=== PATIENT | female | born 1980 | race Caucasian/White ===

== ENCOUNTER 2023-08-22 18:43 | Outpatient (REF) | payer OTHER, SELFPAY ==
[2023-08-28 11:09] LABS: Age Gdln ACOG Testing Note (.); HPV Aptima Negative (Negative); IGP, Aptima HPV, rfx 16/18,45 Note (.)
== END 2023-08-22 18:44 | disposition home or self-care (01) ==
LOC: LAB 18:43
PROVIDERS: PCP Family Medicine; Visit Provider Obstetrics & Gynecology
DX: Z01.419 Encounter for gynecological examination (general) (routine) without abnormal findings (principal)
CPT/HCPCS: 87624; G0145

== ENCOUNTER 2023-09-18 16:52 | Outpatient (OUT) | payer OTHER, SELFPAY ==
--- NOTE | 2023-09-18 17:17 | MM_ITS ---
Patient Name BENITO DAHL MR# Age Sex Date Time [id number] F 09/18/2023 17:00 At the Request Of DR Moiz Mendiola . RADIOLOGY REPORT PROCEDURE: MM TOMOSYNTHESIS SCREENING BI COMPARISON: MG MAMM DIAGNOSTIC 3D OTTONIEL CAD, 06/02/2022. MG MAMM DX 3D LT CAD, 10/28/2021. MAMMO POST BIOPSY LEFT, 02/21/2021. MG MAMM SCREEN 3D OTTONIEL CAD, 02/03/2021. INDICATIONS: Screening Calculator Name NCI Breast Cancer Risk Assessment Tool 5 Year Breast Cancer Risk 1.60% Lifetime Breast Cancer Risk 12.70% Personal Breast Cancer No Personal Ovarian Cancer No Treatments None Family Cancers None LOCATION: [facility] BREAST COMPOSITION: Heterogeneously dense,which may obscure small masses. FINDINGS: DIAGNOSTIC CATEGORY 2--BENIGN FINDING: RIGHT BREAST: No significant suspicious finding. Scattered benign-appearing calcifications are present. No significant change has occurred. LEFT BREAST: No significant suspicious finding. Scattered benign-appearing calcifications are present. Stable biopsy marker clip. No significant change has occurred. RECOMMENDATIONS: ROUTINE MAMMOGRAM AND CLINICAL EVALUATION IN 12 MONTHS. PLEASE NOTE: A NORMAL MAMMOGRAM DOES NOT EXCLUDE THE POSSIBILITY OF BREAST CANCER. A CLINICALLY SUSPICIOUS PALPABLE LUMP SHOULD BE BIOPSIED. Dictated by: Edouard Watson M.D. on 09/19/2023 at 10:53 Approved by: Edouadr Watson M.D. on 09/19/2023 at 10:57
== END 2023-09-18 16:53 | disposition home or self-care (01) ==
LOC: MAMMO 16:52
PROVIDERS: PCP Family Medicine; Visit Provider Obstetrics & Gynecology
DX: Z12.31 Encounter for screening mammogram for malignant neoplasm of breast (principal)
CPT/HCPCS: 77063; 77067

== ENCOUNTER 2024-01-17 21:07 | Emergency (ER) | payer OTHER, SELFPAY ==
[2024-01-17] VITALS (13 sets, daily range): BP systolic 124–161; BP diastolic 70–97; PULSE 75–90; RESP 7–26; TEMP 37; O2SAT 94–100; BMI 26.6
--- NOTE | 2024-01-17 21:13 | ECG_ITS ---
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
--- OUTSIDE RECORDS SUMMARY | 2024-01-17 21:13 | XMS_ITS | CCD ---
Author Name Unknown Address [address] [place] [address] Organization [facility] Care Team Providers Care Container Coordinator Name Role Phone BRITTANEY CHRISTIANSEN Attending Unavailable AILEEN CASTELLANOS Referring Unavailable Jasmin, Aileen Unavailable GO MENDIOLA Admitting Unavailable JASMIN, DR GALLAGHER Primary Care Unavailable GO MENDIOLA Attending Unavailable GO MENDIOLA Consulting Unavailable HAY, DR EDOUARD Oh Consulting Unavailable VIRGILIO GASCA Attending Unavailable VIRGILIO GASCA Consulting Unavailable VIRGILIO GASCA Admitting Unavailable JASMIN, DR GALLAGHER Primary Care Unavailable MIGUEL MONZON Consulting Unavailable JASMIN, DR GALLAGHER Attending Unavailable GIRVIN, DR GALLAGHER Consulting Unavailable GIRVIN, DR GALLAGHER Primary Care Unavailable GIRVIN, DR GALLAGHER Admitting Unavailable GO MENDIOLA Consulting Unavailable JASMIN, DR GALLAGHER Primary Care Unavailable GO MENDIOLA Admitting Unavailable GO MENDIOLA Attending Unavailable JASMIN, DR GALLAGHER Attending Unavailable GIRVIN, DR GALLAGHER Consulting Unavailable GIRVIN, DR GALLAGHER Primary Care Unavailable GIRVIN, DR GALLAGHER Admitting Unavailable Allergies Allergy Classification Reported Allergen(s) Allergy Type Date of Onset Reaction(s) Facility (13 sources) Acetaminophen Drug Allergy [facility] Other (1 source) Acetaminophen Drug Allergy [facility] Repository Medications Current Medications Medication Drug Class(es) Dates Sig (Normalized) Sig (Original) ALPRAZolam 0.25 mg oral tablet (4 sources) Benzodiazepine Start: 12-11-2023 take 1 tablet by mouth once at bedtime as needed Xanax 0.25 MG 1 tablet Orally q HS prn for 28 days Nov, Active Start: 10-09-2023 Xanax 0.25 MG 1 tablet Orally q8-12 hrs prn for 7 days Sep, Active amoxicillin 875 mg / clavulanate 125 mg oral tablet (3 sources) Penicillin-class Antibacterial Start: 03-09-2019 take 1 tablet by mouth twice daily at mealtime Amoxicillin-Pot Clavulanate 875-125 MG 1 tablet Orally two times a day with food for 10 day(s) Feb, Active 24 hr buPROPion hydrochloride 300 mg extended release oral tablet (2 sources) Aminoketone Start: 05-23-2022 take 1 tablet by mouth every twenty-four hours Wellbutrin XL 300 MG 1 tablet in the morning Orally Once a day for 90 days May, Active Start: 05-23-2022 take 1 tablet by solomon th every twenty-four hours Wellbutrin XL 150 MG 1 tablet in the morning Orally Once a day for 30 day(s) May, Active ibuprofen 800 mg oral tablet (13 sources) Nonsteroidal Anti-inflammatory Drug take 1 tablet by mouth at mealtime as needed Ibuprofen 800 MG TAKE 1 TABLET BY MOUTH EVERY 8 TO 12 HOURS WITH FOOD NEEDED for 20 Active take 1 tablet by solomon th at mealtime as needed Ibuprofen 800 MG TAKE 1 TABLET BY MOUTH EVERY 8 TO 12 HOURS WITH FOOD NEEDED for 20 Active 3 ml liraglutide 6 mg/ml pen injector (14 sources) GLP-1 Receptor Agonist inject 1.8 mg by subcutaneous injection once daily Victoza 18 MG/3ML ADMINISTER 1.8 MG UNDER THE SKIN EVERY DAY for 30 Active inject 1.2 mg by sub cutaneous injection once daily Victoza 18 MG/3ML ADMINISTER 1.2 MG UNDER THE SKIN EVERY DAY for 30 Active 24 hr metFORMIN hydrochloride 500 mg extended release oral tablet (13 sources) Biguanide take 2 tablets by mouth once daily in the morning, then take 1 tablet by mouth once daily in the evening metFORMIN HCl ER 500 MG TAKE 2 TABLETS BY MOUTH EVERY MORNING AND 1 EVERY EVENING for 90 days Active sertraline 25 mg oral tablet (4 sources) Serotonin Reuptake Inhibitor Start: 3 take 0.5 tablet by mouth once daily, then take 1 tablet by mouth once daily Zoloft 25 MG 1/2 tablet qd x6 days and then take 1 tablet Orally Once a day for 30 days Sep, Active Sertraline HCl 5 0 MG take 1 and 1/2 tablet by mouth once a day for 30 days Active terbinafine 250 mg oral tablet (1 source) Allylamine Antifungal Start: 06-26-2023 take 1 tablet by mouth every twenty-four hours Terbinafine HCl 250 MG 1 tablet Orally Once a day for 15 days Jun, Active Completed/Discontinued Medications Medication Drug Class(es) Dates Sig (Normalized) Sig (Original) [id number] 60 actuat albuterol 0.09 mg/actuat metered dose inhaler (13 sources) beta2-Adrenergic Agonist take 2 puff(s) by mouth four times daily as needed Albuterol Sulfate HFA 108 (90 Base) MCG/ACT INHALE 2 PUFFS BY MOUTH INTO THE LUNGS FOUR TIMES DAILY NEEDED for 25 prn Not-Taking/PRN take 2 puff(s) by mo uth four times daily as needed Albuterol Sulfate HFA 108 (90 Base) MCG/ ACT INHALE 2 PUFFS BY MOUTH INTO THE LUNGS FOUR TIMES DAILY NEEDED for 25 prn Not-Taking take 2 puff(s) by mo uth four times daily as needed Albuterol Sulfate HFA 108 (90 Base) MCG/ ACT INHALE 2 PUFFS BY MOUTH INTO THE LUNGS FOUR TIMES DAILY NEEDED for 25 Active cetirizine hydrochloride 10 mg oral tablet (13 sources) Histamine-1 Receptor Antagonist take 1 tablet by mouth once daily as needed Cetirizine HCl 10 MG TAKE 1 TABLET BY MOUTH EVERY DAY prn Not-Taking/PRN Triamcinolone (20 sources) Corticosteroid Start: 01-17-20 20 Kenalog -40 mg Jan, 60 mg Start: 07-29-2018 KENALOG - 10 m g Jul, 40 mg Problems Active Problems Problem Classification Problem Date Documented Da te Episodic/Chronic Anxiety disorders (7 sources) Anxiety; Translations: [Anxiety disorder, unspecified] Chronic Diabetes mellitus with complications (14 sources) Type II diabetes mellitus uncontrolled; Translations: [Type 2 diabetes mellitus with hyperglycemia] Onset: 05-23-2022 Resolved: 05-23-2022 Chronic Diabetes mellitus without complication (11 sources) Type 2 diabetes mellitus; Translations: [Type 2 diabetes mellitus without complications] Onset: 12-05-2022 Chronic Diabetes mellitus without complication (13 sources) Hyperglycemia; Translations: [Hyperglycemia, unspecified] Episodic Disorders of lipid metabolism (16 sources) Hyperlipidemia; Translations: [Hyperlipidemia, unspecified] Onset: 05-23-2022 Resolved: 05-23-2022 Chronic Genitourinary symptoms and ill-defined conditions (3 sources) Frequency of micturition; Translations: [Proteinuria, unspecified] Onset: 05-23-2022 Resolved: 05-23-2022 Episodic Malaise and fatigue (1 source) Other fatigue Episodic Mood disorders (4 sources) Depressive disorder; Translations: [Major depressive disorder, single episode, unspecified] Chronic Mycoses (1 source) Tinea pedis Episodic Other aftercare (13 sources) Long-term current use of drug therapy; Translations: [Other halfway (current) drug therapy] Episodic Other aftercare (4 sources) Other halfway (current) drug therapy; Translations: [OTH TRANSPORT MANAGER CURRENT DRUG THERAPY] Onset: 05-23-2022 Resolved: 05-23-2022 Episodic Other liver diseases (13 sources) Elevated liver enzymes level; Translations: [Abnormal levels of other serum enzymes] Episodic Other nervous system disorders (13 sources) Skin sensation disturbance; Translations: [Paresthesia of skin] Episodic Other nervous system disorders (13 sources) Paresthesia of upper limb; Translations: [Paresthesia of skin] Episodic Other nutritional; endocrine; and metabolic disorders (2 sources) Abnormal weight loss Onset: 05-23-2022 Resolved: 05-23-2022 Episodic Other nutritional; endocrine; and metabolic disorders (1 source) Abnormal weight gain Episodic Other screening for suspected conditions (not mental disorders or infectious disease) (20 sources) Mammography abnormal; Translations: [Other abnormal and inconclusive findings on diagnostic imaging of breast] Onset: 06-02-2022 Episodic Other skin disorders (1 source) Other seborrheic keratosis Episodic Other upper respiratory disease (13 sources) Allergic rhinitis; Translations: [Allergic rhinitis, unspecified] Chronic Other upper respiratory disease (1 source) Allergic rhinitis, unspecified Onset: 05-23-2022 Resolved: 05-23-2022 Chronic Residual codes; unclassified (13 sources) Insomnia; Translations: [Insomnia, unspecified] Episodic Substance-related disorders (20 sources) Nicotine dependence; Translations: [Nicotine dependence, unspecified, uncomplicated] Onset: 05-23-2022 Resolved: 06-20-2022 Chronic Unclassified (3 sources) CONTACT W/AND (SUSP) EXPOS COVID-19; Translations: [CONTACT W/AND (SUSP) EXPOS COVID-19] Onset: 06-21-2022 Viral infection (1 source) Molluscum contagiosum Episodic Viral infection (5 sources) COVID-19; Translations: [COVID-19] Onset: 10-23-2022 Past or Other Problems Problem Classification Problem Date Documented Date Episodic/Chronic Abdominal pain (3 sources) Left lower quadrant pain; Translations: [LEFT LOWER QUADRANT PAIN] Onset: 12-01-2022 Episodic Immunizations and screening for infectious disease (1 source) Encounter for screening for human papillomavirus (HPV); Translations: [ENC SCREENING HUMAN PAPILLOMAVIRUS] Onset: 08-16-2022 Episodic Nonmalignant breast conditions (1 source) Unspecified lump in the left breast, upper outer quadrant; Translations: [UNS LUMP IN LT BREAST UPR OUTR QUAD] Onset: 10-23-2022 Episodic Other aftercare (1 source) terminal superintendent (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) use 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 drugs; Translations: [TRANSPORT MANAGER USE ORAL HYPOGLYCEMIC DX] Onset: 12-05-2022 Episodic Other circulatory disease (3 sources) Other specified symptoms and signs involving the circulatory and respiratory systems; Translations: [OTH SPEC SX SIGNS INVLV CIRC RS] Onset: 06-20-2022 Resolved: 06-20-2022 Episodic Otitis media and related conditions (1 source) Otitis media, unspecified, left ear Onset: 06-20-2022 Resolved: 06-20-2022 Episodic Residual codes; unclassified (2 sources) Pain, unspecified; Translations: [PAIN UNSPECIFIED] Onset: 06-20-2022 Resolved: 06-20-2022 Episodic Screening and history of mental health and substance abuse codes (1 source) Personal history of nicotine dependence; Translations: [PERSONAL HISTORY OF NICOTINE DEPEND] Onset: 12-05-2022 Episodic Unclassified (1 source) Cough R05.9 Unclassified (1 source) CONTACT W/AND (SUSP) EXPOS COVID-19; Translations: [CONTACT W/AND (SUSP) EXPOS COVID-19] Onset: 06-20-2022 Urinary tract infections (1 source) Urinary tract infection, site not specified; Translations: [UTI SITE NOT SPECIFIED] Onset: 12-05-2022 Episodic Results Test Name Value Interpretation Reference Range Facility CULTURE URINEon 12-04-2022 CULTURE URINE Isolate 1 Escherichia coli 50,000 cfu/mL of ORGANISM 1 Escherichia coli ANTIBIOTIC M.I.C RX STATUS Ampicillin >=32 R F Ampicillin/Sulbactam 16 I F Piperacillin/Tazobact am <=4 S F Cefazolin <=4 S F Ceftazidime <=1 S F Ceftriaxone <=1 S F Ertapenem <=0.5 S F Imipenem <=0.25 S F Amikacin <=2 S F Gentamicin <=1 S F Tobramycin <=1 S F Ciprofloxacin >=4 R F Levofloxacin >=8 R F Nitrofurantoin <=16 S F Trimethoprim/Sulfamet hoxazole <=20 S F Normal [facility] Comment on above: Performed By: #### U RCX #### [facility] [address] [place] [address] Dr. Sheldon Morse CBC AUTO DIFFon 12-01-2022 BASO # 0.0 103/ul Normal 0.0-0.1 [facility] Comment on above: Performed By: #### C BC #### [facility] [address] [place] [address] Dr. Sheldon Morse Basophils/100 WBC (Bld) 0.4 % Normal 0.2-2.0 [facility] Comment on above: Performed By: #### C BC #### [facility] [address] [place] [address] Dr. Sheldon Morse EO # 0.1 103/ul Normal 0.0-0.7 [facility] Comment on above: Performed By: #### C BC #### [facility] [address] [place] [address] Dr. Sheldon Morse Eosinophils/100 WBC (Bld) 0.5 % Critically low 0.9-7.0 [facility] Comment on above: Performed By: #### C BC #### [facility] [address] [place] [address] Dr. Sheldon Morse Erythrocyte distribution width (RBC) [Ratio] 12.2 % Normal 11.0-15.0 [facility] Comment on above: Performed By: #### C BC #### [facility] [address] [place] [address] Dr. Sheldon Morse Hematocrit (Bld) [Volume fraction] 37.5 % Normal 36.0-48.0 [facility] Comment on above: Performed By: #### C BC #### [facility] [address] [address] [address] Sheldon Morse Hemoglobin (Bld) [Mass/Vol] 13.9 g/dL Normal 12.0-16.0 [facility] Comment on above: Performed By: #### C BC #### [facility] [address] [address] [address] Sheldon Morse IG # 0.06 10e3/ul Critically high 0.00-0.03 [facility] Comment on above: Performed By: #### C BC #### [facility] [address] [address] [address] Sheldon Morse IG % 0.5 % Normal 0.0-0.5 [facility] Comment on above: Performed By: #### C BC #### [facility] [address] [place] [address] Dr. Sheldon Morse LYMPH # 2.4 103/ul Normal 1.2-3.8 [facility] Comment on above: Performed By: #### C BC #### [facility] [address] [address] [address] Sheldon Morse Lymphocytes/100 WBC (Bld) 21.3 % Normal 20.5-60.0 [facility] Comment on above: Performed By: #### C BC #### [facility] [address] [place] [address] Dr. Sheldon Morse MANUAL DIFF REQ NO Normal [facility] Comment on above: Performed By: #### C BC #### [facility] [address] [place] [address] Dr. Sheldon Morse MCH (RBC) [Entitic mass] 30.3 pg Normal 26.7-34.0 [facility] Comment on above: Performed By: #### C BC #### [facility] [address] [address] [address] Sheldon Morse MCHC (RBC) [Mass/Vol] 37.1 g/dL Critically high 29.9-35.2 [facility] Comment on above: Performed By: #### C BC #### [facility] [address] [address] [address] Sheldon Morse MCV (RBC) [Entitic vol] 81.9 fL Normal 81.0-99.0 [facility] Comment on above: Performed By: #### C BC #### [facility] [address] [address] [address] Sheldon Morse MONO # 0.7 103/ul Normal 0.3-0.8 [facility] Comment on above: Performed By: #### C BC #### [facility] [address] [address] [address] Sheldon Morse Monocytes/100 WBC (Bld) 6.3 % Normal 1.7-12.0 [facility] Comment on above: Performed By: #### C BC #### [facility] [address] [place] [address] Dr. Sheldon Morse NEUT # 7.8 103/ul Critically high 1.4-6.5 [facility] Comment on above: Performed By: #### C BC #### [facility] [address] [place] [address] Dr. Sheldon Morse Neutrophils/100 WBC (Bld) 71.0 % Normal 43.0-75.0 [facility] Comment on above: Performed By: #### C BC #### [facility] [address] [place] [address] Dr. Sheldon Morse Platelet mean volume (Bld) [Entitic vol] 9.8 fL Normal 9.5-13.5 [facility] Comment on above: Performed By: #### C BC #### [facility] [address] [place] [address] Dr. Sheldon Morse PLT 184 103/ul Normal 150-450 [facility] Comment on above: Performed By: #### C BC #### [facility] [address] [address] [address] Sheldon Morse RBC 4.58 106/ul Normal 4.20-5.40 [facility] Comment on above: Performed By: #### C BC #### [facility] [address] [place], [place] [address] Dr. Sheldon Morse WBC 11.0 103/ul Normal 4.0-11.0 [facility] Comment on above: Performed By: #### C #### [facility] [address] [place], [place] [address] ABD/PELVIS WO CONon 12-01 CT ABD/PELVIS WO CON INDICATION: CALCULUS OF KIDNEY urinary retention x's 1 month (on/off) LLQ pain w/ urinary problem EXAMINATION: CT ABDOMEN AND PELVIS WITHOUT CONTRAST TECHNIQUE: Helically acquired images were obtained of the abdomen and pelvis without IV contrast. A radiation dose optimization technique was used for this scan. ORAL CONTRAST: None. COMPARISON: None. __ FINDINGS: LOWER CHEST: The visualized portions of the lung bases are clear. The heart size is within normal limits. A pericardial effusion is not identified. LIVER: No hepatic mass or lesion is identified. Diminished hepatic attenuation suggests mild fatty infiltration of the GALLBLADDER AND BILIARY TREE: No gallstones are identified. The gallbladder does not appear distended. No gallbladder wall thickening is identified. There is no visible pericholecystic fluid. No intra- or extrahepatic biliary ductal dilation is identified. STOMACH: Unremarkable. PANCREAS: A pancreatic mass or lesion is not identified. The pancreatic duct does not appear dilated. SPLEEN: A splenic lesion is not identified. ADRENAL GLANDS: The adrenal glands appear normal. KIDNEYS AND URETERS: The kidneys appear normal. The ureters are unremarkable in appearance. PERITONEUM: No free intra-abdominal air is identified. No free pelvic fluid is detected. BOWEL: No bowel distension is observed. No significant colonic diverticula are observed. LYMPH NODES: No enlarged mesenteric or retroperitoneal lymph nodes. VESSELS: An aneurysm is not identified. There are rare calcifications in the abdominal aorta. UTERUS: Normal in morphology. No mass or distortion detected. OVARIES: Unremarkable in appearance. URINARY BLADDER: Unremarkable. ABDOMINAL WALL: No abdominal or pelvic wall hernia. APPENDIX: The appendix appears normal. MUSCULOSKELETAL: No lytic or blastic abnormality. IMPRESSION: 1. Mild fatty infiltration of the liver. 2. No CT evidence of obstructive uropathy. 3. No urinary calculi detected. 4. An acute abnormality is not observed. Electronically authenticated by: MIGUEL MONZON Date: 2022-12-01 17:08 Normal [facility] ER URINE PROFILEon 3 Bilirubin Ql (U) Negative Normal NEGATIVE [facility] Comment on above: Performed By: #### E RUR, PREGU, UMICRO #### [facility] [address] [address] [address] Sheldon Morse Clarity (U) SL CLOUDY Abnormal CLEAR [facility] Comment on above: Performed By: #### E RUR, PREGU, UMICRO #### [facility] [address] [address] [address] Sheldon Morse Color (U) LT. YELLOW Normal YELLOW [facility] Comment on above: Performed By: #### E RUR, PREGU, UMICRO #### [facility] [address] [address] [address] Sheldon SOLANO A micrscopic examination will be performed if indicated. Normal [facility] Comment on above: Performed By: #### E RUR, PREGU, UMICRO #### [facility] [address] [address] [address] Sheldon Morse Glucose Ql (U) Negative Normal NEGATIVE [facility] Comment on above: Performed By: #### E RUR, PREGU, UMICRO #### [facility] [address] [address] [address] Sheldon Morse Hemoglobin Ql (U) LARGE Abnormal NEGATIVE The [facility] Comment on above: Performed By: #### E RUR, PREGU, UMICRO #### [facility] [address] [address] [address] Sheldon Morse Ketones Ql (U) Negative Normal NEGATIVE [facility] Comment on above: Performed By: #### E RUR, PREGU, UMICRO #### [facility] [address] [address] [address] Sheldon Morse LEUKOCYTES LARGE Abnormal NEGATIVE [facility] Comment on above: Performed By: #### E RUR, PREGU, UMICRO #### [facility] [address] [place] [address] Dr. Sheldon Morse Nitrite Ql (U) Negative Normal NEGATIVE [facility] Comment on above: Performed By: #### E RUR, PREGU, UMICRO #### [facility] [address] [place] [address] Dr. Sheldon Morse pH (U) 6.0 [pH] Normal 5-9 [facility] Comment on above: Performed By: #### E RUR, PREGU, UMICRO #### [facility] [address] [place] [address] Dr. Sheldon Morse Protein (U) [Mass/Vol] 30 mg/dL Abnormal NEGATIVE/ TRACE [facility] Comment on above: Performed By: #### E RUR, PREGU, UMICRO #### [facility] [address] [place] [address] Dr. Sheldon Morse SPEC GRAVITY 1.025 Normal 1.005-<=1.025 [facility] Comment on above: Performed By: #### Bharat CASTANEDA PREGU, UMICRO #### [facility] [address] [place] [address] Dr. Sheldon Morse UR MICRO IND INDICATED Normal [facility] Comment on above: Performed By: #### E RUR, PREGU, UMICRO #### [facility] [address] [place] [address] Dr. Sheldon Morse Urobilinogen Qn (U) 0.2 {José'U}/dL Normal 0.2 - 1. 0 [facility] Comment on above: Performed By: #### E RUR PREGU, UMICRO #### [facility] [address] [place] [address] Dr. Sheldon Morse LIPASEon 12-01-2022 Lipase [Catalytic activity/Vol] 64.0 U/L Critically low 73.0-393.0 [facility] Comment on above: Performed By: #### E RUR, PREGU, UMICRO #### [facility] [address] [place] [address] Dr. Sheldon Morse URon 12-01-2022 , QUAL Negative Normal NEGATIVE [facility] Comment on above: Performed By: #### E RURERUMU, UMICRO #### [facility] [address] [place] [address] Dr. Sheldon Morse PROF 14(COMP METB)on 023 Albumin [Mass/Vol] 4.2 g/dL Normal 3.4-5.0 [facility] Comment on above: Performed By: #### C MP, LIPA #### [facility] [address] [place] [address] Dr. Sheldon Morse Albumin/Globulin [Mass ratio] 1.3 {ratio} Normal [facility] Comment on above: Performed By: #### C MP, LIPA #### [facility] [address] [place] [address] Dr. Sheldon Morse ALP [Catalytic activity/Vol] 74 U/L Normal 46-116 [facility] Comment on above: Performed By: #### C MP, LIPA #### [facility] [address] [place] [address] Dr. Sheldon Morse ALT [Catalytic activity/Vol] 39 U/L Normal 14-59 [facility] Comment on above: Performed By: #### C MP, LIPA #### [facility] [address] [place] [address] Dr. Sheldon Morse Anion gap [Moles/Vol] 13.9 mmol/L Normal [facility] Comment on above: Performed By: #### C MP, LIPA #### [facility] [address] [place] [address] Dr. Sheldon Morse AST [Catalytic activity/Vol] 20 U/L Normal 15-37 [facility] Comment on above: Performed By: #### C MP, LIPA #### [facility] [address] [place] [address] Dr. Sheldon Morse Bilirubin [Mass/Vol] 0.5 mg/dL Normal 0.2-1.0 [facility] Comment on above: Performed By: #### C MP, LIPA #### [facility] [address] [address] [address] Sheldon Morse Calcium [Mass/Vol] 9.1 mg/dL Normal 8.5-10.1 [facility] Comment on above: Performed By: #### C MP, LIPA #### [facility] [address] [address] [address] Sheldon Morse Chloride [Moles/Vol] 102 mmol/L Normal 98-107 [facility] Comment on above: Performed By: #### C MP, LIPA #### [facility] [address] [address] [address] Sheldon Morse CO2 [Moles/Vol] 26.1 mmol/L Normal 21.0-32.0 [facility] Comment on above: Performed By: #### C MP, LIPA #### [facility] [address] [place] [address] Dr. Sheldon Morse Creatinine [Mass/Vol] 0.72 mg/dL Normal 0.55-1.02 [facility] Comment on above: Performed By: #### C MP, LIPA #### [facility] [address] [place] [address] Dr. Sheldon Morse EGFR-AF BRITISH >60 Normal >=60 [facility] Comment on above: Performed By: #### C MP, LIPA #### [facility] [facility] [address] [place] [address] Dr. Sheldon Morse EGFR-NON AF BRITISH >60 Normal >=60 [facility] Comment on above: Performed By: #### C MP, LIPA #### [facility] [address] [address] [address] Sheldon Morse Globulin (S) [Mass/Vol] 3.2 g/dL Normal [facility] Comment on above: Performed By: #### C MP, LIPA #### [facility] [address] [address] [address] Sheldon Morse Glucose [Mass/Vol] 126 mg/dL Critically high 74-106 [facility] Comment on above: Performed By: #### C MP, LIPA #### [facility] [address] [address] [address] Sheldon Morse Potassium [Moles/Vol] 4.0 mmol/L Normal 3.5-5.1 [facility] Comment on above: Performed By: #### C MP, LIPA #### [facility] [address] [place] [address] Dr. Sheldon Morse Protein [Mass/Vol] 7.4 g/dL Normal 6.4-8.2 [facility] Comment on above: Performed By: #### C MP, LIPA #### [facility] [address] [place] [address] Dr. Sheldon Morse Sodium [Moles/Vol] 138 mmol/L Normal 136-145 [facility] Comment on above: Performed By: #### C MP, LIPA #### [facility] [address] [place] [address] Dr. Sheldon Morse Urea nitrogen [Mass/Vol] 11.0 mg/dL Normal 7.0-18.0 [facility] Comment on above: Performed By: #### C MP, LIPA #### [facility] [address] [place] [address] Dr. Sheldon Morse Urea nitrogen/Creatinine [Mass ratio] 15.3 mg/mg Normal [facility] Comment on above: Performed By: #### C MP, LIPA #### [facility] [address] [place] [address] Dr. Sheldon Morse URINE MICROSCOPIC ONLYon BACTERIA TRACE Abnormal NONE SEEN [facility] Comment on above: Performed By: #### E RUR, PREGU, UMICRO #### [facility] [address] [place] [address] Dr. Sheldon Morse Bacteria identified Cx Nom (U) INDICATED Normal [facility] Comment on above: Performed By: #### E RUR, PREGU, UMICRO #### [facility] [address] [place] [address] Dr. Sheldon Morse CAST NONE SEEN Normal NONE SEEN [facility] Comment on above: Performed By: #### E RUR, PREGU, UMICRO #### [facility] [address] [address] [address] Sheldon Morse Crystals LM Nom (Urine sed) NONE SEEN Normal NONE SEEN [facility] Comment on above: Performed By: #### E RUR, PREGU, UMICRO #### [facility] [address] [address] [address] Sheldon Morse Epithelial cells LM Ql (Urine sed) NONE SEEN Normal NONE SEEN /RARE [facility] Comment on above: Performed By: #### E RUR, PREGU, UMICRO #### [facility] [address] [address] [address] Sheldon Morse MUCOUS NONE SEEN Normal NONE SEEN [facility] Comment on above: Performed By: #### E RUR, PREGU, UMICRO #### [facility] [address] [place] [address] Dr. Sheldon Morse RBC 0-2 Normal 0-2 [facility] Comment on above: Performed By: #### E RUR, PREGU, UMICRO #### [facility] [address] [address] [address] Sheldon Morse WBC 75-100 Abnormal NONE SEEN [facility] Comment on above: Performed By: #### E RUR, PREGU, UMICRO #### [facility] [address] [address] [address] Sheldon Morse [facility]on 10-12 SARS-CoV-2 (COVID-19) RNA BRIGID+probe Ql (Unsp spec) Detected Critically abnormal NOT DETECTED [facility] Comment on above: Result Comment: This test is not yet approved or cleared by the [place] FDA. When there are no FDA-approved or cleared tests available, and other criteria are met, FDA can make tests available under an emergency access mechanism called an Emergency Use Authorization (EUA). The EUA for this test is supported by the [employer] Technician of Health and Human Service's (HHS's) declaration that circumstances exist to justify the emergency use of in vitro diagnostics for the detection and/or diagnosis of the virus that causes COVID-19. This EUA will remain in effect (meaning this test can be used) for the duration of the COVID-19 declaration justifying emergency of IVDs, unless it is terminated or revoked by FDA (after which the test may no longer be used). Performed By: #### E RUR PREGU UMICRO #### [facility] [address] [place] [address] Dr. Sheldon Morse PAP ACOG PANEL 2: 30 to 65on 08-24-2022 . . Normal [facility] Comment on above: Result Comment: Perf ormed at: WB Performed By: #### E RUR PREGU UMICRO #### [facility] [address] [place] [address] Dr. Sheldon Morse Age Gdln ACOG Testing 30-65 Normal [facility] Comment on above: Performed By: #### E RUR PREGU, UMICRO #### [facility] [address] [place] [address] Dr. Sheldon Morse DIAGNOSIS: Comment Normal [facility] Comment on above: Result Comment: NEGA TIVE FOR INTRAEPITHELIAL LESION OR MALIGNANCY. REACTIVE CELLULAR CHANGES AND/OR REPAIR ARE PRESENT. Performed at: WB Performed By: #### E YAMILA CASTANEDA UMICRO #### [facility] [address] [place] [address] Dr. Sheldon Morse Electronically signed by: Comment Normal [facility] Comment on above: Result Comment: Esperanza Holm MD, Pathologist Performed at: WB Performed By: #### E RUAdriano PREGU UMICRO #### [facility] [address] [place] [address] Dr. Sheldon Morse HPV Aptima Negative Normal Negative [facility] Comment on above: Result Comment: This nucleic acid amplification test detects fourteen high-risk HPV types (16,18,31,33,35,39,45,51,52,56,58,59,66,68) without differentiation. Performed at: =G Performed By: #### E RUR PREGU, UMICRO #### [facility] [address] [place] [address] Dr. Sheldon Morse Methodology: Comment Normal [facility] Comment on above: Result Comment: This liquid based ThinPrep(R) pap test was screened with the use of an image guided system. Performed at: WB Performed By: #### YAMILA GARCIA UMICRO #### [facility] [address] [address] [address] Sheldon Morse Note: Comment Normal [facility] Comment on above: Result Comment: The Pap smear is a screening test designed to aid in the detection of premalignant and malignant conditions of the uterine cervix. It is not a diagnostic procedure and should not be used as the sole means of detecting cervical cancer. Both false-positive and false-negative reports do occur. . Performed at: WB Performed By: #### YAMILA GARCIA UMICRO #### [facility] [address] [address] [address] Sheldon Morse Performed by: Comment Normal [facility] Comment on above: Result Comment: Desean Stoll, Insole Filler (ASCP) Performed at: WB Performed By: #### YAMILA GARCIA UMICRO #### [facility] [address] [address] [address] Sheldon Morse Specimen adequacy: Comment Normal [facility] Comment on above: Result Comment: Sati sfactory for evaluation. Endocervical and/or squamous metaplastic cells (endocervical component) are present. Performed at: WB Performed By: #### YAMILA GARCIA UMICRO #### [facility] [address] [address] [address] Sheldon Morse [facility]id-19 PCR ([facility]on SARS-CoV-2 (COVID-19) RNA BRIGID+probe Ql (Unsp spec) Not detected Normal NOT DETECTED [facility] Comment on above: Result Comment: This test is not yet approved or cleared by the [place] FDA. When there are no FDA-approved or cleared tests available, and other criteria are met, FDA can make tests available under an emergency access mechanism called an Emergency Use Authorization (EUA). The EUA for this test is supported by the Victor of Health and Human Service's (HHS's) declaration that circumstances exist to justify the emergency use of in vitro diagnostics for the detection and/or diagnosis of the virus that causes COVID-19. This EUA will remain in effect (meaning this test can be used) for the duration of the COVID-19 declaration justifying emergency of IVDs, unless it is terminated or revoked by FDA (after which the test may no longer be used). When diagnostic testing is negative, the possibility of a false negative should be considered in the context of a patient's recent exposures and the presence of clinical signs and symptoms consistent with SARS-CoV-2. Performed By: #### [facility] #### [facility] [address] [place] [address] Dr. Sheldon Morse MG MAMM DIAGNOSTIC 3D OTTONIEL CA Don 06-02-2022 MG MAMM DIAGNOSTIC 3D OTTONIEL CAD Patient: DEBBY DURBIN Exam Date: 06/02/2022 : 1980 Gender:F Ordering : DR GO MENDIOLA . Admission #: [id number] Family : Order #: [id number] CLICK HERE TO VIEW EXAM RADIOLOGY REPORT PROCEDURE: MAMMOGRAM DIAGNOSTIC 3D BILATERAL CAD, 06/02/2022, 14:04 ULTRASOUND BREAST LEFT LIMITED, 06/02/2022, 14:57 COMPARISON: US BREAST LEFT LIMITED, 10/28/2021. MG MAMM DX 3D LT CAD, 10/28/2021. MAMMO POST BIOPSY LEFT, 02/21/2021. INDICATIONS: Lump in left breast Calculator Name NCI Breast Cancer Risk Assessment Tool 5 Year Breast Cancer Risk 1.40% Lifetime Breast Cancer Risk 12.90% Personal Breast Cancer No Personal Ovarian Cancer No Treatments None Family Cancers None LOCATION: [facility] BREAST COMPOSITION: Heterogeneously dense,which may obscure small masses. FINDINGS: DIAGNOSTIC CATEGORY 2--BENIGN FINDING: RIGHT BREAST: No significant suspicious finding. Scattered benign-appearing calcifications are present. No significant change has occurred. LEFT BREAST: Skin surface marker over the upper outer quadrant localizing the palpable lump. No appreciable mammographic abnormality. Stable small mass with associated biopsy marker clip within lower-inner quadrant. Ultrasound evaluation demonstrates an 8 x 7 x 3 mm hypoechoic cyst versus lymph node at the 2 o'clock position 3.7 cm from the nipple, and an adjacent 7 x 5 x 1 mm hypoechoic cyst versus lymph node. No suspicious findings. RECOMMENDATIONS: ROUTINE MAMMOGRAM AND CLINICAL EVALUATION IN 12 MONTHS. PLEASE NOTE: A NORMAL MAMMOGRAM DOES NOT EXCLUDE THE POSSIBILITY OF BREAST CANCER. A CLINICALLY SUSPICIOUS PALPABLE LUMP SHOULD BE BIOPSIED. Dictated by: Edouard Watson M.D. on 06/02/2022 at 15:24 Approved by: Edouard Watson M.D. on 06/02/2022 at 15:32 Normal [facility] US BREAST LEFT LIMITEDon US BREAST LEFT LIMITED Patient: DEBBY DURBIN Exam Date: 06/02/2022 : 1980 Gender:F Ordering : DR GO MENDIOLA . Admission #: [id number] Family : Order #: [id number] CLICK HERE TO VIEW EXAM RADIOLOGY REPORT PROCEDURE: MAMMOGRAM DIAGNOSTIC 3D BILATERAL CAD, 06/02/2022, 14:04 ULTRASOUND BREAST LEFT LIMITED, 06/02/2022, 14:57 COMPARISON: US BREAST LEFT LIMITED, 10/28/2021. MG MAMM DX 3D LT CAD, 10/28/2021. MAMMO POST BIOPSY LEFT, 02/21/2021. INDICATIONS: Lump in left breast Calculator Name NCI Breast Cancer Risk Assessment Tool 5 Year Breast Cancer Risk 1.40% Lifetime Breast Cancer Risk 12.90% Personal Breast Cancer No Personal Ovarian Cancer No Treatments None Family Cancers None LOCATION: [facility] BREAST COMPOSITION: Heterogeneously dense,which may obscure small masses. FINDINGS: DIAGNOSTIC CATEGORY 2--BENIGN FINDING: RIGHT BREAST: No significant suspicious finding. Scattered benign-appearing calcifications are present. No significant change has occurred. LEFT BREAST: Skin surface marker over the upper outer quadrant localizing the palpable lump. No appreciable mammographic abnormality. Stable small mass with associated biopsy marker clip within lower-inner quadrant. Ultrasound evaluation demonstrates an 8 x 7 x 3 mm hypoechoic cyst versus lymph node at the 2 o'clock position 3.7 cm from the nipple, and an adjacent 7 x 5 x 1 mm hypoechoic cyst versus lymph node. No suspicious findings. RECOMMENDATIONS: ROUTINE MAMMOGRAM AND CLINICAL EVALUATION IN 12 MONTHS. PLEASE NOTE: A NORMAL MAMMOGRAM DOES NOT EXCLUDE THE POSSIBILITY OF BREAST CANCER. A CLINICALLY SUSPICIOUS PALPABLE LUMP SHOULD BE BIOPSIED. Dictated by: Edouard Watson M.D. on 06/02/2022 at 15:24 Approved by: Edouard Watson M.D. on 06/02/2022 at 15:32 Normal [facility] 12-27-2018 CN Office Visit (NSFRVW ) HESHAMDEBBY Nicholson ([id number]) 1980 F Date Time Provider Department 12/27/18 8:10 AM BRITTANEY CHRISTIANSEN NSFRVW During your visit today, we recorded the following information about you: Temperature Pulse Respiration Blood pressure 98.1 degrees 72/minute 16/minute 131/77 Weight Height 86.2 kg 1.753 m Brittaney Christiansen MD 12/27/2018 10:18 AM Signed SPINE SURGERY NEW PATIENT PCP: Aileen Castellanos DO REFERRING PROVIDER: Dr. Castellanos SUBJECTIVE Debby Bharat Durbin is a 38 year old female presenting with spouse. CHIEF COMPLAINT: right arm tingling HISTORY OF PRESENT ILLNESS: She had symptoms which started around September with neck pain into the right upper arm and tingling in the right 1st to 3rd fingertips. The pain lasted about one month and then this has resolved. Currently she has numbness/tingling in the right 1st to 3rd fingertips which comes and goes. She denies any weakness. No balance problems. She tried PT but this made her feel worse. No injections. Smoking about 15 cigarettes a day. She is working. PRECIPITATING EVENT: None DURATION OF SYMPTOMS: Greater Than 6 Weeks PAIN EVALUATION 12/27/2018 Pain Location: Shoulder-Right right side mainly Description: Numbness numbness in fingers Duration Amount of Time: - did not specify Duration Units: Unknown Frequency: Continuous DERMATOMAL DISTRIBUTION: Right: C7 AMBULATORY STATUS: Independent Community Distances ANTIPLATELET OR ANTICOAGULATION STATUS: No PREVIOUS CONSERVATIVE TREATMENTS: OTC NSAIDS for 3 Months or Greater (Ibuprofen) Muscle Relaxants Oral Steroids Physical Therapy: Date(s) PREVIOUS SPINAL SURGERY: None There is no problem list on file for this patient. No past medical history on file. PAST SURGICAL HISTORY Procedure Laterality Date - DELIVERY ONLY 07/05/00 , low cervical FAMILY HISTORY Problem Relation Age of Onset - Hypertension Mother - None Father - None Brother Social History Marital status: Single Spouse name: Years of education: Number of children: Social History Main Topics Smoking status: Current Every Day Smoker Packs/day: 1.00 Years: 9.00 Types: Cigarettes Alcohol use: Yes Comment: rare ALLERGIES No Known Allergies MEDICATIONS: zolpidem (AMBIEN) 10 mg tab TAKE 1 TABLET BY MOUTH EVERYDAY AT BEDTIME metFORMIN ER (GLUCOPHAGE XR) 500 mg 24 hr tablet TAKE 2 TABLETS IN THE MORNING AND 1 TABLET IN THE EVENING LISINOPRIL 5 MG TABLET Take one (1) tablet daily. TOPROL XL 25 MG TABLET SA 1 pill QD [id number] TABLET as directed REVIEW OF SYSTEMS: PAIN ASSESSMENT: See HPI. GENERAL: Denies fever, chills malaise and weight loss. HEENT: No recent change in vision or hearing. CARDIOVASCULAR: Denies chest pain. RESPIRATORY: Denies SOB, sputum production, and hemoptysis. GI: No nausea and vomiting : Denies change in frequency or urgency, kidney disease, and burning with urination. MUSCULOSKELETAL: Positive for See HPI PSYCHOLOGICAL: Denies uncontrolled depression or anxiety. NEURO: Denies seizures, headaches. ENDOCRINE: Denies diabetes, thyroid disease. HEMATOLOGY/LYMPHOLOGY : Denies cancer, bleeding or clotting disorders and DVT's. OBJECTIVE: PHYSICAL EXAM BP 131/77 Pulse 72 Temp 36.7 ?C (98.1 ?F) Resp 16 Ht 175.3 cm (5' 9 ) Wt 86.2 kg (190 lb) SpO2 99% BMI 28.06 kg/m? GENERAL APPEARANCE: Well nourished, well developed, and no apparent distress. NEURO PSYCH: Patient oriented to person, place, and time. Mood pleasant. Benign affect. CARDIOVASCULAR: No edema noted. No varicosities. SKIN: Head, neck, trunk, and extremities dry, intact and without lesions. LYMPHATICS: Groin exam deferred. MUSCULOSKELETAL VISUAL INSPECTION CERVICAL: WNL THORACIC: WNL LUMBAR: WNL PALPATION: SPINOUS PROCESS: No pain. PARASPINALS: No pain. MUSCLE BULK: Normal and symmetrical in the upper AND lower extremities. MUSCLE TONE: Normal. MOTOR: 5/5 in all muscle groups. SENSORY: Normal sensory exam GAIT: Normal. REFLEXES: +2 to bilateral U/L extremities. PROPRIOCEPTION: Not tested. LONG TRACT SIGNS: No clonus. No Hoffmans. NEURO TESTS: None DATA REVIEW [facility] records reviewed Cami Velasco PA-C ASSESSMENT/PLAN Pain has resolved. She will call if symptoms return. Debby Durbin will continue with medical management of his/her condition. 1. No Orders Entered Today 2. Follow up: PRN I reviewed the information obtained and documented by the physician technician assistant. I examined the patient and evaluated all available films and pertinent documents. We discussed the case and I agree with the plans as outlined in this note. SIGNATURE: Brittaney Christiansen MD PATIENT NAME: Debby Durbin DATE: December 27, 2018 TIME: 8:40 AM PAGER: Referring Provider: AILEEN CASTELLANOS [[id number]] Allergies As of Date: 12/27/2018 (No Known Allergies) Date Reviewed: 12/27/2018 Reviewed by: Cami Alejandra (Pa) - Fully Assessed Reason for Visit: New Patient Evaluation [154] New Patient [172] Visit Diagnosis:Cervical disc herniation [M50.20] Prescriptions as of 12/27/2018 Sig: ZOLPIDEM 10 MG TABLET TAKE 1 TABLET BY MOUTH EVERYD* METFORMIN ER 500 MG TABLET,EX* TAKE 2 TABLETS IN THE MORNING* LISINOPRIL 5 MG TABLET Take one (1) tablet daily. TOPROL XL 25 MG TABLET,EXTEND* 1 pill QD LOW-OGESTREL (28) 0.3 MG-30 M* as directed Problem List As Of Date: 12/27/2018 (None) Encounter Status:Closed by BRITTANEY CHRISTIANSEN MD on 12/27/18 Normal [facility] PROGRESSon 12-27-2018 Protein mass conc HNO ID: [id number] Author: Brittaney Christiansen Service: (none) Author Type: Physician Type: Progress Notes Filed: 12/27/2018 10:18 AM Note Text: SPINE SURGERY NEW PATIENT PCP: Aileen Castellanos DO REFERRING PROVIDER: Dr. Castellanos SUBJECTIVE Debby Durbin is a 38 year old female presenting with spouse. CHIEF COMPLAINT: right arm tingling HISTORY OF PRESENT ILLNESS: She had symptoms which started around September with neck pain into the right upper arm and tingling in the right 1st to 3rd fingertips. The pain lasted about one month and then this has resolved. Currently she has numbness/tingling in the right 1st to 3rd fingertips which comes and goes. She denies any weakness. No balance problems. She tried PT but this made her feel worse. No injections. Smoking about 15 cigarettes a day. She is working. PRECIPITATING EVENT: None DURATION OF SYMPTOMS: Greater Than 6 Weeks PAIN EVALUATION 12/27/2018 Pain Location: Shoulder-Right right side mainly Description: Numbness numbness in fingers Duration Amount of Time: - did not specify Duration Units: Unknown Frequency: Continuous DERMATOMAL DISTRIBUTION: Right: C7 AMBULATORY STATUS: Independent Community Distances ANTIPLATELET OR ANTICOAGULATION STATUS: No PREVIOUS CONSERVATIVE TREATMENTS: OTC NSAIDS for 3 Months or Greater (Ibuprofen) Muscle Relaxants Oral Steroids Physical Therapy: Date(s) PREVIOUS SPINAL SURGERY: None There is no problem list on file for this patient. No past medical history on file. PAST SURGICAL HISTORY Procedure Laterality Date - DELIVERY ONLY 07/05/00 , low cervical FAMILY HISTORY Problem Relation Age of Onset - Hypertension Mother - None Father - None Brother Social History Marital status: Single Spouse name: Years of education: Number of children: Social History Main Topics Smoking status: Current Every Day Smoker Packs/day: 1.00 Years: 9.00 Types: Cigarettes Alcohol use: Yes Comment: rare ALLERGIES No Known Allergies MEDICATIONS: zolpidem (AMBIEN) 10 mg tab TAKE 1 TABLET BY MOUTH EVERYDAY AT BEDTIME metFORMIN ER (GLUCOPHAGE XR) 500 mg 24 hr tablet TAKE 2 TABLETS IN THE MORNING AND 1 TABLET IN THE EVENING LISINOPRIL 5 MG TABLET Take one (1) tablet daily. TOPROL XL 25 MG TABLET SA 1 pill QD [id number] TABLET as directed REVIEW OF SYSTEMS: PAIN ASSESSMENT: See HPI. GENERAL: Denies fever, chills malaise and weight loss. HEENT: No recent change in vision or hearing. CARDIOVASCULAR: Denies chest pain. RESPIRATORY: Denies SOB, sputum production, and hemoptysis. GI: No nausea and vomiting : Denies change in frequency or urgency, kidney disease, and burning with urination. MUSCULOSKELETAL: Positive for See HPI PSYCHOLOGICAL: Denies uncontrolled depression or anxiety. NEURO: Denies seizures, headaches. ENDOCRINE: Denies diabetes, thyroid disease. HEMATOLOGY/LYMPHOLOGY : Denies cancer, bleeding or clotting disorders and DVT's. OBJECTIVE: PHYSICAL EXAM BP 131/77 Pulse 72 Temp 36.7 ?C (98.1 ?F) Resp 16 Ht 175.3 cm (5' 9 ) Wt 86.2 kg (190 lb) SpO2 99% BMI 28.06 kg/m? GENERAL APPEARANCE: Well nourished, well developed, and no apparent distress. NEURO PSYCH: Patient oriented to person, place, and time. Mood pleasant. Benign affect. CARDIOVASCULAR: No edema noted. No varicosities. SKIN: Head, neck, trunk, and extremities dry, intact and without lesions. LYMPHATICS: Groin exam deferred. MUSCULOSKELETAL VISUAL INSPECTION CERVICAL: WNL THORACIC: WNL LUMBAR: WNL PALPATION: SPINOUS PROCESS: No pain. PARASPINALS: No pain. MUSCLE BULK: Normal and symmetrical in the upper AND lower extremities. MUSCLE TONE: Normal. MOTOR: 5/5 in all muscle groups. SENSORY: Normal sensory exam GAIT: Normal. REFLEXES: +2 to bilateral U/L extremities. PROPRIOCEPTION: Not tested. LONG TRACT SIGNS: No clonus. No Hoffmans. NEURO TESTS: None DATA REVIEW [facility] records reviewed Cami Velasco PA-C ASSESSMENT/PLAN Pain has resolved. She will call if symptoms return. Debby Durbin will continue with medical management of his/her condition. 1. No Orders Entered Today 2. Follow up: PRN I reviewed the information obtained and documented by the physician technician assistant. I examined the patient and evaluated all available films and pertinent documents. We discussed the case and I agree with the plans as outlined in this note. SIGNATURE: Brittaney Christiansen MD PATIENT NAME: Debby Durbin DATE: December 27, 2018 TIME: 8:40 AM PAGER: Normal [facility] PROGRESSon 12-11-2018 Protein mass conc HNO ID: [id number] Author: Aileen Corey) Noel Service: (none) Author Type: Physician Chicken Raiser Type: Progress Notes Filed: 12/13/2018 3:39 PM Note Text: Pt can be scheduled first available with Dr. Christiansen. Cervical disc herniation with extrusion. Patient name: Debby Durbin Are you being referred by a [facility] Provider or Pain Management Provider at [facility]? No If answer is YES please schedule directly with surgeon, triage does not need to be completed. Is this a self-referral No If not, who is the Referring Provider PCP MRI/CT/myelogram within 12 months: Yes If No , please refer to medical spine or PCP to complete above imaging, triage does not need to be completed Imaging viewable in Epic: No If not, please provide [phone] to fax in imaging reports for review. Also, please inform patient to hand carry imaging disc to appointment. Requested provider (First and Last name): [email or web address] 1. Where are you having symptoms related to this visit? Right hand, fingertips 2. Are you having any of the following symptoms: Difficulty walking No Numbness Yes Weakness No Trouble using your hands? Yes 3. What kind of non-surgical treatment have you tried in last 12 months (For example: NSAIDS, Muscle relaxants, Analgesics, Physical therapy, Oral steroids, Trigger point injection, Epidural blocks, Chiropractor and Acupuncture)? Physical therapy, chiropractor, oral steroids, muscle relaxer's 4. Are you currently taking daily prescribed narcotic medications for your current symptoms (For example Oxycodone, Hydrocodone, Tramadol, Morphine, Other)? No 5. Have you had previous spinal surgery for this same symptoms? No Additional Comments Normal [facility] MR-MR cervical spine wo con IMPORTon 11-29-2018 MR-MR cervical spine wo con IMPORT Images were obtained outside of [facility] [id number] Normal [facility] Vital Signs Date Time Vital Sign Value Performing Clinician Facility 06-26-2023 15:40-0400 Body height 175.26 cm Aileen Castellanos Other [facility] Other 06-26-2023 15:40-0400 Body mass index (BMI) [Ratio] 28.79 kg/m2 Aileen Castellanos Other [facility] Other 06-26-2023 15:40-0400 Body temperature 98.7 [degF] Aileen Castellanos Other [facility] Other 06-26-2023 15:40-0400 Body weight 88.45 kg Aileen Castellanos Other [facility] Other 06-26-2023 15:40-0400 Diastolic blood pressure 84 mm[Hg] Aileen Castellanos Other [facility] Other 06-26-2023 15:40-0400 Respiratory rate 18 /min Aileen Castellanos Other [facility] Other 06-26-2023 15:40-0400 SaO2% (BldA) [Mass fraction] 97 % Aileen Castellanos Other [facility] Other 06-26-2023 15:40-0400 Systolic blood pressure 132 mm[Hg] Aileen Castellanos Other [facility] Other 11-22-2022 16:40-0500 Body height 175.26 cm Aileen Castellanos Other [facility] Other 11-22-2022 16:40-0500 Body mass index (BMI) [Ratio] 27.17 kg/m2 Aileen Castellanos Other [facility] Other 11-22-2022 16:40-0500 Body temperature 97.3 [degF] Aileen Castellanos Other [facility] Other 11-22-2022 16:40-0500 Body weight 83.46 kg Aileen Castellanos Other [facility] Other 11-22-2022 16:40-0500 Diastolic blood pressure 76 mm[Hg] Aileen Castellanos Other [facility] Other 11-22-2022 16:40-0500 Respiratory rate 18 /min Aileen Castellanos Other [facility] Other 11-22-2022 16:40-0500 SaO2% (BldA) [Mass fraction] 98 % Aileen Castellanos Other [facility] Other 11-22-2022 16:40-0500 Systolic blood pressure 124 mm[Hg] Aileen Castellanos Other [facility] Other 05-23-2022 16:40-0400 Body height 175.26 cm Aileen Castellanos Other [facility] Other 05-23-2022 16:40-0400 Body mass index (BMI) [Ratio] 27.46 kg/m2 Aileen Castellanos Other [facility] Other 05-23-2022 16:40-0400 Body temperature 98.2 [degF] Aileen Castellanos Other [facility] Other 05-23-2022 16:40-0400 Body weight 84.37 kg Aileen Castellanos Other [facility] Other 05-23-2022 16:40-0400 Diastolic blood pressure 82 mm[Hg] Aileen Castellanos Other [facility] Other 05-23-2022 16:40-0400 Respiratory rate 18 /min Aileen Castellanos Other [facility] Other 05-23-2022 16:40-0400 SaO2% (BldA) [Mass fraction] 98 % Aileen Castellanos Other [facility] Other 05-23-2022 16:40-0400 Systolic blood pressure 124 mm[Hg] Aileen Castellanos Other [facility] Other Encounters Encounter Date Encounter Type Care Provider Facility Start: 12-11-2023 End: 12-11-2023 ambulatory Aileen Castellanos Other [facility] Other Start: 12-11-2023 Telephone encounter Aileen Castellanos [facility] [place] Start: 11-15-2023 End: 11-15-2023 ambulatory Aileen Castellanos Other [facility] Other Start: 11-15-2023 Telephone encounter Aileen Castellanos [facility] [place] Start: 10-09-2023 End: 10-09-2023 ambulatory Aileen Castellanos Other [facility] Other Start: 10-09-2023 Telephone encounter Aileen Castellanos [facility] [place] Start: 06-26-2023 End: 06-26-2023 ambulatory Aileen Castellanos Other [facility] Other Start: 06-26-2023 Office outpatient visit 25 minutes Aileen Castellanos [facility] [place] Start: 12-01-2022 End: 12-01-2022 ambulatory VIRGILIO GASCA Facility: Start: 11-22-2022 End: 11-22-2022 ambulatory Aileen Castellanos Other [facility] Other Start: 11-22-2022 Office outpatient visit 25 minutes Aileen Castellanos [facility] [place] Start: 10-25-2022 End: 10-25-2022 ambulatory Aileen Castellanos Other [facility] Other Start: 10-25-2022 Telephone encounter Aileen Castellanos [facility] [place] Start: 10-23-2022 End: 10-23-[address] AILEEN CASTELLANOS [facility] Other Start: 10-23-2022 Telephone encounter Aileen Castellanos [facility] [place] Start: 09-11-2022 End: 09-11-2022 ambulatory Aileen Castellanos Other [facility] Other Start: 09-11-2022 Telephone encounter Aileen Castellanos [facility] [place] Start: 08-14-2022 End: 08-14-2022 ambulatory GO MENDIOLA Facility:[facility] Start: 06-20-2022 Telephone encounter Aileen ORTIZ [facility] [place] Start: 06-20-2022 End: 06-20-[address] AILEEN CASTELLANOS [facility] Other Start: 06-06-2022 End: 06-06-2022 ambulatory Aileen Castellanos Other [facility] Other Start: 06-06-2022 Telephone encounter Aileen Castellanos [facility] [place] Start: 06-02-2022 End: 06-03-2022 ambulatory GO MENDIOLA Facility:[facility] Start: 05-23-2022 End: 05-23-2022 ambulatory Aileen Castellanos Other [facility] Other Start: 05-23-2022 Office outpatient visit 25 minutes Aileen Castellanos [facility] [place] Start: 12-27-2018 End: 12-27-2018 Patient encounter procedure BRITTANEY CHRISTIANSEN [facility] Immunizations Immunization Date Immunization Notes Care Provider Kimberly garg 09-19-2021 COVID-19 Vaccine Pfi zer - Documentation Purposes Only Aileen Castellanos Other [facility] Other 03-09-2021 COVID-19 Vaccine Pfi zer - Documentation Purposes Only Aileen Castellanos Other [facility] Other 02-16-2021 COVID-19 Vaccine Pfi zer - Documentation Purposes Only Aileen Castellanos Other [facility] Other Payers Date Payer Category Payer Unknown [id number] 2.16.84 [id number] 1980 Unknown [id number] 2.16.84 [id number] 1980 Unknown [id number] 2.16.84 [id number] 1979 Unknown [id number] 2.16.84 [id number] 1980 Unknown [id number] 2.16.84 [id number] 1960 [facility] [id number] 1960 Unknown [id number] 2.16.8 [id number] 1960 Unknown [id number] Social History Date Type Detail Facility Unknown if ever smoked [facility] Other Sex Assigned At Sex Assigned At Bir th [facility] Other Medical Equipment Procedure Code Equipment Code Equipment Origin al Text Equipment Identifier Dates Start: 09-27-2015 Clinical Notes 04-11-2013 to 12-11-2023 Note Date & Type Note Facility 12-11-2023 Evaluation note Encounter Date Diagnosis Assessment Notes Nov, Anxiety (ICD-10 - F41.9) She voices that she was unable to do anything in September or October after her son passed. She had the Xanax available at that time and would like to restart this to help her sleep. Night time is the worst time for her, she is having a difficult time trying to understand what happened with her son. She lays in bed for hours. She puts her phone up, avoids screen time and it does not help. I would only like her to take Xanax at bedtime. She gets up at 6 AM and leaves her home. She should not drive until 12 hours after she has taken the medication. She should not drink alcohol after having taken the Xanax. If she is going to drink alcohol she should not take any Xanax. She can take the Xanax 1/2 hour prior to going to bed. Side effects/risks/ benefits of medication were reviewed. If this dose is not strong enough then she will need to let me know. Addiction potential was discussed. I will see her back at her already scheduled appointment in about six weeks, but if she needs an increase in dose for the Xanax she should call prior to the appointment. An OARRS report was reviewed, no discrepancies noted. She last filled Xanax on 10/09/23. Nov, Depression (ICD-10 - F32.9) She voices that she does not know how to control her emotions. She is taking the Sertraline 50 MG in the morning. She is not sleeping well. Her mother feels she needs to be on the Sertraline. I do recommend that she continue with the medication but I would like her to increase the dose to 75 MG per day. Guidance is given on how to take the medication. I did recommend that she stay on this medication for one year before we discuss her coming off of the medicine. I will see her back at her already scheduled appointment in about six weeks. Nov, Other 10:39 AM - 10:58 AM [facility] Other 01-30-2024 Evaluation note* Encounter Date Diagnosis Assessment Notes Treatment Notes Treatment Clinical Notes Nov, Depression (ICD-10 - F32.9) [facility] Other 01-04-2024 Evaluation note* Encounter Date Diagnosis Assessment Notes Treatment Notes Treatment Clinical Notes Nov, Anxiety (ICD-10 - F41.9) [facility] Other 11-28-2023 Evaluation note* Encounter Date Diagnosis Assessment Notes Treatment Notes Treatment Clinical Notes Sep, Anxiety (ICD-10 - F41.9) [facility] Other 08-15-2023 Evaluation note* Encounter Date Diagnosis Assessment Notes Treatment Notes Treatment Clinical Notes Jun, Diabetes mellitus, type 2 (ICD-10 - E11.9) She voices that she started taking some OTC vitamins and found that she was hungry all the time so she stopped taking them. She was under a great deal of stress with her job and she found she was sitting and eating cookies, candy etc. She had gained weight due to her choices but she did resign from her job and she has found that she is already living healthier. Her glucose was 155. HgA1C is up from 6.1 to 6.5. Anticipate that since she has already made dietary and lifestyle choices that her readings will improve. Jun, Hyperlipidemia (ICD-10 - E78.5) Discussed cholesterol results with patient today. Total is 166. HDL is 52. LDL is 99. Triglycerides are 75. VLDL is 15. I would like her to continue to monitor her intake of carbs and sugars. Stay active. Jun, Tinea pedis (ICD-10 - B35.3) Noted on left foot, she voices that it itches and then it will crack. I would like to treat her with Lamisil orally and I asked her to mixing picker tender Lamisil cream (OTC). Guidance is given on how to use the cream, she should use this for one month. She does not drink alot of alcohol. If her symptoms do not improve after one month then she should let me know and we would consider that this is not fungal. 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 She admits the vitamins made her hungry. She resigned from her job in May and is feeling much better. She has gained 11 pounds since last seen. The stress of her job and eating cookies and candy and sitting were not helping her weight. Jun, Urinary frequency (ICD-10 - R35.0) for lab order only Jun, Other Provided her wi th a refill on above medication today. [facility] Other 01-11-2023 Evaluation note* Encounter Date Diagnosis Assessment Notes Treatment Notes Treatment Clinical Notes Nov, Hyperlipidemia (ICD-10 - E78.5) Discussed cholesterol results with patient today. Total is 180. HDL is 57. LDL is 89. Triglycerides are 169. VLDL is 34. She is to continue to monitor her intake of carbs and sugars. Stay active. Nov, Diabetes mellitus, type 2 (ICD-10 - E11.9) Discussed blood sugar results with patient today. Glucose is 150. HgA1C is 6.1 down from 6.5. She voices that she has been doing better. I did recommend that she continue with what she is doing as it is working well. I encouraged her to continue to monitor her intake of carbs and sugars. Stay active. She does present with blood sugar readings that she has taken on her own. Nov, Molluscum contagiosum (ICD-10 - B08.1) She voices that she had this rash prior to her cruise, but has continued to be there since April (2021). She does not itch or scratch the area. I did advise her that this rash is similar to molluscum. This can stay for up to a year or two and then go away. There is no treatment for this and it should resolve on it's own. It has not spread. If she wants to see a garden consultant she can see one. Right now she is going to continue to monitor as she has had this for seven months. She does not have any pain with this. She had shingles in the past and does not feel it is shingles. If she wants to see a garden consultant she can call and schedule this herself. 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 Her TSH is normal at 0.646. Nov, Proteinuria (ICD-10 - R80.9) She voices that she felt like she had a urinary tract infection, and I did advise her that nothing grew out of the urine culture. She voices that she had urinary frequency. This started around when she had COVID-19 until she had the lab drawn. This was also around the time she had started her period (11-16-22). She began drinking cranberry juice and pushing water and feels fine now. Nov, Seborrheic keratosis (ICD-10 - L82.1) Reassurance given. [facility] Other 12-12-2022 Evaluation note* Encounter Date Diagnosis Assessment Notes Treatment Notes Treatment Clinical Notes Oct, Cough (ICD-10 - R05.9) She voices that she is currently taking another COVID-19 test and it is showing a faint positive line. She would like to have a respiratory panel drawn. She was around friends last week and one tested positive for COVID-19. Oct, COVID-19 (ICD-10 - U07.1) She voices that she cannot taste or smell anything. She has not been able to eat. Again, her home COVID-19 test is positive. She voices that it is a faint positive. I am going to order a COVID-19 test to be done at the hospital. Because she is high risk due to having Diabetes and having been a previous smoker I can prescribe Paxlovid for her which lessens her symptoms and the severity of COVID-19. She would like this. Side effects/risks/bene fits of medication were reviewed. She should be off work this entire week and a note was provided. Provided her with an off work note for 10-23 through 10-27-22 due to medical reasons, may return to work without restrictions on 10-30-22. Oct, Fatigue (ICD-10 - R53.83) She voices that she was very fatigued this past week, to the point she had to stay in [place] overnight because she was too tired to drive home. Oct, Other 2:39 PM - 2:54 PM [facility] Other 08-09-2022 Evaluation note* Encounter Date Diagnosis Assessment Notes Treatment Notes Treatment Clinical Notes Jun, Nicotine dependence (ICD-10 - F17.200) Jun, Chest congestion (ICD-10 - R09.89) Jun, Runny nose (ICD-10 - R09.89) Jun, Body aches (ICD-10 - R52) [facility] Other 08-09-2022 Evaluation note* Encounter Date Diagnosis Assessment Notes Treatment Notes Treatment Clinical Notes Jun, Left acute otitis media (ICD-10 - H66.92) [facility] Other 07-26-2022 Evaluation note* Encounter Date Diagnosis Assessment Notes Treatment Notes Treatment Clinical Notes May, Nicotine dependence (ICD-10 - F17.200) [facility] Other 07-12-2022 Evaluation note* Encounter Date Diagnosis Assessment Notes Treatment Notes Treatment Clinical Notes May, Hyperlipidemia (ICD-10 - E78.5) Discussed cholesterol results with patient today. Total is 194. HDL is 50. LDL is 121. Triglycerides are 113. I encouraged her to continue to watch her intake of carbs and sugars. Stay active as tolerated. May, Diabetes type 2, uncontrolled (ICD-10 - E11.65) She voices that she recently went on a cruise and enjoyed life. We discussed her blood sugar results with patient today. Glucose is 177. HgA1C is down from 6.5 to 6.4. She voices that she checked her blood sugars when she was on her cruise and she had some blood sugar readings as high as 270. She is encouraged to watch her intake of carbs and sugars. Stay active. She would like to lower her A1C so she will work on dietary and lifestyle changes. I did recommend that we increase her Victoza to 1.8 MG daily to help lower her A1C. Guidance is given on how to take the increase in dose. She should avoid her intake of high fructose corn syrup and sugars. May, Nicotine dependence (ICD-10 - F17.200) She voices that she would like to stop smoking at this time. She has been talking to a health elementary instructional coach. In the past she was on Chantix, but they have since taken this off the market. I can prescribe Wellbutrin for her to help her stop smoking. Side effects/risks/benef its of the medication were reviewed. She would like to try the medication. Will start her on a low dose and can increase the dose if she feels this is needed. She can still smoke for the first two weeks after she has started the medication but should have a stop date set. If after two weeks she does not feel the medication is working then she should call, and we can increase the dose. She is going to set her stop smoking date as June 05, 2022. When she was a baby she had spinal meningitis and had a seizure but she did not have a seizure disorder and has never had a seizure as a child or adult. May, Weight loss (ICD-10 - R63.4) She has lost 3 pounds since last seen here. She is encouraged to continue with what she is doing as it is working well. 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 May, Urinary frequency (ICD-10 - R35.0) for lab order only May, Other She voices that she has called the [facility] twice to schedule her mammogram and has not heard back from them, she is going to call again. [facility] Other [id number] History general Narrative - Reported* Type Description Date Medical History Last Pap 04-11-13; Dr. Mendiola Medical History No history of Mammogram Medical History Stress Test [facility]; Dr. Ayala 01 07 Medical History EKG Medical History No history of CT of the abdomen. colonoscopy Medical History History of Chicken Pox as a chil d Medical History No history of Fractures Medical History Hx of Gestational Diabetes Surgical History 1 c- section 1999 Surgical History T & A Surgical History Mierna was put in 08/2014 Surgical History left breast biopsy 02/2021 Hospitalization History see above surgical histo ry [facility] Other Evaluation noteNo InformationNortMailpile Other Summary Purpose Family History No Family History Records FoundNo Family History Records Found Advance Directives No Advanced Directives Records FoundNo Advanced Directives Records Found Additional Source Comments INFORMATION SOURCE (unrecogn ized section and content) DATE CREATED AUTHOR 01/01/2019 [facility] DATE CREATED AUTHOR AUTHOR'S ORGANIZ ATION 03/22/2023 [facility] REASON FOR VISIT (unrecogniz ed section and content) review labmed increasetestin g requestClinical Acute IllnessRefillssinus pain/pressure/congestionresultreview labsreview labsClinicalClinicaldiscuss medicationsSertraline dose change FOR RECORDS PERTAINING TO PATIENTS WHO ARE OR HAVE BEEN ENROLLED IN A CHEMICAL DEPENDENCY/SUBSTANCEABUSE PROGRAM, SOME INFORMATION MAY BE OMITTED. This clinical summary was aggregated from multiple sources. Caution should be exercised in using it in the provision of clinical care. This summary normalizes information from multiple sources, and as a consequence, information in this document may materially change the coding, format and clinical context of patient data. In addition, data may be omitted in some cases. CLINICAL DECISIONS SHOULD BE BASED ON THE PRIMARY CLINICAL RECORDS. [facility]. provides no warranty or guarantee of the accuracy or completeness of information in this document.
--- NOTE | 2024-01-17 21:16 | XR_ITS ---
The [address] [address] Patient Name: BENITO DAHL MRN: [id number] date: 1980 Sex: F Assigned Patient Location: ER Current Patient Location: ER Accession/Order Number: [id number] Exam Date: 01/17/2024 21:24 Report Date: 01/17/2024 21:43 At the request of: LUIS FERNANDO MARKER Procedure: XR chest 1V SINGLE VIEW CHEST: 01/17/2024 9:24 PM EST CLINICAL HISTORY:CP COMPARISONS: None. TECHNIQUE: Single frontal view of the chest, utilizing portable technique. Portable radiography should be considered a technically compromised study. Strongly consider dedicated PA and lateral chest radiographs, as clinically indicated. FINDINGS: LINES AND TUBES: Cardiac monitoring leads and wires overlie the patient. CARDIAC SILHOUETTE: Within normal limits. MEDIASTINAL AND HILAR CONTOUR: Within normal limits. PULMONARY PARENCHYMA AND PLEURA: No consolidation, edema, effusion, or pneumothorax. OSSEOUS STRUCTURES:Nothing significant. OTHER COMMENTS:None. XR/XR chest 1V IMPRESSION: No acute cardiopulmonary disease. This report was generated with voice recognition software. Effort has been made to ensure accuracy of this report, however, occasional wording errors may persist. Please contact our office with any questions. Electronically authenticated by: OPAL VANESSA Date: 01/17/2024 21:43
--- NOTE | 2024-01-17 21:27 | ED_ITS ---
HPI - Chest Pain General Chief Complaint: Chest Pain Stated Complaint: CHEST PAIN Time Seen by Provider: 01/17/24 21:08 Source: patient Mode of arrival: walk-in Limitations: no limitations History of Present Illness HPI narrative: This 43-year-old female who is under a lot of stress because her 23-year-old son last September, she states he took his own life, she complains of left-sided chest pressure/heaviness that has been present since last week. She states it is now going down her left arm. She has intermittent dizziness and nausea. She has not been vomiting. She has been taking Zoloft and takes Xanax at night for anxiety. She has an appointment with her family physician next week but states that she felt that she should get her chest pain checked out. She has formally been a patient of Dr. Alcantara from cardiology because she has a history of cardiomyopathy/cardiomegaly. She has a former history of smoking but has not been smoking for many years until her son and then she started sm oking again, she currently smokes about 15 cigarettes a day. She has chronic low back pain which is unchanged. She has no lower extremity pain or swelling. She states she was cutting her dad's care today and the pain in her chest went into her left arm which prompted her to come to the emergency department. Risk Factors Coronary artery disease risk factors: diabetes and smoking history Related Data Home Medications Medication Instructions Recorded Confirmed alprazolam 0.25 mg tablet mg 01/17/24 liraglutide 0.6 mg/0.1 mL (18 mg/3 mg subcut 01/17/24 mL) subcutaneous pen injector (Victoza 2-Zen) metformin 500 mg tablet,extended mg PO 01/17/24 release 24 hr sertraline 25 mg tablet mg 01/17/24 sertraline 50 mg tablet mg 01/17/24 Allergies Allergy/AdvReac Type Severity Reaction Status Date / Time acetaminophen Allergy Intermediate Hives Verified 01/17/24 21:15 Review of Systems ROS Status of ROS 10 or more systems reviewed and unremark able except as noted in history and below PFSH PFS Social History Smoking status: Current every day smoker Exam Narrative Exam Narrative: Nurses note and vital signs reviewed and patient is not hypoxic. Blood pressure is elevated at 148/72. General: Alert, nontoxic female, she is resting comfortably on the stretcher, she cries when talking about her recently son, no respiratory distress Skin: Warm, dry, no pallor noted. There is no rash noted. Head: Normocephalic, atraumatic Eye: Normal conjunctiva, no drainage, EOMI. PERRL Ears, Nose, Mouth, and Throat: oral mucosa is moist. Cardiovascular: Regular Rate and Rhythm S1S2, no murmurs, rubs or gallops appreciated Respiratory: Patient is in no distress, no accessory muscle use, lungs are clear to auscultation, no wheezing, rales or rhonchi Back: non-tender, no CVA tenderness bilaterally to percussion. GI: Normal bowel sounds, no tenderness to palpation, no masses appreciated. No rebound, guarding, or rigidity noted. Musculoskeletal: The patient has no evidence of calf tenderness, no pitting edema, symmetrical pulses noted bilaterally Neurological: A&O x4, normal speech Psychiatric: Cooperative Constitutional Vital Signs, click to edit/add: Last Vital Signs Temp 98.6 F 01/17/24 21:10 Pulse 75 01/17/24 22:58 Resp 16 01/17/24 22:58 BP 124/70 01/17/24 22:58 Pulse Ox 96 01/17/24 22:20 O2 Del Method Room Air 01/17/24 21:10 Course Vital Signs Vital signs: Vital Signs Temperature 98.6 F 01/17/24 21:10 Pulse Rate 79 01/17/24 21:10 Respiratory Rate 20 01/17/24 21:10 Blood Pressure 148/72 H 01/17/24 21:10 Pulse Oximetry 95 01/17/24 21:10 Oxygen Delivery Method Room Air 01/17/24 21:10 Temperature 98.6 F 01/17/24 21:10 Pulse Rate 75 01/17/24 22:58 Respiratory Rate 16 01/17/24 22:58 Blood Pressure 124/70 01/17/24 22:58 Pulse Oximetry 96 01/17/24 22:20 Oxygen Delivery Method Room Air 01/17/24 21:10 MDM - Chest Pain MDM Narrative Medical decision making narrative: 43-year-old female with a history of cardiomyopathy, Hypertension and diabetes Type 2 presents for evaluation of one week of chest pain with radiation into the left arm starting earlier today. The patient's son in September and she has been grieving since that time. The patient explained in great detail how her son who was doing well at the age of 23 called her to say goodbye and she tried to get to him before he hurt himself but he was able to commit suicide when she was on her way to comfort him. She is sobbing while explaining this to me and showing me pictures of her son. She is clutching her chest during this time and states this is why she thinks she is having chest pain. She is taking Zoloft and Xanax at night to sleep. She was a former smoker but started smoking again after her son . She denies any shortness of breath dizziness or diaphoresis. She has no abdominal pain or back pain. She does not have any lower extremity pain or swelling. An EKG done upon arrival was a sinus rhythm .She is medicated with 324 mg of baby aspirin. She declined the need for any anxiety medication to the emergency department. Routine cardiac labs including troponin and d-dimer were ordered. Her labs are normal with the exception of an elevated glucose. CXR was read by radiology and does not show any acute abnormalities. Her heart score is a one. The results of her labs, EKG and chest x-ray were discussed with her. She feels comfortable being discharged home. We had a lengthy discussion about bereavement and I offered to refer her to [facility] for help but she declined this, stating that she is in a bereavement group and a couple of online groups. She has follow-up with her family physician next week. I encouraged her to return to emergency department for worsening grief, chest pain shortness of breath or any concerns. Medical Records Data Medical records narrative: The [address] [address] XRay Report Signed Patient: BENITO DAHL MR#: [id number] : 1980 Acct:[id number] Age/Sex: 43 / F ADM Date: 01/17/24 Loc: ER Attending Dr: Ordering Physician: Shira Perry Date of Service: 01/17/24 Procedure(s): XR chest 1V Accession Number(s): [id number] cc: AILEEN CASTELLANOS ; Shira Perry~ The [address] [address] Patient Name: BENITO DAHL MRN: [id number] date: 1980 Sex: F Assigned Patient Location: ER Current Patient Location: ER Accession/Order Number: [id number] Exam Date: 01/17/2024 21:24 Report Date: 01/17/2024 21:43 At the request of: SHIRA MARKER Procedure: XR chest 1V SINGLE VIEW CHEST: 01/17/2024 9:24 PM EST CLINICAL HISTORY:CP COMPARISONS: None. TECHNIQUE: Single frontal view of the chest, utilizing portable technique. Portable radiography should be considered a technically compromised study. Strongly consider dedicated PA and lateral chest radiographs, as clinically indicated. FINDINGS: LINES AND TUBES: Cardiac monitoring leads and wires overlie the patient. CARDIAC SILHOUETTE: Within normal limits. MEDIASTINAL AND HILAR CONTOUR: Within normal limits. PULMONARY PARENCHYMA AND PLEURA: No consolidation, edema, effusion, or pneumothorax. OSSEOUS STRUCTURES:Nothing significant. OTHER COMMENTS:None. XR/XR chest 1V IMPRESSION: No acute cardiopulmonary disease. This report was generated with voice recognition software. Effort has been made to ensure accuracy of this report, however, occasional wording errors may persist. Please contact our office with any questions Lab Data Labs: Lab Results 01/17/24 Range/Units 21:16 WBC 10.0 (4.0-11.0) 10^3/uL RBC 4.74 (4.20-5.40) 10^6/uL Hgb 14.4 (12.0-16.0) g/dL Hct 43.7 (36.0-48.0) % MCV 92.2 (81.0-99.0) fL MCH 30.4 (26.7-34.0) pg MCHC 33.0 (29.9-35.2) g/dL RDW 12.8 (11.0-15.0) % Plt Count 197 (150-450) 10^3/uL MPV 11.6 (9.5-13.5) fL Neut % (Auto) 53.8 (43.0-75.0) % Lymph % (Auto) 37.0 (20.5-60.0) % [place] % (Auto) 7.1 (1.7-12.0) % Eos % (Auto) 1.1 (0.9-7.0) % Baso % (Auto) 0.6 (0.2-2.0) % Neut # (Auto) 5.4 (1.4-6.5) 10^3/uL Lymph # (Auto) 3.7 (1.2-3.8) 10^3/uL [place] # (Auto) 0.7 (0.3-0.8) 10^3/uL Eos # (Auto) 0.1 (0.0-0.7) 10^3/uL Baso # (Auto) 0.1 (0.0-0.1) 10^3/uL Abs Immat Gran (auto) 0.04 H (0.00-0.03) 10^3/uL Imm/Tot Granulo (auto) 0.4 (0.0-0.5) % D-Dimer 0.49 (<=0.59) mg/L FEU Sodium 133 L (136-145) mmol/L Potassium 3.3 L (3.5-5.1) mmol/L Chloride 103 (98-107) mmol/L Carbon Dioxide 26.7 (21.0-32.0) mmol/L Anion Gap 6.6 BUN 9.0 (7.0-18.0) mg/dL Creatinine 0.90 (0.55-1.02) mg/dL Est GFR ( Amer) >60 (>=60) Est GFR (Non-Af Amer) >60 (>=60) BUN/Creatinine Ratio 10.0 Glucose 235 H (74-106) mg/dL Calcium 9.1 (8.5-10.1) mg/dL Total Bilirubin 0.2 (0.2-1.0) mg/dL AST 12 L (15-37) U/L ALT 31 (14-59) U/L Alkaline Phosphatase 112 (46-116) U/L Troponin I High Sens <4.0 L (4.0-51.3) pg/mL Total Protein 7.8 (6.4-8.2) g/dL Albumin 4.0 (3.4-5.0) g/dL Globulin 3.8 g/dL Albumin/Globulin Ratio 1.1 ECG Data Attestation: I personally reviewed and interpreted this ECG as follows: (Sinus rhythm at 87 beats for minute, normal axis, normal intervals, no acute ST segment elevation or T-wave inversion) Heart Score History: Slightly/Non-Suspicious ECG: Normal Age: <45 years Risk Factors: 1 or 2 Risk Factors Troponin: <Normal Limit Total Heart Score Recommendations & Risks:: 1 Discharge Plan Discharge Stand Alone Forms: Portal Instructions Chief Complaint: Chest Pain Clinical Impression: Atypical chest pain, Grief reaction with prolonged bereavement Patient Disposition: Home, Self-Care Time of Disposition Decision: 22:43 Condition: Fair Mode of Transportation: Private Vehicle Prescriptions / Home Meds: No Action alprazolam 0.25 mg tablet sertraline 25 mg tablet metformin 500 mg tablet extended release 24 hr PO sertraline 50 mg tablet Victoza 2-Zen 0.6 mg/0.1 mL (18 mg/3 mL) pen injector SUBCUT Instructions: Chest Pain (DC), Grief and Loss (ED), Noncardiac Chest Pain (ED) Referrals: AILEEN CASTELLANOS [Primary Care Provider] - 1 week Discharge Date/Time: 01/17/24 23:00
[2024-01-17 21:31] LABS: Basophils Absolute Auto 0.1 10^3/uL (0.0-0.1); Basophils Percent Auto 0.6 % (0.2-2.0); Eosinophils Absolute Auto 0.1 10^3/uL (0.0-0.7); Eosinophils Percent Auto 1.1 % (0.9-7.0); Hematocrit 43.7 % (36.0-48.0); Hemoglobin 14.4 g/dL (12.0-16.0); Immature Granulocytes Abs Auto 0.04 10^3/uL (0.00-0.03); Immature Granulocytes Pct Auto 0.4 % (0.0-0.5); Lymphocytes Absolute Auto 3.7 10^3/uL (1.2-3.8); Mean Corpuscular Hemoglobin 30.4 pg (26.7-34.0); Mean Corpuscular Volume 92.2 fL (81.0-99.0); Mean Platelet Volume 11.6 fL (9.5-13.5); Monocytes Absolute Auto 0.7 10^3/uL (0.3-0.8); Monocytes Percent Auto 7.1 % (1.7-12.0); Neutrophils Absolute Auto 5.4 10^3/uL (1.4-6.5); Neutrophils Percent Auto 53.8 % (43.0-75.0); Platelet Count 197 10^3/uL (150-450); Red Blood Count 4.74 10^6/uL (4.20-5.40); Red Cell Distribution Width 12.8 % (11.0-15.0)
[2024-01-17] MEDS: ASPIRIN 81 MG TAB.CHEW 324 MG PO (21:34)
[2024-01-17 21:44] LABS: Alanine Aminotransferase 31 U/L (14-59); Albumin Globulin Ratio 1.1; Alkaline Phosphatase 112 U/L (46-116); Anion Gap 6.6; Aspartate Amino Transferase 12 U/L (15-37); Bilirubin Total 0.2 mg/dL (0.2-1.0); Calcium 9.1 mg/dL (8.5-10.1); Carbon Dioxide 26.7 mmol/L (21.0-32.0); Chloride 103 mmol/L (98-107); Estimated GFR (African America >60 (>=60); Estimated GFR (Non-African Ame >60 (>=60); Globulin 3.8 g/dL; Glucose 235 mg/dL (74-106); Potassium 3.3 mmol/L (3.5-5.1); Sodium 133 mmol/L (136-145); Total Protein 7.8 g/dL (6.4-8.2); Troponin I High Sensitivity <4.0 pg/mL (4.0-51.3)
[2024-01-17 22:23] LABS: D Dimer 0.49 mg/L FEU (<=0.59)
== END 2024-01-17 23:00 | disposition home or self-care (01) ==
PROVIDERS: Emergency Provider Emergency Medicine; PCP Family Medicine
DX: R07.89 Other chest pain (principal); F43.81 Prolonged grief disorder; E78.5 Hyperlipidemia, unspecified; E11.9 Type 2 diabetes mellitus without complications; R63.5 Abnormal weight gain; R42 Dizziness and giddiness; R11.0 Nausea; F41.9 Anxiety disorder, unspecified; F17.210 Nicotine dependence, cigarettes, uncomplicated; Z79.84 Long term (current) use 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 drugs; I11.9 Hypertensive heart disease without heart failure; I43 Cardiomyopathy in diseases classified elsewhere
CPT/HCPCS: 36415; 71045; 80053; 80061; 83036; 84443; 84484; 85025; 85378; 93005; 99285

== ENCOUNTER 2024-01-17 21:16 | Outpatient (REF) | payer OTHER, SELFPAY ==
--- OUTSIDE RECORDS SUMMARY | 2024-01-18 12:10 | XMS_ITS | CCD ---
Author Name Unknown Address [address] [place] [address] Organization [facility] Care Team Providers Care Salesperson [employer] Name Role Phone BRITTANEY CHRISTIANSEN Attending Unavailable [...] Reaction(s) Facility (13 sources) Acetaminophen Drug Allergy [facility] Other (1 source) Acetaminophen Drug Allergy [facility] Repository Medications Current Medications Medication Drug Class(es) [...] Drug Class(es) Dates Sig (Normalized) Sig (Original) [id number] 60 actuat albuterol 0.09 mg/actuat metered dose [...] current use of drug therapy; Translations: [Other intermediate (current) drug therapy] Episodic Other aftercare (4 sources) Other intermediate (current) drug therapy; Translations: [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 Sheldon Morse CBC AUTO DIFFon 12-01-2022 BASO # 0.0 103/ul Normal 0.0-0.1 [facility] Comment on above: Performed By: #### C BC #### [facility] [address] [place] [address] Dr. Sheldon Morse Basophils/100 WBC (Bld) 0.4 % Normal 0.2-2.0 [facility] Comment on above: Performed By: #### C BC #### [facility] [address] [place] [address] Dr. Sheldon Morse EO # 0.1 103/ul Normal 0.0-0.7 [facility] Comment on above: Performed By: #### C BC #### [facility] [address] [place] [address] Dr. Sheldon Morse Eosinophils/100 WBC (Bld) 0.5 % Critically low 0.9-7.0 [facility] Comment on above: Performed By: #### C BC #### [facility] [address] [place] [address] Dr. Sheldon Morse Erythrocyte distribution width (RBC) [Ratio] 12.2 % Normal 11.0-15.0 [facility] Comment on above: Performed By: #### C BC #### [facility] [address] [place] [address] Dr. Sheldon Morse Hematocrit (Bld) [Volume fraction] 37.5 % Normal 36.0-48.0 [facility] Comment on above: Performed By: #### C BC #### [facility] [address] [address] [address] Sheldon Morse Hemoglobin (Bld) [Mass/Vol] 13.9 g/dL Normal 12.0-16.0 [facility] Comment on above: Performed By: #### C BC #### [facility] [address] [address] [address] Sheldon Morse IG # 0.06 10e3/ul Critically high 0.00-0.03 [facility] Comment on above: Performed By: #### C BC #### [facility] [address] [address] [address] Sheldon Morse IG % 0.5 % Normal 0.0-0.5 [facility] Comment on above: Performed By: #### C BC #### [facility] [address] [place] [address] Dr. Sheldon Mosre LYMPH # 2.4 103/ul Normal 1.2-3.8 [facility] Comment on above: Performed By: #### C BC #### [facility] [address] [address] [address] Sheldon Morse Lymphocytes/100 WBC (Bld) 21.3 % Normal 20.5-60.0 [facility] Comment on above: Performed By: #### C BC #### [facility] [address] [place] [address] Dr. Sheldon Morse MANUAL DIFF REQ NO Normal [facility] Comment on above: Performed By: #### C BC #### [facility] [address] [place] [address] Dr. Sheldon Morse MCH (RBC) [Entitic mass] 30.3 pg Normal 26.7-34.0 [facility] Comment on above: Performed By: #### C BC #### [facility] [address] [address] [address] Sheldon Morse MCHC (RBC) [Mass/Vol] 37.1 g/dL Critically high 29.9-35.2 [facility] Comment on above: Performed By: #### C BC #### [facility] [address] [address] [address] Sheldon Morse MCV (RBC) [Entitic vol] 81.9 fL Normal 81.0-99.0 [facility] Comment on above: Performed By: #### C BC #### [facility] [address] [address] [address] Sheldon Morse MONO # 0.7 103/ul Normal 0.3-0.8 [facility] Comment on above: Performed By: #### C BC #### [facility] [address] [address] [address] Sheldon Morse Monocytes/100 WBC (Bld) 6.3 % Normal 1.7-12.0 [facility] Comment on above: Performed By: #### C BC #### [facility] [address] [place] [address] Dr. Sheldon Morse NEUT # 7.8 103/ul Critically high 1.4-6.5 [facility] Comment on above: Performed By: #### C BC #### [facility] [address] [place] [address] Dr. Sheldon Morse Neutrophils/100 WBC (Bld) 71.0 % Normal 43.0-75.0 [facility] Comment on above: Performed By: #### C BC #### [facility] [address] [place] [address] Dr. Sheldon Morse Platelet mean volume (Bld) [Entitic vol] 9.8 fL Normal 9.5-13.5 [facility] Comment on above: Performed By: #### C BC #### [facility] [address] [place] [address] Dr. Sheldon Morse PLT 184 103/ul Normal 150-450 [facility] Comment on above: Performed By: #### C BC #### [facility] [address] [address] [address] Sheldon Morse RBC 4.58 106/ul Normal 4.20-5.40 [facility] Comment on above: Performed By: #### C BC #### [facility] [address] [place], [place] [address] Dr. Sheldon Morse WBC 11.0 103/ul Normal 4.0-11.0 [facility] Comment on above: Performed By: #### C #### [facility] [address] [place], [place] [address] ABD/PELVIS WO CONon [...] MIGUEL MONZON Date: 2022-12-01 17:08 Normal [facility] ER URINE PROFILEon 3 Bilirubin Ql (U) Negative Normal NEGATIVE [facility] Comment on above: Performed By: #### E RUR, PREGU, UMICRO #### [facility] [address] [address] [address] Sheldon Morse Clarity (U) SL CLOUDY Abnormal CLEAR [facility] Comment on above: Performed By: #### E RUR, PREGU, UMICRO #### [facility] [address] [address] [address] Sheldon Morse Color (U) LT. YELLOW Normal YELLOW [facility] Comment on above: Performed By: #### E RUR, PREGU, UMICRO #### [facility] [address] [address] [address] Sheldon SOLANO A micrscopic examination will be performed if indicated. Normal [facility] Comment on above: Performed By: #### E RUR, PREGU, UMICRO #### [facility] [address] [address] [address] Sheldon Morse Glucose Ql (U) Negative Normal NEGATIVE [facility] Comment on above: Performed By: #### E RUR, PREGU, UMICRO #### [facility] [address] [address] [address] Sheldon Morse Hemoglobin Ql (U) LARGE Abnormal NEGATIVE [facility] Comment on above: Performed By: #### E RUR, PREGU, UMICRO #### [facility] [address] [address] [address] Sheldon Morse Ketones Ql (U) Negative Normal NEGATIVE [facility] Comment on above: Performed By: #### E RUR, PREGU, UMICRO #### [facility] [address] [address] [address] Sheldon Morse LEUKOCYTES LARGE Abnormal NEGATIVE [facility] Comment on above: Performed By: #### E RUR, PREGU, UMICRO #### [facility] [address] [place] [address] Dr. Sheldon Morse Nitrite Ql (U) Negative Normal NEGATIVE [facility] Comment on above: Performed By: #### E RUR, PREGU, UMICRO #### [facility] [address] [place] [address] Dr. Sheldon Morse pH (U) 6.0 [pH] Normal 5-9 [facility] Comment on above: Performed By: #### E RUR, PREGU, UMICRO #### [facility] [address] [place] [address] Dr. Sheldon Morse Protein (U) [Mass/Vol] 30 mg/dL Abnormal NEGATIVE/ TRACE [facility] Comment on above: Performed By: #### E RUR, PREGU, UMICRO #### [facility] [address] [place] [address] Dr. Sheldon Morse SPEC GRAVITY 1.025 Normal 1.005-<=1.025 [facility] Comment on above: Performed By: #### Bharat CASTANEDA PREGU, UMICRO #### [facility] [address] [place] [address] Dr. Sheldon Morse UR MICRO IND INDICATED Normal [facility] Comment on above: Performed By: #### E RUR, PREGU, UMICRO #### [facility] [address] [place] [address] Dr. Sheldon Morse Urobilinogen Qn (U) 0.2 {José'U}/dL Normal 0.2 - 1. 0 [facility] Comment on above: Performed By: #### E RUR PREGU, UMICRO #### [facility] [address] [place] [address] Dr. Sheldon Morse LIPASEon 12-01-2022 Lipase [Catalytic activity/Vol] 64.0 U/L Critically low 73.0-393.0 [facility] Comment on above: Performed By: #### E RUR, PREGU, UMICRO #### [facility] [address] [place] [address] Dr. Sheldon Morse URon 12-01-2022 , QUAL Negative Normal NEGATIVE [facility] Comment on above: Performed By: #### E RURERUMU, UMICRO #### [facility] [address] [place] [address] Dr. Sheldon Morse PROF 14(COMP METB)on 023 Albumin [Mass/Vol] 4.2 g/dL Normal 3.4-5.0 [facility] Comment on above: Performed By: #### C MP, LIPA #### [facility] [address] [place] [address] Dr. Sheldon Morse Albumin/Globulin [Mass ratio] 1.3 {ratio} Normal [facility] Comment on above: Performed By: #### C MP, LIPA #### [facility] [address] [place] [address] Dr. Sheldon Morse ALP [Catalytic activity/Vol] 74 U/L Normal 46-116 [facility] Comment on above: Performed By: #### C MP, LIPA #### [facility] [address] [place] [address] Dr. Sheldon Morse ALT [Catalytic activity/Vol] 39 U/L Normal 14-59 [facility] Comment on above: Performed By: #### C MP, LIPA #### [facility] [address] [place] [address] Dr. Sheldon Morse Anion gap [Moles/Vol] 13.9 mmol/L Normal [facility] Comment on above: Performed By: #### C MP, LIPA #### [facility] [address] [place] [address] Dr. Sheldon Morse AST [Catalytic activity/Vol] 20 U/L Normal 15-37 [facility] Comment on above: Performed By: #### C MP, LIPA #### [facility] [address] [place] [address] Dr. Sheldon Morse Bilirubin [Mass/Vol] 0.5 mg/dL Normal 0.2-1.0 [facility] Comment on above: Performed By: #### C MP, LIPA #### [facility] [address] [address] [address] Sheldon Morse Calcium [Mass/Vol] 9.1 mg/dL Normal 8.5-10.1 [facility] Comment on above: Performed By: #### C MP, LIPA #### [facility] [address] [address] [address] Sheldon Morse Chloride [Moles/Vol] 102 mmol/L Normal 98-107 [facility] Comment on above: Performed By: #### C MP, LIPA #### [facility] [address] [address] [address] Sheldon Morse CO2 [Moles/Vol] 26.1 mmol/L Normal 21.0-32.0 [facility] Comment on above: Performed By: #### C MP, LIPA #### [facility] [address] [place] [address] Dr. Sheldon Morse Creatinine [Mass/Vol] 0.72 mg/dL Normal 0.55-1.02 [facility] Comment on above: Performed By: #### C MP, LIPA #### [facility] [address] [place] [address] Dr. Sheldon Morse EGFR-AF [facility] >60 Normal >=60 [facility] Comment on above: Performed By: #### C MP, LIPA #### [facility] [address] [place] [address] Dr. Sheldon Morse EGFR-NON AF [facility] >60 Normal >=60 [facility] Comment on above: Performed By: #### C MP, LIPA #### [facility] [address] [address] [address] Sheldon Morse Globulin (S) [Mass/Vol] 3.2 g/dL Normal [facility] Comment on above: Performed By: #### C MP, LIPA #### [facility] [address] [address] [address] Sheldon Morse Glucose [Mass/Vol] 126 mg/dL Critically high 74-106 [facility] Comment on above: Performed By: #### C MP, LIPA #### [facility] [address] [address] [address] Sheldon Morse Potassium [Moles/Vol] 4.0 mmol/L Normal 3.5-5.1 [facility] Comment on above: Performed By: #### C MP, LIPA #### [facility] [address] [place] [address] Dr. Sheldon Morse Protein [Mass/Vol] 7.4 g/dL Normal 6.4-8.2 [facility] Comment on above: Performed By: #### C MP, LIPA #### [facility] [address] [place] [address] Dr. Sheldon Morse Sodium [Moles/Vol] 138 mmol/L Normal 136-145 [facility] Comment on above: Performed By: #### C MP, LIPA #### [facility] [address] [place] [address] Dr. Sheldon Morse Urea nitrogen [Mass/Vol] 11.0 mg/dL Normal 7.0-18.0 [facility] Comment on above: Performed By: #### C MP, LIPA #### [facility] [address] [place] [address] Dr. Sheldon Morse Urea nitrogen/Creatinine [Mass ratio] 15.3 mg/mg Normal [facility] Comment on above: Performed By: #### C MP, LIPA #### [facility] [address] [place] [address] Dr. Sheldon Morse URINE MICROSCOPIC ONLYon BACTERIA TRACE Abnormal NONE SEEN [facility] Comment on above: Performed By: #### E RUR, PREGU, UMICRO #### [facility] [address] [place] [address] Dr. Sheldon Morse Bacteria identified Cx Nom (U) INDICATED Normal [facility] Comment on above: Performed By: #### E RUR, PREGU, UMICRO #### [facility] [address] [place] [address] Dr. Sheldon Morse CAST NONE SEEN Normal NONE SEEN [facility] Comment on above: Performed By: #### E RUR, PREGU, UMICRO #### [facility] [address] [address] [address] Sheldon Morse Crystals LM Nom (Urine sed) NONE SEEN Normal NONE SEEN [facility] Comment on above: Performed By: #### E RUR, PREGU, UMICRO #### [facility] [address] [address] [address] Sheldon Morse Epithelial cells LM Ql (Urine sed) NONE SEEN Normal NONE SEEN /RARE [facility] Comment on above: Performed By: #### E RUR, PREGU, UMICRO #### [facility] [address] [address] [address] Sheldon Morse MUCOUS NONE SEEN Normal NONE SEEN [facility] Comment on above: Performed By: #### E RUR, PREGU, UMICRO #### [facility] [address] [place] [address] Dr. Sheldon Morse RBC 0-2 Normal 0-2 [facility] Comment on above: Performed By: #### E RUR, PREGU, UMICRO #### [facility] [address] [address] [address] Sheldon Morse WBC 75-100 Abnormal NONE SEEN [facility] Comment on above: Performed By: #### E RUR, PREGU, UMICRO #### [facility] [address] [address] [address] Sheldon Morse [facility]on [facility]-12 SARS-CoV-2 (COVID-19) RNA BRIGID+probe Ql (Unsp spec) Detected Critically abnormal NOT DETECTED [facility] Comment on above: Result Comment: This test is not yet approved or cleared by the [place] FDA. When there are no FDA-approved or cleared tests available, and other criteria are met, FDA can make tests available under an emergency access mechanism called an Emergency Use Authorization (EUA). The EUA for this test is supported by the [employer] of Health and Human Service's (HHS's) declaration [...] By: #### E RUR PREGU UMICRO #### [facility] [address] [place] [address] Dr. Sheldon Morse PAP ACOG PANEL 2: 30 to 65on 08-24-2022 . . Normal [facility] Comment on above: Result Comment: Perf ormed at: WB Performed By: #### E RUR PREGU UMICRO #### [facility] [address] [place] [address] Dr. Sheldon Morse Age Gdln ACOG Testing 30-65 Normal [facility] Comment on above: Performed By: #### E RUR PREGU, UMICRO #### [facility] [address] [place] [address] Dr. Sheldon Morse DIAGNOSIS: Comment Normal [facility] Comment on above: Result Comment: NEGA TIVE FOR INTRAEPITHELIAL LESION OR MALIGNANCY. REACTIVE CELLULAR CHANGES AND/OR REPAIR ARE PRESENT. Performed at: WB Performed By: #### E YAMILA CASTANEDA UMICRO #### [facility] [address] [place] [address] Dr. Sheldon Morse Electronically signed by: Comment Normal [facility] Comment on above: Result Comment: Esperanza Holm MD, Pathologist Performed at: WB Performed By: #### E RUAdriano PREGU UMICRO #### [facility] [address] [place] [address] Dr. Sheldon Morse HPV Aptima Negative Normal Negative [facility] Comment on above: Result Comment: This nucleic acid amplification test detects fourteen high-risk HPV types (16,18,31,33,35,39,45,51,52,56,58,59,66,68) without differentiation. Performed at: =G Performed By: #### E RUR PREGU, UMICRO #### [facility] [address] [place] [address] Dr. Sheldon Morse Methodology: Comment Normal [facility] Comment on above: Result Comment: This liquid based ThinPrep(R) pap test was screened with the use of an image guided system. Performed at: WB Performed By: #### YAMILA GARCIA UMICRO #### [facility] [address] [address] [address] Sheldon Morse Note: Comment Normal [facility] Comment on above: Result Comment: The Pap [...] Performed By: #### YAMILA GARCIA UMICRO #### [facility] [address] [address] [address] Sheldon Morse Performed by: Comment Normal [facility] Comment on above: Result Comment: Desean Stoll, Regulatory Product Manager (ASCP) Performed at: WB Performed By: #### YAMILA GARCIA UMICRO #### [facility] [address] [address] [address] Sheldon Morse Specimen adequacy: Comment Normal [facility] Comment on above: Result Comment: Sati sfactory for evaluation. Endocervical and/or squamous metaplastic cells (endocervical component) are present. Performed at: WB Performed By: #### YAMILA GARCIA UMICRO #### [facility] [address] [address] [address] Sheldon Morse [facility]on SARS-CoV-2 (COVID-19) RNA BRIGID+probe Ql (Unsp spec) Not detected Normal NOT DETECTED [facility] Comment on above: Result Comment: This test is not yet approved or cleared by the [place] FDA. When there are no FDA-approved or cleared tests available, and other criteria are met, FDA can make tests available under an emergency access mechanism called an Emergency Use Authorization (EUA). The EUA for this test is supported by the [place] of Health and Human Service's (HHS's) declaration [...] consistent with SARS-CoV-2. Performed By: #### [facility] #### [facility] [address] [place] [address] Dr. Sheldon Morse MG MAMM DIAGNOSTIC 3D OTTONIEL CA Don 06-02-2022 MG MAMM DIAGNOSTIC 3D OTTONIEL CAD Patient: DEBBY DURBIN Exam Date: 06/02/2022 : 1980 Gender:F Ordering : DR GO MENDIOLA . Admission #: [id number] Family : Order #: [id number] CLICK HERE TO VIEW EXAM RADIOLOGY REPORT [...] Treatments None Family Cancers None LOCATION: [facility] BREAST COMPOSITION: Heterogeneously dense,which may obscure small [...] M.D. on 06/02/2022 at 15:32 Normal [facility] US BREAST LEFT LIMITEDon US BREAST LEFT LIMITED Patient: DEBBY DURBIN Exam Date: 06/02/2022 : 1980 Gender:F Ordering : DR GO MENDIOLA . Admission #: [id number] Family : Order #: [id number] CLICK HERE TO VIEW EXAM RADIOLOGY REPORT [...] Treatments None Family Cancers None LOCATION: [facility] BREAST COMPOSITION: Heterogeneously dense,which may obscure small [...] M.D. on 06/02/2022 at 15:32 Normal [facility] 12-27-2018 CN Office Visit (NSFRVW ) HESHAMDEBBY Nicholson ([id number]) 1980 F Date Time Provider Department 12/27/18 [...] 25 MG TABLET SA 1 pill QD [id number] TABLET as directed REVIEW OF SYSTEMS: PAIN [...] information obtained and documented by the physician undertaker assistant. I examined the patient and evaluated all available films and pertinent documents. We discussed the case and I agree with the plans as outlined in this note. SIGNATURE: Brittaney Christiansen MD PATIENT NAME: Debby Durbin DATE: December 27, 2018 TIME: 8:40 AM PAGER: Referring Provider: AILEEN CASTELLANOS [[id number]] Allergies As of Date: 12/27/2018 (No Known [...] by BRITTANEY CHRISTIANSEN MD on 12/27/18 Normal [facility] PROGRESSon 12-27-2018 Protein mass conc HNO ID: [id number] Author: Brittaney Christiansen Service: (none) Author Type: Physician Type: Progress Notes Filed: 12/27/2018 10:18 AM Note Text: SPINE SURGERY NEW PATIENT PCP: Aielen Castellanos DO REFERRING PROVIDER: Dr. Castellanos SUBJECTIVE [...] 25 MG TABLET SA 1 pill QD [id number] TABLET as directed REVIEW OF SYSTEMS: PAIN [...] information obtained and documented by the physician undertaker assistant. I examined the patient and evaluated all available films and pertinent documents. We discussed the case and I agree with the plans as outlined in this note. SIGNATURE: Brittaney Christiansen MD PATIENT NAME: Dbeby Durbin DATE: December 27, 2018 TIME: 8:40 AM PAGER: Normal [facility] PROGRESSon 12-11-2018 Protein mass conc HNO ID: [id number] Author: Aileen Corey) Noel Service: (none) Author Type: Physician Acid Tester Type: Progress Notes Filed: 12/13/2018 3:39 PM Note Text: Pt can be scheduled first available with Dr. Christiansen. Cervical disc herniation with extrusion. Patient name: Debby Durbin Are you being referred by a [facility] Provider or [facility] Management Provider at [facility]? No If answer is YES please schedule [...] in Epic: No If not, please provide [phone] to fax in imaging reports for review. [...] this same symptoms? No Additional Comments Normal [facility] MR-MR cervical spine wo con IMPORTon 11-29-2018 MR-MR cervical spine wo con IMPORT Images were obtained outside of [facility] [id number] Normal [facility] Vital Signs Date Time Vital Sign Value Performing Clinician Facility 06-26-2023 15:40-0400 Body height 175.26 cm Aileen Castellanos Other [facility] Other 06-26-2023 15:40-0400 Body mass index (BMI) [Ratio] 28.79 kg/m2 Aileen Castellanos Other [facility] Other 06-26-2023 15:40-0400 Body temperature 98.7 [degF] Aileen Castellanos Other [facility] Other 06-26-2023 15:40-0400 Body weight 88.45 kg Aileen Castellanos Other [facility] Other 06-26-2023 15:40-0400 Diastolic blood pressure 84 mm[Hg] Aileen Castellanos Other [facility] Other 06-26-2023 15:40-0400 Respiratory rate 18 /min Aileen Castellanos Other [facility] Other 06-26-2023 15:40-0400 SaO2% (BldA) [Mass fraction] 97 % Aileen Castellanos Other [facility] Other 06-26-2023 15:40-0400 Systolic blood pressure 132 mm[Hg] Aileen Castellanos Other [facility] Other 11-22-2022 16:40-0500 Body height 175.26 cm Aileen Castellanos Other [facility] Other 11-22-2022 16:40-0500 Body mass index (BMI) [Ratio] 27.17 kg/m2 Aileen Castellanos Other [facility] Other 11-22-2022 16:40-0500 Body temperature 97.3 [degF] Aileen Castellanos Other [facility] Other 11-22-2022 16:40-0500 Body weight 83.46 kg Aileen Castellanos Other [facility] Other 11-22-2022 16:40-0500 Diastolic blood pressure 76 mm[Hg] Aileen Castellanos Other [facility] Other 11-22-2022 16:40-0500 Respiratory rate 18 /min Aileen Castellanos Other [facility] Other 11-22-2022 16:40-0500 SaO2% (BldA) [Mass fraction] 98 % Aileen Castellanos Other [facility] Other 11-22-2022 16:40-0500 Systolic blood pressure 124 mm[Hg] Aileen Castellanos Other [facility] Other 05-23-2022 16:40-0400 Body height 175.26 cm Aileen Castellanos Other [facility] Other 05-23-2022 16:40-0400 Body mass index (BMI) [Ratio] 27.46 kg/m2 Aileen Castellanos Other [facility] Other 05-23-2022 16:40-0400 Body temperature 98.2 [degF] Aileen Castellanos Other [facility] Other 05-23-2022 16:40-0400 Body weight 84.37 kg Aileen Castellanos Other [facility] Other 05-23-2022 16:40-0400 Diastolic blood pressure 82 mm[Hg] Aileen Castellanos Other [facility] Other 05-23-2022 16:40-0400 Respiratory rate 18 /min Aileen Castellanos Other [facility] Other 05-23-2022 16:40-0400 SaO2% (BldA) [Mass fraction] 98 % Aileen Castellanos Other [facility] Other 05-23-2022 16:40-0400 Systolic blood pressure 124 mm[Hg] Aileen Castellanos Other [facility] Other Encounters Encounter Date Encounter Type Care Provider Facility Start: 12-11-2023 End: 12-11-2023 ambulatory Aileen Castellanos Other [facility] Other Start: 12-11-2023 Telephone encounter Aileen Castellanos [facility] [place] Start: 11-15-2023 End: 11-15-2023 ambulatory Aileen Castellanos Other [facility] Other Start: 11-15-2023 Telephone encounter Aileen Castellanos [facility] [place] Start: 10-09-2023 End: 10-09-2023 ambulatory Aileen Castellanos Other [facility] Other Start: 10-09-2023 Telephone encounter Aileen Castellanos [facility] [place] Start: 06-26-2023 End: 06-26-2023 ambulatory Aileen Castellanos Other [facility] Other Start: 06-26-2023 Office outpatient visit 25 minutes Aileen Castellanos [facility] [place] Start: 12-01-2022 End: 12-01-2022 ambulatory VIRGILIO GASCA Facility: Start: 11-22-2022 End: 11-22-2022 ambulatory Aileen Castellanos Other [facility] Other Start: 11-22-2022 Office outpatient visit 25 minutes Aileen Castellanos [facility] [place] Start: 10-25-2022 End: 10-25-2022 ambulatory Aileen Castellanos Other [facility] Other Start: 10-25-2022 Telephone encounter Aileen Castellanos [facility] [place] Start: 10-23-2022 End: 10-23-[address] AILEEN CASTELLANOS [place] [facility] Other Start: 10-23-2022 Telephone encounter Aileen Castellanos [facility] [place] Start: 09-11-2022 End: 09-11-2022 ambulatory Aileen Castellanos Other [facility] Other Start: 09-11-2022 Telephone encounter Aileen Castellanos [facility] [place] Start: 08-14-2022 End: 08-14-2022 ambulatory GO MENDIOLA Facility:[facility] Start: 06-20-2022 Telephone encounter Aileen ORTIZ [facility] [place] Start: 06-20-2022 End: 06-20-[address] AILEEN CASTELLANOS [place] [facility] Other Start: 06-06-2022 End: 06-06-2022 ambulatory Aileen Castellanos Other [facility] Other Start: 06-06-2022 Telephone encounter Aileen Castellanos [facility] [place] Start: 06-02-2022 End: 06-03-2022 ambulatory GO MENDIOLA Facility:[facility] Start: 05-23-2022 End: 05-23-2022 ambulatory Aileen Castellanos Other [facility] Other Start: 05-23-2022 Office outpatient visit 25 minutes Aileen Castellanos [facility] [place] Start: 12-27-2018 End: 12-27-2018 Patient encounter procedure BRITTANEY CHRISTIANSEN [facility] Immunizations Immunization Date Immunization Notes Care Provider Kimberly garg 09-19-2021 COVID-19 Vaccine Pfi zer - Documentation Purposes Only Aileen Castellanos Other [facility] Other 03-09-2021 COVID-19 Vaccine Pfi zer - Documentation Purposes Only Aileen Castellanos Other [facility] Other 02-16-2021 COVID-19 Vaccine Pfi zer - Documentation Purposes Only Aileen Castellanos Other [facility] Other Payers Date Payer Category Payer Unknown [id number] 2.16.84 [id number] 1979 Unknown [id number] 2.16.84 [id number] 1979 Unknown [id number] 2.16.84 [id number] 1979 Unknown [id number] 2.16.84 [id number] 1979 Unknown [id number] 2.16.84 [id number] 1960 [facility] [id number] 1960 Unknown [id number] 2.16.8 [id number] 1960 Unknown [id number] Social History Date Type Detail Facility Unknown if ever smoked [facility] Other Sex Assigned At Sex Assigned At Bir th [facility] Other Medical Equipment Procedure Code Equipment Code [...] Nov, Other 10:39 AM - 10:58 AM [facility] Other 01-30-2024 Evaluation note* Encounter Date Diagnosis Assessment Notes Treatment Notes Treatment Clinical Notes Nov, Depression (ICD-10 - F32.9) [facility] Other 01-04-2024 Evaluation note* Encounter Date Diagnosis Assessment Notes Treatment Notes Treatment Clinical Notes Nov, Anxiety (ICD-10 - F41.9) [facility] Other 11-28-2023 Evaluation note* Encounter Date Diagnosis Assessment Notes Treatment Notes Treatment Clinical Notes Sep, Anxiety (ICD-10 - F41.9) [facility] Other 08-15-2023 Evaluation note* Encounter Date Diagnosis [...] Lamisil orally and I asked her to sampler pickup Lamisil cream (OTC). Guidance is given on how to use the cream, she should use this for one month. She does not drink alot of alcohol. If her symptoms do not improve after one month then she should let me know and we would consider that this is not fungal. 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 [facility] Other 01-11-2023 Evaluation note* Encounter Date Diagnosis [...] spread. If she wants to see a low voltage electrician she can see one. Right now she is going to continue to monitor as she has had this for seven months. She does not have any pain with this. She had shingles in the past and does not feel it is shingles. If she wants to see a low voltage electrician she can call and schedule this herself. 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 [facility] Other 12-12-2022 Evaluation note* Encounter Date Diagnosis [...] the point she had to stay in [place] overnight because she was too tired to drive home. Oct, Other 2:39 PM - 2:54 PM [facility] Other 08-09-2022 Evaluation note* Encounter Date Diagnosis Assessment Notes Treatment Notes Treatment Clinical Notes Jun, Nicotine dependence (ICD-10 - F17.200) Jun, Chest congestion (ICD-10 - R09.89) Jun, Runny nose (ICD-10 - R09.89) Jun, Body aches (ICD-10 - R52) [facility] Other 08-09-2022 Evaluation note* Encounter Date Diagnosis Assessment Notes Treatment Notes Treatment Clinical Notes Jun, Left acute otitis media (ICD-10 - H66.92) [facility] Other 07-26-2022 Evaluation note* Encounter Date Diagnosis Assessment Notes Treatment Notes Treatment Clinical Notes May, Nicotine dependence (ICD-10 - F17.200) [facility] Other 07-12-2022 Evaluation note* Encounter Date Diagnosis [...] She has been talking to a health soccer coach. In the past she was on [...] as it is working well. 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 May, Urinary frequency (ICD-10 - R35.0) for lab order only May, Other She voices that she has called the [facility] twice to schedule her mammogram and has not heard back from them, she is going to call again. [facility] Other [id number] History general Narrative - Reported* Type Description [...] Hospitalization History see above surgical histo ry [facility] Other Evaluation noteNo InformationNortOffice Max Other Summary Purpose Family History No Family History Records FoundNo Family History Records Found Advance Directives No Advanced Directives Records FoundNo Advanced Directives Records Found Additional Source Comments INFORMATION SOURCE (unrecogn ized section and content) DATE CREATED AUTHOR 01/01/2019 [facility] DATE CREATED AUTHOR AUTHOR'S ORGANIZ ATION 03/22/2023 [facility] REASON FOR VISIT (unrecogniz ed section [...] BE BASED ON THE PRIMARY CLINICAL RECORDS. [facility]. provides no warranty or guarantee of the accuracy or completeness of information in this document.
[2024-01-18 13:48] LABS: Estimated Average Glucose 151 mg/dL; Glycohemoglobin A1C 6.9 % (4.5-6.2)
[2024-01-18 13:59] LABS: Chol HDL Ratio 3.7; Cholesterol 206 mg/dL (<=200); HDL Cholesterol 55 mg/dL (40-60); Thyroid Stimulating Hormone 1.763 uIU/mL (0.358-3.740); Triglycerides 141 mg/dL (<=150); VLDL CHOLESTEROL 28.2 mg/dL
== END 2024-01-17 21:17 | disposition home or self-care (01) ==
LOC: LAB 21:16
PROVIDERS: PCP Family Medicine; Visit Provider Family Medicine
DX: E78.5 Hyperlipidemia, unspecified (principal); E11.9 Type 2 diabetes mellitus without complications; R63.5 Abnormal weight gain
CPT/HCPCS: 36415; 80061; 83036; 84443

== ENCOUNTER 2024-11-14 11:35 | Outpatient (OUT) | payer OTHER, SELFPAY ==
--- OUTSIDE RECORDS SUMMARY | 2024-11-14 11:39 | XMS_ITS | CCD ---
Author Organization [facility] Care Team Providers Care Coupon Clerk Name Role Phone BRITTANEY CHRISTIANSEN Attending Unavailable AILEEN CASTELLANOS Referring Unavailable Jasmin, Aileen Unavailable GO MENDIOLA Admitting Unavailable JASMIN, DR GALLAGHER Primary Care Unavailable GO MENDIOLA Attending Unavailable GO MENDIOLA Consulting Unavailable HAY, DR EDOUARD Oh Consulting Unavailable CAMPOS, VIRGILIO Attending Unavailable CAMPOS, VIRGILIO Consulting Unavailable VIRGILIO GASCA Admitting Unavailable JASMIN, DR GALLAGHER Primary Care Unavailable MIGUEL MONZON Consulting Unavailable JASMIN, DR GALLAGHER Attending Unavailable JASMIN, DR GALLAGHER Consulting Unavailable JASMIN, DR GALLAGHER Primary Care Unavailable JASMIN, DR GALLAGHER Admitting Unavailable GO MENDIOLA Consulting Unavailable JASMIN, DR GALLAGHER Primary Care Unavailable GO MENDIOLA Admitting Unavailable GO MENDIOLA Attending Unavailable JASMIN, DR GALLAGHER Attending Unavailable GIRANA, DR GALLAGHER Consulting Unavailable GIRVIN, DR GALLAGHER Primary Care Unavailable GIRVIN, DR GALLAGHER Admitting Unavailable Allergies Allergy Classification Reported Allergen(s) Allergy Type Date of Onset Reaction(s) Facility (13 sources) Acetaminophen Drug Allergy AgentPiggy [employer] Other (1 source) Acetaminophen Drug Allergy [facility] Medications Current Medications Medication Drug Class(es) Dates Sig (Normalized) Sig (Original) [id number] 200 actuat albuterol 0.09 mg/actuat metered dose inhaler (16 sources) beta2-Adrenergic Agonist Start: 01-15-2024 take 2 puff(s) by mouth four times daily as needed Albuterol Sulfate Active INHALATION January 15, 2024 1:00am FreeTextSig: INHALE 2 PUFFS BY MOUTH INTO THE LUNGS FOUR TIMES DAILY NEEDED; Note: Source Status: Not-Taking\PRNprn ; Refills: 6; Qty: 8.5 Gram; Provider: Jasmin Gallagher ( ) take 2 puff(s) by mo uth four [...] FOUR TIMES DAILY NEEDED for 25 Active ALPRAZolam 0.5 mg oral tablet (20 sources) Benzodiazepine Start: 01-29-2024 End: 08-04-2024 take 1 tablet by mouth once daily at bedtime Alprazolam (Xanax) 0.5 mg tablet Active 0.5 MG PO Daily at bedtime August 04, 2024 3:31pm Start: 01-15-2024 End: 01-29-2024 take 1 tablet by mouth once daily at bedtime Alprazolam (Xanax) 0.25 mg tablet Discontinued 0.25 MG PO Daily at bedtime January 15, 2024 1:49pm January 29, 2024 4:26pm Start: 12-11-2023 [facility] needed Xanax 0.25 [...] a day for 30 day(s) May, Active cetirizine hydrochloride 10 mg oral tablet (16 sources) Histamine-1 Receptor Antagonist Start: 01-29-2024 take 1 tablet by mouth once daily Cetirizine Active 1 TAB PO Daily January 29, 2024 12:00am FreeTextSig: TAKE 1 TABLET BY MOUTH EVERY DAY; Note: Source Status: Not-Taking\PRNprn; Provider: Jasmin Gallagher ( ) take 1 tablet by solomon th once daily as needed Cetirizine HCl 10 MG TAKE 1 TABLET BY MO UTH EVERY DAY prn Not-Taking/PRN ibuprofen 800 mg oral tablet (19 sources) Nonsteroidal Anti-inflammatory Drug Start: 08-04-2024 Ibuprofen Active 0 .ROUTE .COMPLEX 60 August 04, 2024 3:32pm TAKE 1 TABLET BY MOUTH EVERY 8 TO 12 HOURS NEEDED WITH FOOD Start: 03-10-2024 End: 08-04-2024 Ibuprofen Discontinued 0 .RO MACIE .COMPLEX 60 March 10, 2024 2:53pm August 04, 2024 3:33pm TAKE 1 TABLET BY MOUTH EVERY 8 TO 12 HOURS NEEDED WITH FOOD Start: 03-10-2024 Ibuprofen Acti ve 0 .ROUTE .COMPLEX 60 March 10, 2024 2:53pm TAKE 1 TABLET BY MOUTH EVERY 8 TO 12 HOURS NEEDED WITH FOOD Start: 01-29-2024 End: 03-10-2024 take 1 tablet by mouth at mealtime as needed Ibuprofen Discontinued 800 MG PO January 29, 2024 12:00am March 10, 2024 2:53pm FreeTextSig: TAKE 1 TABLET BY MOUTH EVERY 8 TO 12 HOURS WITH FOOD NEEDED; Note: Source Status: Taking; Refills: 3; Qty: 60 Tablet; Provider: Jasmin Fernandez take 1 tablet by solomon th at [...] 3 ml liraglutide 6 mg/ml pen injector (20 sources) GLP-1 Receptor Agonist Start: 01-15-2024 End: 08-04-2024 inject 1.8 mg by subcutaneous injection once daily Liraglutide Active 0 .ROUTE .COMPLEX August 04, 2024 3:35pm INJECT 1.8 MG UNDER THE SKIN ONCE DAILY inject 1.8 mg by sub cutaneous injection once daily Victoza 18 MG/3ML ADMINISTER 1.8 MG UNDER THE SKIN EVERY DAY for 30 Active inject 1.2 mg by sub cutaneous injection once daily Victoza 18 MG/3ML ADMINISTER 1.2 MG UNDER THE SKIN EVERY DAY for 30 Active sertraline 100 mg oral tablet (20 sources) Serotonin Reuptake Inhibitor Start: 08-04-2024 take 4 tablets by mouth once daily Sertraline Active 25 MG PO Daily August 04, 2024 12:00am in addition to the 100 MG tablet (total 125 MG) daily Start: 07-08-2024 End: 08-04-2024 take 1 tablet by mouth once daily Sertraline Active 0 .ROUTE .COMPLEX August 04, 2024 3:29pm TAKE 1 TABLET BY MOUTH EVERY DAY in addition to the 25 MG tablet (total of 125 MG) daily Start: 01-29-2024 End: 07-08-2024 take 100 mg by mouth once daily Sertraline Discontinue d 100 MG PO Daily January 29, 2024 4:38pm July 08, 2024 8:21am Start: 01-03-2024 End: 01-29-2024 Sertraline Discontinued 0 .R OUTE .COMPLEX 135 January 03, 2024 10:13am January 29, 2024 4:26pm TAKE 1 AND 1/2 TABLETS EVERY DAY Start: 01-03-2024 End: 01-03-2024 take 1 tablet by mouth once daily Sertraline Discontinued 0 PO Daily January 03, 2024 10:11am January 03, 2024 10:13am take 1 & 1/2 of a 50 MG tablet orally daily; FreeTextSig: take 1 and 1/2 tablet by mouth once a day; Note: Source Status: Increase; Refills: 1; Provider: Dyllan Noriega Start: 10-09-2023 take 0.5 tablet by m outh once daily, then take 1 tablet by [...] Drug Class(es) Dates Sig (Normalized) Sig (Original) empagliflozin 10 mg oral tablet (9 sources) Sodium-Glucose Cotransporter 2 Inhibitor Start: 01-29-2024 End: 01-29-2024 take 1 tablet by mouth once daily Empagliflozin (Jardiance) 10 mg tablet Discontinued 10 MG PO Daily January 29, 2024 4:29pm January 29, 2024 4:38pm 24 hr metFORMIN hydrochloride 500 mg extended release oral tablet (20 sources) Biguanide Start: 01-15-2024 End: 08-04-2024 take 2 tablets by mouth once daily in the morning, then take 1 tablet by mouth once daily in the evening Metformin Discontinued 500 MG PO January 29, 2024 4:00pm May 07, 2024 2:28pm FreeTextSig: TAKE 2 TABLETS BY MOUTH EVERY MORNING AND 1 EVERY EVENING; Note: Source Status: Taking; Refills: 3; Provider: Dyllan Noriega take 2 tablets by mo ut once daily in the morning, then take 1 tablet by mouth once daily in the evening metFORMIN HCl ER 500 MG TAKE 2 TABLETS B Y MOUTH EVERY MORNING AND 1 EVERY EVENING for 90 days Active predniSONE 20 mg oral tablet (1 source) Start: 06-20-2024 End: 08-04-2024 take 3 tablets by mouth once daily at mealtime, then take 2 tablets by mouth once daily, then take 1 tablet by mouth once daily at mealtime Prednisone Discontinued 0 PO .with food or milk 30 07June 20, 2024 12:00am August 04, 2024 3:01pm take 3 tablets a day x3 days, 2 tabs a day x3 days and then 1 tab a day x3 days orally WITH FOOD OR MILK; DO NOT TAKE ANY MOTRIN, ADVIL, ALEVE or IBUPROFEN (NSAID MEDICATION) WHILE ON PREDNISONE Triamcinolone (20 sources) Corticosteroid Start: 01-17-2020 Kenalog -40 mg Jan, 60 mg Start: 07-29-2018 KENALOG - 10 m g Jul, 40 mg Problems Active Problems Problem Classification Problem Date Documented Da te Episodic/Chronic Anxiety disorders (17 sources) Anxiety; Translations: [Anxiety disorder, unspecified] Chronic Diabetes mellitus with complications (20 sources) Type II diabetes mellitus uncontrolled; Translations: [Type 2 diabetes mellitus with hyperglycemia] Onset: 05-23-2022 Resolved: 05-23-2022 Chronic Diabetes mellitus without complication (13 sources) Type 2 diabetes mellitus; Translations: [Type 2 diabetes mellitus without complications] Onset: 12-05-2022 Chronic Diabetes mellitus without complication (13 sources) Hyperglycemia; Translations: [Hyperglycemia, unspecified] Episodic Disorders of lipid metabolism (20 sources) Hyperlipidemia; Translations: [Hyperlipidemia, unspecified] Onset: 05-23-2022 Resolved: 05-23-2022 Chronic Fluid and electrolyte disorders (4 sources) Hypokalemia; Translations: [Hypokalemia] 01-29-2024 Episodic Genitourinary symptoms and ill-defined conditions (3 sources) Frequency of micturition; Translations: [Proteinuria, unspecified] Onset: 05-23-2022 Resolved: 05-23-2022 Episodic Malaise and fatigue (1 source) Other fatigue Episodic Mood disorders (8 sources) Depressive disorder; Translations: [Major depressive disorder, single episode, unspecified] Chronic Mycoses (1 source) Tinea pedis Episodic Nonspecific chest pain (4 sources) Chest pain; Translations: [Chest pain, unspecified] 01-29-2024 Episodic Other aftercare (13 sources) Long-term current use of drug therapy; Translations: [Other vermin exterminator (current) drug therapy] Episodic Other aftercare (4 sources) Other residential (current) drug therapy; Translations: [OTH GROUP HOME CURRENT DRUG THERAPY] Onset: 05-23-2022 Resolved: 05-23-2022 Episodic Other liver diseases (13 sources) Elevated liver enzymes level; Translations: [Abnormal levels of other serum enzymes] Episodic Other nervous system disorders (13 sources) Skin sensation disturbance; Translations: [Paresthesia of skin] Episodic Other nervous system disorders (13 sources) Paresthesia of upper limb; Translations: [Paresthesia of skin] Episodic Other nutritional; endocrine; and metabolic disorders (3 sources) Abnormal weight loss; Translations: [Loss of weight] Onset: 05-23-2022 Resolved: 05-23-2022 Episodic Other nutritional; endocrine; and metabolic disorders (1 source) Abnormal weight gain Episodic Other nutritional; endocrine; and metabolic disorders (3 sources) Weight loss; Translations: [Abnormal weight loss] 01-29-2024 Episodic Other screening for suspected conditions (not [...] Onset: 10-23-2022 Episodic Other aftercare (1 source) group home (current) use 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 drugs; Translations: [PHYS ASST USE ORAL HYPOGLYCEMIC DX] Onset: 12-05-2022 Episodic [...] Test Name Value Interpretation Reference Range Facility Laboratory - Hematology and Cell countson 07-28-2024 HbA1c (Bld) [Mass fraction] 7.1 % [facility] Basophils Auto (Bld) [#/Vol] on 01-17-2024 Basophils (Bld) [#/Vol] 0.1 10 3/uL 0.0-0.1 [facility] Basophils/100 WBC Auto (Bld) on 01-17-2024 Basophils/100 WBC (Bld) 0.6 % 0.2-2.0 [facility] Cholesterol in LDL Calc [Mas s/Vol]on 01-17-2024 Cholesterol in LDL [Mass/Vol] 123.0 mg/dL [facility] Comment on above: <100 mg/dl [id number] 0-129 mg/dl NEAR OR ABOVE [id number] mg/dl BORDERLINE [id number] mg/dl HIGH>190 mg/dl VERY HIGH Cholesterol in VLDL Calc [Ma ss/Vol]on 01-17-2024 Cholesterol in VLDL [Mass/Vol] 28.2 mg/dL [facility] Eosinophils/100 WBC Auto (Bl d)on 01-17-2024 Eosinophils/100 WBC (Bld) 1.1 % 0.9-7.0 [facility] Erythrocyte distribution wid th Auto (RBC) [Ratio]on 01-17-2024 Erythrocyte distribution width (RBC) [Ratio] 12.8 % 11.0-15.0 [facility] Estimated glomerular filtrat ion rate (GFR) non- Americanon 01-17-2024 GFR/1.73 sq M.predicted among non-blacks MDRD (S/P/Bld) [Vol rate/Area] mL/min/{1.73_m2} >=60 [facility] Fibrin D-dimer [Presence] in Platelet poor plasma by Latex agglutinationon 01-17-2024 Fibrin D-dimer LA Ql (PPP) 0.49 mg/L FEU <=0.59 [facility] Comment on above: Increases in D-Dimer concentration observed withthromboembolic events can be variable due to localization,size, and age of the thrombus. Therefore, a thromboembolicevent cannot be diagnosed with certainty on the basis of thereference range. D-Dimers may also be elevated for a varietyof disorders including advanced age, , coronarydisease, cancer, liver disease, infection, inflammation,hematoma, DIC, trauma, post-surgery, diabetes, thrombolyticor anticoagulant therapy, stress, and generalizedhospitalization. Globulin Calc (S) [Mass/Vol] on 01-17-2024 Globulin (S) [Mass/Vol] 3.8 g/dL [facility] Glucose mean value [Mass/vol ume] in Blood Estimated from glycated hemoglobinon 01-17-2024 Average glucose Estimated from glycated hemoglobin (Bld) [Mass/Vol] 151 mg/dL [facility] Hematocrit Auto (Bld) [Volum e fraction]on 01-17-2024 Hematocrit (Bld) [Volume fraction] 43.7 % 36.0-48.0 [facility] Hemoglobin [Mass/volume] in Bloodon 01-17-2024 Hemoglobin (Bld) [Mass/Vol] 14.4 g/dL 12.0-16.0 [facility] Laboratory - Chemistry and C hemistry - challengeon 01-17-2024 Albumin [Mass/Vol] 4.0 g/dL 3.4-5.0 [facility] ALP [Catalytic activity/Vol] 112 U/L 46-116 [facility] ALT [Catalytic activity/Vol] 31 U/L 14-59 [facility] AST [Catalytic activity/Vol] 12 U/L 15-37 [facility] Bilirubin [Mass/Vol] 0.2 mg/dL 0.2-1.0 [facility] Calcium [Mass/Vol] 9.1 mg/dL 8.5-10.1 [facility] Chloride [Moles/Vol] 103 mmol/L 98-107 [facility] Cholesterol [Mass/Vol] 206 mg/dL <=200 [facility] Cholesterol in HDL [Mass/Vol] 55 mg/dL 40-60 [facility] Comment on above: > or =60 mg/dl - LOW CARDIOVASCULAR RISK<40 mg/dl - HIGH CARDIOVASCULAR RISK CO2 [Moles/Vol] 26.7 mmol/L 21.0-32.0 [facility] Creatinine [Mass/Vol] 0.90 mg/dL 0.55-1.02 [facility] GFR/1.73 sq M.predicted MDRD (S/P/Bld) [Vol rate/Area] mL/min/{1.73_m2} >=60 [facility] Glucose [Mass/Vol] 235 mg/dL 74-106 [facility] Potassium [Moles/Vol] 3.3 mmol/L 3.5-5.1 [facility] Protein [Mass/Vol] 7.8 g/dL 6.4-8.2 [facility] Sodium [Moles/Vol] 133 mmol/L 136-145 [facility] Triglyceride [Mass/Vol] 141 mg/dL <=150 [facility] TSH Qn 1.763 m[IU]/L 0.358-3.740 [facility] Urea nitrogen [Mass/Vol] 9.0 mg/dL 7.0-18.0 [facility] Urea nitrogen/Creatinine [Mass ratio] 10.0 mg/mg [facility] Laboratory - Hematology and Cell countson 01-17-2024 HbA1c (Bld) [Mass fraction] 6.9 % 4.5-6.2 [facility] Comment on above: ADA RECOMMENDED LIMI T 4.0 - 6.0ADA THERAPEUTIC TARGET < 7.0ACTION SUGGESTED> 7.0 Immature granulocytes/100 WBC (Bld) 0.4 % 0.0-0.5 [facility] Leukocytes [#/volume] correc wilmar for nucleated erythrocytes in Blood by Automated counon 01-17-2024 WBC corrected for nucl RBC Auto (Bld) [#/Vol] 10.0 10 3/uL 4.0-11.0 [facility] Lymphocytes Auto (Bld) [#/Vo l]on 01-17-2024 Lymphocytes (Bld) [#/Vol] 3.7 10 3/uL 1.2-3.8 [facility] Lymphocytes/100 WBC Auto (Bl d)on 01-17-2024 Lymphocytes/100 WBC (Bld) 37.0 % 20.5-60.0 [facility] MCH Auto (RBC) [Entitic mass ]on 01-17-2024 MCH (RBC) [Entitic mass] 30.4 pg 26.7-34.0 [facility] MCHC Auto (RBC) [Mass/Vol]on 01-17-2024 MCHC (RBC) [Mass/Vol] 33.0 g/dL 29.9-35.2 [facility] MCV Auto (RBC) [Entitic vol] on 01-17-2024 MCV (RBC) [Entitic vol] 92.2 fL 81.0-99.0 [facility] Monocytes Auto (Bld) [#/Vol] on 01-17-2024 Monocytes (Bld) [#/Vol] 0.7 10 3/uL 0.3-0.8 [facility] Monocytes/100 WBC Auto (Bld) on 01-17-2024 Monocytes/100 WBC (Bld) 7.1 % 1.7-12.0 [facility] Neutrophils Auto (Bld) [#/Vo l]on 01-17-2024 Neutrophils (Bld) [#/Vol] 5.4 10 3/uL 1.4-6.5 [facility] Neutrophils/100 WBC Auto (Bl d)on 01-17-2024 Neutrophils/100 WBC (Bld) 53.8 % 43.0-75.0 [facility] No Panel Informationon 01-16 Eosinophils # (Auto) 0.1 10 3/uL 0.0-0.7 [facility] Immature Granulocyte # (Auto) 0.04 10 3/uL 0.00-0.03 [facility] Troponin I High Sensitivity <4.0 pg/mL 4.0-51.3 [facility] Comment on above: CUT-OFF POINTS HAVE BEEN ESTABLISHED BASED ON THE FOURTHUNIVERSAL DEFINITION OF MYOCARDIAL INFARCTION. THE UPPERREFERENCE LIMIT (URL) OF TROPONIN, DEFINED THE 99THPERCENTILE OF cTnI DISTRIBUTION IN A REFERENCE POPULATION,HAS BEEN CONFIRMED THE DECISION THRESHOLD FOR MIDIAGNOSIS.99TH PERCENTILE = 51.4 PG/MLNOTE: HIGH-SENSITIVITY TROPONIN ASSAY IS NOT INTENDED TO BEUSED IN ISOLATION BUT SHOULD BE INTERPRETED IN CONJUNCTIONWITH OTHER DIAGNOSTIC AND CLINICAL INFORMATION. Platelet mean volume Auto (B ld) [Entitic vol]on 01-17-2024 Platelet mean volume (Bld) [Entitic vol] 11.6 fL 9.5-13.5 [facility] Platelets Auto (Bld) [#/Vol] on 01-17-2024 Platelets (Bld) [#/Vol] 197 10 3/uL 150-450 [facility] RBC Auto (Bld) [#/Vol]on RBC (Bld) [#/Vol] 4.74 10 6/uL 4.20-5.40 [facility] Serum or plasma albumin/glob ulin mass ratioon 01-17-2024 Albumin/Globulin [Mass ratio] 1.1 {ratio} [facility] Serum or plasma anion gap de terminationon 01-17-2024 Anion gap [Moles/Vol] 6.6 mmol/L [facility] Serum or plasma total choles terol/high density lipoprotein (HDL) cholesterol mass erick 01-17-2024 Cholesterol.total/C holesterol in HDL [Mass ratio] 3.7 {ratio} [facility] Comment on above: 3.3 - 4.4 LOW RISK4. 4 - 7.1 AVERAGE RISK7.1 - 11.0 MODERATE RISK>11.0 HIGH RISK CULTURE URINEon 12-04-2022 CULTURE URINE Isolate 1 Escherichia coli 50,000 cfu/mL of ORGANISM 1 Escherichia coli ANTIBIOTIC M.I.C RX STATUS Ampicillin >=32 R F Ampicillin/Sulbactam 16 I F Piperacillin/Tazobactam <=4 S F Cefazolin <=4 S F Ceftazidime <=1 S F Ceftriaxone <=1 S F Ertapenem <=0.5 S F Imipenem <=0.25 S F Amikacin <=2 S F Gentamicin <=1 S F Tobramycin <=1 S F Ciprofloxacin >=4 R F Levofloxacin >=8 R F Nitrofurantoin <=16 S F Trimethoprim/Sulfametho xazole <=20 S F Normal [facility] Comment on above: Performed By: #### U RCX #### [facility] [address] [place] [address] Dr. Sheldon Morse CBC AUTO DIFFon 12-01-2022 BASO # 0.0 103/ul Normal 0.0-0.1 [facility] Comment on above: Performed By: #### C BC #### [facility] [address] [place] [address] Dr. Sheldon Morse Basophils/100 WBC (Bld) 0.4 % Normal 0.2-2.0 [facility] Comment on above: Performed By: #### C BC #### [facility] [address] [place] [address] Dr. Sheldon Morse EO # 0.1 103/ul Normal 0.0-0.7 [facility] Comment on above: Performed By: #### C BC #### [facility] [address] [place] [address] Dr. Sheldon Morse Eosinophils/100 WBC (Bld) 0.5 % Critically low 0.9-7.0 [facility] Comment on above: Performed By: #### C BC #### [facility] [address] [place] [address] Dr. Sheldon Morse Erythrocyte distribution width (RBC) [Ratio] 12.2 % Normal 11.0-15.0 [facility] Comment on above: Performed By: #### C BC #### [facility] [address] [place] [address] Dr. Sheldon Morse Hematocrit (Bld) [Volume fraction] 37.5 % Normal 36.0-48.0 [facility] Comment on above: Performed By: #### C BC #### [facility] [address] [place] [address] Dr. Sheldon Morse Hemoglobin (Bld) [Mass/Vol] 13.9 g/dL Normal 12.0-16.0 [facility] Comment on above: Performed By: #### C BC #### [facility] [address] [place] [address] Dr. Sheldon Morse IG # 0.06 10e3/ul Critically high 0.00-0.[address] [facility] Comment on above: Performed By: #### C BC #### [facility] [address] [place] [address] Dr. Sheldno Morse IG % 0.5 % Normal 0.0-0.5 [facility] Comment on above: Performed By: #### C BC #### [facility] [address] [place] [address] Dr. Sheldon Morse LYMPH # 2.4 103/ul Normal 1.2-3.8 [facility] Comment on above: Performed By: #### C BC #### [facility] [address] [place] [address] Dr. Sheldon Morse Lymphocytes/100 WBC (Bld) 21.3 % Normal 20.5-60.0 [facility] Comment on above: Performed By: #### C BC #### [facility] [address] [place] [address] Dr. Sheldon Morse MANUAL DIFF REQ NO Normal [facility] Comment on above: Performed By: #### C BC #### [facility] [address] [place] [address] Dr. Sheldon Morse MCH (RBC) [Entitic mass] 30.3 pg Normal 26.7-34.0 [facility] Comment on above: Performed By: #### C BC #### [facility] [address] [address] [address] Sheldon Morse MCHC (RBC) [Mass/Vol] 37.1 g/dL Critically high 29.9-35.2 [facility] Comment on above: Performed By: #### C BC #### [facility] [address] [place] [address] Dr. Sheldon Morse MCV (RBC) [Entitic vol] 81.9 fL Normal 81.0-99.0 [facility] Comment on above: Performed By: #### C BC #### [facility] [address] [place] [address] Dr. Sheldon Morse MONO # 0.7 103/ul Normal 0.3-0.8 [facility] Comment on above: Performed By: #### C BC #### [facility] [address] [place] [address] Dr. Sheldon Morse Monocytes/100 WBC (Bld) 6.3 % Normal 1.7-12.0 [facility] Comment on above: Performed By: #### C BC #### [facility] [address] [place] [address] Dr. Sheldon Morse NEUT # 7.8 103/ul Critically high 1.4-6.5 [facility] Comment on above: Performed By: #### C BC #### [facility] [address] [place] [address] Dr. Sheldon Morse Neutrophils/100 WBC (Bld) 71.0 % Normal 43.0-75.0 [facility] Comment on above: Performed By: #### C BC #### [facility] [address] [place] [address] Dr. Sheldon Morse Platelet mean volume (Bld) [Entitic vol] 9.8 fL Normal 9.5-13.5 [facility] Comment on above: Performed By: #### C BC #### [facility] [address] [place] [address] Dr. Sheldon Morse PLT 184 103/ul Normal 150-450 [facility] Comment on above: Performed By: #### C BC #### [facility] [address] [place], [place] [address] Dr. Sheldon Morse RBC 4.58 106/ul Normal 4.20-5.40 [facility] Comment on above: Performed By: #### C BC #### [facility] [address] [place], [place] [address] Dr. Sheldon Morse WBC 11.0 103/ul Normal 4.0-11.0 [facility] Comment on above: Performed By: #### C BC #### [facility] [address] [place], [place] [address] ABD/PELVIS WO CONon 12-01 CT ABD/PELVIS WO CON INDICATION: CALCULUS OF KIDNEY urinary retention x's 1 month (on/off) LLQ pain w/ urinary problem EXAMINATION: CT ABDOMEN AND PELVIS WITHOUT CONTRAST TECHNIQUE: Helically acquired images were obtained of the abdomen and pelvis without IV contrast. A radiation dose optimization technique was used for this scan. ORAL CONTRAST: None. COMPARISON: None. FINDINGS: LOWER CHEST: The visualized portions of [...] MIGUEL MONZON Date: 2022-12-01 17:08 Normal [facility] ER URINE PROFILEon 3 Bilirubin Ql (U) Negative Normal NEGATIVE [facility] Comment on above: Performed By: #### YAMILA GARCIA UMICRO #### [facility] [address] [place] [address] Dr. Sheldon Morse Clarity (U) SL CLOUDY Abnormal CLEAR [facility] Comment on above: Performed By: #### YAMILA GARCIA UMICRO #### [facility] [address] [place] [address] Dr. Sheldon Morse Color (U) LT. YELLOW Normal YELLOW [facility] Comment on above: Performed By: #### YAMILA GARCIA UMICRO #### [facility] [address] [place] [address] Dr. Sheldon SOLANO A micrscopic examination will be performed if indicated. Normal [facility] Comment on above: Performed By: #### YAMILA GARCIA UMICRO #### [facility] [address] [address] [address] Sheldon Morse Glucose Ql (U) Negative Normal NEGATIVE [facility] Comment on above: Performed By: #### ERUM GARCIAU UMICRO #### [facility] [address] [address] [address] Sheldon Morse Hemoglobin Ql (U) LARGE Abnormal NEGATIVE [facility] Comment on above: Performed By: #### Bharat CRONINRERUMU UMICRO #### [facility] [address] [address] [address] Sheldon Morse Ketones Ql (U) Negative Normal NEGATIVE [facility] Comment on above: Performed By: #### E RUR PREGU, UMICRO #### [facility] [address] [place] [address] Dr. Sheldon Morse LEUKOCYTES LARGE Abnormal NEGATIVE [facility] Comment on above: Performed By: #### E RUR PREGU, UMICRO #### [facility] [address] [place] [address] Dr. Sheldon Morse Nitrite Ql (U) Negative Normal NEGATIVE [facility] Comment on above: Performed By: #### Bharat RUAdriano PREGU UMICRO #### [facility] [address] [place] [address] Dr. Sheldon Morse pH (U) 6.0 [pH] Normal 5-9 [facility] Comment on above: Performed By: #### Bharat CASTANEDA PREGU UMICRO #### [facility] [address] [place] [address] Dr. Sheldon Morse Protein (U) [Mass/Vol] 30 mg/dL Abnormal NEGATIVE/ TRACE [facility] Comment on above: Performed By: #### ERUM GARCIAU UMICRO #### [facility] [address] [place] [address] Dr. Sheldon Morse SPEC GRAVITY 1.025 Normal 1.005-<=1.025 [facility] Comment on above: Performed By: #### Bharat CASTANEDA PREGU, UMICRO #### [facility] [address] [place] [address] Dr. Sheldon Morse UR MICRO IND INDICATED Normal [facility] Comment on above: Performed By: #### Bharat RUR PREGU, UMICRO #### [facility] [address] [place] [address] Dr. Sheldon Morse Urobilinogen Qn (U) 0.2 {José'U}/dL Normal 0.2 - 1. 0 [facility] Comment on above: Performed By: #### Bharat RUR PREGU, UMICRO #### [facility] [address] [place] [address] Dr. Sheldon Morse LIPASEon 12-01-2022 Lipase [Catalytic activity/Vol] 64.0 U/L Critically low 73.0-393.0 [facility] Comment on above: Performed By: #### E YAMILA CASTANEDA UMICRO #### [facility] [address] [place] [address] Dr. Sheldon Morse URon 12-01-2022 , QUAL Negative Normal NEGATIVE [facility] Comment on above: Performed By: #### E YAMILA CASTANEDA, UMICRO #### [facility] [address] [place] [address] Dr. Sheldon Morse PROF 14(COMP METB)on 023 Albumin [Mass/Vol] 4.2 g/dL Normal 3.4-5.0 [facility] Comment on above: Performed By: #### C MP, LIPA #### [facility] [address] [place] [address] Dr. Sheldon Morse Albumin/Globulin [Mass ratio] 1.3 {ratio} Normal [facility] Comment on above: Performed By: #### C MP, LIPA #### [facility] [address] [place] [address] Dr. Sheldon Morse ALP [Catalytic activity/Vol] 74 U/L Normal 46-116 [facility] Comment on above: Performed By: #### C MP, LIPA #### [facility] [address] [place] [address] Dr. Sheldon Morse ALT [Catalytic activity/Vol] 39 U/L Normal 14-59 [facility] Comment on above: Performed By: #### C MP, LIPA #### [facility] [address] [place] [address] Dr. Sheldon Morse Anion gap [Moles/Vol] 13.9 mmol/L Normal [facility] Comment on above: Performed By: #### C MP, LIPA #### [facility] [address] [place] [address] Dr. Sheldon Morse AST [Catalytic activity/Vol] 20 U/L Normal 15-37 [facility] Comment on above: Performed By: #### C MP, LIPA #### [facility] [address] [place] [address] Dr. Sheldon Morse Bilirubin [Mass/Vol] 0.5 mg/dL Normal 0.2-1.0 [facility] Comment on above: Performed By: #### C MP, LIPA #### [facility] [address] [place] [address] Dr. Sheldon Morse Calcium [Mass/Vol] 9.1 mg/dL Normal 8.5-10.1 [facility] Comment on above: Performed By: #### C MP, LIPA #### [facility] [address] [place] [address] Dr. Sheldon Morse Chloride [Moles/Vol] 102 mmol/L Normal 98-107 [facility] Comment on above: Performed By: #### C MP, LIPA #### [facility] [address] [place] [address] Dr. Sheldon Morse CO2 [Moles/Vol] 26.1 mmol/L Normal 21.0-32.0 [facility] Comment on above: Performed By: #### C MP, LIPA #### [facility] [address] [place] [address] Dr. Sheldon Morse Creatinine [Mass/Vol] 0.72 mg/dL Normal 0.55-1.02 [facility] Comment on above: Performed By: #### C MP, LIPA #### [facility] [address] [place] [address] Dr. Sheldon Morse EGFR-AF SLOVENIAN >60 Normal >=60 [facility] Comment on above: Performed By: #### C MP, LIPA #### [facility] [address] [place] [address] Dr. Sheldon Morse EGFR-NON AF SLOVENIAN >60 Normal >=60 [facility] Comment on above: Performed By: #### C MP, LIPA #### [facility] [address] [place] [address] Dr. Sheldon Morse Globulin (S) [Mass/Vol] 3.2 g/dL Normal [facility] Comment on above: Performed By: #### C MP, LIPA #### [facility] [address] [place] [address] Dr. Sheldon Morse Glucose [Mass/Vol] 126 mg/dL Critically high 74-106 [facility] Comment on above: Performed By: #### C MP, LIPA #### [facility] [address] [place] [address] Dr. Sheldon Morse Potassium [Moles/Vol] 4.0 mmol/L Normal 3.5-5.1 [facility] Comment on above: Performed By: #### C MP, LIPA #### [facility] [address] [place] [address] Dr. Sheldon Morse Protein [Mass/Vol] 7.4 g/dL Normal 6.4-8.2 [facility] Comment on above: Performed By: #### C MP, LIPA #### [facility] [address] [place] [address] Dr. Sheldon Morse Sodium [Moles/Vol] 138 mmol/L Normal 136-145 [facility] Comment on above: Performed By: #### C MP, LIPA #### [facility] [address] [place] [address] Dr. Sheldon Morse Urea nitrogen [Mass/Vol] 11.0 mg/dL Normal 7.0-18.0 [facility] Comment on above: Performed By: #### C MP, LIPA #### [facility] [address] [place] [address] Dr. Sheldon Morse Urea nitrogen/Creatinine [Mass ratio] 15.3 mg/mg Normal [facility] Comment on above: Performed By: #### C MP, LIPA #### [facility] [address] [place] [address] Dr. Sheldon Morse URINE MICROSCOPIC ONLYon BACTERIA TRACE Abnormal NONE SEEN [facility] Comment on above: Performed By: #### E RUR, PREGU, UMICRO #### [facility] [address] [place] [address] Dr. Sheldon Morse Bacteria identified Cx Nom (U) INDICATED Normal [facility] Comment on above: Performed By: #### E RUR, PREGU, UMICRO #### [facility] [address] [place] [address] Dr. Sheldon Morse CAST NONE SEEN Normal NONE SEEN [facility] Comment on above: Performed By: #### E RUR, PREGU, UMICRO #### [facility] [address] [place] [address] Dr. Sheldon Morse Crystals LM Nom (Urine sed) NONE SEEN Normal NONE SEEN [facility] Comment on above: Performed By: #### E RUR, PREGU, UMICRO #### [facility] [address] [place] [address] Dr. Sheldon Morse Epithelial cells LM Ql (Urine sed) NONE SEEN Normal NONE SEEN /RARE [facility] Comment on above: Performed By: #### E RUR, PREGU, UMICRO #### [facility] [address] [place] [address] Dr. Sheldon Morse MUCOUS NONE SEEN Normal NONE SEEN [facility] Comment on above: Performed By: #### E RUR, PREGU, UMICRO #### [facility] [address] [place] [address] Dr. Sheldon Morse RBC 0-2 Normal 0-2 [facility] Comment on above: Performed By: #### E RUR, PREGU, UMICRO #### [facility] [address] [place] [address] Dr. Sheldon Morse WBC 75-100 Abnormal NONE SEEN [facility] Comment on above: Performed By: #### E RUR, PREGU, UMICRO #### [facility] [address] [place] [address] Dr. Sheldon Morse Covid-19 PCR ([facility])on 10-12 SARS-CoV-2 (COVID-19) RNA BRIGID+probe Ql (Unsp spec) Detected Critically abnormal NOT DETECTED [facility] Comment on above: Result Comment: This test is not yet approved or cleared by the [place] FDA. When there are no FDA-approved or cleared tests available, and other criteria are met, FDA can make tests available under an emergency access mechanism called an Emergency Use Authorization (EUA). The EUA for this test is supported by the [place] of Health and Human Service's (HHS's) declaration [...] no longer be used). Performed By: #### YAMILA GARCIA UMICRO #### [facility] [address] [place] [address] Dr. Sheldon Morse PAP ACOG PANEL 2: 30 to 65on 08-24-2022 . . Normal [facility] Comment on above: Result Comment: Perf ormed at: WB Performed By: #### YAMILA GARCIA UMICRO #### [facility] [address] [place] [address] Dr. Sheldon Morse Age Gdln ACOG Testing 30-65 Normal [facility] Comment on above: Performed By: #### YAMILA GARCIA UMICRO #### [facility] [address] [place] [address] Dr. Sheldon Morse DIAGNOSIS: Comment Normal [facility] Comment on above: Result Comment: NEGA TIVE FOR INTRAEPITHELIAL LESION OR MALIGNANCY. REACTIVE CELLULAR CHANGES AND/OR REPAIR ARE PRESENT. Performed at: WB Performed By: #### YAMILA GARCIA UMICRO #### [facility] [address] [place] [address] Dr. Sheldon Morse Electronically signed by: Comment Normal [facility] Comment on above: Result Comment: Esperanza Holm MD, Pathologist Performed at: WB Performed By: #### YAMILA GARCIA UMICRO #### [facility] [address] [place] [address] Dr. Sheldon Morse HPV Aptima Negative Normal Negative [facility] Comment on above: Result Comment: This nucleic acid amplification test detects fourteen high-risk HPV types (16,18,31,33,35,39,45,51,52,56,58,59,66,68) without differentiation. Performed at: =G Performed By: #### YAMILA GARCIA UMICRO #### [facility] [address] [address] [address] Sheldon Morse Methodology: Comment Normal [facility] Comment on above: Result Comment: This liquid based ThinPrep(R) pap test was screened with the use of an image guided system. Performed at: WB Performed By: #### YAMILA GARCIA UMICRO #### [facility] [address] [address] [address] Sheldon Morse Note: Comment Normal [facility] Comment on above: Result Comment: The Pap [...] Performed By: #### YAMILA GARCIA UMICRO #### [facility] [address] [address] [address] Sheldon Morse Performed by: Comment Normal [facility] Comment on above: Result Comment: Desean Stoll, [employer] Florist (ASCP) Performed at: WB Performed By: #### YAMILA GARCIA UMICRO #### [facility] [address] [address] [address] Sheldon Morse Specimen adequacy: Comment Normal [facility] Comment on above: Result Comment: Sati sfactory for evaluation. Endocervical and/or squamous metaplastic cells (endocervical component) are present. Performed at: WB Performed By: #### YAMILA GARCIA UMICRO #### [facility] [address] [address] [address] Sheldon Morse Covid-19 PCR ([facility])on SARS-CoV-2 (COVID-19) RNA BRIGID+probe Ql (Unsp spec) Not detected Normal NOT DETECTED [facility] Comment on above: Result Comment: This test is not yet approved or cleared by the [place] FDA. When there are no FDA-approved or cleared tests available, and other criteria are met, FDA can make tests available under an emergency access mechanism called an Emergency Use Authorization (EUA). The EUA for this test is supported by the [place] of Health and Human Service's (HHS's) declaration [...] consistent with SARS-CoV-2. Performed By: #### [facility] #### [facility] [address] [place] [address] Dr. Sheldon Morse MG MAMM DIAGNOSTIC 3D OTTONIEL CA Don 06-02-2022 MG MAMM DIAGNOSTIC 3D OTTONIEL CAD Patient: DEBBY DURBIN Exam Date: 06/02/2022 : 1980 Gender:F Ordering : DR GO MENDIOLA . Admission #: [id number] Family : Order #: [id number] CLICK HERE TO VIEW EXAM RADIOLOGY REPORT [...] Treatments None Family Cancers None LOCATION: [facility] BREAST COMPOSITION: Heterogeneously dense,which may obscure [...] M.D. on 06/02/2022 at 15:32 Normal [facility] US BREAST LEFT LIMITEDon US BREAST LEFT LIMITED Patient: DEBBY DURBIN Exam Date: 06/02/2022 : 1980 Gender:F Ordering : DR GO MENDIOLA . Admission #: [id number] Family : Order #: [id number] CLICK HERE TO VIEW EXAM RADIOLOGY REPORT [...] Treatments None Family Cancers None LOCATION: [facility] BREAST COMPOSITION: Heterogeneously dense,which may obscure [...] Watson M.D. on 06/02/2022 at 15:32 [facility] Office Visit (NSFRVW ) DEBBY DURBIN ([id number]) 1980 F Date Time Provider Department 12/27/18 8:10 AM BRITTANEY CHRISTIANSEN NSFRVW During your visit today, we recorded the following information about you: Temperature Pulse Respiration Blood pressure 98.1 degrees 72/minute 16/minute 131/77 Weight Height 86.2 kg 1.753 m Brittaney Christiansen MD 12/27/2018 10:18 AM Signed SPINE SURGERY NEW PATIENT PCP: Aileen Castellanos DO REFERRING PROVIDER: Dr. Jasmin Durbin is a 38 year old female [...] 25 MG TABLET SA 1 pill [id number] [id number] TABLET as directed REVIEW OF SYSTEMS: PAIN [...] seizures, headaches. ENDOCRINE: Denies diabetes, thyroid disease. HEMATOLOGY/LYMPHOLOGY: Denies cancer, bleeding or clotting disorders and [...] information obtained and documented by the physician assistant manager airside operations. I examined the patient and evaluated all available films and pertinent documents. We discussed the case and I agree with the plans as outlined in this note. SIGNATURE: Brittaney Christiansen MD PATIENT NAME: Debby Durbin DATE: December 27, 2018 TIME: 8:40 AM PAGER: Referring Provider: AILEEN CASTELLANOS [[id number]] Allergies As of Date: 12/27/2018 (No Known [...] by BRITTANEY CHRISTIANSEN MD on 12/27/18 Normal [facility] PROGRESSon 12-27-2018 Protein mass conc HNO ID: [id number] Author: Brittaney Christiansen Service: (none) Author Type: [...] 25 MG TABLET SA 1 pill [id number] [id number] TABLET as directed REVIEW OF SYSTEMS: PAIN [...] seizures, headaches. ENDOCRINE: Denies diabetes, thyroid disease. HEMATOLOGY/LYMPHOLOGY: Denies cancer, bleeding or clotting disorders and [...] information obtained and documented by the physician assistant manager airside operations. I examined the patient and evaluated all available films and pertinent documents. We discussed the case and I agree with the plans as outlined in this note. SIGNATURE: Brittaney Christiansen MD PATIENT NAME: Debby Durbin DATE: December 27, 2018 TIME: 8:40 AM PAGER: Normal [facility] PROGRESS 12-11-2018 Protein mass conc HNO ID: [id number] Author: Aileen Cohen Service: (none) Author Type: Physician Manufactured Buildings Repairer Type: Progress Notes Filed: 12/13/2018 3:39 PM Note Text: Pt can be scheduled first available with Dr. Christiansen. Cervical disc herniation with extrusion. Patient name: Debby Durbin Are you being referred by a [facility] or [facility] Management Provider at [facility]? No If answer is YES [...] in Epic: No If not, please provide [phone] to fax in imaging reports for review. Also, please inform patient to hand carry imaging disc to appointment. Requested provider (First and Last name): amsp 1. Where are you having symptoms related [...] this same symptoms? No Additional Comments Normal [facility] MR-MR cervical spine wo con IMPORTon 11-29-2018 MR-MR cervical spine wo con IMPORT Images were obtained outside of [facility] [id number] Normal [facility] Vital Signs Date Time Vital Sign Value Performing Clinician Facility 08-04-2024 15:020400 Body mass index (BMI) [Ratio] 27 kg/m2 [facility] 08-04-2024 15:020400 Body temperature 98.1 [degF] [facility] 08-04-2024 15:02-0400 Diastolic blood pressure 76 mm[Hg] [facility] 08-04-2024 15:02-0400 Heart rate 90 /min [facility] 08-04-2024 15:02-0400 Respiratory rate 16 /min [facility] 08-04-2024 15:02-0400 Systolic blood pressure 122 mm[Hg] [facility] 08-04-2024 11:28-0400 Body height 175.26 cm [facility] 08-04-2024 11:28-0400 Body weight 83 kg [facility] 01-29-2024 15:43-0400 Body height 175.26 cm [facility] 01-29-2024 15:43-0400 Body mass index (BMI) [Ratio] 27.6 kg/m2 [facility] 01-29-2024 15:43-0400 Body temperature 99.1 [degF] [facility] 01-29-2024 15:43-0400 Body weight 84.82 kg [facility] 01-29-2024 15:43-0400 Diastolic blood pressure 78 mm[Hg] [facility] 01-29-2024 15:43-0400 Heart rate 81 /min [facility] 01-29-2024 15:43-0400 Respiratory rate 18 /min [facility] 01-29-2024 15:43-0400 SaO2% (BldA) [Mass fraction] 94 % [facility] 01-29-2024 15:43-0400 Systolic blood pressure 116 mm[Hg] [facility] 06-26-2023 15:40-0400 Body height 175.26 cm Aileen Castellanos Other [employer] Other 06-26-2023 15:40-0400 Body mass index (BMI) [Ratio] 28.79 kg/m2 Aileen Castellanos Other [employer] Other 06-26-2023 15:40-0400 Body temperature 98.7 [degF] Aileen Castellanos Other [employer] Other 06-26-2023 15:40-0400 Body weight 88.45 kg Aileen Castellanos Other [employer] Other 06-26-2023 15:40-0400 Diastolic blood pressure 84 mm[Hg] Aileen Castellanos Other [employer] Other 06-26-2023 15:40-0400 Respiratory rate 18 /min Aileen Castellanos Other [employer] Other 06-26-2023 15:40-0400 SaO2% (BldA) [Mass fraction] 97 % Aileen Castellanos Other [employer] Other 06-26-2023 15:40-0400 Systolic blood pressure 132 mm[Hg] Aileen Castellanos Other [employer] Other 11-22-2022 16:40-0500 Body height 175.26 cm Aileen Castellanos Other [employer] Other 11-22-2022 16:40-0500 Body mass index (BMI) [Ratio] 27.17 kg/m2 Aileen Castellanos Other [employer] Other 11-22-2022 16:40-0500 Body temperature 97.3 [degF] Aileen Castellanos Other [employer] Other 11-22-2022 16:40-0500 Body weight 83.46 kg Aileen Castellanos Other [employer] Other 11-22-2022 16:40-0500 Diastolic blood pressure 76 mm[Hg] Aileen Castellanos Other [employer] Other 11-22-2022 16:40-0500 Respiratory rate 18 /min Aileen Castellanos Other [employer] Other 11-22-2022 16:40-0500 SaO2% (BldA) [Mass fraction] 98 % Aileen Castellanos Other [employer] Other 11-22-2022 16:40-0500 Systolic blood pressure 124 mm[Hg] Aileen Castellanos Other [employer] Other 05-23-2022 16:40-0400 Body height 175.26 cm Aileen Castellanos Other [employer] Other 05-23-2022 16:40-0400 Body mass index (BMI) [Ratio] 27.46 kg/m2 Aileen Castellanos Other [employer] Other 05-23-2022 16:40-0400 Body temperature 98.2 [degF] Aileen Castellanos Other [employer] Other 05-23-2022 16:40-0400 Body weight 84.37 kg Aileen Castellanos Other [employer] Other 05-23-2022 16:40-0400 Diastolic blood pressure 82 mm[Hg] Aileen Castellanos Other [employer] Other 05-23-2022 16:40-0400 Respiratory rate 18 /min Aileen Castellanos Other [employer] Other 05-23-2022 16:40-0400 SaO2% (BldA) [Mass fraction] 98 % Aileen Castellanos Other [employer] Other 05-23-2022 16:40-0400 Systolic blood pressure 124 mm[Hg] Aileen Castellanos Other [employer] Other Encounters Encounter Date Encounter Type Care Provider Facility Start: 08-04-2024 End: 08-04-2024 ambulatory [facility] Work Phone: Start: 08-04-2024 End: 08-04-2024 Patient encounter procedure [facility] Physician [facility] [place] Work Phone: Start: 07-28-2024 Non-patient / Non-visit [facility] Physician [facility] [place] Work Phone: Start: 05-07-2024 End: 05-07-2024 ambulatory [facility] Work Phone: Start: 05-07-2024 End: 05-07-2024 Patient encounter procedure [facility] Physician [facility] [place] Work Phone: Start: 04-21-2024 Non-patient / Non-visit [facility] Physician [facility] [place] Work Phone: Start: 01-29-2024 End: 01-29-2024 ambulatory [facility] Work Phone: Start: 01-29-2024 End: 01-29-2024 Patient encounter procedure [facility] Physician [facility] [place] Work Phone: Start: 01-17-2024 Non-patient / Non-visit [facility] Work Phone: Start: 01-15-2024 Non-patient / Non-visit [facility] Physician [facility] Work Phone: Start: 01-03-2024 Non-patient / Non-visit [facility] Physician [facility] Work Phone: Start: 12-11-2023 End: 12-11-2023 ambulatory Aileen Castellanos Other [employer] Other Start: 12-11-2023 Telephone encounter Aileen Castellanos [facility] [place] Start: 12-11-2023 Patient encounter procedure [facility]- Start: 11-15-2023 End: 11-15-2023 ambulatory Aileen Castellanos Other [employer] Other Start: 11-15-2023 Telephone encounter Aileen Castellanos [facility] [place] Start: 10-09-2023 End: 10-09-2023 ambulatory Aileen Castellanos Other [employer] Other Start: 10-09-2023 Telephone encounter Aileen Castellanos [facility] [place] Start: 06-26-2023 End: 06-26-2023 ambulatory Aileen Castellanos Other [employer] Other Start: 06-26-2023 Office outpatient visit 25 minutes Aileen Castellanos [facility] [place] Start: 12-01-2022 End: 12-01-2022 ambulatory [facility] Facility: Start: 11-22-2022 End: 11-22-2022 ambulatory Aileen Castellanos Other [employer] Other Start: 11-22-2022 Office outpatient visit 25 minutes Aileen Castellanos [facility] [place] Start: 10-25-2022 End: 10-25-2022 ambulatory Aileen Castellanos Other [employer] Other Start: 10-25-2022 Telephone encounter Aileen Castellanos [facility] [place] Start: 10-23-2022 End: 10-23-[address] AILEEN CASTELLANOS [employer] Other Start: 10-23-2022 Telephone encounter Aileen Castellanos [facility] [place] Start: 09-11-2022 End: 09-11-2022 ambulatory Aileen Castellanos Other [employer] Other Start: 09-11-2022 Telephone encounter Aileen Castellanos [facility] [place] Start: 08-14-2022 End: 08-14-2022 ambulatory GO CLARE Facility:[facility] Start: 06-20-2022 Telephone encounter Aileen Castellanos [facility] [place] Start: 06-20-2022 End: 06-20-[address] AILEEN CASTELLANOS [facility] Other Start: 06-06-2022 End: 06-06-2022 ambulatory Aileen Castellanos Other [employer] Other Start: 06-06-2022 Telephone encounter Aileen [facility]ell[facility] [place] Start: 06-02-2022 End: 06-03-2022 ambulatory GO AMARALO Facility:[facility] Start: 05-23-2022 End: 05-23-2022 ambulatory Aileen Castellanos Other [facility] [employer] Other Start: 05-23-2022 Office outpatient visit 25 minutes Aileen Castellanos [facility] [place] Start: 12-27-2018 End: 12-27-2018 Patient encounter procedure BRITTANEY CHRISTIANSEN [facility] Plan of Treatment Date Care Activity Detail Author Bacteria identified in Urine by Culture [facility] Comprehensive metabo lic 1999 panel - Serum or Plasma [facility] enter Comprehensive metabo lic 1999 panel - Serum or Plasma [facility] enter Insulin [Units/volum e] in Serum or Plasma [facility] enter [facility] Immunizations Immunization Date Immunization Notes Care Provider Fa cility 09-19-2021 COVID-19 Vaccine Pfi zer - Documentation Purposes Only Aileen Castellanos Other [facility] 03-09-2021 COVID-19 Vaccine Pfi zer - Documentation Purposes Only Aileen Castellanos Other [facility] 02-16-2021 COVID-19 Vaccine Pfi zer - Documentation Purposes Only Aileen Castellanos Other [facility] Payers Date Payer Category Payer Unknown [id number] 2.16.84 [id number] 1980 Unknown [id number] 2.16.84 [id number] 1979 Unknown [id number] 2.16.84 [id number] 1979 Unknown [id number] 2.16.84 [id number] 1979 Unknown [id number] 2.16.84 [id number] 1960 [facility] [id number] 1959 Unknown [id number] 2.16.8 [id number] 1959 Unknown [id number] Self-pay Self Pay [id number] Unknown [id number] Unknown [employer] [id number] Social History Date Type Detail Facility Unknown if ever smoked [employer] Other Sex Assigned At Sex Assigned At Bir th [employer] Other Start: 01-29-2024 Tobacco smoking status NHIS Ex-smoker (finding) [facility] Start: 1980 Sex Assigned At Female F [facility] Procedure Code Equipment Code Equipment Origin al Text Equipment Identifier Dates Start: 09-27-2015 Pen Needle, Diab etic (Bd Yelena 2nd Gen Pen Needle) 32 gauge x 5/32 needle Start: 07-08-2024 Pen Needle, Diab etic (Bd Yelena 2nd Gen Pen Needle) 32 gauge x 5/32 needle Start: 07-08-2024 End: 07-08-2024 Clinical Notes 04-11-2013 to 05-07-2024 Note Date & Type Note Facility 05-07-2024 Evaluation note Authored May 07, 2024 3:00 pm The above note written by __ _Hari Mijares____ acting as human recorder, note dictated by Dr. Jimenez .I performed the above HPI, ROS, and Examination. I formulated and dictated the treatment plan and was present for entire encounter. Aileen Castellanos D.O. [facility] Work Phone: [phone] 561-412901-30-2024 Evaluation note* Encounter Date Diagnosis Assessment Notes Treatment Notes Treatment Clinical Notes Nov, Anxiety (ICD-10 - F41.9) She [...] hour prior to going to bed. Side effects/risks/deon efits of medication were reviewed. If this dose [...] six weeks. Nov, Other 10:39 AM - 10:5 8 AM [employer] Other 01-30-2024 Evaluation note* Encounter Date Diagnosis Assessment Notes Treatment Notes Treatment Clinical Notes Nov, Depression (ICD-10 - F32.9) [employer] Other 01-04-2024 Evaluation note* Encounter Date Diagnosis Assessment Notes Treatment Notes Treatment Clinical Notes Nov, Anxiety (ICD-10 - F41.9) [employer] Other 11-28-2023 Evaluation note* Encounter Date Diagnosis Assessment Notes Treatment Notes Treatment Clinical Notes Sep, Anxiety (ICD-10 - F41.9) [employer] Other 08-15-2023 Evaluation note* Encounter Date Diagnosis [...] Lamisil orally and I 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 Guidance is given on how to use the cream, she should use this for one month. She does not drink alot of alcohol. If her symptoms do not improve after one month then she should let me know and we would consider that this is not fungal. Jun, Other residential (current) drug therapy (ICD-10 - Z79.899) Jun, [...] th a refill on above medication today. [employer] Other 01-11-2023 Evaluation note* Encounter Date Diagnosis [...] spread. If she wants to see a weld inspector she can see one. Right now she is going to continue to monitor as she has had this for seven months. She does not have any pain with this. She had shingles in the past and does not feel it is shingles. If she wants to see a weld inspector she can call and schedule this herself. Nov, Other residential (current) drug therapy (ICD-10 - Z79.899) Nov, [...] Seborrheic keratosis (ICD-10 - L82.1) Reassurance given. [employer] Other 12-12-2022 Evaluation note* Encounter Date Diagnosis [...] the point she had to stay in [place] overnight because she was too tired to drive home. Oct, Other 2:39 PM - 2:54 PM [employer] Other 08-09-2022 Evaluation note* Encounter Date Diagnosis Assessment Notes Treatment Notes Treatment Clinical Notes Jun, Nicotine dependence (ICD-10 - F17.200) Jun, Chest congestion (ICD-10 - R09.89) Jun, Runny nose (ICD-10 - R09.89) Jun, Body aches (ICD-10 - R52) [employer] Other 08-09-2022 Evaluation note* Encounter Date Diagnosis Assessment Notes Treatment Notes Treatment Clinical Notes Jun, Left acute otitis media (ICD-10 - H66.92) [employer] Other 07-26-2022 Evaluation note* Encounter Date Diagnosis Assessment Notes Treatment Notes Treatment Clinical Notes May, Nicotine dependence (ICD-10 - F17.200) [employer] Other 07-12-2022 Evaluation note* Encounter Date Diagnosis [...] She has been talking to a health health and wellness coach. In the past she was on [...] as it is working well. May, Other residential (current) drug therapy (ICD-10 - Z79.899) May, Allergic rhinitis (ICD-10 - J30.9) She admits that her allergies have been very bad this year, she does take above medication daily for her allergies. May, Urinary frequency (ICD-10 - R35.0) for lab order only May, Other She voices that she has called the [facility] twice to schedule her mammogram and has not heard back from them, she is going to call again. [employer] Other 05-31-2013 History general Narrative - Reported* Type Description Date Medical History Last Pap 04-11-13; Dr. Mendiola Medical History No history of Mammogram Medical History Stress Test [facility]; Dr. Ayala 20 08 Medical History EKG Medical History No history [...] Hospitalization History see above surgical histo ry [facility] [employer] Other Evaluation [facility] [employer] Other Evaluation note* Diagnosis Onset Date Resolution Status Anxiety acute Chest pain acute Diabetes type 2, uncontrolled acute Hyperlipidemia acute Hypokalemia acute Weight loss acute [facility] Work Phone: Evaluation note* Diagnosis Onset Date Resolution Status Anxiety acute Diabetes type 2, uncontrolled acute [facility] Work Phone: Summary Purpose Family History Relationship Condition Age at Onset Recorded Date/T elyse family member Family history of other condition Unknow n grandparent Alzheimer's disease Unknown Family history of mental disorder Unknown grandparent History of stroke Unknown Unknown grandparent Arthritis Unknown grandparent Unknown Diabetes mellitus Unknown grandparent Diabetes mellitus Unknown Not Specified Hypertension Unknown natural son Unknown Relationship Condition Age at Onset Recorded Date/T elyse family member Family history of other condition Unknow n grandparent Alzheimer's disease Unknown Family history of mental disorder Unknown grandparent History of stroke Unknown Unknown grandparent Arthritis Unknown grandparent Unknown Diabetes mellitus Unknown grandparent Diabetes mellitus Unknown mother Hypertension Unknown son Unknown Advance Directives Advance Directive Response Recorded Date/ Time Advance Directives No November 20, 2018 4:00pm Chief Complaint and Reason for Visit Chief Complaint Amb Documentation Amb Documentation review labs Reason for Visit Anxiety Chest pain Diabetes type 2, uncontrolled Hyperlipidemia Hypokalemia Weight loss Chief Complaint Amb Documentation lab review/telephone Reason for Visit Anxiety Diabetes type 2, uncontrolled Chief Complaint lab review/telephone lab review Reason for Visit Anxiety Diabetes type 2, uncontrolled Anxiety Depression Hyperlipidemia Type 2 diabetes mellitus Additional Source Comments INFORMATION SOURCE (unrecogn ized section and content) DATE CREATED AUTHOR 01/01/2019 [facility] DATE CREATED AUTHOR AUTHOR'S ORGANIZ ATION 03/22/2023 [facility] REASON FOR VISIT (unrecogniz ed section and content) review labmed increasetestin g requestClinical Acute IllnessRefillssinus pain/pressure/congestionresultreview labsreview labsClinicalClinicaldiscuss medicationsSertraline dose change Care Teams (unrecognized sec tion and content) Team Status: Active Member Role Status Sara Castellanos DO Primary Care Provider Active Team Status: Inactive Member Role Status Sara Castellanos DO Primary Care Provide r, Attending Provider Active Start: May 07, 2024 End: May 07, 2024 Team Status: Active Member Role Status Sara Castellanos DO Primary Care Provide r, Attending Provider Active Start: July 28, 2024 Team Status: Inactive Member Role Status Sara Castellanos DO Primary Care Provide r, Attending Provider Active Start: August 04, 2024 End: August 04, 2024 Team Status: Active Member Role Status Sara Castellanos DO Primary Care Provider Active Team Status: Active Member Role Status Dates Provider Conversion Attending Provider Active St art: December 11, 2023 Team Status: Active Member Role Status Sara Castellanos DO Primary Care Provider Active S tart: January 03, 2024 Hari Mijares LPN Attending Provider Active St art: January 03, 2024 Team Status: Active Member Role Status Sara Castellanos DO Primary Care Provider Active S tart: January 15, 2024 Hari Mijares LPN Attending Provider Active St art: January 15, 2024 Team Status: Active Member Role Status Sara Castellanos DO Primary Care Provide r, Attending Provider Active Start: January 17, 2024 Team Status: Inactive Member Role Status Sara Castellanos DO Primary Care Provide r, Attending Provider Active Start: January 29, 2024 End: January 29, 2024 Team Status: Active Member Role Status Sara Castellanos DO Primary Care Provider Active S tart: April 21, 2024 Hari Mijares LPN Attending Provider Active St art: April 21, 2024 Team Status: Inactive Member Role Status Sara Castellanos DO Primary Care Provide r, Attending Provider Active Start: May 07, 2024 End: May 07, 2024 Team Status: Active Member Role Status Sara Castellanos DO Primary Care Provide r, Attending Provider Active Start: July 28, 2024 Team Status: Inactive Member Role Status Dates Aileen Girvin , DO Primary Care Provide r, Attending Provider Active Start: August 04, 2024 End: August 04, 2024 Goals (unrecognized section and content) Goals may be documented in a n alternate section FOR RECORDS PERTAINING TO PATIENTS WHO ARE [...] BE BASED ON THE PRIMARY CLINICAL RECORDS. [facility] [employer] [facility]. provides no warranty or guarantee of the accuracy or completeness of information in this document.
--- NOTE | 2024-11-14 11:41 | MM_ITS ---
Patient Name: BENITO DAHL MR#: [id number] : 1980 Exam Date: 11/14/2024 Ordering Doctor: DR Moiz Mendiola . RADIOLOGY REPORT PROCEDURE: MM TOMOSYNTHESIS SCREENING BI COMPARISON: MG MAMM DIAGNOSTIC 3D OTTONIEL CAD, 06/02/2022. MM TOMOSYNTHESIS SCREENING BI, 09/18/2023. INDICATIONS: Screening Calculator Name NCI Breast Cancer Risk Assessment Tool 5 Year Breast Cancer Risk 1.80% Lifetime Breast Cancer Risk 12.30% Personal Breast Cancer No Personal Ovarian Cancer No Treatments None Family Cancers None LOCATION: [facility] BREAST COMPOSITION: The breasts are heterogeneously dense,which may obscure small masses. FINDINGS: DIAGNOSTIC CATEGORY 0--INCOMPLETE: NEED ADDITIONAL IMAGING EVALUATION. Scattered benign-appearing calcifications are present. RIGHT BREAST: No significant suspicious finding. LEFT BREAST: New 1.2 cm round partially circumscribed mass lower inner quadrant, anterior breast adjacent to a micro clip marker. Ultrasound follow-up required. RECOMMENDATIONS: ULTRASOUND: LEFT BREAST PLEASE NOTE: A NORMAL MAMMOGRAM DOES NOT EXCLUDE THE POSSIBILITY OF BREAST CANCER. A CLINICALLY SUSPICIOUS PALPABLE LUMP SHOULD BE BIOPSIED. Dictated by: Terrance Guerrero MD on 11/14/2024 at 12:29 Approved by: Terrance Guerrero MD on 11/14/2024 at 12:41
== END 2024-11-14 11:36 | disposition home or self-care (01) ==
LOC: MAMMO 11:35
PROVIDERS: PCP Family Medicine; Visit Provider Obstetrics & Gynecology
DX: Z12.31 Encounter for screening mammogram for malignant neoplasm of breast (principal)
CPT/HCPCS: 77063; 77067

== ENCOUNTER 2024-12-02 10:01 | Outpatient (OUT) | payer OTHER, BC, SELFPAY ==
--- NOTE | 2024-12-02 10:08 | US_ITS ---
Patient Name: BENITO DAHL MR#: [id number] : 1980 Exam Date: 12/02/2024 Ordering Doctor: DR Moiz Mendiola . RADIOLOGY REPORT PROCEDURE: US BREAST LT LIMITED COMPARISON: MM TOMOSYNTHESIS SCREENING BI, 11/14/2024. INDICATIONS: Abnormal Mammogram with Macrocalcifications TECHNIQUE: Breast ultrasound was performed, with evaluation focusing only on specific areas of concern. FINDINGS: DIAGNOSTIC CATEGORY 4--SUSPICIOUS FOR MALIGNANCY. FINDING DOES NOT EXHIBIT CLASSIC FINDINGS OF BREAST CANCER: LEFT BREAST: Complex lobular mostly cystic, but partially solid lesion within the lower-inner quadrant, 7 o'clock position, 2.6 cm from the nipple, 1.4 x 1.0 x 1.0 cm in size. No appreciable internal blood flow on color Doppler. Given its new appearance and lobular complex nature, ultrasound-guided tissue sampling is recommended. RECOMMENDATIONS: ULTRASOUND-GUIDED CORE BIOPSY: LEFT BREAST PLEASE NOTE: A NORMAL ULTRASOUND EXAMINATION DOES NOT EXCLUDE THE POSSIBILITY OF BREAST CANCER. A CLINICALLY SUSPICIOUS PALPABLE LUMP SHOULD BE BIOPSIED. Dictated by: Edouard Watson M.D. on 12/03/2024 at 16:14 Approved by: Edouard Watson M.D. on 12/03/2024 at 16:18
--- OUTSIDE RECORDS SUMMARY | 2024-12-02 10:23 | XMS_ITS | CCD ---
Author Organization [facility] Care Team Providers Care Bath Tester Name Role Phone BRITTANEY CHRISTIANSEN Attending Unavailable [...] Unavailable GIRVIN, DR GALLAGHER Primary Care Unavailable JASMIN, DR GALLAGHER Admitting Unavailable Allergies Allergy Classification Reported Allergen(s) Allergy Type Date of Onset Reaction(s) Facility (13 sources) Acetaminophen Drug Allergy [facility] [place] Other (1 source) Acetaminophen Drug Allergy [facility] Repository Medications Current Medications Medication Drug Class(es) Dates Sig (Normalized) Sig (Original) [id number] 200 actuat albuterol 0.09 mg/actuat metered dose [...] 4:26pm Start: 12-11-2023 [facility] at bed[facility] as needed Xanax 0.25 [...] current use of drug therapy; 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 Basophils Auto (Bld) [#/Vol] on 01-17-2024 Basophils (Bld) [#/Vol] 0.1 10 3/uL 0.0-0.[address] [facility] Basophils/100 WBC Auto (Bld) on 01-17-2024 Basophils/100 WBC (Bld) 0.6 % 0.2-2.[address] [facility] Cholesterol in LDL Calc [Mas s/Vol]on 01-17-2024 Cholesterol in LDL [Mass/Vol] 123.0 mg/dL [facility] Comment on above: <100 mg/dl [id number] 0-129 mg/dl NEAR OR ABOVE [id number] mg/dl BORDERLINE [id number] mg/dl HIGH>190 mg/dl VERY HIGH Cholesterol in VLDL Calc [Ma ss/Vol]on 01-17-2024 Cholesterol in VLDL [Mass/Vol] 28.2 mg/dL [facility] Eosinophils/100 WBC Auto (Bl d)on 01-17-2024 Eosinophils/100 WBC (Bld) 1.1 % 0.9-7.[address] [facility] Erythrocyte distribution wid th Auto (RBC) [Ratio]on 01-17-2024 Erythrocyte distribution width (RBC) [Ratio] 12.8 % 11.0-15.[address] [facility] Estimated glomerular filtrat ion rate (GFR) non- Americanon 01-17-2024 GFR/1.73 sq M.predicted among non-blacks MDRD (S/P/Bld) [Vol rate/Area] mL/min/{1.73_m2} >=[address] [facility] Fibrin D-dimer [Presence] in Platelet poor plasma by Latex agglutinationon 01-17-2024 Fibrin D-dimer LA Ql (PPP) 0.49 mg/L FEU <=0.[address] [facility] Comment on above: Increases in D-Dimer concentration [...] on 01-17-2024 Globulin (S) [Mass/Vol] 3.8 g/dL [facility] Glucose mean value [Mass/vol ume] in Blood Estimated from glycated hemoglobinon 01-17-2024 Average glucose Estimated from glycated hemoglobin (Bld) [Mass/Vol] 151 mg/dL [facility] Hematocrit Auto (Bld) [Volum e fraction]on 01-17-2024 Hematocrit (Bld) [Volume fraction] 43.7 % 36.0-48.[address] [facility] Hemoglobin [Mass/volume] in Bloodon 01-17-2024 Hemoglobin (Bld) [Mass/Vol] 14.4 g/dL 12.0-16.[address] [facility] Laboratory - Chemistry and C hemistry - challengeon 01-17-2024 Albumin [Mass/Vol] 4.0 g/dL 3.4-5.0 [facility] ALP [Catalytic activity/Vol] 112 U/L 46-[address] [facility] ALT [Catalytic activity/Vol] 31 U/L 14-[address] [facility] AST [Catalytic activity/Vol] 12 U/L 15-[address] [facility] Bilirubin [Mass/Vol] 0.2 mg/dL 0.2-1.[address] [facility] Calcium [Mass/Vol] 9.1 mg/dL 8.5-10.1 [facility] Chloride [Moles/Vol] 103 mmol/L 98-[address] [facility] Cholesterol [Mass/Vol] 206 mg/dL <=[address] [facility] Cholesterol in HDL [Mass/Vol] 55 mg/dL 40-[address] [facility] Comment on above: > or =60 mg/dl - LOW CARDIOVASCULAR RISK<40 mg/dl - HIGH CARDIOVASCULAR RISK CO2 [Moles/Vol] 26.7 mmol/L 21.0-32.0 [facility] Creatinine [Mass/Vol] 0.90 mg/dL 0.55-1.[address] [facility] GFR/1.73 sq M.predicted MDRD (S/P/Bld) [Vol rate/Area] mL/min/{1.73_m2} >=[address] [facility] Glucose [Mass/Vol] 235 mg/dL 74-106 [facility] Potassium [Moles/Vol] 3.3 mmol/L 3.5-5.[address] [facility] Protein [Mass/Vol] 7.8 g/dL 6.4-8.2 [facility] Sodium [Moles/Vol] 133 mmol/L 136-145 [facility] Triglyceride [Mass/Vol] 141 mg/dL <=[address] [facility] TSH Qn 1.763 m[IU]/L 0.358-3.[address] [facility] Urea nitrogen [Mass/Vol] 9.0 mg/dL 7.0-18.[address] [facility] Urea nitrogen/Creatinine [Mass ratio] 10.0 mg/mg [facility] Laboratory - Hematology and Cell countson 01-17-2024 HbA1c (Bld) [Mass fraction] 6.9 % 4.5-6.[address] [facility] Comment on above: ADA RECOMMENDED LIMI T 4.0 - 6.0ADA THERAPEUTIC TARGET < 7.0ACTION SUGGESTED> 7.0 Immature granulocytes/100 WBC (Bld) 0.4 % 0.0-0.[address] [facility] Leukocytes [#/volume] correc wilmar for nucleated erythrocytes in Blood by Automated counon 01-17-2024 WBC corrected for nucl RBC Auto (Bld) [#/Vol] 10.0 10 3/uL 4.0-11.[address] [facility] Lymphocytes Auto (Bld) [#/Vo l]on 01-17-2024 Lymphocytes (Bld) [#/Vol] 3.7 10 3/uL 1.2-3.[address] [facility] Lymphocytes/100 WBC Auto (Bl d)on 01-17-2024 Lymphocytes/100 WBC (Bld) 37.0 % 20.5-60.[address] [facility] MCH Auto (RBC) [Entitic mass ]on 01-17-2024 MCH (RBC) [Entitic mass] 30.4 pg 26.7-34.[address] [facility] MCHC Auto (RBC) [Mass/Vol]on 01-17-2024 MCHC (RBC) [Mass/Vol] 33.0 g/dL 29.9-35.[address] [facility] MCV Auto (RBC) [Entitic vol] on 01-17-2024 MCV (RBC) [Entitic vol] 92.2 fL 81.0-99.[address] [facility] Monocytes Auto (Bld) [#/Vol] on 01-17-2024 Monocytes (Bld) [#/Vol] 0.7 10 3/uL 0.3-0.[address] [facility] Monocytes/100 WBC Auto (Bld) on 01-17-2024 Monocytes/100 WBC (Bld) 7.1 % 1.7-12.[address] [facility] Neutrophils Auto (Bld) [#/Vo l]on 01-17-2024 Neutrophils (Bld) [#/Vol] 5.4 10 3/uL 1.4-6.[address] [facility] Neutrophils/100 WBC Auto (Bl d)on 01-17-2024 Neutrophils/100 WBC (Bld) 53.8 % 43.0-75.[address] [facility] No Panel Informationon 01-16 Eosinophils # (Auto) 0.1 10 3/uL 0.0-0.[address] [facility] Immature Granulocyte # (Auto) 0.04 10 3/uL 0.00-0.[address] [facility] Troponin I High Sensitivity <4.0 pg/mL 4.0-51.[address] [facility] Comment on above: CUT-OFF POINTS HAVE BEEN [...] volume (Bld) [Entitic vol] 11.6 fL 9.5-13.[address] [facility] Platelets Auto (Bld) [#/Vol] on 01-17-2024 Platelets (Bld) [#/Vol] 197 10 3/uL 150-[address] [facility] RBC Auto (Bld) [#/Vol]on RBC (Bld) [#/Vol] 4.74 10 6/uL 4.20-5.40 [facility] Serum or plasma albumin/glob ulin mass ratioon 01-17-2024 Albumin/Globulin [Mass ratio] 1.1 {ratio} [facility] Serum or plasma anion gap de terminationon 01-17-2024 Anion gap [Moles/Vol] 6.6 mmol/L [facility] Serum or plasma total choles terol/high density lipoprotein (HDL) cholesterol mass erick 01-17-2024 Cholesterol.total/C holesterol in HDL [Mass ratio] 3.7 {ratio} [facility] Comment on above: 3.3 - 4.4 LOW [...] F Trimethoprim/Sulfametho xazole <=[address] [facility] Comment on above: Performed By: #### U RCX #### [facility] Laboratory [address] [place] [address] Dr. Sheldon Morse CBC AUTO DIFFon 12-01-2022 BASO # 0.0 103/ul Normal 0.0-0.1 [facility] Comment on above: Performed By: #### C BC #### [facility] Laboratory [address] [place] [address] Dr. Sheldon Morse Basophils/100 WBC (Bld) 0.4 % Normal 0.2-2.0 [facility] Comment on above: Performed By: #### C BC #### [facility] [address] [place] [address] Dr. Sheldon Morse EO # 0.1 103/ul Normal 0.0-0.7 [facility] Comment on above: Performed By: #### C BC #### [facility] [address] [place] [address] Dr. Sheldon Morse Eosinophils/100 WBC (Bld) 0.5 % Critically low 0.9-7.0 [facility] Comment on above: Performed By: #### C BC #### [facility] [address] [place] [address] Dr. Sheldon Morse Erythrocyte distribution width (RBC) [Ratio] 12.2 % Normal 11.0-15.0 [facility] Comment on above: Performed By: #### C BC #### [facility] [address] [place] [address] Dr. Sheldon Morse Hematocrit (Bld) [Volume fraction] 37.5 % Normal 36.0-48.0 [facility] Comment on above: Performed By: #### C BC #### [facility] [address] [place] [address] Dr. Sheldon Morse Hemoglobin (Bld) [Mass/Vol] 13.9 g/dL Normal 12.0-16.0 [facility] Comment on above: Performed By: #### C BC #### [facility] [address] [place] [address] Dr. Sheldon Morse IG # 0.06 10e3/ul Critically high 0.00-0.03 [facility] Comment on above: Performed By: #### C BC #### [facility] [address] [place] [address] Dr. Sheldon Morse IG % 0.5 % Normal 0.0-0.5 [facility] Comment on above: Performed By: #### C BC #### [facility] [address] [place] [address] Dr. Sheldon Morse LYMPH # 2.4 103/ul Normal 1.2-3.8 [facility] Comment on above: Performed By: #### C BC #### [facility] [address] [place] [address] Dr. Sheldon Morse Lymphocytes/100 WBC (Bld) 21.3 % Normal 20.5-60.0 [facility] Comment on above: Performed By: #### C BC #### [facility] [address] [place] [address] Dr. Sheldon Morse MANUAL DIFF REQ NO Normal [facility] Comment on above: Performed By: #### C BC #### [facility] [address] [place] [address] Dr. Sheldon Morse MCH (RBC) [Entitic mass] 30.3 pg Normal 26.7-34.0 [facility] Comment on above: Performed By: #### C BC #### [facility] [address] [address] [address] Sheldon Morse MCHC (RBC) [Mass/Vol] 37.1 g/dL Critically high 29.9-35.2 [facility] Comment on above: Performed By: #### C BC #### [facility] [address] [place] [address] Dr. Sheldon Morse MCV (RBC) [Entitic vol] 81.9 fL Normal 81.0-99.0 [facility] Comment on above: Performed By: #### C BC #### [facility] [address] [place] [address] Dr. Sheldon Morse MONO # 0.7 103/ul Normal 0.3-0.8 [facility] Comment on above: Performed By: #### C BC #### [facility] [address] [place] [address] Dr. Sheldon Morse Monocytes/100 WBC (Bld) 6.3 % Normal 1.7-12.0 [facility] Comment on above: Performed By: #### C BC #### [facility] [address] [place] [address] Dr. Sheldon Morse NEUT # 7.8 103/ul Critically high 1.4-6.5 [facility] Comment on above: Performed By: #### C BC #### [facility] [address] [place] [address] Dr. Sheldon Morse Neutrophils/100 WBC (Bld) 71.0 % Normal 43.0-75.0 [facility] Comment on above: Performed By: #### C BC #### [facility] [address] [place] [address] Dr. Sheldon Morse Platelet mean volume (Bld) [Entitic vol] 9.8 fL Normal 9.5-13.5 [facility] Comment on above: Performed By: #### C BC #### [facility] [address] [place] [address] Dr. Sheldon Morse PLT 184 103/ul Normal 150-450 [facility] Comment on above: Performed By: #### C BC #### [facility] [address] [place], [place] [address] Dr. Sheldon Morse RBC 4.58 106/ul Normal 4.20-5.40 [facility] Comment on above: Performed By: #### C BC #### [facility] [address] [place], [place] [address] Dr. Sheldon Morse WBC 11.0 103/ul Normal 4.0-11.0 [facility] Comment on above: Performed By: #### C BC #### [facility] [address] [place], [place] [address] ABD/PELVIS WO CONon [...] MIGUEL MONZON Date: 2022-12-01 17:08 Normal [facility] ER URINE PROFILEon 3 Bilirubin Ql (U) Negative Normal NEGATIVE [facility] Comment on above: Performed By: #### YAMILA GARCIA UMICRO #### [facility] [address] [place] [address] Dr. Sheldon Morse Clarity (U) SL CLOUDY Abnormal CLEAR [facility] Comment on above: Performed By: #### YAMILA GARCIA UMICRO #### [facility] [address] [place] [address] Dr. Sheldon Morse Color (U) LT. YELLOW Normal YELLOW [facility] Comment on above: Performed By: #### YAMILA GARCIA UMICRO #### [facility] [address] [place] [address] Dr. Sheldon SOLANO A micrscopic examination will be performed if indicated. Normal [facility] Comment on above: Performed By: #### YAMILA GARCIA UMICRO #### [facility] [address] [address] [address] Sheldon Morse Glucose Ql (U) Negative Normal NEGATIVE [facility] Comment on above: Performed By: #### ERUM GARCIAU UMICRO #### [facility] [address] [address] [address] Sheldon Morse Hemoglobin Ql (U) LARGE Abnormal NEGATIVE [facility] Comment on above: Performed By: #### Bharat CRONINRERUMU UMICRO #### [facility] [address] [address] [address] Sheldon Morse Ketones Ql (U) Negative Normal NEGATIVE [facility] Comment on above: Performed By: #### E RUR PREGU, UMICRO #### [facility] [address] [place] [address] Dr. Sheldon Morse LEUKOCYTES LARGE Abnormal NEGATIVE [facility] Comment on above: Performed By: #### E RUR PREGU, UMICRO #### [facility] [address] [place] [address] Dr. Sheldon Morse Nitrite Ql (U) Negative Normal NEGATIVE [facility] Comment on above: Performed By: #### Bharat RUAdriano PREGU UMICRO #### [facility] [address] [place] [address] Dr. Sheldon Morse pH (U) 6.0 [pH] Normal 5-9 [facility] Comment on above: Performed By: #### Bharat CASTANEDA PREGU UMICRO #### [facility] [address] [place] [address] Dr. Sheldon Morse Protein (U) [Mass/Vol] 30 mg/dL Abnormal NEGATIVE/ TRACE [facility] Comment on above: Performed By: #### ERUM GARCIAU UMICRO #### [facility] [address] [place] [address] Dr. Sheldon Morse SPEC GRAVITY 1.025 Normal 1.005-<=1.025 [facility] Comment on above: Performed By: #### Bharat CASTANEDA PREGU, UMICRO #### [facility] [address] [place] [address] Dr. Sheldon Morse UR MICRO IND INDICATED Normal [facility] Comment on above: Performed By: #### Bharat RUR PREGU, UMICRO #### [facility] [address] [place] [address] Dr. Sheldon Morse Urobilinogen Qn (U) 0.2 {José'U}/dL Normal 0.2 - 1. 0 [facility] Comment on above: Performed By: #### Bharat RUR PREGU, UMICRO #### [facility] [address] [place] [address] Dr. Sheldon Morse LIPASEon 12-01-2022 Lipase [Catalytic activity/Vol] 64.0 U/L Critically low 73.0-393.0 [facility] Comment on above: Performed By: #### E YAMILA CASTANEDA UMICRO #### [facility] [address] [place] [address] Dr. Sheldon Morse URon 12-01-2022 , QUAL Negative Normal NEGATIVE [facility] Comment on above: Performed By: #### E YAMILA CASTANEDA, UMICRO #### [facility] [address] [place] [address] Dr. Sheldon Morse PROF 14(COMP METB)on 023 Albumin [Mass/Vol] 4.2 g/dL Normal 3.4-5.0 [facility] Comment on above: Performed By: #### C MP, LIPA #### [facility] [address] [place] [address] Dr. Sheldon Morse Albumin/Globulin [Mass ratio] 1.3 {ratio} Normal [facility] Comment on above: Performed By: #### C MP, LIPA #### [facility] [address] [place] [address] Dr. Sheldon Morse ALP [Catalytic activity/Vol] 74 U/L Normal 46-116 [facility] Comment on above: Performed By: #### C MP, LIPA #### [facility] [address] [place] [address] Dr. Sheldon Morse ALT [Catalytic activity/Vol] 39 U/L Normal 14-59 [facility] Comment on above: Performed By: #### C MP, LIPA #### [facility] [address] [place] [address] Dr. Sheldon Morse Anion gap [Moles/Vol] 13.9 mmol/L Normal [facility] Comment on above: Performed By: #### C MP, LIPA #### [facility] [address] [place] [address] Dr. Sheldon Morse AST [Catalytic activity/Vol] 20 U/L Normal 15-37 [facility] Comment on above: Performed By: #### C MP, LIPA #### [facility] [address] [place] [address] Dr. Sheldon Morse Bilirubin [Mass/Vol] 0.5 mg/dL Normal 0.2-1.0 [facility] Comment on above: Performed By: #### C MP, LIPA #### [facility] [address] [place] [address] Dr. Sheldon Morse Calcium [Mass/Vol] 9.1 mg/dL Normal 8.5-10.1 [facility] Comment on above: Performed By: #### C MP, LIPA #### [facility] [address] [place] [address] Dr. Sheldon Morse Chloride [Moles/Vol] 102 mmol/L Normal 98-107 [facility] Comment on above: Performed By: #### C MP, LIPA #### [facility] [address] [place] [address] Dr. Sheldon Morse CO2 [Moles/Vol] 26.1 mmol/L Normal 21.0-32.0 [facility] Comment on above: Performed By: #### C MP, LIPA #### [facility] [address] [place] [address] Dr. Sheldon Morse Creatinine [Mass/Vol] 0.72 mg/dL Normal 0.55-1.02 [facility] Comment on above: Performed By: #### C MP, LIPA #### [facility] [address] [place] [address] Dr. Sheldon Morse EGFR-AF UKRAINIAN >60 Normal >=60 [facility] Comment on above: Performed By: #### C MP, LIPA #### [facility] [address] [place] [address] Dr. Sheldon Morse EGFR-NON AF UKRAINIAN >60 Normal >=60 [facility] Comment on above: Performed By: #### C MP, LIPA #### [facility] [address] [place] [address] Dr. Sheldon Morse Globulin (S) [Mass/Vol] 3.2 g/dL Normal [facility] Comment on above: Performed By: #### C MP, LIPA #### [facility] [address] [place] [address] Dr. Sheldon Morse Glucose [Mass/Vol] 126 mg/dL Critically high 74-106 [facility] Comment on above: Performed By: #### C MP, LIPA #### [facility] [address] [place] [address] Dr. Sheldon Morse Potassium [Moles/Vol] 4.0 mmol/L Normal 3.5-5.1 [facility] Comment on above: Performed By: #### C MP, LIPA #### [facility] [address] [place] [address] Dr. Sheldon Morse Protein [Mass/Vol] 7.4 g/dL Normal 6.4-8.2 [facility] Comment on above: Performed By: #### C MP, LIPA #### [facility] [address] [place] [address] Dr. Sheldon Morse Sodium [Moles/Vol] 138 mmol/L Normal 136-145 [facility] Comment on above: Performed By: #### C MP, LIPA #### [facility] [address] [place] [address] Dr. Sheldon Morse Urea nitrogen [Mass/Vol] 11.0 mg/dL Normal 7.0-18.0 [facility] Comment on above: Performed By: #### C MP, LIPA #### [facility] [address] [place] [address] Dr. Sheldon Morse Urea nitrogen/Creatinine [Mass ratio] 15.3 mg/mg Normal [facility] Comment on above: Performed By: #### C MP, LIPA #### [facility] [address] [place] [address] Dr. Sheldon Morse URINE MICROSCOPIC ONLYon BACTERIA TRACE Abnormal NONE SEEN [facility] Comment on above: Performed By: #### E RUR, PREGU, UMICRO #### [facility] [address] [place] [address] Dr. Sheldon Morse Bacteria identified Cx Nom (U) INDICATED Normal [facility] Comment on above: Performed By: #### E RUR, PREGU, UMICRO #### [facility] [address] [place] [address] Dr. Sheldon Morse CAST NONE SEEN Normal NONE SEEN [facility] Comment on above: Performed By: #### E RUR, PREGU, UMICRO #### [facility] [address] [place] [address] Dr. Sheldon Morse Crystals LM Nom (Urine sed) NONE SEEN Normal NONE SEEN [facility] Comment on above: Performed By: #### E RUR, PREGU, UMICRO #### [facility] [address] [place] [address] Dr. Sheldon Morse Epithelial cells LM Ql (Urine sed) NONE SEEN Normal NONE SEEN /RARE [facility] Comment on above: Performed By: #### E RUR, PREGU, UMICRO #### [facility] Laboratory [address] [place] [address] Dr. Sheldon Morse MUCOUS NONE SEEN Normal NONE SEEN [facility] Comment on above: Performed By: #### E RUR, PREGU, UMICRO #### [facility] [address] [place] [address] Dr. Sheldon Morse RBC 0-2 Normal 0-2 [facility] Comment on above: Performed By: #### E RUR, PREGU, UMICRO #### [facility] [address] [place] [address] Dr. Sheldon Morse WBC 75-100 Abnormal NONE SEEN [facility] Comment on above: Performed By: #### E RUR, PREGU, UMICRO #### [facility] [address] [place] [address] Dr. Sheldon Morse Covid-19 PCR ([facility])on 10-12 SARS-CoV-2 (COVID-19) RNA BRIGID+probe Ql (Unsp spec) Detected Critically abnormal NOT DETECTED [facility] Comment on above: Result Comment: This test is not yet approved or cleared by the [place] FDA. When there are no FDA-approved or cleared tests available, and other criteria are met, FDA can make tests available under an emergency access mechanism called an Emergency Use Authorization (EUA). The EUA for this test is supported by the [place] of Health and Human Service's (HHS's) declaration [...] longer be used). Performed By: #### YAMILA AGRCIA UMICRO #### [facility] [address] [place] [address] Dr. Sheldon Morse PAP ACOG PANEL 2: 30 to 65on 08-24-[address] [facility] Comment on above: Result Comment: Perf ormed at: WB Performed By: #### YAMILA GARCIA UMICRO #### [facility] [address] [place] [address] Dr. Sheldon Morse Age Gdln ACOG Testing 30-[address] [facility] Comment on above: Performed By: #### YAMILA GARCIA UMICRO #### [facility] [address] [place] [address] Dr. Sheldon Morse DIAGNOSIS: Comment Normal [facility] Comment on above: Result Comment: NEGA TIVE FOR INTRAEPITHELIAL LESION OR MALIGNANCY. REACTIVE CELLULAR CHANGES AND/OR REPAIR ARE PRESENT. Performed at: WB Performed By: #### YAMILA GARCIA UMICRO #### [facility] [address] [place] [address] Dr. Sheldon Morse Electronically signed by: Comment Normal [facility] Comment on above: Result Comment: Esperanza Holm MD, Pathologist Performed at: WB Performed By: #### YAMILA GARCIA UMICRO #### [facility] [address] [place] [address] Dr. Sheldon Morse HPV Aptima Negative Normal Negative [facility] Comment on above: Result Comment: This nucleic acid amplification test detects fourteen high-risk HPV types (16,18,31,33,35,39,45,51,52,56,58,59,66,68) without differentiation. Performed at: =G Performed By: #### YAMILA GARCIA UMICRO #### [facility] [address] [address] [address] Sheldon Morse Methodology: Comment Normal [facility] Comment on above: Result Comment: This liquid based ThinPrep(R) pap test was screened with the use of an image guided system. Performed at: WB Performed By: #### YAMILA GARCIA UMICRO #### [facility] [address] [address] [address] Sheldon Morse Note: Comment Normal [facility] Comment on above: Result Comment: The [...] Performed By: #### YAMILA GARCIA UMICRO #### [facility] [address] [address] [address] Sheldon Morse Performed by: Comment Normal [facility] Comment on above: Result Comment: Desean Stoll, Cut Pressman (ASCP) Performed at: WB Performed By: #### YAMILA GARCIA UMICRO #### [facility] [address] [address] [address] Sheldon Morse Specimen adequacy: Comment Normal [facility] Comment on above: Result Comment: Sati sfactory for evaluation. Endocervical and/or squamous metaplastic cells (endocervical component) are present. Performed at: WB Performed By: #### YAMILA GARCIA UMICRO #### [facility] [address] [address] [address] Sheldon Morse Covid-19 PCR ([facility])on SARS-CoV-2 (COVID-19) RNA BRIGID+probe Ql (Unsp spec) Not detected Normal NOT DETECTED [facility] Comment on above: Result Comment: This test is not yet approved or cleared by the [place] FDA. When there are no FDA-approved or cleared tests available, and other criteria are met, FDA can make tests available under an emergency access mechanism called an Emergency Use Authorization (EUA). The EUA for this test is supported by the [place] of Health and Human Service's (HHS's) declaration [...] consistent with SARS-CoV-2. Performed By: #### [facility] #### [facility] [address] [place] [address] Dr. Sheldon Morse MG MAMM DIAGNOSTIC 3D OTTONIEL CA Don 06-02-2022 MG MAMM DIAGNOSTIC 3D OTTONIEL CAD Patient: DEBBY DURBIN Exam Date: 06/02/2022 : 1980 Gender:F Ordering : DR GO MENDIOLA . Admission #: [id number] Family : Order #: [id number] CLICK HERE TO VIEW EXAM RADIOLOGY REPORT [...] Treatments None Family Cancers None LOCATION: [facility] BREAST COMPOSITION: Heterogeneously dense,which may obscure small [...] M.D. on 06/02/2022 at 15:32 Normal [facility] US BREAST LEFT LIMITEDon US BREAST LEFT LIMITED Patient: DEBBY DURBIN Exam Date: 06/02/2022 : 1980 Gender:F Ordering : DR GO MENDIOLA . Admission #: [id number] Family : Order #: [id number] CLICK HERE TO VIEW EXAM RADIOLOGY REPORT [...] Treatments None Family Cancers None LOCATION: [facility] BREAST COMPOSITION: Heterogeneously dense,which may obscure small [...] Watson M.D. on 06/02/2022 at 15:32 [facility] Office Visit (NSFRVW ) DEBBY DURBIN ([id number]) 1980 F Date Time Provider Department 12/27/18 [...] 25 MG TABLET SA 1 pill QD [id number] TABLET as directed REVIEW OF SYSTEMS: PAIN [...] information obtained and documented by the physician customer support assistant. I examined the patient and evaluated all available films and pertinent documents. We discussed the case and I agree with the plans as outlined in this note. SIGNATURE: Brittaney Christiansen MD PATIENT NAME: Debby Durbin DATE: December 27, 2018 TIME: 8:40 AM PAGER: Referring Provider: AILEEN CASTELLANOS [[id number]] Allergies As of Date: 12/27/2018 (No Known [...] by BRITTANEY CHRISTIANSEN MD on 12/27/18 Normal [facility] PROGRESSon 12-27-2018 Protein mass conc HNO ID: [id number] Author: Brittaney Christiansen Service: (none) Author Type: [...] 25 MG TABLET SA 1 pill QD [id number] TABLET as directed REVIEW OF SYSTEMS: PAIN [...] information obtained and documented by the physician customer support assistant. I examined the patient and evaluated all available films and pertinent documents. We discussed the case and I agree with the plans as outlined in this note. SIGNATURE: Brittaney Christiansen MD PATIENT NAME: Debby Durbin DATE: December 27, 2018 TIME: 8:40 AM PAGER: Normal [facility] PROGRESS 12-11-2018 Protein mass conc HNO ID: [id number] Author: Aileen Cohen Service: (none) Author Type: Physician Soda Jerker Type: Progress Notes Filed: 12/13/2018 3:39 PM Note Text: Pt can be scheduled first available with Dr. Christiansen. Cervical disc herniation with extrusion. Patient name: Debby Durbin Are you being referred by a [facility] Provider or [facility] Management Provider at [facility]? No If answer is YES please [...] in Epic: No If not, please provide [phone] to fax in imaging reports for review. [...] this same symptoms? No Additional Comments Normal [facility] MR-MR cervical spine wo con IMPORTon 11-29-2018 MR-MR cervical spine wo con IMPORT Images were obtained outside of [facility] [id number] Normal [facility] Vital Signs Date Time Vital Sign Value Performing Clinician Facility 08-04-2024 15:020400 Body mass index (BMI) [Ratio] 27 kg/m2 [facility] 08-04-2024 15:020400 Body temperature 98.1 [degF] [facility] 08-04-2024 15:02-0400 Diastolic blood pressure 76 mm[Hg] [facility] 08-04-2024 15:02-0400 Heart rate 90 /min [facility] 08-04-2024 15:02-0400 Respiratory rate 16 /min [facility] 08-04-2024 15:02-0400 Systolic blood pressure 122 mm[Hg] [facility] 08-04-2024 11:28-0400 Body height 175.26 cm [facility] 08-04-2024 11:28-0400 Body weight 83 kg [facility] 01-29-2024 15:43-0400 Body height 175.26 cm [facility] 01-29-2024 15:43-0400 Body mass index (BMI) [Ratio] 27.6 kg/m2 [facility] 01-29-2024 15:43-0400 Body temperature 99.1 [degF] [facility] 01-29-2024 15:43-0400 Body weight 84.82 kg [facility] 01-29-2024 15:43-0400 Diastolic blood pressure 78 mm[Hg] [facility] 01-29-2024 15:43-0400 Heart rate 81 /min [facility] 01-29-2024 15:43-0400 Respiratory rate 18 /min [facility] 01-29-2024 15:43-0400 SaO2% (BldA) [Mass fraction] 94 % [facility] 01-29-2024 15:43-0400 Systolic blood pressure 116 mm[Hg] [facility] 06-26-2023 15:40-0400 Body height 175.26 cm Aileen Castellanos Other [facility] Other 06-26-2023 15:40-0400 Body mass index (BMI) [Ratio] 28.79 kg/m2 Aileen Castellanos Other [facility] Other 06-26-2023 15:40-0400 Body temperature 98.7 [degF] Aileen Castellanos Other [facility] Other 06-26-2023 15:40-0400 Body weight 88.45 kg Aileen Castellanos Other [facility] Other 06-26-2023 15:40-0400 Diastolic blood pressure 84 mm[Hg] Aileen Castellanos Other [facility] Other 06-26-2023 15:40-0400 Respiratory rate 18 /min Aileen Castellanos Other [facility] Other 06-26-2023 15:40-0400 SaO2% (BldA) [Mass fraction] 97 % Aileen Castellanos Other [facility] Other 06-26-2023 15:40-0400 Systolic blood pressure 132 mm[Hg] Aileen Castellanos Other [facility] Other 11-22-2022 16:40-0500 Body height 175.26 cm Aileen Castellanos Other [facility] Other 11-22-2022 16:40-0500 Body mass index (BMI) [Ratio] 27.17 kg/m2 Aileen Castellanos Other [facility] Other 11-22-2022 16:40-0500 Body temperature 97.3 [degF] Aileen Castellanos Other [facility] Other 11-22-2022 16:40-0500 Body weight 83.46 kg Aileen Castellanos Other [facility] Other 11-22-2022 16:40-0500 Diastolic blood pressure 76 mm[Hg] Aileen Castellanos Other [facility] Other 11-22-2022 16:40-0500 Respiratory rate 18 /min Aileen Castellanos Other [facility] Other 11-22-2022 16:40-0500 SaO2% (BldA) [Mass fraction] 98 % Aileen Castellanos Other [facility] Other 11-22-2022 16:40-0500 Systolic blood pressure 124 mm[Hg] Aileen Castellanos Other [facility] Other 05-23-2022 16:40-0400 Body height 175.26 cm Aileen Castellanos Other [facility] Other 05-23-2022 16:40-0400 Body mass index (BMI) [Ratio] 27.46 kg/m2 Aileen Castellanos Other [facility] Other 05-23-2022 16:40-0400 Body temperature 98.2 [degF] Aileen Castellanos Other [facility] Other 05-23-2022 16:40-0400 Body weight 84.37 kg Aileen Castellanos Other [facility] Other 05-23-2022 16:40-0400 Diastolic blood pressure 82 mm[Hg] Aileen Castellanos Other [facility] Other 05-23-2022 16:40-0400 Respiratory rate 18 /min Aileen Castellanos Other [facility] Other 05-23-2022 16:40-0400 SaO2% (BldA) [Mass fraction] 98 % Aileen Castellanos Other [facility] Other 05-23-2022 16:40-0400 Systolic blood pressure 124 mm[Hg] Aileen Castellanos Other [facility] Other Encounters Encounter Date Encounter Type Care Provider Facility Start: 08-04-2024 End: 08-04-2024 ambulatory [facility] Work Phone: Start: 08-04-2024 End: 08-04-2024 Patient encounter procedure [facility] Work Phone: Start: 07-28-2024 Non-patient / Non-visit [facility] Work Phone: Start: 05-07-2024 End: 05-07-2024 ambulatory [facility] Work Phone: Start: 05-07-2024 End: 05-07-2024 Patient encounter procedure [facility] Work Phone: Start: 04-21-2024 Non-patient / Non-visit [facility] Work Phone: Start: 01-29-2024 End: 01-29-2024 ambulatory [facility] Work Phone: Start: 01-29-2024 End: 01-29-2024 Patient encounter procedure [facility] Work Phone: Start: 01-17-2024 Non-patient / Non-visit [facility] Work Phone: Start: 01-15-2024 Non-patient / Non-visit [facility] Work Phone: Start: 01-03-2024 Non-patient / Non-visit [facility] Work Phone: Start: 12-11-2023 End: 12-11-2023 ambulatory Aileen Castellanos Other [facility] Other Start: 12-11-2023 Telephone encounter Aileen Castellanos [facility] [place] Start: 12-11-2023 Patient encounter procedure [facility]- Start: 11-15-2023 End: 11-15-2023 ambulatory Aileen Castellanos Other [facility] Other Start: 11-15-2023 Telephone encounter Aileen Castellanos [facility] Start: 10-09-2023 End: 10-09-2023 ambulatory Aileen Castellanos Other [facility] Other Start: 10-09-2023 Telephone encounter Aileen Castellanos [facility] Start: 06-26-2023 End: 06-26-2023 ambulatory Aileen Castellanos Other [facility] Other Start: 06-26-2023 Office outpatient visit 25 minutes Aileen Castellanos [facility] Start: 12-01-2022 End: 12-01-2022 ambulatory [facility] Facility: Start: 11-22-2022 End: 11-22-2022 ambulatory Aileen Castellanos Other [facility] Other Start: 11-22-2022 Office outpatient visit 25 minutes Aileen Castellanos [facility] Start: 10-25-2022 End: 10-25-2022 ambulatory Aileen Castellanos Other [facility] Other Start: 10-25-2022 Telephone encounter Aileen Castellanos [facility] Start: 10-23-2022 End: 10-23-[address] AILEEN CASTELLANOS [place] [employer] Other Start: 10-23-2022 Telephone encounter Aileen Castellanos [facility] Start: 09-11-2022 End: 09-11-2022 ambulatory Aileen Castellanos Other [facility] Other Start: 09-11-2022 Telephone encounter Aileen Castellanos [facility] Start: 08-14-2022 End: 08-14-2022 ambulatory GO CLARE Facility:[facility] Start: 06-20-2022 Telephone encounter Aileen Castellanos [facility] [place] Start: 06-20-2022 End: 06-20-[address] AILEEN CASTELLANOS [facility] [employer] Other Start: 06-06-2022 End: 06-06-2022 ambulatory Aileen Castellanos Other [facility] Other Start: 06-06-2022 Telephone encounter Aileen Castellanos [facility] Start: 06-02-2022 End: 06-03-2022 ambulatory GO AMARALO Facility:[facility] Start: 05-23-2022 End: 05-23-2022 ambulatory Aileen Castellanos Other [facility] Other Start: 05-23-2022 Office outpatient visit 25 minutes Aileen Castellanos [facility] Start: 12-27-2018 End: 12-27-2018 Patient encounter procedure BRITTANEY CHRISTIANSEN [facility] Plan of Treatment Date Care Activity Detail Author Bacteria identified in Urine by Culture [facility] Comprehensive metabo lic 1999 panel - Serum or Plasma [facility] enter Comprehensive metabo lic 1999 panel - Serum or Plasma [facility] enter Insulin [Units/volum e] in Serum or Plasma [facility] Immunizations Immunization Date Immunization Notes Care Provider Fa cility 09-19-2021 COVID-19 Vaccine Pfi zer - Documentation Purposes Only Aileen Castellanos Other [facility] 03-09-2021 COVID-19 Vaccine Pfi zer - Documentation Purposes Only Aileen Castellanos Other [facility] 02-16-2021 COVID-19 Vaccine Pfi zer - Documentation Purposes Only Aileen Castellanos Other [facility] Payers Date Payer Category Payer Unknown [id number] 2.16.84 [id number] 1980 Unknown [id number] 2.16.84 [id number] 1980 Unknown [id number] 2.16.84 [id number] 1980 Unknown [id number] 2.16.84 [id number] 1980 Unknown [id number] 2.16.84 [id number] 1960 [employer] [id number] [id number] 1960 Unknown [id number] 2.16.8 [id number] 1960 Unknown [id number] Self-pay Self Pay [id number] Unknown [id number] Unknown [employer] [id number] Social History Date Type Detail Facility Unknown if ever smoked [facility] Other Sex Assigned At Sex Assigned At Bir th [facility] Other Start: 01-29-2024 Tobacco smoking status NHIS Ex-smoker (finding) [facility] Start: 1980 Sex Assigned At Female F [facility] Medical Equipment Procedure Code Equipment Code Equipment [...] present for entire encounter. Aileen Castellanos D.O. [facility] Work Phone: [phone] 964-498401-30-2024 Evaluation note* Encounter Date Diagnosis Assessment Notes [...] Other 10:39 AM - 10:5 8 AM [facility] Other 01-30-2024 Evaluation note* Encounter Date Diagnosis Assessment Notes Treatment Notes Treatment Clinical Notes Nov, Depression (ICD-10 - F32.9) [facility] Other 01-04-2024 Evaluation note* Encounter Date Diagnosis Assessment Notes Treatment Notes Treatment Clinical Notes Nov, Anxiety (ICD-10 - F41.9) [facility] Other 11-28-2023 Evaluation note* Encounter Date Diagnosis Assessment Notes Treatment Notes Treatment Clinical Notes Sep, Anxiety (ICD-10 - F41.9) [facility] Other 08-15-2023 Evaluation note* Encounter Date Diagnosis [...] Lamisil orally and I asked her to excelsior picker Lamisil cream (OTC). Guidance is given on how to use the cream, she should use this for one month. She does not drink alot of alcohol. If her symptoms do not improve after one month then she should let me know and we would consider that this is not fungal. Jun, [facility] [place] [facility] therapy (ICD-10 - Z79.899) Jun, [...] th a refill on above medication today. [facility] Other 01-11-2023 Evaluation note* Encounter Date Diagnosis [...] spread. If she wants to see a shop and alteration tailor she can see one. Right now she is going to continue to monitor as she has had this for seven months. She does not have any pain with this. She had shingles in the past and does not feel it is shingles. If she wants to see a shop and alteration tailor she can call and schedule this herself. Nov, [place] [facility] drug therapy (ICD-10 - Z79.899) Nov, [...] Seborrheic keratosis (ICD-10 - L82.1) Reassurance given. [facility] Other 12-12-2022 Evaluation note* Encounter Date Diagnosis [...] the point she had to stay in [place] overnight because she was too tired to drive home. Oct, Other 2:39 PM - 2:54 PM [facility] Other 08-09-2022 Evaluation note* Encounter Date Diagnosis Assessment Notes Treatment Notes Treatment Clinical Notes Jun, Nicotine dependence (ICD-10 - F17.200) Jun, Chest congestion (ICD-10 - R09.89) Jun, Runny nose (ICD-10 - R09.89) Jun, Body aches (ICD-10 - R52) [facility] Other 08-09-2022 Evaluation note* Encounter Date Diagnosis Assessment Notes Treatment Notes Treatment Clinical Notes Jun, Left acute otitis media (ICD-10 - H66.92) [facility] Other 07-26-2022 Evaluation note* Encounter Date Diagnosis Assessment Notes Treatment Notes Treatment Clinical Notes May, Nicotine dependence (ICD-10 - F17.200) [facility] Other 07-12-2022 Evaluation note* Encounter Date Diagnosis [...] She has been talking to a health strength and conditioning coach. In the past she was on [...] as it is working well. May, [place] [facility] drug therapy (ICD-10 - Z79.899) May, Allergic rhinitis (ICD-10 - J30.9) She admits that her allergies have been very bad this year, she does take above medication daily for her allergies. May, Urinary frequency (ICD-10 - R35.0) for lab order only May, Other She voices that she has called the [facility] twice to schedule her mammogram and has not heard back from them, she is going to call again. [facility] Other 05-31-2013 History general Narrative - Reported* [...] Hospitalization History see above surgical histo ry [facility] Other Evaluation [facility]No [facility] Other Evaluation note* Diagnosis Onset Date Resolution Status Anxiety acute Chest pain acute Diabetes type 2, uncontrolled acute Hyperlipidemia acute Hypokalemia acute Weight loss acute [facility] Work Phone: Evaluation note* Diagnosis Onset Date Resolution Status Anxiety acute Diabetes type 2, uncontrolled acute [facility] Work Phone: Summary Purpose Family History Relationship [...] section and content) DATE CREATED AUTHOR 01/01/2019 [facility] DATE CREATED AUTHOR AUTHOR'S ORGANIZ ATION 03/22/2023 [facility] REASON FOR VISIT (unrecogniz ed [...] BE BASED ON THE PRIMARY CLINICAL RECORDS. [facility]. provides no warranty or guarantee of the accuracy or completeness of information in this document.
== END 2024-12-02 10:02 | disposition home or self-care (01) ==
LOC: US 10:01
PROVIDERS: PCP Family Medicine; Visit Provider Obstetrics & Gynecology
DX: R92.0 Mammographic microcalcification found on diagnostic imaging of breast (principal); N63.24 Unspecified lump in the left breast, lower inner quadrant
CPT/HCPCS: 76642

== ENCOUNTER 2024-12-11 08:02 | Day surgery (SDC) | payer OTHER, BC, SELFPAY ==
--- NOTE | 2024-12-11 08:04 | MM_ITS ---
Patient Name: BENITO DAHL MR#: [id number] : 1980 Exam Date: 12/11/2024 Ordering Doctor: DR Moiz Mendiola . RADIOLOGY REPORT PROCEDURE: MM POST BIOPSY LT COMPARISON: MM TOMOSYNTHESIS SCREENING BI, 11/14/2024. MM TOMOSYNTHESIS SCREENING BI, 09/18/2023. MG MAMM DIAGNOSTIC 3D OTTONIEL CAD, 06/02/2022. MAMMO POST BIOPSY LEFT, 02/21/2021. INDICATIONS: Left Breast Lesion BREAST COMPOSITION: FINDINGS: Post-Procedure Mammogram for Marker Placement BIOPSY MARKER: A metallic marker has been placed in the targeted location within the lower-inner quadrant of the left breast. BREAST FINDINGS: Expected post biopsy appearance. RECOMMENDATIONS: Dictated by: Edouard Watson M.D. on 12/11/2024 at 15:29 Approved by: Edouard Watson M.D. on 12/11/2024 at 15:30
--- NOTE | 2024-12-11 08:04 | US_ITS ---
[address] [address] Patient Name: BENITO DAHL MRN: [id number] date: 1980 Sex: F Assigned Patient Location: US Current Patient Location: Accession/Order Number: [id number] Exam Date: 12/11/2024 08:05 Report Date: 12/11/2024 14:52 At the request of: GO SPARKS Procedure: US breast vac bx w/ clip LT EXAM: US breast vac bx w/ clip LT HISTORY: Left Breast Lesion COMPARISON: Ultrasound breast left Limited 12/02/2024 TECHNIQUE: After obtaining informed consent, ultrasound-guided biopsy was performed in the usual sterile manner. The location of the biopsy was then marked as indicated below. FINDINGS: Specimen #, Location: 3 core samples; left breast 7:00 mixed cystic and solid 1.5 cm mass Biopsy Needle: 13 gauge vacuum core biopsy needle. Marker(s): A single metallic marker was placed in the appropriate targeted location. Medication: Buffered 1% Lidocaine with epinephrine administered locally. Complications: None. Pathology: Pending. US/US breast vac bx w/ clip LT IMPRESSION: 1. Uneventful ultrasound-guided breast biopsy. 2. Pathology results are pending. An addendum to this report will be provided after pathology results are available. Electronically authenticated by: JONATHAN GUIDO Date: 12/11/2024 14:52
--- OUTSIDE RECORDS SUMMARY | 2024-12-11 08:04 | XMS_ITS | CCD ---
Author Organization [facility] Care Team Providers Care Disposal Man Name Role Phone BRITTANEY CHRISTIANSEN Attending Unavailable [...] Reaction(s) Facility (13 sources) Acetaminophen Drug Allergy [employer] Other (1 source) Acetaminophen Drug Allergy [facility] Repository Medications Current Medications Medication Drug Class(es) Dates Sig (Normalized) Sig (Original) [id number] 200 actuat albuterol 0.09 mg/actuat metered dose [...] 4:26pm Start: 12-11-2023 [facility] at bed[facility] as needed Xanax [...] current use of drug therapy; Translations: [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] Episodic Other aftercare (4 sources) Other group home (current) drug therapy; Translations: [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 DRUG THERAPY] Onset: 05-23-2022 Resolved: 05-23-2022 [...] Onset: 10-23-2022 Episodic Other aftercare (1 source) 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; Translations: [CORRECTION USE ORAL HYPOGLYCEMIC DX] Onset: 12-05-2022 Episodic [...] 07-28-2024 HbA1c (Bld) [Mass fraction] 7.1 % [facility] Basophils Auto (Bld) [#/Vol] on 01-17-2024 Basophils (Bld) [#/Vol] 0.1 10 3/uL 0.0-0.1 [facility] Basophils/100 WBC Auto (Bld) on 01-17-2024 Basophils/100 WBC (Bld) 0.6 % 0.2-2.0 [facility] Cholesterol in LDL Calc [Mas s/Vol]on 01-17-2024 Cholesterol in LDL [Mass/Vol] 123.0 mg/dL [facility] Comment on above: <100 mg/dl [id number] 0-129 mg/dl NEAR OR ABOVE [id number] mg/dl BORDERLINE [id number] mg/dl HIGH>190 mg/dl VERY HIGH Cholesterol in VLDL Calc [Ma ss/Vol]on 01-17-2024 Cholesterol in VLDL [Mass/Vol] 28.2 mg/dL [facility] Eosinophils/100 WBC Auto (Bl d)on 01-17-2024 Eosinophils/100 WBC (Bld) 1.1 % 0.9-7.0 [facility] Erythrocyte distribution wid th Auto (RBC) [Ratio]on 01-17-2024 Erythrocyte distribution width (RBC) [Ratio] 12.8 % 11.0-15.0 [facility] Estimated glomerular filtrat ion rate (GFR) non- Americanon 01-17-2024 GFR/1.73 sq M.predicted among non-blacks MDRD (S/P/Bld) [Vol rate/Area] mL/min/{1.73_m2} >=60 [facility] Fibrin D-dimer [Presence] in Platelet poor plasma by Latex agglutinationon 01-17-2024 Fibrin D-dimer LA Ql (PPP) 0.49 mg/L FEU <=0.59 [facility] Comment on above: Increases in D-Dimer [...] on 01-17-2024 Globulin (S) [Mass/Vol] 3.8 g/dL [facility] Glucose mean value [Mass/vol ume] in Blood Estimated from glycated hemoglobinon 01-17-2024 Average glucose Estimated from glycated hemoglobin (Bld) [Mass/Vol] 151 mg/dL [facility] Hematocrit Auto (Bld) [Volum e fraction]on 01-17-2024 Hematocrit (Bld) [Volume fraction] 43.7 % 36.0-48.0 [facility] Hemoglobin [Mass/volume] in Bloodon 01-17-2024 Hemoglobin (Bld) [Mass/Vol] 14.4 g/dL 12.0-16.0 [facility] Laboratory - Chemistry and C hemistry - challengeon 01-17-2024 Albumin [Mass/Vol] 4.0 g/dL 3.4-5.0 [facility] ALP [Catalytic activity/Vol] 112 U/L 46-116 [facility] ALT [Catalytic activity/Vol] 31 U/L 14-59 [facility] AST [Catalytic activity/Vol] 12 U/L 15-37 [facility] Bilirubin [Mass/Vol] 0.2 mg/dL 0.2-1.0 [facility] Calcium [Mass/Vol] 9.1 mg/dL 8.5-10.1 [facility] Chloride [Moles/Vol] 103 mmol/L 98-107 [facility] Cholesterol [Mass/Vol] 206 mg/dL <=200 [facility] Cholesterol in HDL [Mass/Vol] 55 mg/dL 40-60 [facility] Comment on above: > or =60 mg/dl - LOW CARDIOVASCULAR RISK<40 mg/dl - HIGH CARDIOVASCULAR RISK CO2 [Moles/Vol] 26.7 mmol/L 21.0-32.0 [facility] Creatinine [Mass/Vol] 0.90 mg/dL 0.55-1.02 [facility] GFR/1.73 sq M.predicted MDRD (S/P/Bld) [Vol rate/Area] mL/min/{1.73_m2} >=60 [facility] Glucose [Mass/Vol] 235 mg/dL 74-106 [facility] Potassium [Moles/Vol] 3.3 mmol/L 3.5-5.1 [facility] Protein [Mass/Vol] 7.8 g/dL 6.4-8.2 [facility] Sodium [Moles/Vol] 133 mmol/L 136-145 [facility] Triglyceride [Mass/Vol] 141 mg/dL <=150 [facility] TSH Qn 1.763 m[IU]/L 0.358-3.740 [facility] Urea nitrogen [Mass/Vol] 9.0 mg/dL 7.0-18.0 [facility] Urea nitrogen/Creatinine [Mass ratio] 10.0 mg/mg [facility] Laboratory - Hematology and Cell countson 01-17-2024 HbA1c (Bld) [Mass fraction] 6.9 % 4.5-6.2 [facility] Comment on above: ADA RECOMMENDED LIMI T 4.0 - 6.0ADA THERAPEUTIC TARGET < 7.0ACTION SUGGESTED> 7.0 Immature granulocytes/100 WBC (Bld) 0.4 % 0.0-0.5 [facility] Leukocytes [#/volume] correc wilmar for nucleated erythrocytes in Blood by Automated counon 01-17-2024 WBC corrected for nucl RBC Auto (Bld) [#/Vol] 10.0 10 3/uL 4.0-11.0 [facility] Lymphocytes Auto (Bld) [#/Vo l]on 01-17-2024 Lymphocytes (Bld) [#/Vol] 3.7 10 3/uL 1.2-3.8 [facility] Lymphocytes/100 WBC Auto (Bl d)on 01-17-2024 Lymphocytes/100 WBC (Bld) 37.0 % 20.5-60.0 [facility] MCH Auto (RBC) [Entitic mass ]on 01-17-2024 MCH (RBC) [Entitic mass] 30.4 pg 26.7-34.0 [facility] MCHC Auto (RBC) [Mass/Vol]on 01-17-2024 MCHC (RBC) [Mass/Vol] 33.0 g/dL 29.9-35.2 [facility] MCV Auto (RBC) [Entitic vol] on 01-17-2024 MCV (RBC) [Entitic vol] 92.2 fL 81.0-99.0 [facility] Monocytes Auto (Bld) [#/Vol] on 01-17-2024 Monocytes (Bld) [#/Vol] 0.7 10 3/uL 0.3-0.8 [facility] Monocytes/100 WBC Auto (Bld) on 01-17-2024 Monocytes/100 WBC (Bld) 7.1 % 1.7-12.0 [facility] Neutrophils Auto (Bld) [#/Vo l]on 01-17-2024 Neutrophils (Bld) [#/Vol] 5.4 10 3/uL 1.4-6.5 [facility] Neutrophils/100 WBC Auto (Bl d)on 01-17-2024 Neutrophils/100 WBC (Bld) 53.8 % 43.0-75.0 [facility] No Panel Informationon 01-16 Eosinophils # (Auto) 0.1 10 3/uL 0.0-0.7 [facility] Immature Granulocyte # (Auto) 0.04 10 3/uL 0.00-0.03 [facility] Troponin I High Sensitivity <4.0 pg/mL 4.0-51.3 [facility] Comment on above: CUT-OFF POINTS HAVE [...] volume (Bld) [Entitic vol] 11.6 fL 9.5-13.5 [facility] Platelets Auto (Bld) [#/Vol] on 01-17-2024 Platelets (Bld) [#/Vol] 197 10 3/uL 150-450 [facility] RBC Auto (Bld) [#/Vol]on RBC (Bld) [#/Vol] 4.74 10 6/uL 4.20-5.40 [facility] Serum or plasma albumin/glob ulin mass ratioon 01-17-2024 Albumin/Globulin [Mass ratio] 1.1 {ratio} [facility] Serum or plasma anion gap de terminationon 01-17-2024 Anion gap [Moles/Vol] 6.6 mmol/L [facility] Serum or plasma total choles terol/high density lipoprotein (HDL) cholesterol mass erick 01-17-2024 Cholesterol.total/C holesterol in HDL [Mass ratio] 3.7 {ratio} [facility] Comment on above: 3.3 - 4.4 [...] F Trimethoprim/Sulfametho xazole <=20 S F Normal [facility] Comment on above: Performed By: #### U RCX #### [facility] [address] [place] [address] Dr. Sheldon Morse CBC AUTO DIFFon 12-01-2022 BASO # 0.0 103/ul Normal 0.0-0.1 [facility] Comment on above: Performed By: #### C BC #### [facility] [address] [place] [address] Dr. Sheldon Morse Basophils/100 WBC (Bld) 0.4 % Normal 0.2-2.0 [facility] Comment on above: Performed By: #### C BC #### [facility] [address] [place] [address] Dr. Sheldon Morse EO # 0.1 103/ul Normal 0.0-0.7 [facility] Comment on above: Performed By: #### C BC #### [facility] [address] [place] [address] Dr. Sheldon Morse Eosinophils/100 WBC (Bld) 0.5 % Critically low 0.9-7.0 [facility] Comment on above: Performed By: #### C BC #### [facility] [address] [place] [address] Dr. Sheldon Morse Erythrocyte distribution width (RBC) [Ratio] 12.2 % Normal 11.0-15.0 [facility] Comment on above: Performed By: #### C BC #### [facility] [address] [place] [address] Dr. Sheldon Morse Hematocrit (Bld) [Volume fraction] 37.5 % Normal 36.0-48.0 [facility] Comment on above: Performed By: #### C BC #### [facility] [address] [place] [address] Dr. Sheldon Morse Hemoglobin (Bld) [Mass/Vol] 13.9 g/dL Normal 12.0-16.0 [facility] Comment on above: Performed By: #### C BC #### [facility] [address] [place] [address] Dr. Sheldon Morse IG # 0.06 10e3/ul Critically high 0.00-0.03 [facility] Comment on above: Performed By: #### C BC #### [facility] [address] [place] [address] Dr. Sheldon Morse IG % 0.5 % Normal 0.0-0.5 [facility] Comment on above: Performed By: #### C BC #### [facility] [address] [place] [address] Dr. Sheldon Morse LYMPH # 2.4 103/ul Normal 1.2-3.8 [facility] Comment on above: Performed By: #### C BC #### [facility] [address] [place] [address] Dr. Sheldon Morse Lymphocytes/100 WBC (Bld) 21.3 % Normal 20.5-60.0 [facility] Comment on above: Performed By: #### C BC #### [facility] [address] [place] [address] Dr. Sheldon Morse MANUAL DIFF REQ NO Normal [facility] Comment on above: Performed By: #### C BC #### [facility] [address] [place] [address] Dr. Sheldon Morse MCH (RBC) [Entitic mass] 30.3 pg Normal 26.7-34.0 [facility] Comment on above: Performed By: #### C BC #### [facility] [address] [address] [address] Sheldon Morse MCHC (RBC) [Mass/Vol] 37.1 g/dL Critically high 29.9-35.2 [facility] Comment on above: Performed By: #### C BC #### [facility] [address] [place] [address] Dr. Sheldon Morse MCV (RBC) [Entitic vol] 81.9 fL Normal 81.0-99.0 [facility] Comment on above: Performed By: #### C BC #### [facility] [address] [place] [address] Dr. Sheldon Morse MONO # 0.7 103/ul Normal 0.3-0.8 [facility] Comment on above: Performed By: #### C BC #### [facility] [address] [place] [address] Dr. Sheldon Morse Monocytes/100 WBC (Bld) 6.3 % Normal 1.7-12.0 [facility] Comment on above: Performed By: #### C BC #### [facility] [address] [place] [address] Dr. Sheldon Morse NEUT # 7.8 103/ul Critically high 1.4-6.5 [facility] Comment on above: Performed By: #### C BC #### [facility] [address] [place] [address] Dr. Sheldon Morse Neutrophils/100 WBC (Bld) 71.0 % Normal 43.0-75.0 [facility] Comment on above: Performed By: #### C BC #### [facility] [address] [place] [address] Dr. Sheldon Morse Platelet mean volume (Bld) [Entitic vol] 9.8 fL Normal 9.5-13.5 [facility] Comment on above: Performed By: #### C BC #### [facility] [address] [place] [address] Dr. Sheldon Morse PLT 184 103/ul Normal 150-450 [facility] Comment on above: Performed By: #### C BC #### [facility] [address] [place], [place] [address] Dr. Sheldon Morse RBC 4.58 106/ul Normal 4.20-5.40 [facility] Comment on above: Performed By: #### C BC #### [facility] [address] [place], [place] [address] Dr. Sheldon Morse WBC 11.0 103/ul Normal 4.0-11.0 [facility] Comment on above: Performed By: #### C BC #### [facility] [address] [place], [place] [address] ABD/PELVIS WO CONon [...] MIGUEL MONZON Date: 2022-12-01 17:08 Normal [facility] ER URINE PROFILEon 3 Bilirubin Ql (U) Negative Normal NEGATIVE [facility] Comment on above: Performed By: #### YAMILA GARCIA UMICRO #### [facility] [address] [place] [address] Dr. Sheldon Morse Clarity (U) SL CLOUDY Abnormal CLEAR [facility] Comment on above: Performed By: #### YAMILA GARCIA UMICRO #### [facility] [address] [place] [address] Dr. Sheldon Morse Color (U) LT. YELLOW Normal YELLOW [facility] Comment on above: Performed By: #### YAMILA GARCIA UMICRO #### [facility] [address] [place] [address] Dr. Sheldon SOLANO A micrscopic examination will be performed if indicated. Normal [facility] Comment on above: Performed By: #### YAMILA GARCIA UMICRO #### [facility] [address] [address] [address] Sheldon Morse Glucose Ql (U) Negative Normal NEGATIVE [facility] Comment on above: Performed By: #### ERUM GARCIAU UMICRO #### [facility] [address] [address] [address] Sheldon Morse Hemoglobin Ql (U) LARGE Abnormal NEGATIVE [facility] Comment on above: Performed By: #### Bharat CRONINRERUMU UMICRO #### [facility] [address] [address] [address] Sheldon Morse Ketones Ql (U) Negative Normal NEGATIVE [facility] Comment on above: Performed By: #### E RUR PREGU, UMICRO #### [facility] [address] [place] [address] Dr. Sheldon Morse LEUKOCYTES LARGE Abnormal NEGATIVE [facility] Comment on above: Performed By: #### E RUR PREGU, UMICRO #### [facility] [address] [place] [address] Dr. Sheldon Morse Nitrite Ql (U) Negative Normal NEGATIVE [facility] Comment on above: Performed By: #### Bharat RUAdriano PREGU UMICRO #### [facility] [address] [place] [address] Dr. Sheldon Morse pH (U) 6.0 [pH] Normal 5-9 [facility] Comment on above: Performed By: #### Bharat CASTANEDA PREGU UMICRO #### [facility] [address] [place] [address] Dr. Sheldon Morse Protein (U) [Mass/Vol] 30 mg/dL Abnormal NEGATIVE/ TRACE [facility] Comment on above: Performed By: #### ERUM GARCIAU UMICRO #### [facility] [address] [place] [address] Dr. Sheldon Morse SPEC GRAVITY 1.025 Normal 1.005-<=1.025 [facility] Comment on above: Performed By: #### Bharat CASTANEDA PREGU, UMICRO #### [facility] [address] [place] [address] Dr. Sheldon Morse UR MICRO IND INDICATED Normal [facility] Comment on above: Performed By: #### Bharat RUR PREGU, UMICRO #### [facility] [address] [place] [address] Dr. Sheldon Morse Urobilinogen Qn (U) 0.2 {José'U}/dL Normal 0.2 - 1. 0 [facility] Comment on above: Performed By: #### Bharat RUR PREGU, UMICRO #### [facility] [address] [place] [address] Dr. Sheldon Morse LIPASEon 12-01-2022 Lipase [Catalytic activity/Vol] 64.0 U/L Critically low 73.0-393.0 [facility] Comment on above: Performed By: #### E YAMILA CASTANEDA UMICRO #### [facility] [address] [place] [address] Dr. Sheldon Morse URon 12-01-2022 , QUAL Negative Normal NEGATIVE [facility] Comment on above: Performed By: #### E YAMILA CASTANEDA, UMICRO #### [facility] [address] [place] [address] Dr. Sheldon Morse PROF 14(COMP METB)on 023 Albumin [Mass/Vol] 4.2 g/dL Normal 3.4-5.0 [facility] Comment on above: Performed By: #### C MP, LIPA #### [facility] [address] [place] [address] Dr. Sheldon Morse Albumin/Globulin [Mass ratio] 1.3 {ratio} Normal [facility] Comment on above: Performed By: #### C MP, LIPA #### [facility] [address] [place] [address] Dr. Sheldon Morse ALP [Catalytic activity/Vol] 74 U/L Normal 46-116 [facility] Comment on above: Performed By: #### C MP, LIPA #### [facility] [address] [place] [address] Dr. Sheldon Morse ALT [Catalytic activity/Vol] 39 U/L Normal 14-59 [facility] Comment on above: Performed By: #### C MP, LIPA #### [facility] [address] [place] [address] Dr. Sheldon Morse Anion gap [Moles/Vol] 13.9 mmol/L Normal [facility] Comment on above: Performed By: #### C MP, LIPA #### [facility] [address] [place] [address] Dr. Sheldon Morse AST [Catalytic activity/Vol] 20 U/L Normal 15-37 [facility] Comment on above: Performed By: #### C MP, LIPA #### [facility] [address] [place] [address] Dr. Sheldon Morse Bilirubin [Mass/Vol] 0.5 mg/dL Normal 0.2-1.0 [facility] Comment on above: Performed By: #### C MP, LIPA #### [facility] [address] [place] [address] Dr. Sheldon Morse Calcium [Mass/Vol] 9.1 mg/dL Normal 8.5-10.1 [facility] Comment on above: Performed By: #### C MP, LIPA #### [facility] [address] [place] [address] Dr. Sheldon Morse Chloride [Moles/Vol] 102 mmol/L Normal 98-107 [facility] Comment on above: Performed By: #### C MP, LIPA #### [facility] [address] [place] [address] Dr. Sheldon Morse CO2 [Moles/Vol] 26.1 mmol/L Normal 21.0-32.0 [facility] Comment on above: Performed By: #### C MP, LIPA #### [facility] [address] [place] [address] Dr. Sheldon Morse Creatinine [Mass/Vol] 0.72 mg/dL Normal 0.55-1.02 [facility] Comment on above: Performed By: #### C MP, LIPA #### [facility] [address] [place] [address] Dr. Sheldon Morse EGFR-AF LITHUANIAN >60 Normal >=60 [facility] Comment on above: Performed By: #### C MP, LIPA #### [facility] [address] [place] [address] Dr. Sheldon Morse EGFR-NON AF LITHUANIAN >60 Normal >=60 [facility] Comment on above: Performed By: #### C MP, LIPA #### [facility] [address] [place] [address] Dr. Sheldon Morse Globulin (S) [Mass/Vol] 3.2 g/dL Normal [facility] Comment on above: Performed By: #### C MP, LIPA #### [facility] [address] [place] [address] Dr. Sheldon Morse Glucose [Mass/Vol] 126 mg/dL Critically high 74-106 [facility] Comment on above: Performed By: #### C MP, LIPA #### [facility] [address] [place] [address] Dr. Sheldon Morse Potassium [Moles/Vol] 4.0 mmol/L Normal 3.5-5.1 [facility] Comment on above: Performed By: #### C MP, LIPA #### [facility] [address] [place] [address] Dr. Sheldon Morse Protein [Mass/Vol] 7.4 g/dL Normal 6.4-8.2 [facility] Comment on above: Performed By: #### C MP, LIPA #### [facility] [address] [place] [address] Dr. Sheldon Morse Sodium [Moles/Vol] 138 mmol/L Normal 136-145 [facility] Comment on above: Performed By: #### C MP, LIPA #### [facility] [address] [place] [address] Dr. Sheldon Morse Urea nitrogen [Mass/Vol] 11.0 mg/dL Normal 7.0-18.0 [facility] Comment on above: Performed By: #### C MP, LIPA #### [facility] [address] [place] [address] Dr. Sheldon Morse Urea nitrogen/Creatinine [Mass ratio] 15.3 mg/mg Normal [facility] Comment on above: Performed By: #### C MP, LIPA #### [facility] [address] [place] [address] Dr. Sheldon Morse URINE MICROSCOPIC ONLYon BACTERIA TRACE Abnormal NONE SEEN [facility] Comment on above: Performed By: #### E RUR, PREGU, UMICRO #### [facility] [address] [place] [address] Dr. Sheldon Morse Bacteria identified Cx Nom (U) INDICATED Normal [facility] Comment on above: Performed By: #### E RUR, PREGU, UMICRO #### [facility] [address] [place] [address] Dr. Sheldon Morse CAST NONE SEEN Normal NONE SEEN [facility] Comment on above: Performed By: #### E RUR, PREGU, UMICRO #### [facility] [address] [place] [address] Dr. Sheldon Morse Crystals LM Nom (Urine sed) NONE SEEN Normal NONE SEEN [facility] Comment on above: Performed By: #### E RUR, PREGU, UMICRO #### [facility] [address] [place] [address] Dr. Sheldon Morse Epithelial cells LM Ql (Urine sed) NONE SEEN Normal NONE SEEN /RARE [facility] Comment on above: Performed By: #### E RUR, PREGU, UMICRO #### [facility] [address] [place] [address] Dr. Sheldon Morse MUCOUS NONE SEEN Normal NONE SEEN [facility] Comment on above: Performed By: #### E RUR, PREGU, UMICRO #### [facility] [address] [place] [address] Dr. Sheldon Morse RBC 0-2 Normal 0-2 [facility] Comment on above: Performed By: #### E RUR, PREGU, UMICRO #### [facility] [address] [place] [address] Dr. Sheldon Morse WBC 75-100 Abnormal NONE SEEN [facility] Comment on above: Performed By: #### E RUR, PREGU, UMICRO #### [facility] [address] [place] [address] Dr. Sheldon Morse Covid-19 PCR ([facility])on 10-12 SARS-CoV-2 (COVID-19) RNA BRIGID+probe Ql (Unsp spec) Detected Critically abnormal NOT DETECTED [facility] Comment on above: Result Comment: This test is not yet approved or cleared by the [place] FDA. When there are no FDA-approved or cleared tests available, and other criteria are met, FDA can make tests available under an emergency access mechanism called an Emergency Use Authorization (EUA). The EUA for this test is supported by the [employer] Electronic Scale of Health and Human Service's (HHS's) declaration [...] Performed By: #### YAMILA GARCIA UMICRO #### [facility] [address] [place] [address] Dr. Sheldon Morse PAP ACOG PANEL 2: 30 to 65on 08-24-2022 . . Normal [facility] Comment on above: Result Comment: Perf ormed at: WB Performed By: #### YAMILA GARCIA UMICRO #### [facility] [address] [place] [address] Dr. Sheldon Morse Age Gdln ACOG Testing 30-65 Normal [facility] Comment on above: Performed By: #### YAMILA GARCIA UMICRO #### [facility] [address] [place] [address] Dr. Sheldon Morse DIAGNOSIS: Comment Normal [facility] Comment on above: Result Comment: NEGA TIVE FOR INTRAEPITHELIAL LESION OR MALIGNANCY. REACTIVE CELLULAR CHANGES AND/OR REPAIR ARE PRESENT. Performed at: WB Performed By: #### YAMILA GARCIA UMICRO #### [facility] [address] [place] [address] Dr. Sheldon Morse Electronically signed by: Comment Normal [facility] Comment on above: Result Comment: Esperanza Holm MD, Pathologist Performed at: WB Performed By: #### YAMILA GARCIA UMICRO #### [facility] [address] [place] [address] Dr. Sheldon Morse HPV Aptima Negative Normal Negative [facility] Comment on above: Result Comment: This nucleic acid amplification test detects fourteen high-risk HPV types (16,18,31,33,35,39,45,51,52,56,58,59,66,68) without differentiation. Performed at: =G Performed By: #### YAMILA GARCIA UMICRO #### [facility] [address] [address] [address] Sheldon Morse Methodology: Comment Normal [facility] Comment on above: Result Comment: This liquid based ThinPrep(R) pap test was screened with the use of an image guided system. Performed at: WB Performed By: #### YAMILA GARCIA UMICRO #### [facility] [address] [address] [address] Sheldon Morse Note: Comment Normal [facility] Comment on above: Result Comment: The [...] Performed By: #### YAMILA GARCIA UMICRO #### [facility] [address] [address] [address] Sheldon Morse Performed by: Comment Normal [facility] Comment on above: Result Comment: Desean Stoll, Engagement Director (ASCP) Performed at: WB Performed By: #### YAMILA GARCIA UMICRO #### [facility] [address] [address] [address] Sheldon Morse Specimen adequacy: Comment Normal [facility] Comment on above: Result Comment: Sati sfactory for evaluation. Endocervical and/or squamous metaplastic cells (endocervical component) are present. Performed at: WB Performed By: #### YAMILA GARCIA UMICRO #### [facility] [address] [address] [address] Sheldon Morse Covid-19 PCR ([facility])on SARS-CoV-2 (COVID-19) RNA BRIGID+probe Ql (Unsp spec) Not detected Normal NOT DETECTED [facility] Comment on above: Result Comment: This test is not yet approved or cleared by the [place] FDA. When there are no FDA-approved or cleared tests available, and other criteria are met, FDA can make tests available under an emergency access mechanism called an Emergency Use Authorization (EUA). The EUA for this test is supported by the Mission of Health and Human Service's (HHS's) declaration [...] consistent with SARS-CoV-2. Performed By: #### [facility] #### [facility] [address] [place] [address] Dr. Sheldon Morse MG MAMM DIAGNOSTIC 3D [place]ON[place]EL CA Don 06-02-2022 MG MAMM DIAGNOSTIC 3D O[place]ONIEL CAD Patient: DEBBY DURBIN Exam Date: 06/02/2022 : 1980 Gender:F Ordering : DR GO MENDIOLA . Admission #: [id number] Family : Order #: [id number] CLICK HERE TO VIEW EXAM RADIOLOGY REPORT [...] Treatments None Family Cancers None LOCATION: [facility] BREAST COMPOSITION: Heterogeneously dense,which may [...] M.D. on 06/02/2022 at 15:32 Normal [facility] US BREAST LEFT LIMITEDon US BREAST LEFT LIMITED Patient: DEBBY DURBIN Exam Date: 06/02/2022 : 1980 Gender:F Ordering : DR GO MENDIOLA . Admission #: [id number] Family : Order #: [id number] CLICK HERE TO VIEW EXAM RADIOLOGY REPORT [...] Treatments None Family Cancers None LOCATION: [facility] BREAST COMPOSITION: Heterogeneously dense,which may [...] Watson M.D. on 06/02/2022 at 15:32 [facility] Visit (NSFRVW ) DEBBY DURBIN ([id number]) 1980 F Date Time Provider Department 12/27/18 [...] 25 MG TABLET SA 1 pill QD [id number] TABLET as directed REVIEW OF SYSTEMS: PAIN [...] information obtained and documented by the physician wet process assistant head miller. I examined the patient and evaluated all available films and pertinent documents. We discussed the case and I agree with the plans as outlined in this note. SIGNATURE: Brittaney Christiansen MD PATIENT NAME: Debby Durbin DATE: December 27, 2018 TIME: 8:40 AM PAGER: Referring Provider: AILEEN CASTELLANOS [[id number]] Allergies As of Date: 12/27/2018 (No Known [...] by BRITTANEY CHRISTIANSEN MD on 12/27/18 Normal [facility] PROGRESSon 12-27-2018 Protein mass conc HNO ID: [id number] Author: Brittaney Christiansen Service: (none) Author Type: [...] 25 MG TABLET SA 1 pill QD [id number] TABLET as directed REVIEW OF SYSTEMS: PAIN [...] information obtained and documented by the physician wet process assistant head miller. I examined the patient and evaluated all available films and pertinent documents. We discussed the case and I agree with the plans as outlined in this note. SIGNATURE: Brittaney Christiansen MD PATIENT NAME: Debby Durbin DATE: December 27, 2018 TIME: 8:40 AM PAGER: Normal [facility] PROGRESS 12-11-2018 Protein mass conc HNO ID: [id number] Author: Aileen Cohen Service: (none) Author Type: Physician Insurance Counsel Type: Progress Notes Filed: 12/13/2018 3:39 PM Note Text: Pt can be scheduled first available with Dr. Christiansen. Cervical disc herniation with extrusion. Patient name: Debby Durbin Are you being referred by a [facility] Provider or Pain Management Provider at [facility]? No If answer is YES please [...] in Epic: No If not, please provide [phone] to fax in imaging reports for review. [...] this same symptoms? No Additional Comments Normal [facility] MR-MR cervical spine wo con IMPORTon 11-29-2018 MR-MR cervical spine wo con IMPORT Images were obtained outside of [facility] [id number] Normal [facility] Vital Signs Date Time Vital Sign Value Performing Clinician Facility 08-04-2024 15:020400 Body mass index (BMI) [Ratio] 27 kg/m2 [facility] 08-04-2024 15:020400 Body temperature 98.1 [degF] [place] 08-04-2024 15:02-0400 Diastolic blood pressure 76 mm[Hg] [facility] 08-04-2024 15:02-0400 Heart rate 90 /min [facility] 08-04-2024 15:02-0400 Respiratory rate 16 /min [place] 08-04-2024 15:02-0400 Systolic blood pressure 122 mm[Hg] [facility] 08-04-2024 11:28-0400 Body height 175.26 cm [facility] 08-04-2024 11:28-0400 Body weight 83 kg [facility] 01-29-2024 15:43-0400 Body height 175.26 cm [facility] 01-29-2024 15:43-0400 Body mass index (BMI) [Ratio] 27.6 kg/m2 [facility] 01-29-2024 15:43-0400 Body temperature 99.1 [degF] [place] 01-29-2024 15:43-0400 Body weight 84.82 kg [facility] 01-29-2024 15:43-0400 Diastolic blood pressure 78 mm[Hg] [facility] 01-29-2024 15:43-0400 Heart rate 81 /min [facility] 01-29-2024 15:43-0400 Respiratory rate 18 /min [place] 01-29-2024 15:43-0400 SaO2% (BldA) [Mass fraction] 94 % [facility] 01-29-2024 15:43-0400 Systolic blood pressure 116 mm[Hg] [facility] 06-26-2023 15:40-0400 Body height 175.26 cm Aileen Castellanos Other [facility] Other 06-26-2023 15:40-0400 Body mass index (BMI) [Ratio] 28.79 kg/m2 Aileen Castellanos Other [facility] Other 06-26-2023 15:40-0400 Body temperature 98.7 [degF] Aileen Castellanos Other [facility] Other 06-26-2023 15:40-0400 Body weight 88.45 kg Aileen Castellanos Other [facility] Other 06-26-2023 15:40-0400 Diastolic blood pressure 84 mm[Hg] Aileen Castellanos Other [facility] Other 06-26-2023 15:40-0400 Respiratory rate 18 /min Aileen Castellanos Other [facility] Other 06-26-2023 15:40-0400 SaO2% (BldA) [Mass fraction] 97 % Aileen Castellanos Other [facility] Other 06-26-2023 15:40-0400 Systolic blood pressure 132 mm[Hg] Aileen Castellanos Other [facility] Other 11-22-2022 16:40-0500 Body height 175.26 cm Aileen Castellanos Other [facility] Other 11-22-2022 16:40-0500 Body mass index (BMI) [Ratio] 27.17 kg/m2 Aileen Castellanos Other [facility] Other 11-22-2022 16:40-0500 Body temperature 97.3 [degF] Aileen Castellanos Other [facility] Other 11-22-2022 16:40-0500 Body weight 83.46 kg Aileen Castellanos Other [facility] Other 11-22-2022 16:40-0500 Diastolic blood pressure 76 mm[Hg] Aileen Castellanos Other [facility] Other 11-22-2022 16:40-0500 Respiratory rate 18 /min Aileen Castellanos Other [facility] Other 11-22-2022 16:40-0500 SaO2% (BldA) [Mass fraction] 98 % Aileen Castellanos Other [facility] Other 11-22-2022 16:40-0500 Systolic blood pressure 124 mm[Hg] Aileen Castellanos Other [facility] Other 05-23-2022 16:40-0400 Body height 175.26 cm Aileen Castellanos Other [facility] Other 05-23-2022 16:40-0400 Body mass index (BMI) [Ratio] 27.46 kg/m2 Aileen Castellanos Other [facility] Other 05-23-2022 16:40-0400 Body temperature 98.2 [degF] Aileen Castellanos Other [facility] Other 05-23-2022 16:40-0400 Body weight 84.37 kg Aileen Castellanos Other [facility] Other 05-23-2022 16:40-0400 Diastolic blood pressure 82 mm[Hg] Aileen Castellanos Other [facility] Other 05-23-2022 16:40-0400 Respiratory rate 18 /min Aileen Castellanos Other [facility] Other 05-23-2022 16:40-0400 SaO2% (BldA) [Mass fraction] 98 % Aileen Casetllanos Other [facility] Other 05-23-2022 16:40-0400 Systolic blood pressure 124 mm[Hg] Aileen Castellanos Other [facility] Other Encounters Encounter Date Encounter Type Care Provider Facility Start: 08-04-2024 End: 08-04-2024 ambulatory [facility] Work Phone: Start: 08-04-2024 End: 08-04-2024 Patient encounter procedure [facility] Physician [facility] [place] Work Phone: Start: 07-28-2024 Non-patient / Non-visit [facility] Physician [facility] [place] Work Phone: Start: 05-07-2024 End: 05-07-2024 ambulatory [facility] Work Phone: Start: 05-07-2024 End: 05-07-2024 Patient encounter procedure [facility] Physician [facility] [place] Work Phone: Start: 04-21-2024 Non-patient / Non-visit [facility] Physician [facility] [place] Work Phone: Start: 01-29-2024 End: 01-29-2024 ambulatory [facility] Work Phone: Start: 01-29-2024 End: 01-29-2024 Patient encounter procedure [facility] Physician [facility] [place] Work Phone: Start: 01-17-2024 Non-patient / Non-visit [facility] Work Phone: Start: 01-15-2024 Non-patient / Non-visit [facility] Physician [facility] Work Phone: Start: 01-03-2024 Non-patient / Non-visit [facility] Physician [facility] Work Phone: Start: 12-11-2023 End: 12-11-2023 ambulatory Aileen Castellanos Other [facility] Other Start: 12-11-2023 Telephone encounter Aileen Castellanos [facility] [place] Start: 12-11-2023 Patient encounter procedure [facility]- Start: 11-15-2023 End: 11-15-2023 ambulatory Aileen Castellanos Other [facility] Other Start: 11-15-2023 Telephone encounter Aileen Castellanos [facility] [place] Start: 10-09-2023 End: 10-09-2023 ambulatory Aileen Castellanos Other [facility] Other Start: 10-09-2023 Telephone encounter Aileen Castellanos [facility] [place] Start: 06-26-2023 End: 06-26-2023 ambulatory Aileen Castellanos Other [facility] Other Start: 06-26-2023 Office outpatient visit 25 minutes Aileen Castellanos [facility] [place] Start: 12-01-2022 End: 12-01-2022 ambulatory [facility] Facility: Start: 11-22-2022 End: 11-22-2022 ambulatory Aileen Castellanos Other [facility] Other Start: 11-22-2022 Office outpatient visit 25 minutes Aileen Castellanos [facility] [place] Start: 10-25-2022 End: 10-25-2022 ambulatory Aileen Castellanos Other [facility] Other Start: 10-25-2022 Telephone encounter Aileen Castellanos [facility] [place] Start: 10-23-2022 End: 10-23-[address] AILEEN CASTELLANOS [place] [employer] Other Start: 10-23-2022 Telephone encounter Aileen Castellanos [facility] [place] Start: 09-11-2022 End: 09-11-2022 ambulatory Aileen Castellanos Other [facility] Other Start: 09-11-2022 Telephone encounter Aileen Castellanos [facility] [place] Start: 08-14-2022 End: 08-14-2022 ambulatory GO CLARE Facility:[facility] Start: 06-20-2022 Telephone encounter Aileen Castellanos [facility] [place] Start: 06-20-2022 End: 06-20-[address] AILEEN CASTELLANOS [facility] [employer] Other Start: 06-06-2022 End: 06-06-2022 ambulatory Aileen Castellanos Other [facility] Other Start: 06-06-2022 Telephone encounter Aileen Castellanos [facility] [place] Start: 06-02-2022 End: 06-03-2022 ambulatory GO AMARALO Facility:[facility] Start: 05-23-2022 End: 05-23-2022 ambulatory Aileen Castellanos Other [facility] Other Start: 05-23-2022 Office outpatient visit 25 minutes Aileen Castellanos [facility] [place] Start: 12-27-2018 End: 12-27-2018 Patient encounter procedure BRITTANEY CHRISTIANSEN [facility] Plan of Treatment Date Care Activity Detail Author Bacteria identified in Urine by Culture [facility] Comprehensive metabo lic 1999 panel - Serum or Plasma [facility] enter Comprehensive metabo lic 1999 panel - Serum or Plasma [facility] enter Insulin [Units/volum e] in Serum or Plasma [facility] enter [facility] Immunizations Immunization Date Immunization Notes Care Provider Fa cility 09-19-2021 COVID-19 Vaccine Pfi zer - Documentation Purposes Only Aileen Castellanos Other [facility] 03-09-2021 COVID-19 Vaccine Pfi zer - Documentation Purposes Only Aileen Castellanos Other [facility] 02-16-2021 COVID-19 Vaccine Pfi zer - Documentation Purposes Only Aileen Castellanos Other [facility] Payers Date Payer Category Payer Unknown [id number] 2.16.84 [id number] 1980 Unknown [id number] 2.16.84 [id number] 1980 Unknown [id number] 2.16.84 [id number] 1980 Unknown [id number] 2.16.84 [id number] 1980 Unknown [id number] 2.16.84 [id number] 1960 [id number] [id number] 1959 Unknown [id number] 2.16.8 [id number] 1960 Unknown [id number] Self-pay Self Pay [id number] Unknown [id number] Unknown [employer] [id number] Social History Date Type Detail Facility Unknown if ever smoked [facility] Other Sex Assigned At Sex Assigned At Bir th [facility] Other Start: 01-29-2024 Tobacco smoking status NHIS Ex-smoker (finding) [facility] Start: 1980 Sex Assigned At Female F [facility] Medical Equipment Procedure Code Equipment Code Equipment [...] present for entire encounter. Aileen Castellanos D.O. [facility] Work Phone: [phone] 584-252501-30-2024 Evaluation note* Encounter Date Diagnosis Assessment Notes [...] Other 10:39 AM - 10:5 8 AM [facility] Other 01-30-2024 Evaluation note* Encounter Date Diagnosis Assessment Notes Treatment Notes Treatment Clinical Notes Nov, Depression (ICD-10 - F32.9) [facility] Other 01-04-2024 Evaluation note* Encounter Date Diagnosis Assessment Notes Treatment Notes Treatment Clinical Notes Nov, Anxiety (ICD-10 - F41.9) [facility] Other 11-28-2023 Evaluation note* Encounter Date Diagnosis Assessment Notes Treatment Notes Treatment Clinical Notes Sep, Anxiety (ICD-10 - F41.9) [facility] Other 08-15-2023 Evaluation note* Encounter Date Diagnosis [...] Lamisil orally and I asked her to grain picker Lamisil cream (OTC). Guidance is given on how to use the cream, she should use this for one month. She does not drink alot of alcohol. If her symptoms do not improve after one month then she should let me know and we would consider that this is not fungal. Jun, Other group home (current) drug therapy (ICD-10 - Z79.899) Jun, [...] th a refill on above medication today. [facility] Other 01-11-2023 Evaluation note* Encounter Date Diagnosis [...] spread. If she wants to see a continuing education director she can see one. Right now she is going to continue to monitor as she has had this for seven months. She does not have any pain with this. She had shingles in the past and does not feel it is shingles. If she wants to see a continuing education director she can call and schedule this herself. Nov, Other group home (current) drug therapy (ICD-10 - Z79.899) Nov, [...] Seborrheic keratosis (ICD-10 - L82.1) Reassurance given. [facility] Other 12-12-2022 Evaluation note* Encounter Date Diagnosis [...] the point she had to stay in [place] overnight because she was too tired to drive home. Oct, Other 2:39 PM - 2:54 PM [facility] Other 08-09-2022 Evaluation note* Encounter Date Diagnosis Assessment Notes Treatment Notes Treatment Clinical Notes Jun, Nicotine dependence (ICD-10 - F17.200) Jun, Chest congestion (ICD-10 - R09.89) Jun, Runny nose (ICD-10 - R09.89) Jun, Body aches (ICD-10 - R52) [facility] Other 08-09-2022 Evaluation note* Encounter Date Diagnosis Assessment Notes Treatment Notes Treatment Clinical Notes Jun, Left acute otitis media (ICD-10 - H66.92) [facility] Other 07-26-2022 Evaluation note* Encounter Date Diagnosis Assessment Notes Treatment Notes Treatment Clinical Notes May, Nicotine dependence (ICD-10 - F17.200) [facility] Other 07-12-2022 Evaluation note* Encounter Date Diagnosis [...] 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 In the past she was on [...] as it is working well. May, Other group home (current) drug therapy (ICD-10 - Z79.899) May, Allergic rhinitis (ICD-10 - J30.9) She admits that her allergies have been very bad this year, she does take above medication daily for her allergies. May, Urinary frequency (ICD-10 - R35.0) for lab order only May, Other She voices that she has called the [facility] twice to schedule her mammogram and has not heard back from them, she is going to call again. [facility] Other 05-31-2013 History general Narrative - Reported* [...] History see above surgical histo ry [facility] Other Evaluation [facility]No [facility] [place] Other Evaluation note* Diagnosis Onset Date Resolution Status Anxiety acute Chest pain acute Diabetes type 2, uncontrolled acute Hyperlipidemia acute Hypokalemia acute Weight loss acute [facility] Work Phone: Evaluation note* Diagnosis Onset Date Resolution Status Anxiety acute Diabetes type 2, uncontrolled acute [facility] Work Phone: Summary Purpose Family [...] section and content) DATE CREATED AUTHOR 01/01/2019 [facility] DATE CREATED AUTHOR AUTHOR'S ORGANIZ ATION 03/22/2023 [facility] REASON FOR VISIT (unrecogniz ed [...] BE BASED ON THE PRIMARY CLINICAL RECORDS. [facility]. provides no warranty or guarantee of the accuracy or completeness of information in this document.
[2024-12-11 08:05] VITALS: BP 120/80; PULSE 80; O2SAT 97
[2024-12-11] MEDS: LIDOCAINE HCL/EPINEPHRINE 10 ML, SODIUM BICARBONATE 1 MEQ INJ (08:55)
[2024-12-11] MEDS: LIDOCAINE HCL 10 ML, SODIUM BICARBONATE 1 MEQ INJ (08:55)
--- NOTE | 2024-12-11 11:30 | SUR.PREOP ---
12/04/24 Pt instructed on procedure, date, time,and prep.
== END 2024-12-11 09:30 | disposition home or self-care (01) ==
LOC: US 08:02
PROVIDERS: Radiology Diagnostic Radiology; PCP Family Medicine; Visit Provider Obstetrics & Gynecology
DX: N60.12 Diffuse cystic mastopathy of left breast (principal)
CPT/HCPCS: 19083; 77065; 88305

== ENCOUNTER 2025-07-27 19:50 | Outpatient (REF) | payer OTHER, BC, SELFPAY ==
--- OUTSIDE RECORDS SUMMARY | 2025-07-27 19:59 | XMS_ITS | CCD ---
Author Organization [facility] Care Team Providers Care Personal Fitness Trainer Name Role Phone BRITTANEY CHRISTIANSEN Attending Unavailable AILEEN CASTELLANOS Referring Unavailable Jasmin, Aileen Unavailable GO MENDIOLA Admitting Unavailable JASMIN, DR GALLAGHER Primary Care Unavailable MARLENA, GO Attending Unavailable MARLENA, GO Consulting Unavailable ZIEBNINOSKA, DR EDOUARD Oh Consulting Unavailable VIRGILIO GASCA Attending Unavailable CAMPOS, VIRGILIO Consulting Unavailable CAMPOS, VIRGILIO Admitting Unavailable JASMIN, DR GALLAGHER Primary Care Unavailable MIGUEL MONZON Consulting Unavailable JASMIN, DR GALLAGHER Attending Unavailable GIRANA, DR GALLAGHER Consulting Unavailable GIRVIN, DR GALLAGHER Primary Care Unavailable GIRVIN, DR GALLAGHER Admitting Unavailable GO MENDIOLA Consulting Unavailable JASMIN, DR GALLAGHER Primary Care Unavailable MARLENA, GO Admitting Unavailable MARLENA, GO Attending Unavailable JASMIN, DR GALLAGHER Attending Unavailable GIRVIN, DR GALLAGHER Consulting Unavailable GIRVIN, DR GALLAGHER Primary Care Unavailable GIRVIN, DR GALLAGHER Admitting Unavailable Aileen Castellanos MD Primary Care Provider Go Mendiola DO Attending Provider Go Mendiola Attending Unavailable Marlena, Go Admitting Unavailable Go Mendiola DO Attending Provider [phone] Aileen Castellanos DO Primary Care Provider Aileen Castellanos DO Attending Provider [phone] Leidy Ross APRN Attending Provider Aileen Castellanos MD Primary Care Provider [phone] Allergies Allergy Classification Reported Allergen(s) Allergy Type Date of Onset Reaction(s) Facility (13 sources) Acetaminophen Drug Allergy [facility] [employer] Other (1 source) Acetaminophen Drug Allergy [facility] Repository (5 sources) Acetaminophen Drug Allergy 3 Hives, Itching, Swelling [facility] Healthcare (1 source) Acetaminophen Drug Allergy 4 [facility] Repository Medications Current Medications Medication Drug Class(es) Dates Sig (Normalized) Sig (Original) [id number] 200 actuat albuterol 0.09 mg/actuat metered dose inhaler (20 sources) beta2-Adrenergic Agonist Start: 10-27-2024 take 1 puff(s) by inhalation four times daily as needed Albuterol Sulfate 90 mcg/actuation HFA aerosol inhaler Active 2 PUFF INHALATION Four times daily as needed October 27, 2024 5:01pm ) Complies with drug therapy Start: 01-15-2024 End: 10-27-2024 take 2 puff(s) by mouth four times daily as needed Albuterol Sulfate 90 mcg/actuation HFA aerosol inhaler Discontinued INHALATION January 15, 2024 1:00am October 27, 2024 5:03pm FreeTextSig: INHALE 2 PUFFS BY MOUTH INTO THE LUNGS FOUR TIMES DAILY NEEDED; Note: Source Status: Not-TakingundefinedPRNprn; Refills: 6; Qty: 8.5 Gram; Provider: Jasmin [...] tablet (20 sources) Benzodiazepine Start: 01-29-2024 End: 05-20-2025 take 1 tablet by mouth once daily at bedtime ALPRAZolam (Xanax) 0.5 MG tablet TAKE 1 TABLET BY MOUTH EVERY DAY AT BEDTIME FOR 30 DAYS 05/20/2025 Active Start: 01-15-2024 End: 01-29-2024 take 1 tablet by mouth once daily at bedtime Alprazolam (Xanax) 0.25 mg tablet Discontinued 0.25 MG PO Daily at bedtime January 15, 2024 1:49pm January 29, 2024 4:26pm Start: 12-11-2023 take 1 tablet by solomon th once at bedtime as needed Xanax 0.25 [...] Active cetirizine hydrochloride 10 mg oral tablet (20 sources) Histamine-1 Receptor Antagonist Start: 01-29-2024 End: 10-27-2024 take 1 tablet by mouth once daily Cetirizine 10 mg tablet Active 10 MG PO Daily October 27, 2024 5:01pm Complies with drug therapy take 1 tablet by solomon th once daily as needed Cetirizine HCl 10 MG TAKE 1 TABLET BY [facility] EVERY DAY prn Not-Taking/PRN ibuprofen 800 mg oral tablet (20 sources) Nonsteroidal Anti-inflammatory Drug Start: 08-04-2024 Ibuprofen Active 0 .ROUTE .COMPLEX 60 August 04, 2024 3:32pm TAKE 1 TABLET BY MOUTH EVERY 8 TO 12 HOURS NEEDED WITH FOOD Start: 03-10-2024 End: 10-27-2024 Ibuprofen 800 mg tablet Discontinued 0 .ROUTE .COMPLEX 60 August 04, 2024 3:32pm October 27, 2024 5:03pm TAKE 1 TABLET BY MOUTH EVERY 8 [...] TO 12 HOURS NEEDED WITH FOOD Start: 06-26-2023 End: 03-10-2024 take 1 tablet by mouth at mealtime as needed ibuprofen 800 MG tablet TAKE 1 TABLET BY MOUTH EVERY 8 TO 12 HOURS WITH FOOD NEEDED 06/26/2023 Active take 1 tablet by solomon th at mealtime as needed Ibuprofen 800 MG TAKE 1 TABLET BY MOUTH EVERY 8 TO 12 HOURS WITH FOOD NEEDED for 20 Active 3 ml liraglutide 6 mg/ml pen injector (20 sources) GLP-1 Receptor Agonist Start: 07-23-2023 End: 07-27-2025 inject 1.8 mg by subcutaneous injection once daily Victoza 18 MG/3ML injection ADMINISTER 1.8 MG UNDER THE SKIN EVERY DAY 07/23/2023 07/27/2025 Discontinued inject 1.2 mg by sub cutaneous injection once daily Victoza 18 MG/3ML ADMINISTER 1.2 MG UNDER THE SKIN EVERY DAY for 30 Active 24 hr metFORMIN hydrochloride 500 mg extended release oral tablet (20 sources) Biguanide Start: 08-04-2024 End: 08-04-2024 take 2 tablets by mouth every twenty-four hours in the morning, then take 1 tablet by mouth in the evening Metformin 500 mg tablet extended release 24 hr Active 0 PO .COMPLEX 270 90 August 04, 2024 3:39pm take 2 (500 MG) tablets in the AM orally and take 1 (500 MG) tablet in the evening Complies with drug therapy Start: 05-31-2023 End: 08-04-2024 take 2 tablets by mouth once daily in the morning, then take 1 tablet by mouth once daily in the evening metFORMIN XR (Glucophage-XR) 500 MG 24 hr tablet TAKE 2 TABLETS BY MOUTH EVERY MORNING AND 1 EVERY EVENING 05/31/2023 Active Ozempic, 2 MG/DOSE, 8 MG/3ML solution pen-injector (2 sources) Start: 07-04-2025 inject 2 mg by subcutaneous injection every week Ozempic, 2 MG/DOSE, 8 MG/3ML solution pen-injector INJECT 2MG SUBCUTANEOUSLY ONCE A WEEK 07/04/2025 Active Semaglutide (4 sources) Start: 05-11-2025 inject 2 mg by subcutaneous injection every week Semaglutide (Ozempic) 2 mg/dose (8 mg/3 mL) pen injector Active 2 MG SUBCUT every week May 11, 2025 8:37am Complies with drug therapy Start: 02-18-2025 End: 05-11-2025 inject 2 mg by subcutaneous injection every week Semaglutide (Ozempic) 2 mg/dose (8 mg/3 mL) pen injector Discontinued 2 MG SUBCUT every week February 18, 2025 12:00am May 11, 2025 8:38am Semaglutide (Ozempic) 2 mg/dose (8 mg/3 mL) pen injector (1 source) Start: 02-18-2025 inject 2 mg by subcutaneous injection every week Semaglutide (Ozempic) 2 mg/dose (8 mg/3 mL) pen injector Active 2 MG SUBCUT every week February 18, 2025 12:00am sertraline 100 mg oral tablet (20 sources) Serotonin Reuptake Inhibitor Start: 06-22-2025 take 1 tablet by mouth once daily sertraline (Zoloft) 100 MG tablet Take 100 mg by mouth Daily 06/22/2025 Active Start: 10-27-2024 End: 05-20-2025 Sertraline 100 mg tablet Discontinued 100 MG PO .COMPLEX December 02, 2024 2:27pm May 20, 2025 3:17pm 100 mg orally TAKE 1 TABLET BY MOUTH EVERY DAY in addition to the 25 MG tablet (total of 125 MG) daily; Start: 08-04-2024 End: 05-20-2025 take 4 tablets by mouth once daily Sertraline 25 mg tablet Discontinued 25 MG PO Daily December 02, 2024 2:27pm May 20, 2025 3:17pm in addition to the 100 MG tablet (total 125 MG) daily Start: 07-08-2024 End: 10-27-2024 take 1 tablet by mouth once daily Sertraline 100 mg tablet Discontinued 0 .ROUTE .COMPLEX 90 August 04, 2024 3:29pm October 27, 2024 5:03pm TAKE 1 TABLET BY MOUTH EVERY DAY in addition to the 25 MG tablet (total of 125 MG) daily Start: 01-29-2024 End: 07-08-2024 take 1 tablet by mouth once daily Sertraline 100 mg tablet Discontinued 100 MG PO Daily January 29, 2024 4:38pm July 08, 2024 8:21am Start: 01-03-2024 End: 01-29-2024 Sertraline 50 mg tablet Disc ontinued 0 .ROUTE .COMPLEX 135 January 03, 2024 10:13am January 29, 2024 4:26pm TAKE 1 AND 1/2 TABLETS EVERY DAY Start: 01-03-2024 End: 01-29-2024 Sertraline Discontinued 0 .R OUTE .COMPLEX 135 January 03, 2024 10:13am January 29, 2024 4:26pm TAKE 1 AND 1/2 TABLETS EVERY DAY Start: 01-03-2024 End: 01-03-2024 take 1 tablet by mouth once daily Sertraline 50 mg tablet Discontinued 0 PO Daily 135 January 03, 2024 10:11am January 03, 2024 [...] Sig (Original) empagliflozin 10 mg oral tablet (20 sources) Sodium-Glucose Cotransporter 2 Inhibitor Start: 01-29-2024 End: 10-13-2024 take 1 tablet by mouth once daily Empagliflozin (Jardiance) 10 mg tablet Discontinued 10 MG PO Daily January 29, 2024 4:37pm August 05, 2024 12:53pm fluconazole 150 mg oral tablet (4 sources) Azole Antifungal Start: 10-01-2024 End: 10-27-2024 take 1 tablet by mouth once daily, then take 1 tablet by mouth every week Fluconazole 150 mg tablet Discontinued 150 MG PO Daily October 01, 2024 1:00am October 27, 2024 4:56pm 150mg PO once daily for 10 days, followed by 150mg once weekly, predniSONE 20 mg oral tablet (5 sources) Start: 06-20-2024 End: 08-04-2024 take 3 tablets by mouth once daily at mealtime, then take 2 tablets by mouth once daily, then take 1 tablet by mouth once daily at mealtime Prednisone 20 mg tablet Discontinued 0 PO .with food or milk 18 June 20, 2024 12:00am August 04, 2024 3:01pm take 3 tablets a day x3 days, 2 tabs a day x3 days and then 1 tab a day x3 days orally WITH FOOD OR MILK; DO NOT TAKE ANY MOTRIN, ADVIL, ALEVE or IBUPROFEN (NSAID MEDICATION) WHILE ON PREDNISONE Semaglutide (8 sources) Start: 12-02-2024 End: 02-18-2025 inject 1 mg by subcutaneous injection every week Semaglutide (Ozempic) 1 mg/dose (4 mg/3 mL) pen injector Discontinued 1 MG SUBCUT every week December 02, 2024 2:24pm February 18, 2025 3:58pm Start: 12-02-2024 inject 1 mg by subcu taneous injection every week Semaglutide (Ozempic) 1 mg/dose (4 mg/3 mL) pen injector Active 1 MG SUBCUT every week December 02, 2024 1:24pm Start: 12-02-2024 End: 12-02-2024 inject 1 mg by subcutaneous injection every week Semaglutide (Ozempic) 1 mg/dose (4 mg/3 mL) pen injector Discontinued 1 MG SUBCUT every week December 02, 2024 1:00am December 02, 2024 2:24pm Start: 12-02-2024 End: 12-02-2024 inject 1 mg by subcutaneous injection every week Semaglutide (Ozempic) 1 mg/dose (4 mg/3 mL) pen injector Discontinued 1 MG SUBCUT every week December 02, 2024 12:00am December 02, 2024 1:24pm Semaglutide (4 sources) Start: 10-27-2024 End: 12-02-2024 Semaglutide (Ozempic) 0.25 m g or 0.5 mg (2 mg/3 mL) pen injector Discontinued 0.5 MG SUBCUT every week 3 October 27, 2024 1:00am December 02, 2024 1:49pm for 4 weeks Start: 10-27-2024 End: 12-02-2024 Semaglutide (Ozempic) 0.25 m g or 0.5 mg (2 mg/3 mL) pen injector Discontinued 0.5 MG SUBCUT every week 3 October 27, 2024 12:00am December 02, 2024 12:49pm for 4 weeks Triamcinolone (20 sources) Corticosteroid Start: 01-17-2020 Kenalog -40 mg Jan, 60 mg Start: 07-29-2018 KENALOG - 10 m g Jul, 40 mg Problems Active Problems Problem Classification Problem Date Documented Da te Episodic/Chronic Anxiety disorders (20 sources) Anxiety; Translations: [Anxiety disorder, unspecified] Chronic Diabetes mellitus with complications (20 sources) Type II diabetes mellitus uncontrolled; Translations: [Type 2 diabetes mellitus with hyperglycemia] Onset: 05-23-2022 Resolved: 05-23-2022 Chronic Diabetes mellitus without complication (20 sources) Type 2 diabetes mellitus; Translations: [Type 2 diabetes mellitus without complications] Onset: 12-05-2022 Chronic Diabetes mellitus without complication (13 sources) Hyperglycemia; Translations: [Hyperglycemia, unspecified] Episodic Disorders of lipid metabolism (20 sources) Hyperlipidemia; Translations: [Hyperlipidemia, unspecified] Onset: 05-23-2022 Resolved: 05-23-2022 Chronic Fluid and electrolyte disorders (8 sources) Hypokalemia; Translations: [Hypokalemia] 01-29-2024 Episodic Genitourinary symptoms and ill-defined conditions (5 sources) Urinary incontinence; Translations: [Unspecified urinary incontinence] 10-27-2024 Chronic Genitourinary symptoms and ill-defined conditions (3 sources) Frequency of micturition; Translations: [Proteinuria, unspecified] Onset: 05-23-2022 Resolved: 05-23-2022 Episodic Malaise and fatigue (1 source) Other fatigue Episodic Mood disorders (15 sources) Depressive disorder; Translations: [Major depressive disorder, single episode, unspecified] Chronic Mycoses (1 source) Tinea pedis Episodic Nonspecific chest pain (8 sources) Chest pain; Translations: [Chest pain, unspecified] 01-29-2024 Episodic Other aftercare (13 sources) Long-term current use of drug therapy; Translations: [Other prison (current) drug therapy] Episodic Other aftercare (4 sources) Other emt intermediate (current) drug therapy; Translations: [OTH GOLD CHARMER CURRENT DRUG THERAPY] Onset: 05-23-2022 Resolved: 05-23-2022 [...] Episodic Other nutritional; endocrine; and metabolic disorders (4 sources) Weight loss; Translations: [Abnormal weight loss] 01-29-2024 Episodic Other nutritional; endocrine; and metabolic disorders (3 sources) Weight decreased; Translations: [Abnormal weight loss] 01-29-2024 Episodic Other [...] Onset: 10-23-2022 Episodic Other aftercare (1 source) assisted (current) use 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 drugs; Translations: [GOLD CHARMER USE ORAL HYPOGLYCEMIC DX] Onset: 12-05-2022 Episodic [...] Test Name Value Interpretation Reference Range Facility [facility] 12-11-2024 L --- Specimen: [id number] Received: 12/11/24 Status: WHITLEY Cabrera Num: [id number] Spec Type: Surgical Subm Dr: Go Mendiola Tissues: A BREAST CORE NO CALCS (LEFT BREAST 7 OCLOCK) Procedures: Blu CERVANTES/Aileen L4 Age/ Patient Sex Location Account Attending Physician Debby Durbin 44/F LABELL [id number] Go Mendiola SPEC NUM: [id number] RECD: 12/11/24 STATUS: WHITLEY REES NUM: [id number] SELVIN: 12/11/[address] [facility] [address]: Go Mendiola ENTERED: 12/11/24 [facility] DR: Brigido,Lab Edouard Watson MD SPEC TYPE: Surgical DEPT: SHELBIE GUALLPA ENTERED BY: [id number] RECV BY: [id number] ORDERED: HE/4, Gross/Micro L4 ORDERED: HE/4, Gross/Micro L4 Pathological Diagnosis Left breast lesion at 7:00, core biopsies: -Mild nodular fibrocystic change of mostly nonproliferative type, including a large honeycomb or sieve-like benign complex cystic structures (at least 5 mm) with incidental diffuse Paneth cell-like metaplasia of the lining epithelium, and focal mild nonspecific chronic inflammation in the surrounding stroma -Incidental a small separate portion of nonspecific clot -No evidence of malignancy or epithelial atypia identified Clinical Information Left breast cystic and solid lesion Gross Description Part A is received in formalin labeled with the patients name, date of , and left breast 7:00 lesion are 4 pale zeng to yellow carrasco, delicate needle core biopsy segments, 0.8-1.7 cm in length with detached fragments of fibrofatty tissue admixed with hemorrhagic material, 1.5 x 1.3 x 0.3 cm in aggregate. The cores are entirely submitted in Cassette A1 with the fragmented fibrofatty tissue admixed with clot entirely submitted in Cassette A2. Fixation time: Time tissue removed from patient: 904 Specimen: [id number] Received: 12/11/24 Status: WHITLEY Rees Num: [id number] Spec Type: Surgical Subm Dr: Go Mendiola Tissues: A BREAST CORE NO CALCS (LEFT BREAST 7 OCLOCK) Procedures: Blu CERVANTES/Aileen L4 Patient: Debby Durbin [id number] (Continued) Specimen: [id number] Received: 12/11/24 (Continued) Gross Description (Continued) Signed (signature on file) Ryan Morse MD 12/12/24 1512 Specimen: [id number] Received: 12/11/24 Status: WHITLEY Rees Num: [id number] Spec Type: Surgical Subm Dr: Go Mendiola Tissues: A BREAST CORE NO CALCS (LEFT BREAST 7 OCLOCK) Procedures: HE/4, Gross/Micro L4 Patient: Debby Durbin [id number] (Continued) Specimen: [id number] Received: 12/11/24 (Continued) Gross Description (Continued) Time specimen placed in formalin: 0906 Cold ischemic time: 1 minute Total fixation time: 8 hours and 30 minutes (2, ns, BS) Mary Microscopic Description Microscopic examinations are performed supporting the above interpretation CPT Codes 46431 Specimen: [id number] Received: 12/11/24 Status: WHITLEY Rees Num: [id number] Spec Type: Surgical Subm Dr: Go Mendiola Tissues: A BREAST CORE NO CALCS (LEFT BREAST 7 OCLOCK) Procedures: HE/4, Gross/Micro L4 Patient: Debby Durbin [id number] (Continued) Signed (signature on file) Chin-Martin Morse MD 12/12/24 1512 Normal [facility] MM POST BIOPSY LTon 12-11-[address] [place] [address] Mammography Report Signed Patient: DEBBY DURBIN MR#: [id number] : 1980 Acct:[id number] Age/Sex: 44 / F ADM Date: 12/11/24 Loc: US Attending Dr: Go Mendiola D.O. Ordering Physician: Go Mendiola D.O. Results: Date of Service: 12/11/24 Follow Up: Procedure(s): MM post biopsy LT Accession Number(s): [id number] cc: Go Mendiola D.O.; AILEEN CASTELLANOS Patient Name: DEBBY DURBIN MR#: [id number] : 1980 Exam Date: 12/11/2024 Ordering Doctor: DR Go Mendiola . RADIOLOGY REPORT PROCEDURE: MM POST BIOPSY LT COMPARISON: MM TOMOSYNTHESIS SCREENING BI, 11/14/2024. MM TOMOSYNTHESIS SCREENING BI, 09/18/2023. MG MAMM DIAGNOSTIC 3D OTTONIEL CAD, 06/02/2022. MAMMO POST BIOPSY LEFT, 02/21/2021. INDICATIONS: Left Breast Lesion BREAST COMPOSITION: FINDINGS: Post-Procedure Mammogram for Marker Placement BIOPSY MARKER: A metallic marker has been placed in the targeted location within the lower-inner quadrant of the left breast. BREAST FINDINGS: Expected post biopsy appearance. RECOMMENDATIONS: Dictated by: Edouard Watson M.D. on 12/11/2024 at 15:29 Approved by: Edouard Watson M.D. on 12/11/2024 at 15:30 Dictated By: Edouard Watson M.D. Signed By: 12/11/241531 DD/ 30 TD/TT: Inspector Chief: [facility] Radiology, Radiologi MD wilner - 12/11/2024 [place] [address] Mammography Report Signed Patient: DEBBY DURBIN MR#: [id number] : 1980 Acct:[id number] Age/Sex: 44 / F ADM Date: 12/11/24 Loc: US Attending Dr: Go Mendiola D.O. Ordering Physician: Go Mendiola D.O. Results: Date of Service: 12/11/24 Follow Up: Procedure(s): MM post biopsy LT Accession Number(s): [id number] cc: Go Mendiola D.O.; AILEEN CASTELLANOS Patient Name: DEBBY DURBIN MR#: [id number] : 1980 Exam Date: 12/11/2024 Ordering Doctor: DR Go Mendiola . RADIOLOGY REPORT PROCEDURE: MM POST BIOPSY LT COMPARISON: MM TOMOSYNTHESIS SCREENING BI, 11/14/2024. MM TOMOSYNTHESIS SCREENING BI, 09/18/2023. MG MAMM DIAGNOSTIC 3D OTTONIEL CAD, 06/02/2022. MAMMO POST BIOPSY LEFT, 02/21/2021. INDICATIONS: Left Breast Lesion BREAST COMPOSITION: FINDINGS: Post-Procedure Mammogram for Marker Placement BIOPSY MARKER: A metallic marker has been placed in the targeted location within the lower-inner quadrant of the left breast. BREAST FINDINGS: Expected post biopsy appearance. RECOMMENDATIONS: Dictated by: Edouard Watson M.D. on 12/11/2024 at 15:29 Approved by: Edouard Watson M.D. on 12/11/2024 at 15:30 Dictated By: Edouard Watson M.D. Signed By: 12/11/24 1532 DD/ 1531 TD/TT: Inspector Chief: [facility] Radiology Study observation (narrative) [facility] MM POST BIOPSY LTOrdered By: Radiologist Radiology on 12-11-2024 [facility] [employer] Work Phone: US GUIDED BREAST BIOPSY LTon 12-11-2024 [place] [address] Ultrasound Report Signed Patient: DEBBY DURBIN MR#: [id number] : 1980 Acct:[id number] Age/Sex: 44 / F ADM Date: 12/11/24 Loc: US Attending Dr: Go Mendiola D.O. Ordering Physician: Go Mendiola D.O. Date of Service: 12/11/24 Procedure(s): US breast vac bx w/ clip LT Accession Number(s): [id number] cc: Go Mendiola D.O.; AILEEN CASTELLANOS [place] [id number] Patient Name: DEBBY DURBIN MRN: [id number] date: 1980 Sex: F Assigned Patient Location: US Current Patient Location: Accession/Order Number: [id number] Exam Date: 12/11/2024 08:05 Report Date: 12/11/2024 14:52 At the request of: GO MENDIOLA Procedure: US breast vac bx w/ clip LT EXAM: US breast vac bx w/ clip LT HISTORY: Left Breast Lesion COMPARISON: Ultrasound breast left Limited 12/02/2024 TECHNIQUE: After obtaining informed consent, ultrasound-guided biopsy was performed in the usual sterile manner. The location of the biopsy was then marked as indicated below. FINDINGS: Specimen #, Location: 3 core samples; left breast 7:00 mixed cystic and solid 1.5 cm mass Biopsy Needle: 13 gauge vacuum core biopsy needle. Marker(s): A single metallic marker was placed in the appropriate targeted location. Medication: Buffered 1% Lidocaine with epinephrine administered locally. Complications: None. Pathology: Pending. US/US breast vac bx w/ clip LT IMPRESSION: 1. Uneventful ultrasound-guided breast biopsy. 2. Pathology results are pending. An addendum to this report will be provided after pathology results are available. Electronically authenticated by: EDOUARD WATSON Date: 12/11/2024 14:52 Dictated By: Edouard Watson M.D. Signed By: 12/11/24 1454 DD/ 145 TD/TT: Inspector Chief: [facility] Radiology, Radiologi MD wilner - 12/11/2024 [place] [address] Ultrasound Report Signed Patient: DEBBY DURBIN MR#: [id number] : 1980 Acct:[id number] Age/Sex: 44 / F ADM Date: 12/11/24 Loc: US Attending Dr: Go Mendiola D.O. Ordering Physician: Go Mendiola D.O. Date of Service: 12/11/24 Procedure(s): US breast vac bx w/ clip LT Accession Number(s): [id number] cc: Go Mendiola D.O.; AILEEN CASTELLANOS [place] [address] Patient Name: DEBBY DURBIN MRN: [facility]:[id number] date: 1980 Sex: F Assigned Patient Location: US Current Patient Location: Accession/Order Number: [id number] Exam Date: 12/11/2024 08:05 Report Date: 12/11/2024 14:52 At the request of: GO MENDIOLA Procedure: US breast vac bx w/ clip LT EXAM: US breast vac bx w/ clip LT HISTORY: Left Breast Lesion COMPARISON: Ultrasound breast left Limited 12/02/2024 TECHNIQUE: After obtaining informed consent, ultrasound-guided biopsy was performed in the usual sterile manner. The location of the biopsy was then marked as indicated below. FINDINGS: Specimen #, Location: 3 core samples; left breast 7:00 mixed cystic and solid 1.5 cm mass Biopsy Needle: 13 gauge vacuum core biopsy needle. Marker(s): A single metallic marker was placed in the appropriate targeted location. Medication: Buffered 1% Lidocaine with epinephrine administered locally. Complications: None. Pathology: Pending. US/US breast vac bx w/ clip LT IMPRESSION: 1. Uneventful ultrasound-guided breast biopsy. 2. Pathology results are pending. An addendum to this report will be provided after pathology results are available. Electronically authenticated by: EDOUARD WATSON Date: 12/11/2024 14:52 Dictated By: Edouard Watson M.D. Signed By: 12/11/24 1454 DD/ 51 TD/TT: Inspector Chief: [facility] Radiology Study observation (narrative) [facility] US GUIDED BREAST BIOPSY LTOr dered By: Radiologist Radiology on 12-11-2024 [facility] Work Phone: Laboratory - Hematology and Cell countson 07-28-2024 HbA1c (Bld) [Mass fraction] 7.1 % [facility] Basophils Auto (Bld) [#/Vol] on 01-17-2024 Basophils (Bld) [#/Vol] 0.1 10 3/uL 0.0-0.1 [facility] Basophils/100 WBC Auto (Bld) on 01-17-2024 Basophils/100 WBC (Bld) 0.6 % 0.2-2.0 [facility] Cholesterol in LDL Calc [Mas s/Vol]on 01-17-2024 Cholesterol in LDL [Mass/Vol] 123.0 mg/dL [facility] Comment on above: <100 mg/dl [id number] 0-129 mg/dl NEAR OR ABOVE [id number] mg/dl BORDERLINE [id number] mg/dl HIGH>190 mg/dl VERY HIGH Cholesterol in VLDL Calc [Ma ss/Vol]on 01-17-2024 Cholesterol in VLDL [Mass/Vol] 28.2 mg/dL [facility] Eosinophils/100 WBC Auto (Bl d)on 01-17-2024 Eosinophils/100 WBC (Bld) 1.1 % 0.9-7.0 [facility] Erythrocyte distribution wid th Auto (RBC) [Ratio]on 01-17-2024 Erythrocyte distribution width (RBC) [Ratio] 12.8 % 11.0-15.0 [facility] Estimated glomerular filtrat ion rate (GFR) non- Americanon 01-17-2024 GFR/1.73 sq M.predicted among non-blacks MDRD (S/P/Bld) [Vol rate/Area] mL/min/{1.73_m2} >=60 [facility] Fibrin D-dimer [Presence] in Platelet poor plasma by Latex agglutinationon 01-17-2024 Fibrin D-dimer LA Ql (PPP) 0.49 mg/L FEU <=0.59 [facility] Comment on above: Increases in D-Dimer concentration [...] on 01-17-2024 Globulin (S) [Mass/Vol] 3.8 g/dL [facility] Glucose mean value [Mass/vol ume] in Blood Estimated from glycated hemoglobinon 01-17-2024 Average glucose Estimated from glycated hemoglobin (Bld) [Mass/Vol] 151 mg/dL [facility] Hematocrit Auto (Bld) [Volum e fraction]on 01-17-2024 Hematocrit (Bld) [Volume fraction] 43.7 % 36.0-48.0 [facility] Hemoglobin [Mass/volume] in Bloodon 01-17-2024 Hemoglobin (Bld) [Mass/Vol] 14.4 g/dL 12.0-16.0 [facility] - Chemistry and C hemistry - challengeon 01-17-2024 Albumin [Mass/Vol] 4.0 g/dL 3.4-5.0 [facility] ALP [Catalytic activity/Vol] 112 U/L 46-116 [facility] ALT [Catalytic activity/Vol] 31 U/L 14-59 [facility] AST [Catalytic activity/Vol] 12 U/L 15-37 [facility] Bilirubin [Mass/Vol] 0.2 mg/dL 0.2-1.0 [facility] Calcium [Mass/Vol] 9.1 mg/dL 8.5-10.1 [facility] Chloride [Moles/Vol] 103 mmol/L 98-107 [facility] Cholesterol [Mass/Vol] 206 mg/dL <=200 [facility] Cholesterol in HDL [Mass/Vol] 55 mg/dL 40-60 [facility] Comment on above: > or =60 mg/dl - LOW CARDIOVASCULAR RISK<40 mg/dl - HIGH CARDIOVASCULAR RISK CO2 [Moles/Vol] 26.7 mmol/L 21.0-32.0 [facility] Creatinine [Mass/Vol] 0.90 mg/dL 0.55-1.02 [facility] GFR/1.73 sq M.predicted MDRD (S/P/Bld) [Vol rate/Area] mL/min/{1.73_m2} >=60 [facility] Glucose [Mass/Vol] 235 mg/dL 74-106 [facility] Potassium [Moles/Vol] 3.3 mmol/L 3.5-5.1 [facility] Protein [Mass/Vol] 7.8 g/dL 6.4-8.2 [facility] Sodium [Moles/Vol] 133 mmol/L 136-145 [facility] Triglyceride [Mass/Vol] 141 mg/dL <=150 [facility] TSH Qn 1.763 m[IU]/L 0.358-3.740 [facility] Urea nitrogen [Mass/Vol] 9.0 mg/dL 7.0-18.0 [facility] Urea nitrogen/Creatinine [Mass ratio] 10.0 mg/mg [facility] - Hematology and Cell countson 01-17-2024 HbA1c (Bld) [Mass fraction] 6.9 % 4.5-6.2 [facility] Comment on above: ADA RECOMMENDED LIMI T 4.0 - 6.0ADA THERAPEUTIC TARGET < 7.0ACTION SUGGESTED> 7.0 Immature granulocytes/100 WBC (Bld) 0.4 % 0.0-0.5 [facility] Leukocytes [#/volume] correc wilmar for nucleated erythrocytes in Blood by Automated counon 01-17-2024 WBC corrected for nucl RBC Auto (Bld) [#/Vol] 10.0 10 3/uL 4.0-11.0 [facility] Lymphocytes Auto (Bld) [#/Vo l]on 01-17-2024 Lymphocytes (Bld) [#/Vol] 3.7 10 3/uL 1.2-3.8 [facility] Lymphocytes/100 WBC Auto (Bl d)on 01-17-2024 Lymphocytes/100 WBC (Bld) 37.0 % 20.5-60.0 [facility] MCH Auto (RBC) [Entitic mass ]on 01-17-2024 MCH (RBC) [Entitic mass] 30.4 pg 26.7-34.0 [facility] MCHC Auto (RBC) [Mass/Vol]on 01-17-2024 MCHC (RBC) [Mass/Vol] 33.0 g/dL 29.9-35.2 [facility] MCV Auto (RBC) [Entitic vol] on 01-17-2024 MCV (RBC) [Entitic vol] 92.2 fL 81.0-99.0 [facility] Monocytes Auto (Bld) [#/Vol] on 01-17-2024 Monocytes (Bld) [#/Vol] 0.7 10 3/uL 0.3-0.8 [facility] Monocytes/100 WBC Auto (Bld) on 01-17-2024 Monocytes/100 WBC (Bld) 7.1 % 1.7-12.0 [facility] Neutrophils Auto (Bld) [#/Vo l]on 01-17-2024 Neutrophils (Bld) [#/Vol] 5.4 10 3/uL 1.4-6.5 [facility] Neutrophils/100 WBC Auto (Bl d)on 01-17-2024 Neutrophils/100 WBC (Bld) 53.8 % 43.0-75.0 [facility] No Panel Informationon 01-16 Eosinophils # (Auto) 0.1 10 3/uL 0.0-0.7 [facility] Immature Granulocyte # (Auto) 0.04 10 3/uL 0.00-0.03 [facility] Troponin I High Sensitivity <4.0 pg/mL 4.0-51.3 [facility] Comment on above: CUT-OFF POINTS HAVE BEEN [...] volume (Bld) [Entitic vol] 11.6 fL 9.5-13.5 [facility] Platelets Auto (Bld) [#/Vol] on 01-17-2024 Platelets (Bld) [#/Vol] 197 10 3/uL 150-450 [facility] RBC Auto (Bld) [#/Vol]on RBC (Bld) [#/Vol] 4.74 10 6/uL 4.20-5.40 [facility] Serum or plasma albumin/glob ulin mass ratioon 01-17-2024 Albumin/Globulin [Mass ratio] 1.1 {ratio} [facility] Serum or plasma anion gap de terminationon 01-17-2024 Anion gap [Moles/Vol] 6.6 mmol/L [facility] Serum or plasma total choles terol/high density lipoprotein (HDL) cholesterol mass erick 01-17-2024 Cholesterol.total/C holesterol in HDL [Mass ratio] 3.7 {ratio} [facility] Comment on above: 3.3 - 4.4 LOW RISK4. 4 - 7.1 AVERAGE RISK7.1 - 11.0 MODERATE RISK>11.0 HIGH RISK Cytology Cervical or vaginal smear or scraping studyon 08-22-2023 [facility] CULTURE URINEon 12-04-2022 CULTURE URINE Isolate 1 [...] F Trimethoprim/Sulfametho xazole <=20 S F Normal [facility] Comment on above: Performed By: #### U RCX #### [facility] [address] [place] [address] Dr. Sheldon Morse CBC AUTO DIFFon 12-01-2022 BASO # 0.0 103/ul Normal 0.0-0.1 [facility] Comment on above: Performed By: #### C BC #### [facility] [address] [place] [address] Dr. Sheldon Morse Basophils/100 WBC (Bld) 0.4 % Normal 0.2-2.0 [facility] Comment on above: Performed By: #### C BC #### [facility] [address] [place] [address] Dr. Sheldon Morse EO # 0.1 103/ul Normal 0.0-0.7 [facility] Comment on above: Performed By: #### C BC #### [facility] [address] [place] [address] Dr. Sheldon Morse Eosinophils/100 WBC (Bld) 0.5 % Critically low 0.9-7.0 [facility] Comment on above: Performed By: #### C BC #### [facility] [address] [place] [address] Dr. Sheldon Morse Erythrocyte distribution width (RBC) [Ratio] 12.2 % Normal 11.0-15.0 [facility] Comment on above: Performed By: #### C BC #### [facility] [address] [place] [address] Dr. Sheldon Morse Hematocrit (Bld) [Volume fraction] 37.5 % Normal 36.0-48.0 [facility] Comment on above: Performed By: #### C BC #### [facility] [address] [place] [address] Dr. Sheldon Morse Hemoglobin (Bld) [Mass/Vol] 13.9 g/dL Normal 12.0-16.0 [facility] Comment on above: Performed By: #### C BC #### [facility] [address] [place] [address] Dr. Sheldon Morse IG # 0.06 10e3/ul Critically high 0.00-0.03 [facility] Comment on above: Performed By: #### C BC #### [facility] [address] [place] [address] Dr. Sheldon Morse IG % 0.5 % Normal 0.0-0.5 [facility] Comment on above: Performed By: #### C BC #### [facility] [address] [place] [address] Dr. Sheldon Morse LYMPH # 2.4 103/ul Normal 1.2-3.8 [facility] Comment on above: Performed By: #### C BC #### [facility] [address] [place] [address] Dr. Sheldon Morse Lymphocytes/100 WBC (Bld) 21.3 % Normal 20.5-60.0 [facility] Comment on above: Performed By: #### C BC #### [facility] [address] [place] [address] Dr. Sheldon Morse MANUAL DIFF REQ NO Normal [facility] Comment on above: Performed By: #### C BC #### [facility] [address] [place] [address] Dr. Sheldon Morse MCH (RBC) [Entitic mass] 30.3 pg Normal 26.7-34.0 [facility] Comment on above: Performed By: #### C BC #### [facility] [address] [address] [address] Sheldon Morse MCHC (RBC) [Mass/Vol] 37.1 g/dL Critically high 29.9-35.2 [facility] Comment on above: Performed By: #### C BC #### [facility] [address] [address] [address] Sheldon Morse MCV (RBC) [Entitic vol] 81.9 fL Normal 81.0-99.0 [facility] Comment on above: Performed By: #### C BC #### [facility] [address] [address] [address] Sheldon Morse MONO # 0.7 103/ul Normal 0.3-0.8 [facility] Comment on above: Performed By: #### C BC #### [facility] [address] [address] [address] Sheldon Morse Monocytes/100 WBC (Bld) 6.3 % Normal 1.7-12.0 [facility] Comment on above: Performed By: #### C BC #### [facility] [address] [address] [address] Sheldon Morse NEUT # 7.8 103/ul Critically high 1.4-6.5 [facility] Comment on above: Performed By: #### C BC #### [facility] [address] [address] [address] Sheldon Morse Neutrophils/100 WBC (Bld) 71.0 % Normal 43.0-75.0 [facility] Comment on above: Performed By: #### C BC #### [facility] [address] [address] [address] Sheldon Morse Platelet mean volume (Bld) [Entitic vol] 9.8 fL Normal 9.5-13.5 [facility] Comment on above: Performed By: #### C BC #### [facility] [address] [address] [address] Sheldon Morse PLT 184 103/ul Normal 150-450 [facility] Comment on above: Performed By: #### C BC #### [facility] [address] [place], [place] [address] Dr. Sheldon Morse RBC 4.58 106/ul Normal 4.20-5.40 [facility] Comment on above: Performed By: #### C BC #### [facility] [address] [place], [place] [address] Dr. Sheldon Morse WBC 11.0 103/ul Normal 4.0-11.0 [facility] Comment on above: Performed By: #### C BC #### [facility] [address] [place], [place] [address] ABD/PELVIS WO CONon [...] MIGUEL MONZON Date: 2022-12-01 17:08 Normal [facility] ER URINE PROFILEon 3 Bilirubin Ql (U) Negative Normal NEGATIVE [facility] Comment on above: Performed By: #### E RUR PREGU, UMICRO #### [facility] [address] [place] [address] Dr. Sheldon Morse Clarity (U) SL CLOUDY Abnormal CLEAR [facility] Comment on above: Performed By: #### Bharat RUR PREGU, UMICRO #### [facility] [address] [address] [address] Sheldon Morse Color (U) LT. YELLOW Normal YELLOW [facility] Comment on above: Performed By: #### Bharat RUR PREGU, UMICRO #### [facility] [address] [address] [address] Sheldon SOLANO A micrscopic examination will be performed if indicated. Normal [facility] Comment on above: Performed By: #### Bharat RUR PREGU, UMICRO #### [facility] [address] [address] [address] Sheldon Morse Glucose Ql (U) Negative Normal NEGATIVE [facility] Comment on above: Performed By: #### Bharat RUR PREGU, UMICRO #### [facility] [address] [address] [address] Sheldon Morse Hemoglobin Ql (U) LARGE Abnormal NEGATIVE [facility] Comment on above: Performed By: #### E RUR PREGU, UMICRO #### [facility] [address] [address] [address] Sheldon Morse Ketones Ql (U) Negative Normal NEGATIVE [facility] Comment on above: Performed By: #### E RUR, PREGU, UMICRO #### [facility] [address] [place] [address] Dr. Sheldon Morse LEUKOCYTES LARGE Abnormal NEGATIVE [facility] Comment on above: Performed By: #### E RUR, PREGU, UMICRO #### [facility] [address] [place] [address] Dr. Sheldon Morse Nitrite Ql (U) Negative Normal NEGATIVE [facility] Comment on above: Performed By: #### E RUR, PREGU, UMICRO #### [facility] [address] [place] [address] Dr. Sheldon Morse pH (U) 6.0 [pH] Normal 5-9 [facility] Comment on above: Performed By: #### E RUR, PREGU, UMICRO #### [facility] [address] [place] [address] Dr. Sheldon Morse Protein (U) [Mass/Vol] 30 mg/dL Abnormal NEGATIVE/ TRACE [facility] Comment on above: Performed By: #### E RUR, PREGU, UMICRO #### [facility] [address] [place] [address] Dr. Sheldon Morse SPEC GRAVITY 1.025 Normal 1.005-<=1.02 5 [facility] Comment on above: Performed By: #### E RUR, PREGU, UMICRO #### [facility] [address] [place] [address] Dr. Sheldon Morse UR MICRO IND INDICATED Normal [facility] Comment on above: Performed By: #### E RUR, PREGU, UMICRO #### [facility] [address] [place] [address] Dr. Sheldon Morse Urobilinogen Qn (U) 0.2 {José'U}/dL Normal 0.2 - 1. 0 [facility] Comment on above: Performed By: #### E RUR, PREGU, UMICRO #### [facility] [address] [place] [address] Dr. Sheldon Morse LIPASEon 12-01-2022 Lipase [Catalytic activity/Vol] 64.0 U/L Critically low 73.0-393.0 [facility] Comment on above: Performed By: #### E YAMILA CASTANEDA UMICRO #### [facility] [address] [address] [address] Sheldon Morse URon 12-01-2022 , QUAL Negative Normal NEGATIVE [facility] Comment on above: Performed By: #### YAMILA GARCIA, HARRISRO #### [facility] [address] [address] [address] Sheldon Morse PROF 14(COMP METB)on 023 Albumin [Mass/Vol] 4.2 g/dL Normal 3.4-5.0 [facility] Comment on above: Performed By: #### C MP, LIPA #### [facility] [address] [place] [address] Dr. Sheldon Morse Albumin/Globulin [Mass ratio] 1.3 {ratio} Normal [facility] Comment on above: Performed By: #### C MP, LIPA #### [facility] [address] [place] [address] Dr. Sheldon Morse ALP [Catalytic activity/Vol] 74 U/L Normal 46-116 [facility] Comment on above: Performed By: #### C MP, LIPA #### [facility] [address] [place] [address] Dr. Sheldon Morse ALT [Catalytic activity/Vol] 39 U/L Normal 14-59 [facility] Comment on above: Performed By: #### C MP, LIPA #### [facility] [address] [address] [address] Sheldon Morse Anion gap [Moles/Vol] 13.9 mmol/L Normal [facility] Comment on above: Performed By: #### C MP, LIPA #### [facility] [address] [place] [address] Dr. Sheldon Morse AST [Catalytic activity/Vol] 20 U/L Normal 15-37 [facility] Comment on above: Performed By: #### C MP, LIPA #### [facility] [address] [address] [address] Sheldon Morse Bilirubin [Mass/Vol] 0.5 mg/dL Normal 0.2-1.0 [facility] Comment on above: Performed By: #### C MP, LIPA #### [facility] [address] [place] [address] Dr. Sheldon Morse Calcium [Mass/Vol] 9.1 mg/dL Normal 8.5-10.1 [facility] Comment on above: Performed By: #### C MP, LIPA #### [facility] [address] [place] [address] Dr. Sheldon Morse Chloride [Moles/Vol] 102 mmol/L Normal 98-107 [facility] Comment on above: Performed By: #### C MP, LIPA #### [facility] [address] [place] [address] Dr. Sheldon Morse CO2 [Moles/Vol] 26.1 mmol/L Normal 21.0-32.0 [facility] Comment on above: Performed By: #### C MP, LIPA #### [facility] [address] [place] [address] Dr. Sheldon Morse Creatinine [Mass/Vol] 0.72 mg/dL Normal 0.55-1.02 [facility] Comment on above: Performed By: #### C MP, LIPA #### [facility] [address] [place] [address] Dr. Sheldon Morse EGFR-AF EGYPTIAN >60 Normal >=60 [facility] Comment on above: Performed By: #### C MP, LIPA #### [facility] [address] [place] [address] Dr. Sheldon Morse EGFR-NON AF EGYPTIAN >60 Normal >=60 [facility] Comment on above: Performed By: #### C MP, LIPA #### [facility] [address] [place] [address] Dr. Sheldon Morse Globulin (S) [Mass/Vol] 3.2 g/dL Normal [facility] Comment on above: Performed By: #### C MP, LIPA #### [facility] [address] [address] [address] Sheldon Morse Glucose [Mass/Vol] 126 mg/dL Critically high 74-106 [facility] Comment on above: Performed By: #### C MP, LIPA #### [facility] [address] [place] [address] Dr. Sheldon Morse Potassium [Moles/Vol] 4.0 mmol/L Normal 3.5-5.1 [facility] Comment on above: Performed By: #### C MP, LIPA #### [facility] [address] [place] [address] Dr. Sheldon Morse Protein [Mass/Vol] 7.4 g/dL Normal 6.4-8.2 [facility] Comment on above: Performed By: #### C MP, LIPA #### [facility] [address] [place] [address] Dr. Sheldon Morse Sodium [Moles/Vol] 138 mmol/L Normal 136-145 [facility] Comment on above: Performed By: #### C MP, LIPA #### [facility] [address] [address] [address] Sheldon Morse Urea nitrogen [Mass/Vol] 11.0 mg/dL Normal 7.0-18.0 [facility] Comment on above: Performed By: #### C MP, LIPA #### [facility] [address] [address] [address] Sheldon Morse Urea nitrogen/Creatinine [Mass ratio] 15.3 mg/mg Normal [facility] Comment on above: Performed By: #### C MP, LIPA #### [facility] [address] [place] [address] Dr. Sheldon Morse URINE MICROSCOPIC ONLYon BACTERIA TRACE Abnormal NONE SEEN [facility] Comment on above: Performed By: #### E RUR, PREGU, UMICRO #### [facility] [address] [address] [address] Sheldon Morse Bacteria identified Cx Nom (U) INDICATED Normal [facility] Comment on above: Performed By: #### E RUR, PREGU, UMICRO #### [facility] [address] [address] [address] Sheldon Morse CAST NONE SEEN Normal NONE SEEN [facility] Comment on above: Performed By: #### E RUR, PREGU, UMICRO #### [facility] [address] [address] [address] Sheldon Morse Crystals LM Nom (Urine sed) NONE SEEN Normal NONE SEEN [facility] Comment on above: Performed By: #### E RUR, PREGU, UMICRO #### [facility] [address] [address] [address] Sheldon Morse Epithelial cells LM Ql (Urine sed) NONE SEEN Normal NONE SEEN /RARE [facility] Comment on above: Performed By: #### E RUR, PREGU, UMICRO #### [facility] [address] [place] [address] Dr. Sheldon Morse MUCOUS NONE SEEN Normal NONE SEEN [facility] Comment on above: Performed By: #### E RUR, PREGU, UMICRO #### [facility] [address] [address] [address] Sheldon Morse RBC 0-2 Normal 0-2 [facility] Comment on above: Performed By: #### E RUR, PREGU, UMICRO #### [facility] [address] [address] [address] Sheldon Morse WBC 75-100 Abnormal NONE SEEN [facility] Comment on above: Performed By: #### E RUR, PREGU, UMICRO #### [facility] [address] [address] [address] Sheldon Morse Covid-19 PCR ([facility])on 10-12 SARS-CoV-2 (COVID-19) RNA BRIGID+probe Ql (Unsp spec) Detected Critically abnormal NOT DETECTED [facility] Comment on above: Result Comment: This test is not yet approved or cleared by the [place] FDA. When there are no FDA-approved or cleared tests available, and other criteria are met, FDA can make tests available under an emergency access mechanism called an Emergency Use Authorization (EUA). The EUA for this test is supported by the [place] of Health and Human Service's (HHS's) declaration [...] Performed By: #### YAMILA GARCIA UMICRO #### [facility] [address] [place] [address] Dr. Sheldon Morse PAP ACOG PANEL 2: 30 to 65on 08-24-2022 . . Normal [facility] Comment on above: Result Comment: Perf ormed at: WB Performed By: #### YAMILA GARCIA UMICRO #### [facility] [address] [address] [address] Sheldon Morse Age Gdln ACOG Testing 30-65 Normal [facility] Comment on above: Performed By: #### YAMILA GARCIA UMICRO #### [facility] [address] [address] [address] Sheldon Morse DIAGNOSIS: Comment Normal [facility] Comment on above: Result Comment: NEGA TIVE FOR INTRAEPITHELIAL LESION OR MALIGNANCY. REACTIVE CELLULAR CHANGES AND/OR REPAIR ARE PRESENT. Performed at: WB Performed By: #### YAMILA GARCIA UMICRO #### [facility] [address] [address] [address] Sheldon Morse Electronically signed by: Comment Normal [facility] Comment on above: Result Comment: Esperanza Holm MD, Pathologist Performed at: WB Performed By: #### YAMILA GARCIA UMICRO #### [facility] [address] [place] [address] Dr. Sheldon Morse HPV Aptima Negative Normal Negative [facility] Comment on above: Result Comment: This nucleic acid amplification test detects fourteen high-risk HPV types (16,18,31,33,35,39,45,51,52,56,58,59,66,68) without differentiation. Performed at: =G Performed By: #### YAMILA GARCIA UMICRO #### [facility] [address] [address] [address] Sheldon Morse Methodology: Comment Normal [facility] Comment on above: Result Comment: This liquid based ThinPrep(R) pap test was screened with the use of an image guided system. Performed at: WB Performed By: #### YAMILA GARCIA UMICRO #### [facility] [address] [address] [address] Sheldon Morse Note: Comment Normal [facility] Comment on above: Result Comment: The Pap [...] Performed By: #### YAMILA GARCIA UMICRO #### [facility] [address] [place] [address] Dr. Sheldon Morse Performed by: Comment Normal [facility] Comment on above: Result Comment: Desean Stoll, Electric Meter Reader (ASCP) Performed at: WB Performed By: #### YAMILA GARCIA UMICRO #### [facility] [address] [place] [address] Dr. Sheldon Morse Specimen adequacy: Comment Normal [facility] Comment on above: Result Comment: Sati sfactory for evaluation. Endocervical and/or squamous metaplastic cells (endocervical component) are present. Performed at: WB Performed By: #### YAMILA GARCIA UMICRO #### [facility] [address] [address] [address] Sheldon Morse [facility] SARS-CoV-2 (COVID-19) RNA BRIGID+probe Ql (Unsp spec) Not detected Normal NOT DETECTED [facility] Comment on above: Result Comment: This test is not yet approved or cleared by the [place] FDA. When there are no FDA-approved or cleared tests available, and other criteria are met, FDA can make tests available under an emergency access mechanism called an Emergency Use Authorization (EUA). The EUA for this test is supported by the [place] of Health and Human Service's (HHS's) declaration [...] consistent with SARS-CoV-2. Performed By: #### C [facility] #### [facility] [address] [place] [address] Dr. Sheldon Morse [facility] 3D OTTONIEL CA Don 06-02-2022 [facility] 3D OTTONIEL CAD Patient: DEBBY DURBIN Exam Date: 06/02/2022 : 1980 Gender:F Ordering : DR GO MENDIOLA . Admission #: [id number] Family : Order #: [id number] CLICK HERE TO VIEW EXAM RADIOLOGY REPORT [...] Treatments None Family Cancers None LOCATION: [facility] BREAST COMPOSITION: Heterogeneously dense,which may [...] M.D. on 06/02/2022 at 15:32 Normal [facility] US BREAST LEFT LIMITEDon US BREAST LEFT LIMITED Patient: DEBBY DURBIN Exam Date: 06/02/2022 : 1980 Gender:F Ordering : DR GO MENDIOLA . Admission #: [id number] Family : Order #: [id number] CLICK HERE TO VIEW EXAM RADIOLOGY REPORT [...] Treatments None Family Cancers None LOCATION: [facility] BREAST COMPOSITION: Heterogeneously dense,which may [...] Watson M.D. on 06/02/2022 at 15:32 [facility] (NS[facility] ) DEBBY DURBIN ([id number]) 1980 F Date Time Provider Department 12/27/18 [...] 25 MG TABLET SA 1 pill QD [id number] TABLET as directed REVIEW OF SYSTEMS: PAIN [...] information obtained and documented by the physician registered sales assistant. I examined the patient and evaluated all available films and pertinent documents. We discussed the case and I agree with the plans as outlined in this note. SIGNATURE: Brittaney Christiansen MD PATIENT NAME: Debby Durbin DATE: December 27, 2018 TIME: 8:40 AM PAGER: Referring Provider: AILEEN CASTELLANOS [[id number]] Allergies As of Date: 12/27/2018 (No Known [...] by BRITTANEY CHRISTIANSEN MD on 12/27/18 Normal [facility] PROGRESSon 12-27-2018 Protein mass conc HNO ID: [id number] Author: Brittaney Christiansen Service: (none) Author Type: [...] 25 MG TABLET SA 1 pill QD [id number] TABLET as directed REVIEW OF SYSTEMS: PAIN [...] information obtained and documented by the physician registered sales assistant. I examined the patient and evaluated all available films and pertinent documents. We discussed the case and I agree with the plans as outlined in this note. SIGNATURE: Brittaney Christiansen MD PATIENT NAME: Debby Durbin DATE: December 27, 2018 TIME: 8:40 AM PAGER: Normal [facility] PROGRESSon 12-11-2018 Protein mass conc HNO ID: [id number] Author: Aileen Cohen Service: (none) Author Type: Physician Furnace Feeder Type: Progress Notes Filed: 12/13/2018 3:39 PM Note Text: Pt can be scheduled first available with Dr. Christiansen. Cervical disc herniation with extrusion. Patient name: Debby Durbin Are you being referred by a [facility] Provider or [facility] Management Provider at [facility]? No If answer is YES please [...] in Epic: No If not, please provide [phone] to fax in imaging reports for review. [...] this same symptoms? No Additional Comments Normal [facility] MR-MR cervical spine wo con IMPORTon 11-29-2018 MR-MR cervical spine wo con IMPORT Images were obtained outside of [facility] [id number] Normal [facility] Vital Signs Date Time Vital Sign Value Performing Clinician Facility 07-27-2025 08:44-0400 Body height 175.3 cm [employer] Work Phone: [facility] 07-27-2025 08:44-0400 Body mass index (BMI) [Ratio] 27.5 kg/m2 Go Marlena DO Work Phone: [facility] 07-27-2025 08:44-0400 Body weight 84.48 kg Go Marlena DO Work Phone: [facility] 07-27-2025 08:44-0400 Diastolic blood pressure 72 mm[Hg] Go Marlena DO Work Phone: [facility] 07-27-2025 08:44-0400 Systolic blood pressure 120 mm[Hg] Go Marlena DO Work Phone: [facility] 06-15-2025 11:01-0400 Body height 175.26 cm Aileen Castellanos DO Work Phone: [facility] 06-15-2025 11:01-0400 Body mass index (BMI) [Ratio] 27.2 kg/m2 Aileen Castellanos DO Work Phone: [facility] 06-15-2025 11:01-0400 Body temperature 98.2 [degF] Aileen Castellanos DO Work Phone: [facility] 06-15-2025 11:01-0400 Body weight 83.68 kg Aileen Castellanos DO Work Phone: [facility] 06-15-2025 11:01-0400 Diastolic blood pressure 71 mm[Hg] Aileen Castellanos DO Work Phone: [facility] 06-15-2025 11:01-0400 Heart rate 71 /min Aileen Castellanos DO Work Phone: [facility] 06-15-2025 11:01-0400 Respiratory rate 14 /min Aileen Castellanos DO Work Phone: [facility] 06-15-2025 11:01-0400 SaO2% (BldA) [Mass fraction] 97 % Aileen Castellanos DO Work Phone: [facility] 06-15-2025 11:01-0400 Systolic blood pressure 125 mm[Hg] Aileen Castellanos DO Work Phone: [facility] 05-20-2025 15:19-0400 Body temperature 97.6 [degF] Aileen Castellanos DO Work Phone: [facility] 05-20-2025 15:19-0400 Body weight 84.36 kg Aileen Castellanos DO Work Phone: [facility] 05-20-2025 15:19-0400 Diastolic blood pressure 72 mm[Hg] Aileen Castellanos DO Work Phone: [facility] 05-20-2025 15:19-0400 Heart rate 72 /min Aileen Castellanos DO Work Phone: [facility] 05-20-2025 15:19-0400 SaO2% (BldA) [Mass fraction] 95 % Aileen Castellanos DO Work Phone: [facility] 05-20-2025 15:19-0400 Systolic blood pressure 118 mm[Hg] Aileen Castellanos DO Work Phone: [facility] 08-04-2024 15:02-0400 Body mass index (BMI) [Ratio] 27 kg/m2 [facility] 08-04-2024 15:02-0400 Body temperature 98.1 [degF] [facility] 08-04-2024 15:02-0400 Diastolic blood pressure 76 mm[Hg] [facility] 08-04-2024 15:02-0400 Heart rate 90 /min [facility] 08-04-2024 15:02-0400 Respiratory rate 16 /min [facility] 08-04-2024 15:02-0400 Systolic blood pressure 122 mm[Hg] [facility] 08-04-2024 11:28-0400 Body height 175.26 cm [facility] 08-04-2024 11:28-0400 Body weight 83 kg [facility] 01-29-2024 15:43-0400 Body height 175.26 cm [facility] 01-29-2024 15:43-0400 Body mass index (BMI) [Ratio] 27.6 kg/m2 [facility] 01-29-2024 15:43-0400 Body temperature 99.1 [degF] [facility] 01-29-2024 15:43-0400 Body weight 84.82 kg [facility] 01-29-2024 15:43-0400 Diastolic blood pressure 78 mm[Hg] [facility] 01-29-2024 15:43-0400 Heart rate 81 /min [facility] 01-29-2024 15:43-0400 Respiratory rate 18 /min [facility] 01-29-2024 15:43-0400 SaO2% (BldA) [Mass fraction] 94 % [facility] 01-29-2024 15:43-0400 Systolic blood pressure 116 mm[Hg] [facility] 06-26-2023 15:40-0400 Body height 175.26 cm Aileen Castellanos Other [employer] [facility] Other 06-26-2023 15:40-0400 Body mass index (BMI) [Ratio] 28.79 kg/m2 Aileen Castellanos Other [employer] Other 06-26-2023 15:40-0400 Body temperature 98.7 [degF] Aileen Castellanos Other [employer] Other 06-26-2023 15:40-0400 Body weight 88.45 kg Aileen Castellanos Other [employer] Other 06-26-2023 15:40-0400 Diastolic blood pressure 84 mm[Hg] Aileen Castellanos Other [employer] Other 06-26-2023 15:40-0400 Respiratory rate 18 /min Aileen Castellanos Other [employer] Other 06-26-2023 15:40-0400 SaO2% (BldA) [Mass fraction] 97 % Aileen Castellanos Other [employer] Other 06-26-2023 15:40-0400 Systolic blood pressure 132 mm[Hg] Aileen Castellanos Other [employer] Other 11-22-2022 16:40-0500 Body height 175.26 cm Aileen Castellanos Other [employer] Other 11-22-2022 16:40-0500 Body mass index (BMI) [Ratio] 27.17 kg/m2 Aileen Castellanos Other [employer] Other 11-22-2022 16:40-0500 Body temperature 97.3 [degF] Aileen Castellanos Other [employer] Other 11-22-2022 16:40-0500 Body weight 83.46 kg Aileen Castellanos Other [employer] Other 11-22-2022 16:40-0500 Diastolic blood pressure 76 mm[Hg] Aileen Castellanos Other [employer] Other 11-22-2022 16:40-0500 Respiratory rate 18 /min Aileen Castellanos Other [employer] Other 11-22-2022 16:40-0500 SaO2% (BldA) [Mass fraction] 98 % Aileen Castellanos Other [employer] Other 11-22-2022 16:40-0500 Systolic blood pressure 124 mm[Hg] Aileen Castellanos Other [employer] Other 05-23-2022 16:40-0400 Body height 175.26 cm Aileen Castellanos Other [employer] Other 05-23-2022 16:40-0400 Body mass index (BMI) [Ratio] 27.46 kg/m2 Aileen Castellanos Other [employer] Other 05-23-2022 16:40-0400 Body temperature 98.2 [degF] Aileen Castellanos Other [employer] Other 05-23-2022 16:40-0400 Body weight 84.37 kg Aileen Castellanos Other [employer] Other 05-23-2022 16:40-0400 Diastolic blood pressure 82 mm[Hg] Aileen Castellanos Other [employer] Other 05-23-2022 16:40-0400 Respiratory rate 18 /min Aileen Castellanos Other [employer] Other 05-23-2022 16:40-0400 SaO2% (BldA) [Mass fraction] 98 % Aileen Castellanos Other [employer] Other 05-23-2022 16:40-0400 Systolic blood pressure 124 mm[Hg] Aileen Castellanos Other [employer] Other Encounters Encounter Date Encounter Type Care Provider Facility Start: 07-27-2025 End: 07-27-2025 [employer]amboo flowsheet Go Marlena DO Work Phone: [facility] Start: 07-27-2025 End: 07-27-2025 [employer] flow[employer] Go Marlena DO Work Phone: [facility] Start: 07-27-2025 End: 07-27-2025 Patient encounter procedure Go Marlena DO Work Phone: [facility] Start: 07-27-2025 End: 07-27-2025 Periodic preventive med est patient 40-64yrs Go Marlena DO Work Phone: [facility] Comment on above: Well woman exam with routine gynecological exam Start: 06-15-2025 End: 06-15-2025 ambulatory Aileen Castellanos DO Work Phone: [facility] Work Phone: Start: 06-15-2025 End: 06-15-2025 Patient encounter procedure Leidy Fontaine Cody RN PROGRESSIVE C[facility] -[facility] Work Phone: Start: 05-20-2025 End: 05-20-2025 ambulatory Aileen Jasmin DO Work Phone: [facility] Work Phone: Start: 05-20-2025 End: 05-20-2025 Patient encounter procedure Aileen Castellanos DO -[facility] Work Phone: Start: 02-18-2025 End: 02-18-2025 ambulatory Go Marlena DO Work Phone: [facility] Work Phone: Start: 02-18-2025 End: 02-18-2025 Patient encounter procedure Go Marlena DO Work Phone: [facility] Physician [facility] Work Phone: Start: 12-11-2024 End: 12-11-2024 Clinisync Result Encounter Go Marlena DO Work Phone: [facility] Unsolicited Start: 12-11-2024 End: 12-11-2024 Clinisync Result Encounter Go Marlena DO Work Phone: [facility] Unsolicited Start: 12-11-2024 End: 12-11-2024 ambulatory Go Marlena [facility] Work Phone: Start: 12-11-2024 End: 12-11-2024 Departed Referred Go Marlena DO Work Phone: [facility] Start: 10-27-2024 End: 10-27-2024 Patient encounter procedure Go Mendiola DO Work Phone: [facility] Work Phone: Start: 08-04-2024 End: 08-04-2024 ambulatory [facility] Work Phone: Start: 08-04-2024 End: 08-04-2024 Patient encounter procedure [facility] Physician [facility] Work Phone: Start: 07-28-2024 Non-patient / Non-visit [facility] Work Phone: Start: 05-07-2024 End: 05-07-2024 [facility] Work Phone: Start: 05-07-2024 End: 05-07-2024 Patient encounter procedure [facility] Physician [facility] Work Phone: Start: 04-21-2024 Non-patient / Non-visit [facility] Work Phone: Start: 01-29-2024 End: 01-29-2024 ambulatory [facility] Work Phone: Start: 01-29-2024 End: 01-29-2024 Patient encounter procedure [facility] Physician [facility] Work Phone: Start: 01-17-2024 Non-patient / Non-visit [facility] Physician [facility] Work Phone: Start: 01-15-2024 Non-patient / Non-visit [facility] Physician [facility] Work Phone: Start: 01-03-2024 Non-patient / Non-visit [facility] Physician [facility] Work Phone: Start: 12-11-2023 End: 12-11-2023 ambulatory Aileen Castellanos Other [facility] Other Start: 12-11-2023 Telephone encounter Aileen Castellanos [facility] Start: 12-11-2023 Patient encounter procedure [facility]- Start: 11-15-2023 End: 11-15-2023 ambulatory Aileen Castellanos Other [employer] Other Start: 11-15-2023 Telephone encounter Aileen Castellanos [facility] Start: 10-09-2023 End: 10-09-2023 ambulatory Aileen Castellanos Other [employer] Other Start: 10-09-2023 Telephone encounter Aileen Castellanos [facility] Start: 06-26-2023 End: 06-26-2023 ambulatory Aileen Castellanos Other [employer] Other Start: 06-26-2023 Office outpatient vi sit 25 minutes Aileen Castellanos [facility] Start: 12-01-2022 End: 12-01-2022 ambulatory VIRGILIO GASCA Facility:[facility] Start: 11-22-2022 End: 11-22-2022 ambulatory Aileen Castellanos Other [employer] Other Start: 11-22-2022 Office outpatient vi sit 25 minutes Aileen Castellanos [facility] Start: 10-25-2022 End: 10-25-2022 ambulatory Aileen Castellanos Other [employer] Other Start: 10-25-2022 Telephone encounter Aileen Castellanos [facility] Start: 10-23-2022 End: 10-23-[address] AILEEN CASTELLANOS [employer] Other Start: 10-23-2022 Telephone encounter Aileen Castellanos [facility] Start: 09-11-2022 End: 09-11-2022 ambulatory Aileen Castellanos Other [employer] Other Start: 09-11-2022 Telephone encounter Aileen Castellanos [facility] Start: 08-14-2022 End: 08-14-2022 ambulatory GOLadarius AMARALO Facility:[facility] Start: 06-20-2022 [facility] Start: 06-20-2022 End: 06-20-[address] AILEEN CASTELLANOS [employer] Other Start: 06-06-2022 End: 06-06-2022 ambulatory Aileen Castellanos Other [employer] Other Start: 06-06-2022 Telephone encounter Aileen Castellanos [facility] Start: 06-02-2022 End: 06-03-2022 ambulatory GO AMARALO Facility:[facility] Start: 05-23-2022 End: 05-23-2022 ambulatory Aileen Castellanos Other [employer] Other Start: 05-23-2022 Office outpatient vi sit 25 minutes Aileen Castellanos [facility] Start: 12-27-2018 End: 12-27-2018 Patient encounter procedure BRITTANEY CHRISTIANSEN [facility] Procedures Date Procedure Procedure Detail Performing Clinician Start: 12-11-2024 MM POST BIOPSY LT Go Marlena DO Work Phone: Start: 12-11-2024 US GUIDED BREAST BIOPSY LT Go Marlena DO Work Phone: Start: 11-14-2024 Mammography Go Fazi o DO Work Phone: Start: 08-22-2023 Microscopic observat ion [Identifier] in Cervix by Cyto stain Go Marlena DO Work Phone: Start: 08-22-2023 Cytp cerv/vag auto t hin layer prep mnl screen Go Marlena DO Work Phone: Start: 08-14-2022 Microscopic observat ion [Identifier] in Cervix by Cyto stain Go Marlena DO Work Phone: Plan of Treatment Date Care Activity Detail Author Start: 08-22-2026 Screening for malign ant neoplasm of cervix [facility] Start: 11-14-2025 Screening for malign ant neoplasm of breast Mammogram [facility] Start: 08-14-2025 Screening for malign ant neoplasm of cervix [facility] Start: 07-13-2025 Influenza vaccination Influenza Vacc ine (#1) [facility] Start: 03-24-2025 End: 03-24-2025 Patient encounter procedure 03/24/2025 2:00 PM EDT Office Visit [facility] [address] [place] [address] Go Mendiola, DO [address] [place] [address] [facility] Start: 07-13-2024 Influenza vaccination Influenza Vacc ine (#1) [facility] Start: 2009 Screening for malign ant neoplasm of cervix HPV/Cotest [facility] Start: 1979 Screening for malign ant neoplasm of colon [facility] Bacteria identified in Urine by Culture [facility] Comprehensive metabo lic 1999 panel - Serum or Plasma [facility] Comprehensive metabo lic 1999 panel - Serum or Plasma [facility] Comprehensive metabo lic 1999 panel - Serum or Plasma [facility] Insulin [Units/volum e] in Serum or Plasma [facility] Insulin [Units/volum e] in Serum or Plasma [facility] THIN PREP TIS PAP AN D HR HPV DNA THIN PREP TIS PAP AND HR HPV DNA Pathology and Cytology Routine Well woman exam with routine gynecological exam Ordered: 07/27/2025 [facility] Work Phone: Comment on above: Ordered: 07/27/2025 [facility] Immunizations Immunization Date Immunization Notes Care Provider Fa donald 09-19-2021 COVID-19 Vaccine Pfi zer - Documentation Purposes Only Aileen Castellanos Other [facility] 03-09-2021 COVID-19 Vaccine Pfi zer - Documentation Purposes Only Aileen Castellanos Other [facility] 02-16-2021 COVID-19 Vaccine Pfi zer - Documentation Purposes Only Aileen Castellanos Other [facility] Payers Date Payer Category Payer Self-pay [id number] 2024 Blue [employer] Blue [facility] [id number] 2017 Private Health Insurance [id number] 1980 Unknown [id number] 1980 Unknown [id number] 1979 Unknown [id number] 1979 Unknown [id number] 1979 Unknown [id number] 1959 [place] [facility] LW6 [id number] 1959 Unknown [id number] 1959 Unknown [id number] Unknown [id number] Unknown [employer] [id number] Unknown [id number] Unknown [place] BC/BS [id number] Social History Date Type Detail Facility Unknown if ever smoked [facility] Other Sex Assigned At [employer] [facility] Other Start: 01-29-2024 End: 06-15-2025 Tobacco smoking status MEIS Ex-smoker (finding) [facility] Start: 1980 Sex Assigned At Female F [facility] Tobacco smoking status [facility] Tobacco smoking consumption unknown [facility] Start: 1980 Sex assigned at Not on file N [facility] Start: 08-15-2023 Gender identity Identifies as female gender (finding) [facility] Start: 12-12-2024 End: 02-18-2025 Sex Female (finding) [facility] Medical Equipment Procedure Code Equipment Code Equipment Origin al Text Equipment Identifier Dates Start: 09-27-2015 End: 07-27-2025 Pen Needle, Diab etic (Bd Yelena 2nd Gen Pen Needle) 32 gauge x 5/32 needle Start: 07-08-2024 Pen Needle, Diab etic (Bd Yelena 2nd Gen Pen Needle) 32 gauge x 5/32 needle Start: 07-08-2024 End: 07-08-2024 Pen Needle, Diab etic (Bd Yelena 2nd Gen Pen Needle) 32 gauge x 5/32 needle Start: 07-08-2024 End: 07-08-2024 Pen Needle, Diab etic (Bd Yelena 2nd Gen Pen Needle) 32 gauge x 5/32 needle Start: 07-08-2024 End: 10-27-2024 Pen Needle, Diab etic (Bd Yelena 2nd Gen Pen Needle) 32 gauge x 5/32 needle Start: 07-08-2024 End: 07-08-2024 Pen Needle, Diab etic (Bd Yelena 2nd Gen Pen Needle) 32 gauge x 5/32 needle Start: 07-08-2024 End: 10-27-2024 Pen Needle, Diab etic (Bd Yelena 2nd Gen Pen Needle) 32 gauge x 5/32 needle Start: 07-08-2024 End: 07-08-2024 Pen Needle, Diab etic (Bd Yelena 2nd Gen Pen Needle) 32 gauge x 5/32 needle Start: 07-08-2024 End: 10-27-2024 Pen Needle, Diab etic (Bd Yelena 2nd Gen Pen Needle) 32 gauge x 5/32 needle Start: 07-08-2024 End: 07-08-2024 Pen Needle, Diab etic (Bd Yelena 2nd Gen Pen Needle) 32 gauge x 5/32 needle Start: 07-08-2024 End: 10-27-2024 Clinical Notes 04-11-2013 to 07-27-2025 Elyse Olvera NP - 07/27/2025 8:30 AM EDT Note Date & Type Note Facility 07-27-2025 History of Presen t illness Narrative Reason for Appointment: Patient ID: Debby Durbin is a 44 y.o. female who presents for Well Women Visit Patient presents today for Annual Exam. MEDICATIONS Current Outpatient Medications Medication Instructions ALPRAZolam (Xanax) 0.5 MG tablet TAKE 1 TABLET BY MOUTH EVERY DAY AT BEDTIME FOR 30 DAYS ibuprofen 800 MG tablet TAKE 1 TABLET BY MOUTH EVERY 8 TO 12 HOURS WITH FOOD NEEDED metFORMIN XR (Glucophage-XR) 500 MG 24 hr tablet TAKE 2 TABLETS BY MOUTH EVERY MORNING AND 1 EVERY EVENING Ozempic, 2 MG/DOSE, 8 MG/3ML solution pen-injector INJECT 2MG SUBCUTANEOUSLY ONCE A WEEK sertraline (ZOLOFT) 100 mg, Daily ALLERGIES Allergies Allergen Reactions Acetaminophen Hives, Itching and Swelling PROBLEMS Active Ambulatory Problems Diagnosis Date Noted No Active Ambulatory Problems Resolved Ambulatory Problems Diagnosis Date Noted No Resolved Ambulatory Problems No Additional Past Medical History HISTORY PAST MEDICAL HISTORY SOCIAL HISTORY No past medical history on file. Social History Tobacco Use Smoking status: Not on file Smokeless tobacco: Not on file Substance Use Topics Alcohol use: Not on file Drug use: Not on file FAMILY HISTORY Family History Problem Relation Name Age of Onset Hypertension Mother SURGICAL HISTORY Past Surgical History: Procedure Laterality Date SECTION, LOW TRANSVERSE 2000 REVIEW OF SYSTEMS Review of Systems: Review of Systems Constitutional: Negative. HENT: Negative. Eyes: Negative. Respiratory: Negative. Cardiovascular: Negative. Gastrointestinal: Negative. Genitourinary: Negative. Musculoskeletal: Negative. Skin: Negative. Neurological: Negative. All other systems reviewed and are negative. Hematological: Negative. Endocrine: Negative. Allergic/Immunologic: Negative. OBJECTIVE Objective: Physical Exam Constitutional: Appearance: Normal appearance. She is well-developed. Genitourinary: Vulva normal. Breasts: Breasts are soft. Right: Normal. Left: Normal. Cardiovascular: Rate and Rhythm: Normal rate and regular rhythm. Pulmonary: Effort: Pulmonary effort is normal. Breath sounds: Normal breath sounds. Abdominal: General: Bowel sounds are normal. There is no distension. Palpations: Abdomen is soft. Tenderness: There is no abdominal tenderness. There is no guarding or rebound. Musculoskeletal: General: No swelling. Normal range of motion. Right lower leg: No edema. Left lower leg: No edema. Neurological: Mental Status: She is alert and oriented to person, place, and time. Skin: General: Skin is warm and dry. Psychiatric: Mood and Affect: Mood normal. Behavior: Behavior normal. Vitals and nursing note reviewed. Exam conducted with a sausage cooker present. Vitals: Estimated body mass index is 27.5 kg/m as calculated from the following: Height as of this encounter: 5' 9 . Weight as of this encounter: 186 lb 4 oz. BP: 120/72 No LMP recorded. ASSESSMENT & PLAN ICD-10-CM 1. Well woman exam with routine gynecological exam Z01.419 THIN PREP TIS PAP AND HR HPV DNA Annual Exam: Patient presents today for an annual exam. Patient states she is doing well and has no complaints. Pap was obtained without difficulty. Discussed colonoscopy at age of 44 for screening and referral to be sent to Dr. De Leon. No orders of the defined types were placed in this encounter. Follow Up: Patient is to return in one year for annual unless needed otherwise. Documented by Elyse Olvera NP on behalf of: Go Mendiola DO documented in this encounter [facility] 05-20-2025 Evaluation note Authored May 20, 2025 3:47p m The above note written by __ _Hari Mijares____ acting as human recorder, note dictated by Dr. Jimenez .I performed the above HPI, ROS, and Examination. I formulated and dictated the treatment plan and was present for entire encounter. Aileen Castellanos D.O. [facility] Work Phone: 1(579) 739-457312-16-2024 Evaluation note* Author Aileen Castellanos [facility] Authored October 27, 2024 4:23pm The above note written by __ _Hari Mijares____ acting as human recorder, note dictated by Dr. Jimenez .I performed the above HPI, ROS, and Examination. I formulated and dictated the treatment plan and was present for entire encounter. Aileen Castellanos D.O. [facility] Work Phone: 1(404) 685-612306-26-2024 Evaluation note* Author Aileen Castellanos [facility] Authored May 07, 2024 3:00 pm The above note written by __ _Hari Mijares____ acting as human recorder, note dictated by Dr. Jimenez .I performed the above HPI, ROS, and Examination. I formulated and dictated the treatment plan and was present for entire encounter. Aileen Castellanos D.O. [facility] Work Phone: 1(502) 127-317001-30-2024 Evaluation note* Encounter Date Diagnosis Assessment Notes [...] Other 10:39 AM - 10:5 8 AM [facility] Other 01-30-2024 Evaluation note* Encounter Date Diagnosis Assessment Notes Treatment Notes Treatment Clinical Notes Nov, Depression (ICD-10 - F32.9) [facility] Other 01-04-2024 Evaluation note* Encounter Date Diagnosis Assessment Notes Treatment Notes Treatment Clinical Notes Nov, Anxiety (ICD-10 - F41.9) [facility] Other 11-28-2023 Evaluation note* Encounter Date Diagnosis Assessment Notes Treatment Notes Treatment Clinical Notes Sep, Anxiety (ICD-10 - F41.9) [facility] Other 08-15-2023 Evaluation note* Encounter Date Diagnosis [...] that this is not fungal. Jun, Other prison (current) drug therapy (ICD-10 - Z79.899) Jun, [...] th a refill on above medication today. [facility] Other 01-11-2023 Evaluation note* Encounter Date Diagnosis [...] spread. If she wants to see a family court registrar she can see one. Right now she is going to continue to monitor as she has had this for seven months. She does not have any pain with this. She had shingles in the past and does not feel it is shingles. If she wants to see a family court registrar she can call and schedule this herself. Nov, Other prison (current) drug therapy (ICD-10 - Z79.899) Nov, [...] Seborrheic keratosis (ICD-10 - L82.1) Reassurance given. [facility] Other 12-12-2022 Evaluation note* Encounter Date Diagnosis [...] the point she had to stay in [place] overnight because she was too tired to drive home. Oct, Other 2:39 PM - 2:54 PM [facility] Other 08-09-2022 Evaluation note* Encounter Date Diagnosis Assessment Notes Treatment Notes Treatment Clinical Notes Jun, Nicotine dependence (ICD-10 - F17.200) Jun, Chest congestion (ICD-10 - R09.89) Jun, Runny nose (ICD-10 - R09.89) Jun, Body aches (ICD-10 - R52) [facility] Other 08-09-2022 Evaluation note* Encounter Date Diagnosis Assessment Notes Treatment Notes Treatment Clinical Notes Jun, Left acute otitis media (ICD-10 - H66.92) [facility] Other 07-26-2022 Evaluation note* Encounter Date Diagnosis Assessment Notes Treatment Notes Treatment Clinical Notes May, Nicotine dependence (ICD-10 - F17.200) [facility] Other 07-12-2022 Evaluation note* Encounter Date Diagnosis [...] been talking to a health high school academic coach. In the past she was on [...] as it is working well. May, Other emt intermediate (current) drug therapy (ICD-10 - Z79.899) May, Allergic rhinitis (ICD-10 - J30.9) She admits that her allergies have been very bad this year, she does take above medication daily for her allergies. May, Urinary frequency (ICD-10 - R35.0) for lab order only May, Other She voices that she has called the [facility] twice to schedule her mammogram and has not heard back from them, she is going to call again. [facility] Other 05-31-2013 History general Narrative - Reported* [...] Hospitalization History see above surgical histo ry [facility] Other Evaluation noteNo InformationNort [facility] Other Evaluation note* Diagnosis Onset Date Resolution Status Anxiety acute Chest pain acute Diabetes type 2, uncontrolled acute Hyperlipidemia acute Hypokalemia acute Weight loss acute [facility] Work Phone: Evaluation note* Diagnosis Onset Date Resolution Status Anxiety acute Diabetes type 2, uncontrolled acute [facility] Work Phone: Evaluation note* Diagnosis Onset Date Resolution Status Admit Date Anxiety acute February 18 3:36pm Hyperlipidemia acute February 18, 2025 3:36pm Type 2 diabetes mellitus acute February 18, 2025 3:36pm [facility] Work Phone: Evaluation note* Diagnosis Onset Date Resolution Status Admit Date Anxiety acute May 20, 2025 3:04pm Depression acute May 20, 2025 3:04pm Type 2 diabetes mellitus acute May 20, 2025 3:04pm [facility] Work Phone: Evaluation note* Diagnosis Well woman exam with routine gynecological exam Routine gynecological examination documented in this encounter [facility] (narrative)No reason for referral information availableOhio[facility] Work Phone: Summary Purpose Family History [...] Advance Directives No November 20, 2018 4:00pm Advance Directive Response Recorded Date/ Time Advance Directives No November 20, 2018 3:00pm Advance Directive Response Recorded Date/ Time Advance Directives No February 18 4:02pm Chief Complaint and Reason for Visit Chief Complaint Admit Date med refill May 20, 2025 3:04p m Rash June 15, 2025 10: 57am Reason for Visit Admit Date Anxiety May 20, 2025 3:04p m Depression May 20, 2025 3:04p m Type 2 diabetes mellitus May 20, 2025 3:04pm Chief Complaint Amb Documentation Amb Documentation review labs Reason for Visit Anxiety Chest pain Diabetes type 2, uncontrolled Hyperlipidemia Hypokalemia Weight loss Chief Complaint Amb Documentation lab review/telephone Reason for Visit Anxiety Diabetes type 2, uncontrolled Chief Complaint lab review/telephone lab review Reason for Visit Anxiety Diabetes type 2, uncontrolled Anxiety Depression Hyperlipidemia Type 2 diabetes mellitus Chief Complaint Admit Date med refill October 27, 2024 4:03pm Unknown December 11, 2024 9 :06am Reason for Visit Admit Date Anxiety October 27, 2024 4:03pm Depression October 27, 2024 4:03pm Type 2 diabetes mellitus October 27, 2024 4:03pm Urinary incontinence October 27, 2024 4:03pm Chief Complaint Admit Date Unknown December 11, 2024 9 :06am telephone/review labs February 18, 2025 3: 36pm Reason for Visit Admit Date Anxiety February 18, 2025 3:36 pm Hyperlipidemia February 18, 2025 3:36 pm Type 2 diabetes mellitus February 18, 2025 3:36pm Chief Complaint Admit Date med refill May 20, 2025 3:04p m Additional Source Comments INFORMATION SOURCE (unrecogn ized section and content) DATE CREATED AUTHOR 01/01/2019 [facility] DATE CREATED AUTHOR AUTHOR'S ORGANIZ ATION 03/22/2023 [facility] DATE CREATED AUTHOR AUTHOR'S ORGANIZ ATION 12/13/2024 [facility] REASON FOR VISIT (unrecogniz ed section and content) Reason Comments Well Women Visit Care Teams (unrecognized sec tion and content) Team Status: Active Member Role Status Dates Aileen Castellanos DO Primary Care Provider Active Team [...] 2024 Team Status: Active Member Role Status Dates [...] 2024 Team Status: Active Member Role Status Dates Aileen Castellanos DO Primary Care Provide r, Attending Provider Active Start: January 17, 2024 Team Status: Inactive Member Role Status Dates Aileen Castellanos DO Primary Care Provide r, Attending Provider Active Start: January 29, 2024 End: January 29, 2024 Team Status: Active Member Role Status Dates Aileen Castellanos DO Primary Care Provider Active S tart: April 21, 2024 Hari Mijares LPN Attending Provider Active St art: April 21, 2024 Personal Fitness Trainer Relationship Specialty Start Date End Date Aileen Castellanos MD [address] [place] [address] PCP - [facility] 08/22/23 Team Status: Inactive Member Role Status Dates Aileen Castellanos DO Primary Care Provide r, Attending Provider Active Start: October 27, 2024 End: October 27, 2024 Team Status: Inactive Member Role Status Dates Go Mendiola DO Attending Provider Active Start : December 11, 2024 End: December 11, 2024 Team Status: Inactive Member Role Status Dates Aileen Castellanos DO Primary Care Provide r, Attending Provider Active Start: February 18, 2025 End: February 18, 2025 Team Status: Inactive Member Role Status Dates Aileen Castellanos DO Primary Care Provider Active S tart: May 20, 2025 End: May 20, 2025 Aileen Castellanos DO Attending Provider Active Star t: May 20, 2025 End: May 20, 2025 Team Status: Inactive Member Role Status Dates Aileen Castellanos DO Primary Care Provider Active S tart: June 15, 2025 End: June 15, 2025 RAINER Williamson RN FOUNDER [employer] CEO-C Attending Provider Active Start: June 15 End: June 15, 2025 Personal Fitness Trainer Relationship Specialty Start Date End Date Aileen Castellanos MD [address] [place] [address] PCP - General Family Medicine 08/22/23 Personal Fitness Trainer Relationship Specialty Start Date End Date Aileen Castellanos MD [address] [place] [address] [place] [address] PCP - General Family Medicine 08/22/23 Goals (unrecognized section and content) Goals may [...] BE BASED ON THE PRIMARY CLINICAL RECORDS. [employer] provides no warranty or guarantee of the accuracy or completeness of information in this document.
[2025-07-31 14:12] LABS: Age Gdln ACOG Testing Note (.); IGP, Aptima HPV, rfx 16/18,45 Note (.)
== END 2025-07-27 19:51 | disposition home or self-care (01) ==
LOC: LAB 19:50
PROVIDERS: PCP Family Medicine; Visit Provider Obstetrics & Gynecology
DX: Z01.419 Encounter for gynecological examination (general) (routine) without abnormal findings (principal)
CPT/HCPCS: 87624; 88175

== ENCOUNTER 2025-09-15 11:44 | Outpatient (OUT) | payer OTHER, BC, SELFPAY ==
--- OUTSIDE RECORDS SUMMARY | 2025-09-15 11:47 | XMS_ITS | Clinical Summary ---
Author Organization [facility] Address [address] [place] [address] Care Team Providers Care Glove Turner Name Role Phone Aileen Castellanos MD Primary Care Provider [phone] Allergies Active AllergyReactionsCriticalityNoted DateCommentsAcetaminophenHives,Itching, Ldofaesf09/11/2023 Medications MedicationSigDispense QuantityRefillsLast FilledStart DateEnd DateStatus ibuprofen 800 MG tablet TAKE 1 TABLET BY MOUTH EVERY 8 TO 12 HOURS WITH FOOD EIJPRX3106/26/2023ctive metFORMIN XR (Glucophage-XR) 500 MG 24 hr tablet TAKE 2 TABLETS BY MOUTH EVERY MORNING AND 1 EVERY DTNPFBZ92/20/2023Active ALPRAZolam (Xanax) 0.5 MG tablet TAKE 1 TABLET BY MOUTH EVERY DAY AT BEDTIME FOR 30 DAYS5Active sertraline (Zoloft) 100 MG tablet Take 100 mg by mouth Daily06/22/2025tive Ozempic, 2 MG/DOSE, 8 MG/3ML solution pen-injector INJECT 2MG SUBCUTANEOUSLY ONCE A WEEK5Active metroNIDAZOLE (Flagyl) 500 MG tablet Indications:BV (bacterial vaginosis)TAKE 1 TABLET BY MOUTH IN THE MORNING AND BEFORE BEDTIME FOR 7 DAYS *NO ALCOHOL WHILE TAKING* 14 tablet 5Active metroNIDAZOLE (Flagyl) 500 MG tablet Indications:BV (bacterial vaginosis)Take 1 tablet (500 mg) by mouth in the morning and 1 tablet (500 mg) before bedtime. Do all this for 7 days. Do not drink alcohol while taking this medication. 14 tablet Discontinued Encounters DateTypeDepartmentCare RzkdJhgpgcqneih30/13/2025Refill [facility] [address] [place] [address] [place] [id number] Moiz Mendiola DO BV (bacterial vaginosis)08/24/2025Telephone [facility] [address] [place] [address] Moiz Mendiola DO 08/13/2025Orders Only [facility] [address] [place] [address] Shraddha Anthony MA 08/03/2025Telephone [facility] [address] [place] [address] Moiz Mendiola DO 07/27/2025 8:30 AM EDTOffice Visit [facility] [address] [place] [address] Moiz Mendiola DO Well woman exam with routine gynecological exam5Clinisync Result Encounter [facility] Department Unsolicited Moiz Mendiola DO 5Bamboo flowsheet [facility] [address] [place] [address] Moiz Mendiola DO from Last 3 Months Family History Medical HistoryRelationNameCommentsHypertensionMotherRelationNameStatusComments Mother Social History Tobacco UseTypesPacks/DayYears UsedDateSmoking Tobacco: Never Assessed CommentsNoSex and Gender InformationValueDate RecordedSex Assigned at BirthNot on fileLegal EzdKlguqz22/15/2023 7:00 PM EDTGender OptlijywZqxvsu16/04/2023 11:55 AM EDTSexual OrientationNot on file Last Filed Vital Signs Vital SignReadingTime TakenCommentsBlood Nnoxzclj324/72007/27/2025 8:44 AM EDT Pulse--Temperature--Respiratory Rate--Oxygen Saturation--Inhaled Oxygen Concentration--Qjysta17.5 kg (186 lb 4 oz)07/27/2025 8:44 AM XFDJavygn777.3 cm (5' 9 )07/27/2025 8:44 AM EDTBody Mass Index27. 8:44 AM EDT Plan of Treatment Health MaintenanceDue DateLast DoneCommentsCT Tjgygvqewkrf1979Colonoscopy 1979Colorectal Cancer Agqmyfmvq1979FIT-DNA1979FIT1979 FOBT1979 1047Iesisfmbpdigm1979MMR Vaccines (1 of 1 - Standard series) 1980DTaP/Tdap/Td Vaccines (1 - Tdap)1986Hepatitis B Vaccines (1 of 3 - 19+ 3-dose series)1998HPV Vaccines (1 - 3-dose SCDM series)2006 HPV/Essvkh5911/09/2009COVID-19 Vaccine (2024- season)5111/19/2020, 03/09/2021, 02/16/2021Influenza Vaccine (#1)07/13/20258092Yhxtnusqw46/03/2026 11/14/2024, 09/19/2023ervical Cancer Ddfypalaa93/15/2028Pap Smear07/27/2028 07/27/2025, 08/22/2023, 08/14/2022HIB VaccinesAged OutNo longer eligible based on patient's age to complete this topicHepatitis A VaccinesAged OutNo longer eligible based on patient's age to complete this topicIPV VaccinesAged OutNo longer eligible based on patient's age to complete this topicMeningococcal B VaccineAged OutNo longer eligible based on patient's age to complete this topic Meningococcal VaccineAged OutNo longer eligible based on patient's age to complete this topicPneumococcal Vaccine: Pediatrics (0 to 5 Years) and At-Risk Patients (6 to 64 Years)Aged OutNo longer eligible based on patient's age to complete this topicRotavirus VaccinesAged OutNo longer eligible based on patient's age to complete this topic Procedures Procedure NamePriorityDate/TimeAssociated DiagnosisCommentsIGP,APTIMA HPV,AGE FEEXQuunwkz36/15/2025 8:40 AM EDT PAP NPFUWMaphjrt76/15/2025 12:00 AM EDTMM TOMOSYNTHESIS SCREENING BI11/14/2024 12:41 PM EST from Last 3 Months or Most Recently Relevant to Health Maintenance Results * IGP,APTIMA HPV,AGE GDLN (07/27/2025 8:40 AM EDT)ComponentValueRef RangeTest MethodAnalysis TimePerformed AtPathologist SignatureAGE GDLN ACOG TESTINGNote. TBHComment: ?? TESTS ? RESULT ??FLAG ??UNITS ?REF RANGE ??LAB ?? Clinician Provided Cytology Information ?? Source.............Cervix;Endocervix ?? No. of containers..01 ThinPrep Vial Age Algo ACOG Prisca... ??30-65 ? 01 ?FLAG LEGEND: ?L-Low Normal,H-High Normal,LL-Alert Low,HH-Alert High <-Panic Low,>-Panic High,A-Abnormal,AA-Critical Abnormal Performed at: 01 =G ?[facility] ?? [address] [place] [place] ??[phone] ?? Jacey Holm MD, IGP, APTIMA HPV, RFX 16/18,45Note.TBHComment: ?? TESTS ? RESULT ??FLAG ??UNITS ?REF RANGE ??LAB DIAGNOSIS: ?02 ?? NEGATIVE FOR INTRAEPITHELIAL LESION OR MALIGNANCY. ?? PREDOMINANCE OF COCCOBACILLI CONSISTENT WITH SHIFT IN VAGINAL NNEKA IS ?? PRESENT. Specimen adequacy: ?02 ?? Satisfactory for evaluation. ??Endocervical and/or squamous metaplastic ?? cells (endocervical component) are present. Performed by: ? 02 ?? Fouzia Eddy, Commissioner Of Conciliation (ASCP) . ? 02 Note: ? Note ?02 ?? The Pap smear is a screening test designed to aid in the ?? detection of premalignant and malignant conditions of the ?? uterine cervix. ??It is not a diagnostic procedure and ?? should not be used as the sole means of detecting cervical ?? cancer. ??Both false-positive and false-negative reports do ?? occur. Test Methodology: ? Note ?02 ?? This liquid based ThinPrep(R) pap test was screened with ?? the use of an image guided system. HPV Genotype Reflex ?? Note ?02 ?? Criteria not met, HPV Genotype not performed. ?FLAG LEGEND: ?L-Low Normal,H-High Normal,LL-Alert Low,HH-Alert High <-Panic Low,>-Panic High,A-Abnormal,AA-Critical Abnormal Performed at: 02 WB ?[facility] ?? [address] [place], [place] ??[phone] ?? Jacey Holm MD, HPV APTIMANegativeNegativeTBHComment: This nucleic acid amplification test detects fourteen high- risk HPV types (16,18,31,33,35,39,45,51,52,56,58,59,66,68) without differentiation. Performed at: ??=G - [address] ??[id number] Supervisor Intelligence Analyst: Jacey Holm MD, Phone: ??[phone] Performed at: ??WB - [address] ??[id number] Supervisor Intelligence Analyst: Jacey Holm MD, Phone: ??[phone] Specimen (Source)Anatomical Location / LateralityCollection Method / Volume Collection TimeReceived Time07/27/2025 8:40 AM EDT07/27/2025 9:30 PM EDT Narrative [facility] - 07/31/2025 2:12 PM EDT BRUSH-SPATULA CERVIX ENDOCERVIX Authorizing ProviderResult TypeResult StatusCorey Marlena DOLAB BLOOD ORDERABLES Final ResultPerforming OrganizationAddressCity/State/ZIP CodePhone Number [facility] * Pap Smear (07/27/2025 12:00 AM EDT)Specimen (Source)Anatomical Location / LateralityCollection Method / VolumeCollection TimeReceived TimeSwabCervical swab / Unknown Narrative Authorizing ProviderResult TypeResult StatusCorey Marlena DOLAB CYTOLOGY ORDERABLESFinal ResultPerforming OrganizationAddressCity/State/ZIP CodePhone Number EXTERNAL LAB * MM TOMOSYNTHESIS SCREENING BI (11/14/2024 12:41 PM EST)Anatomical Region LateralityModalityOtherSpecimen (Source)Anatomical Location / Laterality Collection Method / VolumeCollection TimeReceived Time11/14/2024 12:41 PM EST Narrative 11/14/2024 12:42 PM EST [facility] ?[address] ? [place] [address] ? Mammography Report ? Signed ? Patient: DEBBY DAHL E ?MR#: [id number] ?? : 1980 ?Acct:[id number] ?? Age/Sex: 44 / F ?ADM Date: 11/14/24 ?? Loc: MAMMO ? Attending Dr: Moiz Meyers.ODimitry ? Ordering Physician: Moiz Mendiola.Maximino. ?Results: ? Date of Service: 11/14/24 ?Follow Up: ? Procedure(s): MM tomosynthesis screening BI ?? Accession Number(s): [id number] ? cc: Moiz Mendiola D.O.; AILEEN CASTELLANOS ? Patient Name: ? DEBBY DAHL ? MR#: [id number] ? : 1980 ? Exam Date: 11/14/2024 ?? Ordering Doctor: DR Moiz Mendiola . ? RADIOLOGY REPORT ? PROCEDURE: ? MM TOMOSYNTHESIS SCREENING BI ? COMPARISON: ? [facility] MAMM DIAGNOSTIC 3D OTTONIEL CAD, 06/02/2022. ??MM TOMOSYNTHESIS ?? SCREENING BI, 09/18/2023. ? INDICATIONS: ? Screening ? Calculator Name ? NCI Breast Cancer Risk Assessment Tool ?? 5 Year Breast Cancer Risk ? 1.80% ?? Lifetime Breast Cancer Risk ? 12.30% ?? Personal Breast Cancer ?No ?? Personal Ovarian Cancer ? No ?? Treatments ? None ?? Family Cancers ? None ? LOCATION: ? [facility] ? BREAST COMPOSITION: ? The breasts are heterogeneously dense,which may ?? obscure small masses. ? FINDINGS: ? DIAGNOSTIC CATEGORY 0--INCOMPLETE: NEED ADDITIONAL IMAGING EVALUATION. ? Scattered benign-appearing calcifications are present. ? RIGHT BREAST: ??No significant suspicious finding. ? LEFT BREAST: ??New 1.2 cm round partially circumscribed mass lower inner ?? quadrant, anterior breast adjacent to a micro clip marker. ??Ultrasound ?? follow-up required. ? RECOMMENDATIONS: ? ULTRASOUND: LEFT BREAST ? PLEASE NOTE: ??A NORMAL MAMMOGRAM DOES NOT EXCLUDE THE POSSIBILITY OF BREAST ?? CANCER. ??A CLINICALLY SUSPICIOUS PALPABLE LUMP SHOULD BE BIOPSIED. ? Dictated by: Aileen Guerrero MD on 11/14/2024 at 12:29 ? Approved by: Aileen Guerrero MD on 11/14/2024 at 12:41 ? Dictated By: ?Aileen Guerrero M.D. ? Signed By: ?11/14/24 124 ? DD/ 40 ? TD/TT: ? Tribunal Member: Procedure Note Radiology, RadiologistMD - 11/14/2024 [facility] [place] [id number] Mammography Report Signed Patient: DEBBY DAHL EMR#: [id number] : 1980Acct:[id number] Age/Sex: 44 / FADM Date: 11/14/24 Loc: MAMMO Attending Dr: Moiz Mendiola D.O. Ordering Physician: Moiz Mendiola D.O.Results: Date of Service: 11/14/24Follow Up: Procedure(s): MM tomosynthesis screening BI Accession Number(s): [id number] cc: Moiz Mendiola D.O.; AILEEN CASTELLANOS Patient Name: DEBBY DAHL MR#: [id number] : 1980 Exam Date: 11/14/2024 Ordering Doctor: DR Moiz Mendiola . RADIOLOGY REPORT PROCEDURE: MM TOMOSYNTHESIS SCREENING BI COMPARISON: MG MAMM DIAGNOSTIC 3D OTTONIEL CAD, 06/02/2022. MMTOMOSYNTHESIS SCREENING BI, 09/18/2023. INDICATIONS: Screening Calculator Name NCI Breast Cancer Risk Assessment Tool 5 Year Breast Cancer Risk 1.80% Lifetime Breast Cancer Risk 12.30% Personal Breast Cancer No Personal Ovarian Cancer No Treatments None Family Cancers None LOCATION: [facility] BREAST COMPOSITION: The breasts are heterogeneously dense,which may obscure small masses. FINDINGS: DIAGNOSTIC CATEGORY 0--INCOMPLETE: NEED ADDITIONAL IMAGING EVALUATION. Scattered benign-appearing calcifications are present. RIGHT BREAST: No significant suspicious finding. LEFT BREAST: New 1.2 cm round partially circumscribed mass lower inner quadrant, anterior breast adjacent to a micro clip marker. Ultrasound follow-up required. RECOMMENDATIONS: ULTRASOUND: LEFT BREAST PLEASE NOTE: A NORMAL MAMMOGRAM DOES NOT EXCLUDE THE POSSIBILITY OFBREAST CANCER. A CLINICALLY SUSPICIOUS PALPABLE LUMP SHOULD BE BIOPSIED. Dictated by: Aileen Guerrero MD on 11/14/2024 at 12:29 Approved by: Aileen Guerrero MD on 11/14/2024 at 12:41 Dictated By: Aileen Guerrero M.D. Signed By:11/14/24 1242 DD/ 1241 TD/TT: Tribunal Member: Authorizing ProviderResult TypeResult StatusCorey Marlena DOCLINISYNC IMAGINGFinal Result from Last 3 Months or Most Recently Relevant to Health Maintenance Insurance Care Teams Team MemberRelationshipSpecialtyStart DateEnd Date Aileen Castellanos MD [address] [place] [address] [address] [place] [address] PCP - GeneralFamily Dwgjjeoa43/11/23
--- OUTSIDE RECORDS SUMMARY | 2025-09-15 11:47 | XMS_ITS | Clinical Summary ---
Author Organization [facility] Address [address] [place] [address] Care Team Providers Care Developmental Therapist Name Role Phone Terrance Baez Rebecca DO Primary Care Provider [phone] Allergies No known active allergies Medications MedicationSigDispense QuantityRefillsLast FilledStart DateEnd DateStatus LISINOPRIL 5 MG TABLET Take one (1) tablet daily.Active TOPROL XL 25 MG TABLET SA 1 pill QDActive TEV-MDEEZZWX-72 TABLET as okawtiwd332/11/2005Active zolpidem (AMBIEN) 10 mg tab TAKE 1 TABLET BY MOUTH EVERYDAY AT HPTXJNA102/17/2019Active metFORMIN ER (GLUCOPHAGE XR) 500 mg 24 hr tablet TAKE 2 TABLETS IN THE MORNING AND 1 TABLET IN THE YQHKVIW1033/15/2019Active Active Problems No known active problems Family History Medical HistoryRelationCommentsNoneBrotherNoneFatherHypertensionMotherRelation StatusCommentsBrotherFatherMother Social History Tobacco UseTypesPacks/DayYears UsedDateSmoking Tobacco: Every SlyFkqypuuvre01 Alcohol UseStandard Drinks/WeekCommentsYes0 (1 standard drink = 0.6 oz pure alcohol)rarePHQ-2AnswerDate RecordedPHQ-2 mxtmq566Area Deprivation Index AnswerDate RecordedNational Score (1-100), lower number is lower riskNot on file 10/18/2020State Score (1-10), lower number is lower riskNot on file10/18/2020 Data from: https://www.neighborhoodatlas.medicine.[facility].edu/. Last address used for calculationNot on file10/18/2020CommentsNoSex and Gender Information ValueDate RecordedSex Assigned at BirthNot on fileLegal VepAiggda13/02/2012 8:53 AM ESTGender IdentityNot on fileSexual OrientationNot on file Last Filed Vital Signs Vital SignReadingTime TakenCommentsBlood Hrfmsvft072/77012/27/2018 8:09 AM EST Vezia2981/15/2019 8:09 AM HPVJlehpqjglif38.7 ??C (98.1 ??F)12/27/2018 8:09 AM ESTRespiratory Qqpe831512/27/2018 8:09 AM ESTOxygen Qfhxnrrqze15%12/27/2018 8:09 AM ESTInhaled Oxygen Concentration--Xikvca20.2 kg (190 lb)12/27/2018 8:09 AM EST Evvrzw866.3 cm (5' 9 )12/27/2018 8:09 AM ESTBody Mass Index28.0612/27/2018 8:09 AM EST Plan of Treatment Health MaintenanceDue DateLast DoneCommentsAnxiety Ugbtlpdtr66/29/1997Depression Kwuuldsyd98/29/1997HIV Erfvlgjvz99/29/1997Hepatitis C Ygrmqsfsz30/29/1997 DTaP,Tdap,Td Vaccine (1 - Tdap)1998Hepatitis B Vaccine (1 of 3 - 19+ 3- dose series)1998Cervical Cancer Janyrqinw06/29/2000HPV Vaccine (1 - 3-dose SCDM series)2006Mammogram Qpbcysgkf76/29/2019CT Yomcaqmwjwnc26/29/2024 Cologuard (FIT-DNA)11/09/20240339Xnmfjqsrkhy38/29/2024olorectal Cancer Screening 2024iabetes Rxuyaieez31/29/2024Fecal Occult Blood2024Lipid Hhmitlpuv78/29/8910Upzqawhzbijht44/29/2024ovid-19 Vaccine ( - 2024- season) 2025Influenza Vaccine (#1)2025 Care Teams Team MemberRelationshipSpecialtyStart DateEnd Date Terrance Baez, [address] [place] [address] [facility] - General12/23/04
--- OUTSIDE RECORDS SUMMARY | 2025-09-15 11:47 | XMS_ITS | Encounter Summary ---
Author Organization [facility] Address [address] [place] [address] Care Team Providers Care Millinery Teacher Name Role Phone Aileen Castellanos MD Primary Care Provider [phone] Encounter Details DateTypeDepartmentCare Team (Latest Contact Info)Nkfkyghqcpi43/03/2025linisync Result Encounter [facility] Unsolicited Moiz Mendiola, DO [address] [place], [place] [id number] Social History Tobacco UseTypesPacks/DayYears UsedDateSmoking Tobacco: Never Assessed CommentsNoSex and Gender InformationValueDate RecordedSex Assigned at BirthNot on fileLegal KxqRsgyip06/15/2023 7:00 PM EDTGender RasklfojQdohiy46/04/2023 11:55 AM EDTSexual OrientationNot on filedocumented as of this encounter Miscellaneous Notes * Result Encounter Note - Caroline Salazar LPN - 11/14/2024 12:45 PM EST Pt notified and US ordered documented in this encounter Plan of Treatment Not on file documented as of this encounter Procedures Procedure NamePriorityDate/TimeAssociated DiagnosisCommentsMM TOMOSYNTHESIS SCREENING BI11/14/2024 12:41 PM EST documented in this encounter Results * MM TOMOSYNTHESIS SCREENING BI (11/14/2024 12:41 PM EST)Anatomical Region LateralityModalityOtherSpecimen (Source)Anatomical Location / Laterality Collection Method / VolumeCollection TimeReceived Time11/14/2024 12:41 PM EST Narrative 11/14/2024 12:42 PM EST [facility] ?[address] ? [place] [address] ? Mammography Report ? Signed ? Patient: HESHAM,DEBBY E ?MR#: [id number] ?? : 1980 ?Acct:[id number] ?? Age/Sex: 44 / F ?ADM Date: 01/03/25 ?? Loc: MAMMO ? Attending Dr: Moiz Mendiola D.O. ? Ordering Physician: Moiz Mendiola D.O. ?Results: ? Date of Service: 11/14/24 ?Follow Up: ? Procedure(s): MM tomosynthesis screening BI ?? Accession Number(s): [id number] ? cc: Moiz Mendiola D.O.; AILEEN CASTELLANOS ? Patient Name: ? DEBBY ELMORECHRISTIE ? MR#: [id number] ? : 1980 ? Exam Date: 11/14/2024 [...] Cancers ? None ? LOCATION: ? [facility] ? BREAST COMPOSITION: ? The breasts are [...] ?Aileen Guerrero M.D. ? Signed By: ?11/14/24 1242 ? DD/ 1241 ? TD/TT: ? Operations Engineer: Procedure Note Radiology, RadiologistMD - 11/14/2024 [place] [address] Mammography Report Signed Patient: DEBBY DAHL EMR#: [id number] : 1980Acct:[id number] Age/Sex: 44 / FADM Date: 11/14/24 Loc: MAMMO Attending Dr: Moiz Mendiola D.O. Ordering Physician: Moiz Mendiola D.O.Results: Date of Service: 11/14/24Follow Up: Procedure(s): MM tomosynthesis screening BI Accession Number(s): [id number] cc: Moiz Mendiola D.O.; AILEEN CASTELLANOS Patient Name: DEBBY DAHL MR#: [id number] : 1980 Exam Date: 11/14/2024 Ordering Doctor: [...] Treatments None Family Cancers None LOCATION: [facility] BREAST COMPOSITION: The breasts are heterogeneously dense,which [...] M.D. Signed By:11/14/24 1242 DD/ 1241 TD/TT: Operations Engineer: Authorizing ProviderResult TypeResult StatusCorey Marlena DOCLINISYNC IMAGINGFinal Result documented in this encounter Visit Diagnoses Not on filedocumented in this encounter Care Teams Team MemberRelationshipSpecialtyStart DateEnd Date Aileen Castellanos MD [address] [place] [address] [place] [address] PCP - GeneralFamily Cvjqmock00/11/23documented as of this encounter
--- OUTSIDE RECORDS SUMMARY | 2025-09-15 11:47 | XMS_ITS | Encounter Summary ---
Author Organization [facility] Address [address] [place] [address] Care Team Providers Care Laminating Machine Feeder Name Role Phone Aileen Castellanos MD Primary Care Provider [phone] Encounter Details DateTypeDepartmentCare Team (Latest Contact Info)Hrwafmnmzsz93/22/2025linisync Result Encounter [facility] Unsolicited Moiz Mendiola, DO [address] [facility] [address] [place], [place] [id number] Social History Tobacco UseTypesPacks/DayYears UsedDateSmoking Tobacco: Never Assessed CommentsNoSex and Gender InformationValueDate RecordedSex Assigned at BirthNot on fileLegal BoyIjvapu39/15/2023 7:00 PM EDTGender QtevchmdLyjjoj72/04/2023 11:55 AM EDTSexual OrientationNot on filedocumented as of this encounter Miscellaneous Notes * Result Encounter Note - Caroline Salazar LPN - 12/03/2024 4:21 PM EST Pt is already scheduled documented in this encounter Plan of Treatment Not on file documented as of this encounter Procedures Procedure NamePriorityDate/TimeAssociated DiagnosisCommentsUS BREAST LT LIMITED 12/03/2024 4:18 PM EST documented in this encounter Results * US BREAST LT LIMITED (12/03/2024 4:18 PM EST)Anatomical RegionLaterality ModalityOtherSpecimen (Source)Anatomical Location / LateralityCollection Method / VolumeCollection TimeReceived Time12/03/2024 4:18 PM EST Narrative 12/03/2024 4:19 PM EST [facility] ?[address] ? [place] [address] ? Ultrasound Report ? Signed ? Patient: QUIQUEEL,DEBBY E ?MR#: [id number] ?? : 1980 ?Acct:[id number] ?? Age/Sex: 44 / F ?ADM Date: 12/02/ ?? Loc: US ? Attending Dr: Moiz Mendiola D.O. ? Ordering Physician: Moiz Mendiola D.O. ?? Date of Service: 12/02/24 ?? Procedure(s): US breast LT limited ?? Accession Number(s): [id number] ? cc: Moiz Mendiola D.O.; AILEEN CASTELLANOS ? Patient Name: ? DEBBY DAHL ? MR#: [id number] ? : 1980 ? Exam Date: 12/02/2024 ?? Ordering Doctor: DR Moiz Mendiola . ? RADIOLOGY REPORT ? PROCEDURE: ? US BREAST LT LIMITED ? COMPARISON: ? MM TOMOSYNTHESIS SCREENING BI, 11/14/2024. ? INDICATIONS: ? Abnormal Mammogram with Macrocalcifications ? TECHNIQUE: ? Breast ultrasound was performed, with evaluation focusing only ?? on specific areas of concern. ? FINDINGS: ? DIAGNOSTIC CATEGORY 4--SUSPICIOUS FOR MALIGNANCY. FINDING DOES NOT EXHIBIT ?? CLASSIC FINDINGS OF BREAST CANCER: ? LEFT BREAST: ??Complex lobular mostly cystic, but partially solid lesion within ?? the lower-inner quadrant, 7 o'clock position, 2.6 cm from the nipple, 1.4 x ?? 1.0 x 1.0 cm in size. ??No appreciable internal blood flow on color Doppler. ? Given its new appearance and lobular complex nature, ultrasound-guided tissue ?? sampling is recommended. ? RECOMMENDATIONS: ? ULTRASOUND-GUIDED CORE BIOPSY: LEFT BREAST ? PLEASE NOTE: ??A NORMAL ULTRASOUND EXAMINATION DOES NOT EXCLUDE THE POSSIBILITY ?? OF BREAST CANCER. ??A CLINICALLY SUSPICIOUS PALPABLE LUMP SHOULD BE BIOPSIED. ? Dictated by: Edouard Watson M.D. on 12/03/2024 at 16:14 ? Approved by: Edouard Watson M.D. on 12/03/2024 at 16:18 ? Dictated By: ?Edouard Watson M.D. ? Signed By: ?12/03/24 1619 ? DD/ ? TD/TT: ? Department Supervisor: Procedure Note Radiology, Radiologist, - 12/03/2024 [place] [address] Ultrasound Report Signed Patient: DEBBY DAHL EMR#: [id number] : 1980Acct:[id number] Age/Sex: 44 / FADM Date: 12/02/24 Loc: US Attending Dr: Moiz Mendiola D.O. Ordering Physician: Moiz Mendiola D.O. Date of Service: 12/02/24 Procedure(s): US breast LT limited Accession Number(s): [id number] cc: Moiz Mendiola D.O.; AILEEN CASTELLANOS Patient Name: DEBBY DAHL MR#: [id number] : 1980 Exam Date: 12/02/2024 Ordering Doctor: DR Moiz Mendiola . RADIOLOGY REPORT PROCEDURE: US BREAST LT LIMITED COMPARISON: MM TOMOSYNTHESIS SCREENING BI, 11/14/2024. INDICATIONS: Abnormal Mammogram with Macrocalcifications TECHNIQUE: Breast ultrasound was performed, with evaluation focusingonly on specific areas of concern. FINDINGS: DIAGNOSTIC CATEGORY 4--SUSPICIOUS FOR MALIGNANCY. FINDING DOES NOT EXHIBIT CLASSIC FINDINGS OF BREAST CANCER: LEFT BREAST: Complex lobular mostly cystic, but partially solid lesionwithin the lower-inner quadrant, 7 o'clock position, 2.6 cm from the nipple, 1.4x 1.0 x 1.0 cm in size. No appreciable internal blood flow on colorDoppler. Given its new appearance and lobular complex nature, ultrasound-guidedtissue sampling is recommended. RECOMMENDATIONS: ULTRASOUND-GUIDED CORE BIOPSY: LEFT BREAST PLEASE NOTE: A NORMAL ULTRASOUND EXAMINATION DOES NOT EXCLUDE THEPOSSIBILITY OF BREAST CANCER. A CLINICALLY SUSPICIOUS PALPABLE LUMP SHOULD BEBIOPSIED. Dictated by: Edouard Watson M.D. on 12/03/2024 at 16:14 Approved by: Edouard Watson M.D. on 12/03/2024 at 16:18 Dictated By: Edouard Watson M.D. Signed By:12/03/24 1619 DD/ 1618 TD/TT: Department Supervisor: Authorizing ProviderResult TypeResult StatusCorey Marlena DOCLINISYNC IMAGINGFinal Result documented in this encounter Visit Diagnoses Not on filedocumented in this encounter Care Teams Team MemberRelationshipSpecialtyStart DateEnd Date Aileen Castellanos MD [address] [place] [address] [place] [address] PCP - GeneralFamily Nshcxosy98/11/23documented as of this encounter
--- OUTSIDE RECORDS SUMMARY | 2025-09-15 11:51 | XMS_ITS | CCD ---
Author Organization [facility] Providers Care [employer] Shrinker Name Role Phone BRITTANEY CHRISTIANSEN Attending Unavailable AILEEN CASTELLANOS Referring Unavailable Jasmin, Aileen Unavailable MARLENA, MOIZ Admitting Unavailable JASMIN, DR GALLAGHER Primary Care Unavailable MARLENA, MOIZ Attending Unavailable MARLENA, MOIZ Consulting Unavailable ZIEBNINOSKA, DR JONATHAN Oh Consulting Unavailable CAMPOS, VIRGILIO Attending Unavailable CAMPOS, VIRGILIO Consulting Unavailable CAMPOS, VIRGILIO Admitting Unavailable JASMIN, DR GALLAGHER Primary Care Unavailable MIGUEL MONZON Consulting Unavailable JASMIN, DR GALLAGHER Attending Unavailable GIRANA, DR GALLAGHER Consulting Unavailable GIRANA, DR GALLAGHER Primary Care Unavailable GIRANA, DR GALLAGHER Admitting Unavailable MARLENA, MOIZ Consulting Unavailable JASMIN, DR GALLAGHER Primary Care Unavailable MARLENA, MOIZ Admitting Unavailable MARLENA, MOIZ Attending Unavailable JASMIN, DR GALLAGHER Attending Unavailable GIRVIN, DR GALLAGHER Consulting Unavailable GIRVIN, DR GALLAGHER Primary Care Unavailable GIRVIN, DR GALLAGHER Admitting Unavailable Aileen Castellanos MD Primary Care Provider [phone] Moiz Mendiola DO Attending Provider Moiz Mendiola Attending Unavailable Marlena, Moiz Admitting Unavailable Marlena BUNDY, Moiz Attending Provider Aileen Castellanos DO Primary Care Provider [phone] Aileen Castellanos DO Attending Provider Leidy Ross APRN Attending Provider Aileen Castellanos MD Primary Care Provider MOIZ MENDIOLA Attending Unavailable Aileen Castellanos DO Primary Care Provider [phone] Moiz Mendiola DO Attending Provider Aileen Castellanos DO Attending Provider Aileen Castellanos Primary Care Physician Moiz MENDIOLA Referring Unavailable Miguel GERMAN Attending Unavailable Aileen Castellanos MD Primary Care Provider Allergies Allergy ClassificationReported Allergen(s)Allergy TypeDate of OnsetReaction(s) Facility (15 sources)Acetaminophen; Translations: [acetaminophen]Drug Allergyhives, Weal (disorder)[facility] [place] (1 source)AcetaminophenDrug AllergyThe [facility] (8 sources)AcetaminophenDrug Ibutmev25-21-0862Lbass, Itching, SwellingN[facility]S Healthcare (1 source)AcetaminophenDrug Dljgzcx39-56-0872OpuioknfmCos[facility] Medications Current Medications MedicationDrug Class(es)DatesSig (Normalized)Sig (Original)3 ML semaglutide 2.68 MG/ML Pen Injector (1 source)Start: 27-94-0816gffrvm 2 mg by subcutaneous injection every week semaglutide 8 mg/3 mL (2 mg dose) subcutaneous solution (Ozempic) 2 mg, SubCutaneous, qWeek, Refills(s) 0 Start Date: 08/19/25 Status: Ordered Repeat number: [id number] 200 actuat albuterol 0.09 mg/actuat metered dose inhaler (20 sources)beta2-Adrenergic AgonistStart: 94-66-0928ztfr 1 puff(s) by inhalation four times daily as neededStart: 01-15-2024 End: 82-12-1203zzgi 2 puff(s) by mouth four times daily as neededAlbuterol Sulfate 90 mcg/actuation HFA aerosol inhaler Discontinued INHALATION January 15, 2024 1:00am October 27, 2024 5:03pm FreeTextSig: INHALE 2 PUFFS BY MOUTH INTO THE LUNGS FOUR TIMES DAILY NEEDED; Note: Source Status: Not-Taking\PRNprn; Refills: 6; Qty: 8.5 Gram; Provider: Jasmin Gallagher( )take 2 puff(s) by mouth four times daily as neededAlbuterol Sulfate HFA 108 (90 Base) MCG/ACT INHALE 2 PUFFS BY MOUTH INTO THE LUNGS FOUR TIMES DAILYAS NEEDED for 25 prn Not-Taking/PRNtake 2 puff(s) by mouth four times daily as neededAlbuterol Sulfate HFA 108 (90 Base) MCG/ACT INHALE 2 PUFFS BY MOUTH INTO THE LUNGS FOUR TIMES DAILYAS NEEDED for 25 prn Not-Takingtake 2 puff(s) by mouth four times daily as neededAlbuterol Sulfate HFA 108 (90 Base) MCG/ACT INHALE 2 PUFFS BY MOUTH INTO THE LUNGS FOUR TIMES DAILYAS NEEDED for 25 ActiveALPRAZolam 0.5 mg oral tablet (20 sources)BenzodiazepineStart: 91-25-9109fevo 1 tablet by mouth at bedtime as needed for anxietyalprazolam 0.5 mg Tab 0.5 mg = 1 tab(s), Oral, Bedtime, PRN for anxiety, Refills(s) 0 Start Date: 08/19/25 Status: Ordered Repeat number: 1 Start: 01-29-2024 End: 66-85-7691fzxr 1 tablet by mouth once daily at bedtimeAlprazolam (Xanax) 0.5 mg tablet Discontinued 0.5 MG PO Daily at bedtime 30 30 0 May 07, 2024 2:51pm August 04, 2024 3:31pm Anxiety Anxiety disorder, unspecifiedStart: 01-15-2024 End: 78-03-3432ydgu 1 tablet by mouth once daily at bedtimeAlprazolam (Xanax) 0.25 mg tablet Discontinued 0.25 MG PO Daily at bedtime 30 30 January 15, 2024 1:49pm January 29, 2024 4:26pm Anxiety disorder Anxiety disorder, unspecified Start: 52-40-3988xefm 1 tablet by mouth once at bedtime as neededXanax 0.25 MG 1 tablet Orally q HS prn for 28 days Nov, ActiveStart: 36-68-9593Acbsa 0.25 MG 1 tablet Orally q8-12 hrs prn for 7 days Sep, Activeamoxicillin 875 mg / clavulanate 125 mg oral tablet (3 sources)Penicillin-class AntibacterialStart: 16-66-9292orko 1 tablet by mouth twice daily at mealtimeAmoxicillin-Pot Clavulanate 875-125 MG 1 tablet Orally two times a day with food for 10 day(s) Feb, Ccoucq75 hr buPROPion hydrochloride 300 mg extended release oral tablet (2 sources)AminoketoneStart: 48-06-8407peyw 1 tablet by mouth every twenty-four hoursWellbutrin XL 300 MG 1 tablet in the morning Orally Once a day for 90 days May, ActiveStart: 10-92-1117qldd 1 tablet by mouth every twenty-four hoursWellbutrin XL 150 MG 1 tablet in the morning Orally Once a day for 30 day(s) May, Activecetirizine hydrochloride 10 mg oral tablet (20 sources)Histamine-1 Receptor AntagonistStart: 57-69-1129lmyj 1 tablet by mouth once dailycetirizine 10 mg Tab 10 mg = 1 tab(s), Oral, Daily, Refills(s) 0 Start Date: 09/02/25 Status: Ordered Repeat number: 1Start: 01-29-2024 End: 12-25-1725tegd 1 tablet by mouth once dailyCetirizine 10 mg tablet Active 10 MG PO Daily October 27, 2024 5:01pm Complies with drug therapytake 1 tablet by mouth once daily as neededCetirizine HCl 10 MG TAKE 1 TABLET BY MOUTH EVERY DAY prn Not-Taking/PRNibuprofen 800 mg oral tablet (20 sources)Nonsteroidal Anti-inflammatory DrugStart: 96-99-9804Zqfpioqxe Active 0 .ROUTE .COMPLEX 60 August 04, 2024 3:32pm TAKE 1 TABLET BY MOUTH EVERY 8 TO12 HOURS NEEDED WITH FOODStart: 03-10-2024 End: 19-83-8388Dkmzfbecl 800 mg tablet Discontinued 0 .ROUTE .COMPLEX 60 0 August 04, 2024 3:32pm October 27, 2024 5:03pm TAKE 1 TABLET BY MOUTH EVERY 8 TO 12 HOURS NEEDED WITH FOODStart: 03-10-2024 End: 88-37-6044Cykiujibf Discontinued 0 .ROUTE .COMPLEX 60 March 10, 2024 2:53pm August 04, 2024 3:33pm TAKE 1 TABLET BY MOUTH EVERY 8 TO 12 HOURS NEEDED WITH FOODStart: 89-92-9482Sdmxxudyq Active 0 .ROUTE .COMPLEX 60 March 10, 2024 2:53pm TAKE 1 TABLET BY MOUTH EVERY 8 TO 12 HOURS NEEDED WITH FOOD Start: 06-26-2023 End: 59-63-2920Iptsmvucq 800 mg tablet Active 800 MG PO .COMPLEX October 27, 2024 5:02pm 800 mg orally TAKE 1 TABLET BY MOUTH EVERY 8 TO 12 HOURS NEEDED WITH FOOD; Complies with drug therapytake 1 tablet by mouth at mealtime as neededIbuprofen 800 MG TAKE 1 TABLET BY MOUTH EVERY 8 TO 12 HOURS WITH FOOD NEEDED for 20 ActivemetFORMIN hydrochloride 500 mg oral tablet (20 sources)BiguanideStart: 29-04-2989zatt 2 tablets by mouth once daily in the morning, then take 1 tablet by mouth once daily in the eveningmetformin 500 mg ER Tab 2 po QAM and 1 po QPM, Refills(s) 0 Start Date: 09/02/25 Status: Ordered Repeat number: 1Start: 08-04-2024 End: 13-98-7275ovvo 2 tablets by mouth every twenty-four hours in the morning, then take 1 tablet by mouth in the eveningMetformin 500 mg tablet extended release 24 hr Active 0 PO .COMPLEX 270 90 3 August 04, 2024 3:39pm take 2 (500 MG) tablets in the AM orally and take 1 (500 MG) tablet in the evening Complies with drug therapyStart: 05-31-2023 End: 65-54-2370igic 2 tablets by mouth once daily in the morning, then take 1 tablet by mouth once daily in the eveningmetFORMIN XR (Glucophage-XR) 500 MG 24 hr tablet TAKE 2 TABLETS BY MOUTH EVERY MORNING AND 1 EVERY EVENING 05/31/2023 ActiveOzempic, 2 MG/DOSE, 8 MG/3ML solution pen-injector (3 sources)Start: 88-08-5510enftjg 2 mg by subcutaneous injection every week Ozempic, 2 MG/DOSE, 8 MG/3ML solution pen-injector INJECT 2MG SUBCUTANEOUSLY ONCE A WEEK 07/04/2025tiveSemaglutide (7 sources)Start: 91-00-4246eepigt 2 mg by subcutaneous injection every week Semaglutide (Ozempic) 2 mg/dose (8 mg/3 mL) pen injector Active 2 MG SUBCUT every week 3 2 July 29, 2025 7:37am Complies with drug therapyStart: 05-11-2025 End: 62-88-4171torabf 2 mg by subcutaneous injection every weekSemaglutide (Ozempic) 2 mg/dose (8 mg/3 mL) pen injector Discontinued 2 MG SUBCUT every week 3 2 May 11, 2025 8:37am July 29, 2025 7:37amStart: 31-31-5696lakzmb 2 mg by subcutaneous injection every weekSemaglutide (Ozempic) 2 mg/dose (8 mg/3 mL) pen injector Active 2 MG SUBCUT every week 3 April 8:37am Complies with drug therapyStart: 02-18-2025 End: 86-27-1163ptxbgj 2 mg by subcutaneous injection every weekSemaglutide (Ozempic) 2 mg/dose (8 mg/3 mL) pen injector Discontinued 2 MG SUBCUT every week 3 2 February 18, 2025 12:00am May 11, 2025 8:38amStart: 02-18-2025 End: 90-33-0926mzntto 2 mg by subcutaneous injection every weekSemaglutide (Ozempic) 2 mg/dose (8 mg/3 mL) pen injector Discontinued 2 MG SUBCUT every week 3 February 18, 2025 12:00am May 11, 2025 8:38amSemaglutide (Ozempic) 2 mg/dose (8 mg/3 mL) pen injector (1 source)Start: 10-77-5540brpbib 2 mg by subcutaneous injection every week Semaglutide (Ozempic) 2 mg/dose (8 mg/3 mL) pen injector Active 2 MG SUBCUT every week 3 February 12:00amsertraline 100 mg oral tablet (20 sources)Serotonin Reuptake InhibitorStart: 26-02-7653bjse 1 tablet by mouth once dailyZoloft 100 mg Tab 100 mg = 1 tab(s), Oral, Daily, Refills(s) 0 Start Date: 08/19/25 Status: Ordered Repeat number: 1Start: 10-27-2024 End: 24-76-4708ghet 1 tablet by mouth once dailysertraline (Zoloft) 100 MG tablet Take 100 mg by mouth Daily 06/22/2025 ActiveStart: 08-04-2024 End: 20-35-2420qkfv 4 tablets by mouth once dailySertraline 25 mg tablet Discontinued 25 MG PO Daily 90 December 02, 2024 2:27pm May 20, 2025 3:17pm in addition to the 100 MG tablet (total 125 MG) dailyStart: 07-08-2024 End: 01-42-4223jpjt 1 tablet by mouth once dailySertraline 100 mg tablet Discontinued 0 .ROUTE .COMPLEX 90 1 August 04, 2024 3:29pm October 27, 2024 5:03pm TAKE 1 TABLET BY MOUTH EVERY DAY in addition to the 25 MG tablet (total of 125 MG) dailyStart: 01-29-2024 End: 10-27-9319njqt 1 tablet by mouth once dailySertraline 100 mg tablet Discontinued 100 MG PO Daily 90 January 29, 2024 4:38pm July 08, 2024 8:21amStart: 01-03-2024 End: 87-33-1211Ipghuygqlu 50 mg tablet Discontinued 0 .ROUTE .COMPLEX 135 1 January 03, 2024 10:13am January 29, 2024 4:26pm TAKE 1 AND 1/2 TABLETS EVERY DAYStart: 01-03-2024 End: 55-03-9935Vbumsyuqzm Discontinued 0 .ROUTE .COMPLEX 135 January 03, 2024 10:13am January 29, 2024 4:26pm TAKE 1 AND 1/2 TABLETS EVERY DAYStart: 01-03-2024 End: 67-84-2416sjri 1 tablet by mouth once dailySertraline 50 mg tablet Discontinued 0 PO Daily 135 0 January 03, 2024 10:11am January 03, 2024 10:13am take 1 & 1/2 of a 50 MG tablet orally daily; FreeTextSig: take 1 and 1/2 tablet by mouth once a day; Note: Source Status: Increase; Refills: 1; Provider: Dyllan Fioretart: 76-04-4300csxj 0.5 tablet by mouth once daily, then take 1 tablet by mouth once dailyZoloft 25 MG 1/2 tablet qd x6 days and then take 1 tablet Orally Once a day for 30 days Sep, ActiveSertraline HCl 50 MG take 1 and 1/2 tablet by mouth once a day for 30 days Active terbinafine 250 mg oral tablet (1 source)Allylamine AntifungalStart: 47-58-6395qrgp 1 tablet by mouth every twenty-four hoursTerbinafine HCl 250 MG 1 tablet Orally Once a day for 15 days Jun, Active Completed/Discontinued Medications MedicationDrug Class(es)DatesSig (Normalized)Sig (Original)empagliflozin 10 mg oral tablet (20 sources)Sodium-Glucose Cotransporter 2 InhibitorStart: 01-29-2024 End: 14-89-4605vjvy 1 tablet by mouth once dailyEmpagliflozin (Jardiance) 10 mg tablet Discontinued 10 MG PO Daily 30 January 29, 2024 4:37pm August 05, 2024 12:53pmfluconazole 150 mg oral tablet (5 sources)Azole AntifungalStart: 10-01-2024 End: 75-74-6730wvee 1 tablet by mouth once daily, then take 1 tablet by mouth every weekFluconazole 150 mg tablet Discontinued 150 MG PO Daily 13 October 01, 2024 1:00am October 27, 2024 4:56pm 150mg PO once daily for 10 days, followed by 150mg once weekly,3 ml liraglutide 6 mg/ml pen injector (20 sources)GLP-1 Receptor AgonistStart: 07-23-2023 End: 17-87-4332fsvwuj 1.8 mg by subcutaneous injection once dailyLiraglutide 0.6 mg/0.1 mL (18 mg/3 mL) pen injector Discontinued 0 .ROUTE .COMPLEX 9 August 04, 2024 3:35pm October 27, 2024 5:14pm INJECT 1.8 MG UNDER THE SKIN ONCE DAILYinject 1.2 mg by subcutaneous injection once dailyVictoza 18 MG/3ML ADMINISTER 1.2 MG UNDER THE SKIN EVERY DAY for 30 ActivepredniSONE 20 mg oral tablet (6 sources)Start: 06-20-2024 End: 34-53-6614inoz 3 tablets by mouth once daily at mealtime, then take 2 tablets by mouth once daily, then take 1 tablet by mouth once daily at mealtime Prednisone 20 mg tablet Discontinued 0 PO .with food or milk 18 9 0 June 20, 2024 12:00am August 04, 2024 3:01pm take 3 tablets a day x3 days, 2 tabs a day x3 days and then 1 tab a day x3 days orally WITH FOOD OR MILK; DO NOT TAKE ANY MOTRIN, ADVIL, ALEVE or IBUPROFEN (NSAID MEDICATION) WHILE ON PREDNISONE Semaglutide (10 sources)Start: 12-02-2024 End: 53-40-6988ujwckg 1 mg by subcutaneous injection every weekSemaglutide (Ozempic) 1 mg/dose (4 mg/3 mL) pen injector Discontinued 1 MG SUBCUT every week 3 2 December 02, 2024 2:24pm February 18, 2025 3:58pmStart: 12-02-2024 End: 49-04-3402lelceo 1 mg by subcutaneous injection every weekSemaglutide (Ozempic) 1 mg/dose (4 mg/3 mL) pen injector Discontinued 1 MG SUBCUT every week 3 December 02, 2024 2:24pm February 18, 2025 3:58pmStart: 85-19-9544ccewsa 1 mg by subcutaneous injection every weekSemaglutide (Ozempic) 1 mg/dose (4 mg/3 mL) pen injector Active 1 MG SUBCUT every week 3 December 02, 2024 1:24pmStart: 12-02-2024 End: 56-29-3682ofrczp 1 mg by subcutaneous injection every weekSemaglutide (Ozempic) 1 mg/dose (4 mg/3 mL) pen injector Discontinued 1 MG SUBCUT every week 3 2 December 02, 2024 1:00am December 02, 2024 2:24pmStart: 12-02-2024 End: 27-93-0317wldanj 1 mg by subcutaneous injection every weekSemaglutide (Ozempic) 1 mg/dose (4 mg/3 mL) pen injector Discontinued 1 MG SUBCUT every week 3 December 02, 2024 1:00am December 02, 2024 2:24pmStart: 12-02-2024 End: 29-61-2279yvflou 1 mg by subcutaneous injection every weekSemaglutide (Ozempic) 1 mg/dose (4 mg/3 mL) pen injector Discontinued 1 MG SUBCUT every week 3 December 02, 2024 12:00am December 02, 2024 1:24pmSemaglutide (5 sources)Start: 10-27-2024 End: 78-15-1054Ainumjmjvpn (Ozempic) 0.25 mg or 0.5 mg (2 mg/3 mL) pen injector Discontinued 0.5 MG SUBCUT every week 3 October 27, 2024 1:00am December 02, 2024 1:49pm for 4 weeksStart: 10-27-2024 End: 47-78-4914Xugbqdmcpai (Ozempic) 0.25 mg or 0.5 mg (2 mg/3 mL) pen injector Discontinued 0.5 MG SUBCUT every week 3 October 27, 2024 1:00am December 02, 2024 1:49pm for 4 weeksStart: 10-27-2024 End: 99-16-4797Dxxlbksajfi (Ozempic) 0.25 mg or 0.5 mg (2 mg/3 mL) pen injector Discontinued 0.5 MG SUBCUT every week 3 October 27, 2024 12:00am December 02, 2024 12:49pm for 4 weeksTriamcinolone (20 sources)CorticosteroidStart: 86-66-5110Pwhpoqy -40 mg Jan, 60 mg Start: 72-30-4277KIEQYTI - 10 mg Jul, 40 mg Problems Active Problems Problem ClassificationProblemDateDocumented DateEpisodic/ChronicAllergic reactions (2 sources)Urticaria; Translations: [Urticaria, unspecified]64-63-6791Jgmcrwcs Anxiety disorders (20 sources)Anxiety; Translations: [Anxiety disorder, unspecified]Chronic Diabetes mellitus with complications (20 sources)Type II diabetes mellitus uncontrolled; Translations: [Type 2 diabetes mellitus with hyperglycemia]Onset: 05-23-2022 Resolved: 85-26-6966RiiriqfIswmghpt mellitus without complication (20 sources)Type 2 diabetes mellitus; Translations: [Type 2 diabetes mellitus without complications]Onset: 33-75-4009PasryxhNsvttbuw mellitus without complication (13 sources)Hyperglycemia; Translations: [Hyperglycemia, unspecified]Episodic Disorders of lipid metabolism (20 sources)Hyperlipidemia; Translations: [Hyperlipidemia, unspecified]Onset: 05-23-2022 Resolved: 85-25-1718GicgwbdHkonw and electrolyte disorders (9 sources)Hypokalemia; Translations: [Hypokalemia]08-04-9636Hyybfgug Genitourinary symptoms and ill-defined conditions (6 sources)Urinary incontinence; Translations: [Unspecified urinary incontinence]56-14-6629HjsmbhcRghydquhwgrbn symptoms and ill-defined conditions (3 sources)Frequency of micturition; Translations: [Proteinuria, unspecified] Onset: 05-23-2022 Resolved: 73-14-6384NuwiswxmDriyfzc and fatigue (1 source)Other fatigueEpisodicMood disorders (17 sources)Depressive disorder; Translations: [Major depressive disorder, single episode, unspecified]ChronicMycoses (1 source)Tinea pedisEpisodicNonspecific chest pain (9 sources)Chest pain; Translations: [Chest pain, unspecified]31-23-0423Egagfthf Other aftercare (13 sources)Long-term current use of drug therapy; Translations: [Other jail (current) drug therapy]EpisodicOther aftercare (4 sources)Other terminal makeup operator (current) drug therapy; Translations: [OTH BIOMEDICAL ENGINEERING PROFESSOR CURRENT DRUG THERAPY]Onset: 05-23-2022 Resolved: 59-88-2204PsrvshpmLjptc liver diseases (13 sources)Elevated liver enzymes level; Translations: [Abnormal levels of other serum enzymes]EpisodicOther liver diseases (2 sources)Alkaline phosphatase raised; Translations: [Abnormal levels of other serum enzymes]44-28-2783XakpgulyAbiaq nervous system disorders (13 sources)Skin sensation disturbance; Translations: [Paresthesia of skin] EpisodicOther nervous system disorders (13 sources)Paresthesia of upper limb; Translations: [Paresthesia of skin] EpisodicOther nutritional; endocrine; and metabolic disorders (3 sources)Abnormal weight loss; Translations: [Loss of weight]Onset: 05-23-2022 Resolved: 11-54-2886NevuvainTeazm nutritional; endocrine; and metabolic disorders (1 source)Abnormal weight gainEpisodicOther nutritional; endocrine; and metabolic disorders (4 sources)Weight loss; Translations: [Abnormal weight loss]05-23-7278Csftomjo Other nutritional; endocrine; and metabolic disorders (4 sources)Weight decreased; Translations: [Abnormal weight loss]01-29-2024 EpisodicOther nutritional; endocrine; and metabolic disorders (1 source)Qekknynclz34-47-4806NuldxnmzAfsal nutritional; endocrine; and metabolic disorders (1 source)Overweight in adulthood with body mass index of 25 or more but less than 2890-95-9593NeehbdioDpuky screening for suspected conditions (not mental disorders or infectious disease) (20 sources)Mammography abnormal; Translations: [Other abnormal and inconclusive findings on diagnostic imagingof breast]Onset: 89-04-9412EvofhvceTqzen skin disorders (1 source)Other seborrheic keratosisEpisodicOther upper respiratory disease (13 sources)Allergic rhinitis; Translations: [Allergic rhinitis, unspecified] ChronicOther upper respiratory disease (1 source)Allergic rhinitis, unspecifiedOnset: 05-23-2022 Resolved: 58-71-4412ElflccfSnuvebco codes; unclassified (13 sources)Insomnia; Translations: [Insomnia, unspecified]EpisodicResidual codes; unclassified (1 source)Tobacco dslb20-03-0566YnyisdlcSfmzdiwqh-fagvbpc disorders (20 sources)Nicotine dependence; Translations: [Nicotine dependence, unspecified, uncomplicated]Onset: 05-23-2022 Resolved: 81-25-0942RmnagqrIlpfcqgcimld (3 sources)CONTACT W/AND (SUSP) EXPOS COVID-19; Translations: [CONTACT W/AND (SUSP) EXPOS COVID-19]Onset: 11-84-9155Xskkqxtmdukv (1 source)Patient encounter fakcuh12-76-3641Egpni infection (1 source)Molluscum contagiosumEpisodicViral infection (5 sources)COVID-19; Translations: [COVID-19]Onset: 10-23-2022 Past or Other Problems Problem ClassificationProblemDateDocumented DateEpisodic/ChronicAbdominal pain (3 sources)Left lower quadrant pain; Translations: [LEFT LOWER QUADRANT PAIN] Onset: 97-52-7248TkmrqfcqPwwzoprqogqzl and screening for infectious disease (1 source)Encounter for screening for human papillomavirus (HPV); Translations: [ENC SCREENING HUMAN PAPILLOMAVIRUS]Onset: 73-15-2708GrvaqpexUrdczqgsrzeg breast conditions (1 source)Unspecified lump in the left breast, upper outer quadrant; Translations: [UNS LUMP IN LT BREAST UPROUTR QUAD]Onset: 62-31-6402SlgryfrlUrxne aftercare (1 source)[facility] (current) use 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 drugs; Translations: [[facility] USE ORAL HYPOGLYCEMIC DX]Onset: 09-11-7103HntnssjxJeeyu circulatory disease (3 sources)Other specified symptoms and signs involving the circulatory and respiratory systems; Translations:[OTH SPEC SX SIGNS INVLV CIRC RS]Onset: 06-20-2022 Resolved: 24-43-3749GgwwftjsRqtiud media and related conditions (1 source)Otitis media, unspecified, left earOnset: 06-20-2022 Resolved: 46-49-8149JhahjmdsRevbnfyr codes; unclassified (2 sources)Pain, unspecified; Translations: [PAIN UNSPECIFIED]Onset: 06-20-2022 Resolved: 47-73-2125KeahogfnZmoyholzx and history of mental health and substance abuse codes (1 source)Personal history of nicotine dependence; Translations: [PERSONAL HISTORY OF NICOTINE DEPEND]Onset: 25-99-1525MzekytmyIthcndpyripq (1 source)Cough R05.9Unclassified (1 source)CONTACT W/AND (SUSP) EXPOS COVID-19; Translations: [CONTACT W/AND (SUSP) EXPOS COVID-19]Onset: 30-00-4895Vmlvbid tract infections (1 source)Urinary tract infection, site not specified; Translations: [UTI SITE NOT SPECIFIED]Onset: 49-63-7771Gvejstdz Results Test NameValueInterpretationReference RangeFacilityAmbulatory Visit Summaryon 16-98-9837Dexfddhizn Visit SummaryAmbulatory Visit Summary DEBBY DURBIN :1980 Visit Date:09/02/2025 Ambulatory Visit Instructions Your Care Team Attending Physician - Miguel GERMAN MD Primary Care Physician - Aileen Castellanos DO Referring Physician - Moiz MENDIOLA DO This Is Your Medications List Contact prescribing physician if questions or concerns alprazolam (alprazolam 0.5 mg Tab) cetirizine (cetirizine 10 mg Tab) metformin (metformin 500 mg ER Tab) semaglutide (semaglutide 8 mg/3 mL (2 mg dose) subcutaneous solution (Ozempic)) sertraline (Zoloft 100 mg Tab) Procedures Performed section, Tonsillectomy and adenoidectomy. Discharge Vitals Heart Rate (Peripheral) 72 Respiratory Rate 16 Blood Pressure 122/76 Height 175.2 cm Height 69 in Weight 83.3 kg Weight 183.645 lb BMI 27.14 Medications What How Much When Instructions Unchanged alprazolam (alprazolam 0.5 mg Tab) 1 Tablets By Mouth At bedtime as needed for for anxiety Contact prescribing physician if questions or concerns Unchanged cetirizine (cetirizine 10 mg Tab) 1 Tablets By Mouth Every day Contact prescribing physician if questions or concerns Unchanged metformin (metformin 500 mg ER Tab) 2 po QAM and 1 po QPM Contact prescribing physician if questions or concerns Unchanged semaglutide (semaglutide 8 mg/ 3 mL (2 mg dose) subcutaneous solution (Ozempic)) 2 Milligram Subcutaneous Every week Contact prescribing physician if questions or concerns Unchanged sertraline (Zoloft 100 mg Tab) 1 Tablets By Mouth Every day Contact prescribing physicianif questions or concerns Allergies acetaminophen (Hives) Problems Ongoing - Any problem that you are currently receiving treatment for. Anxiety BMI 27.0-27.9,adult Depressive disorder Hyperlipidemia Overweight Type 2 diabetes mellitus Patient Survey You may receive a survey via text or e-mail asking about your office visit. Please share your experience with us by completing your survey. We appreciate your feedback and thank you for choosing us for your care. Patient Portal You may access all of your results and other medical record information on our secure patient portal. If you are not signed up for this yet, please contact [employer] Information Management at [phone] to get signed up today. Language Information Language assistance services are available as needed. NormalFulton County Health CenterLaboratory - Hematology and Cell countson 12-76-4940LvG7b (Bld) [Mass fraction]6.7 %[facility] Medical CenterIGP,APTIMA HPV,AGE GDLNon 34-05-9539PSW GDLN ACOG TESTINGNote.NOMS HealthcareComment on above:TESTS RESULT FLAG UNITS REF RANGE LAB Clinician Provided Cytology Information Source.............Cervix;Endocervix No. of containers..01 ThinPrep Vial Age Jermaine NELA Prisca... 29 FLAG LEGEND: L-Low Normal,H-High Normal,LL-Alert Low,HH-Alert High <-Panic Low,>-Panic High,A-Abnormal,AA-Critical Abnormal Performed at: 01 =[address] [place] [address] Jacey Holm MD, HPV APTIMANegativeNegativeNOMS HealthcareComment on above:This nucleic acid amplification test detects fourteen high- risk HPV types (16,18,31,33,35,39,45,51,52,56,58,59,66,68) without differentiation. Performed at: =[address] [id number] Hospice Entrance Attendant: Jacey Holm MD, Phone: [phone] Performed at: [address] [id number] Hospice Entrance Attendant: Jacey Holm MD, Phone: [phone] IGP, APTIMA HPV, RFX 16/18,45Note.NOMS HealthcareComment on above:TESTS RESULT FLAG UNITS REF RANGE LAB DIAGNOSIS: 02 NEGATIVE FOR INTRAEPITHELIAL LESION OR MALIGNANCY. PREDOMINANCE OF COCCOBACILLI CONSISTENT WITH SHIFT IN VAGINAL NNEKA IS PRESENT. Specimen adequacy: 02 Satisfactory for evaluation. Endocervical and/or squamous metaplastic cells (endocervical component) are present. Performed by: 02 Fouzia Eddy Postal Delivery Officer (ASCP) . 02 Note: Note 02 The Pap smear is a screening test designed to aid in the detection of premalignant and malignant conditions of the uterine cervix. It is not a diagnostic procedure and should not be used as the sole means of detecting cervical cancer. Both false-positive and false-negative reports do occur. Test Methodology: Note 02 This liquid based ThinPrep(R) pap test was screened with the use of an image guided system. HPV Genotype Reflex Note 02 Criteria not met, HPV Genotype not performed. FLAG LEGEND: L-Low Normal,H-High Normal,LL-Alert Low,HH-Alert High <-Panic Low,>-Panic High,A-Abnormal,AA-Critical Abnormal Performed at: [address] [address] Jacey Holm MD, BRUSH-SPATULA CERVIX ENDOCERVIX CLINISYNCNOMS [facility] papilloma virus 16+18+31+33+35+39+45+51+52+56+58+59+66+68 DNA [Presence] in CerOrdered By: Moiz Mendiola on 40-89-1940ZME 16+18+31+33+35+39+45+51+52+56+58+59+66+68 DNA Probe+sig amp Ql (Cvx)NegativeNegativeCoshocton Regional Medical CenterComment on above: This nucleic acid amplification test detects fourteen high-risk HPV types (16,18,31,33,35,39,45,51,52,56,58,59,66,68)without differentiation.Performed at: =G - [facility] [address] [place], [place] [id number] Director: Jacey Holm MD, Phone: [phone] at: WB - [facility] [address] [place], [place] [id number] Director: Jacey Holm MD, Phone: [phone] Panel InformationOrdered By: Moiz Mendiola on 77-93-0960OYB High Risk Other CommentNote.[facility] CenterComment on above:TESTS RESULT FLAG UNITS REF RANGE LAB DIAGNOSIS: 02 NEGATIVE FOR INTRAEPITHELIAL LESION OR MALIGNANCY. PREDOMINANCE OF COCCOBACILLI CONSISTENT WITH SHIFT IN VAGINAL NNEKA IS PRESENT.Specimen adequacy: 02 Satisfactory for evaluation. Endocervical and/or squamous metaplastic cells (endocervical component) are present.Performed by: Vikas Marie Postal Delivery Officer (ASCP). 02Note: Note 02 The Pap smear is a screening test designed to aid in the detection of premalignant and malignant conditions of the uterine cervix. It is not a diagnostic procedure and should not be used as the sole means of detecting cervical cancer. Both false-positive and false-negative reports do occur.Test Methodology: Note 02 This liquid based ThinPrep(R) pap testwas screened with the use of an image guided system.HPV Genotype Reflex Note 02 Criteria not met, HPV Genotype not performed. FLAG LEGEND: L-Low Normal,H-High Normal,LL-Alert Low,HH-Alert High <-Panic Low,>- Panic High,A-Abnormal,AA-Critical Abnormal Performed at:02 [address] [facility] [address] [place] [address] Jacey Holm MD, Tvnnrfmyz Lab Test Patient [facility] CenterComment on above:TESTS RESULT FLAG UNITS REF RANGE LAB Clinician Provided Cytology Information Source.............Cervix;Endocervix No. of containers..01 ThinPrep VialAge Tainao CARRIOG Prisca... FLAG LEGEND: L-Low Normal,H-High Normal,LL-Alert Low,HH-Alert High <-Panic Low,>-Panic High,A- Abnormal,AA-Critical Abnormal Performed a t:01 =G [facility] [address] [facility] [place] [address] Jacey Holm MD, Wtd 12-11-2024 Specimen: [id number] Received: 12/11/24 Status: WHITLEY Estrada Num: [id number] Spec Type: Surgical Subm Dr: Moiz Mendiola Tissues: A BREAST CORE NO CALCS (LEFT BREAST 7 OCLOCK) Procedures: HE/4, Gross/Micro L4 Age/ Patient Sex Location Account Attending Physician Debyb Durbin 44/F [facility] [id number] Moiz Mendiola SPEC NUM: [id number] RECD: 12/11/24 STATUS: WHITLEY ESTRADAQ NUM: [id number] SELVIN: 12/11/24 [facility] [address]: Moiz Mendiola ENTERED: 12/11/[address]: Brig[place],Lab Jonathan Guido MD SPEC TYPE: Surgical DEPT: EVA GUALLPA ENTERED BY: [id number] RECV BY: [id number] ORDERED: HE/4, Gross/Micro L4 ORDERED: HE/4, Gross/Micro [...] [id number] Received: 12/11/24 Status: WHITLEY Rees Num: [id number] Spec Type: Surgical Subm Dr: Moiz Mendiola Tissues: A BREAST CORE NO CALCS (LEFT BREAST 7 OCLOCK) Procedures: HE/Isaiah, Gross/Micro L4 Patient: Debby Durbin [id number] (Continued) Specimen: [id number] Received: 12/11/24 (Continued) Gross Description (Continued) Signed (signature on file) Ryan Morse MD 12/12/24 1512 Specimen: [id number] Received: 12/11/24 Status: WHITLEY Rees Num: [id number] Spec Type: Surgical Subm Dr: Moiz Mendiola Tissues: A BREAST CORE NO CALCS (LEFT BREAST 7 OCLOCK) Procedures: Blu CERVANTES/Aileen L4 Patient: Debby Durbin [id number] (Continued) Specimen: [id number] Received: 01/30/25-1304 (Continued) Gross Description (Continued) Time specimen placed in formalin: 0906 Cold ischemic time: 1 minute Total fixation time: 8 hours and 30 minutes (2, arvind, BS25-) CARROLL Microscopic Description Microscopic examinations are performed supporting the above interpretation CPT Codes 41710 Specimen: [id number] Received: 12/11/24 Status: WHITLEY Rees Num: [id number] Spec Type: Surgical Subm Dr: Moiz Mendiola Tissues: A BREAST CORE NO CALCS (LEFT BREAST 7 OCLOCK) Procedures: Blu CERVANTES/Micro L4 Patient: Debby Durbin [id number] (Continued) Signed (signature on file) Ryan Morse MD 12/12/[address] [place] [address] Physician GroupMM POST BIOPSY LTon 86-03-8904Kmz [address] [address] Mammography Report Signed Patient: DEBBY DURBIN MR#: [id number] : 1980 Acct:[id number] Age/Sex: 44 / F ADM Date: 12/11/24 Loc: US Attending Dr: Moiz Mendiola D.O. Ordering Physician: Moiz Mendiola D.O. Results: Date of Service: 12/11/24 Follow Up: Procedure(s): MM post biopsy LT Accession Number(s): [id number] cc: Moiz Mendiola D.O.; AILEEN CASTELLANOS Patient Name: DEBBY DURBIN MR#: [id number] : 1980 Exam Date: 12/11/2024 Ordering Doctor: DR Moiz Mendiola . RADIOLOGY REPORT PROCEDURE: MM POST [...] Expected post biopsy appearance. RECOMMENDATIONS: Dictated by: Jonathan Guido M.D. on 12/11/2024 at 15:29 Approved by: Jonathan Guido M.D. on 12/11/2024 at 15:30 Dictated By: Jonathan Guido M.D. Signed By: 12/11/24 1532 DD/ 1531 TD/TT: Mounter:TBHRadiology, Radiologist, - 12/11/2024 [place] [address] Mammography Report Signed Patient: DEBBY DURBIN MR#: [id number] : 1980 Acct:[id number] Age/Sex: 44 / F ADM Date: 12/11/24 Loc: US Attending Dr: Moiz Mendiola D.O. Ordering Physician: Moiz Mendiola D.O. Results: Date of Service: 12/11/24 Follow Up: Procedure(s): MM post biopsy LT Accession Number(s): [id number] cc: Moiz Mendiola D.O.; AILEEN CASTELLANOS Patient Name: DEBBY DURBIN MR#: [id number] : 1980 Exam Date: 12/11/2024 Ordering Doctor: DR Moiz Mendiola . RADIOLOGY REPORT PROCEDURE: MM POST [...] Expected post biopsy appearance. RECOMMENDATIONS: Dictated by: Jonathan Guido M.D. on 12/11/2024 at 15:29 Approved by: Jonathan Guido M.D. on 12/11/2024 at 15:30 Dictated By: Jonathan Guido M.D. Signed By: 12/11/24 1532 DD/ 1531 TD/TT: Mounter: NOMS HealthcareRadiology Study observation (narrative)NOMS HealthcareMM POST BIOPSY LTOrdered By: Radiologist Radiology on 94-21-1766RGLM Healthcare Work Phone: US GUIDED BREAST BIOPSY LTon 85-90-6531[place] [address] Ultrasound Report Signed Patient: DEBBY DURBIN MR#: [id number] : 1980 Acct:[id number] Age/Sex: 44 / F ADM Date: 12/11/24 Loc: US Attending Dr: Moiz Mendiola D.O. Ordering Physician: Moiz Mendiola D.O. Date of Service: 12/11/24 Procedure(s): US breast vac bx w/ clip LT Accession Number(s): [id number] cc: Moiz Mendiola D.O.; AILEEN CASTELLANOS [place] [address] Patient Name: DEBBY DURBIN MRN: [id number] date: 1980 Sex: F Assigned Patient Location: US Current Patient Location: Accession/Order Number: [id number] Exam Date: 12/11/2024 08:05 Report Date: 12/11/2024 14:52 At the request of: MOIZ MENDIOLA Procedure: US breast vac bx w/ [...] pathology results are available. Electronically authenticated by: JONATHAN GUIDO Date: 12/11/2024 14:52 Dictated By: Jonathan Guido M.D. Signed By: 12/11/24 1454 DD/ 1452 TD/TT: Mounter:TBHRadiology, Radiologist, - 12/11/2024 [place] [address] Ultrasound Report Signed Patient: DEBBY DURBIN MR#: [id number] : 1980 Acct:[id number] Age/Sex: 44 / F ADM Date: 12/11/24 Loc: US Attending Dr: Moiz Mendiola D.O. Ordering Physician: Moiz Mendiola D.O. Date of Service: 12/11/24 Procedure(s): US breast vac bx w/ clip LT Accession Number(s): [id number] cc: Moiz Mendiola D.O.; AILEEN CASTELLANOS [place] [address] Patient Name: DEBBY DURBIN MRN: [id number] date: 1980 Sex: F Assigned Patient Location: US Current Patient Location: Accession/Order Number: [id number] Exam Date: 12/11/2024 08:05 Report Date: 12/11/2024 14:52 At the request of: MOIZ MENDIOLA Procedure: US breast vac bx w/ [...] pathology results are available. Electronically authenticated by: JONATHAN GUIDO Date: 12/11/2024 14:52 Dictated By: Jonathan Guido M.D. Signed By: 12/11/24 1454 DD/ 1452 TD/TT: Mounter: MITA FountainRadiology Study observation (narrative)NOMS HealthcareUS GUIDED BREAST BIOPSY LTOrdered By: Radiologist Radiology on 10-14-1268ASPD [employer] Work Phone: US BREAST LT LIMITEDon [phone] [address] Ultrasound Report Signed Patient: DEBBY DURBIN MR#: [id number] : 1980 Acct:[id number] Age/Sex: 44 / F ADM Date: 12/02/24 Loc: US Attending Dr: Moiz Mendiola D.O. Ordering Physician: Moiz Mendiola D.O. Date of Service: 12/02/24 Procedure(s): US breast LT limited Accession Number(s): [id number] cc: Moiz Mendiola D.O.; AILEEN CASTELLANOS Patient Name: DEBBY DURBIN MR#: [id number] : 1980 Exam Date: 12/02/2024 Ordering Doctor: DR Moiz Mendiola . RADIOLOGY REPORT PROCEDURE: US BREAST LT LIMITED COMPARISON: MM TOMOSYNTHESIS SCREENING BI, 11/14/2024. INDICATIONS: Abnormal Mammogram with Macrocalcifications TECHNIQUE: Breast ultrasound was performed, with evaluation focusing only on specific areas of concern. FINDINGS: DIAGNOSTIC CATEGORY 4--SUSPICIOUS FOR MALIGNANCY. FINDING DOES NOT EXHIBIT CLASSIC FINDINGS OF BREAST CANCER: LEFT BREAST: Complex lobular mostly cystic, but partially solid lesion within the lower-inner quadrant, 7 o'clock position, 2.6 cm from the nipple, 1.4 x 1.0 x 1.0 cm in size. No appreciable internal blood flow on color Doppler. Given its new appearance and lobular complex nature, ultrasound-guided tissue sampling is recommended. RECOMMENDATIONS: ULTRASOUND-GUIDED CORE BIOPSY: LEFT BREAST PLEASE NOTE: A NORMAL ULTRASOUND EXAMINATION DOES NOT EXCLUDE THE POSSIBILITY OF BREAST CANCER. A CLINICALLY SUSPICIOUS PALPABLE LUMP SHOULD BE BIOPSIED. Dictated by: Jonathan Guido M.D. on 12/03/2024 at 16:14 Approved by: Jonathan Guido M.D. on 12/03/2024 at 16:18 Dictated By: Jonathan Guido M.D. Signed By: 12/03/24 1619 DD/DT: [id number] TD/TT: Mounter:FRANTZHRadiology, Radiologist, - 12/03/2024 [place] [address] Ultrasound Report Signed Patient: DEBBY DURBIN MR#: [id number] : 1980 Acct:[id number] Age/Sex: 44 / F ADM Date: 12/02/24 Loc: US Attending Dr: Moiz Mendiola D.O. Ordering Physician: Moiz Mendiola D.O. Date of Service: 12/02/24 Procedure(s): US breast LT limited Accession Number(s): [id number] cc: Moiz Mendiola D.O.; AILEEN CASTELLANOS Patient Name: DEBBY DUBRIN MR#: [id number] : 1980 Exam Date: 12/02/2024 Ordering Doctor: DR Moiz Mendiola . RADIOLOGY REPORT PROCEDURE: US BREAST LT LIMITED COMPARISON: MM TOMOSYNTHESIS SCREENING BI, 11/14/2024. INDICATIONS: Abnormal Mammogram with Macrocalcifications TECHNIQUE: Breast ultrasound was performed, with evaluation focusing only on specific areas of concern. FINDINGS: DIAGNOSTIC CATEGORY 4--SUSPICIOUS FOR MALIGNANCY. FINDING DOES NOT EXHIBIT CLASSIC FINDINGS OF BREAST CANCER: LEFT BREAST: Complex lobular mostly cystic, but partially solid lesion within the lower-inner quadrant, 7 o'clock position, 2.6 cm from the nipple, 1.4 x 1.0 x 1.0 cm in size. No appreciable internal blood flow on color Doppler. Given its new appearance and lobular complex nature, ultrasound-guided tissue sampling is recommended. RECOMMENDATIONS: ULTRASOUND-GUIDED CORE BIOPSY: LEFT BREAST PLEASE NOTE: A NORMAL ULTRASOUND EXAMINATION DOES NOT EXCLUDE THE POSSIBILITY OF BREAST CANCER. A CLINICALLY SUSPICIOUS PALPABLE LUMP SHOULD BE BIOPSIED. Dictated by: Jonathan Guido M.D. on 12/03/2024 at 16:14 Approved by: Jonathan Guido M.D. on 12/03/2024 at 16:18 Dictated By: Jonathan Guido M.D. Signed By: 12/03/24 1619 DD/ 17 TD/TT: Mounter: MITA HealthcareRadiology Study observation (narrative)MITA HealthcareUS BREAST LT LIMITEDOrdered By: Radiologist Radiology on 28-03-3369LQGD [employer] Work Phone: mm TOMOSYNTHESIS SCREENING BIon 91-89-1259[place] [address] Mammography Report Signed Patient: DEBBY DURBIN MR#: [id number] : 1980 Acct:[id number] Age/Sex: 44 / F ADM Date: 11/14/24 Loc: MAMMO Attending Dr: Moiz Mendiola D.O. Ordering Physician: Moiz Mendiola D.O. Results: Date of Service: 11/14/24 Follow Up: Procedure(s): MM tomosynthesis screening BI Accession Number(s): [id number] cc: Moiz Mendiola D.O.; AILEEN CASTELLANOS Patient Name: DEBBY DURBIN MR#: [id number] : 1980 Exam Date: 11/14/2024 Ordering Doctor: DR Moiz Mendiola . RADIOLOGY REPORT PROCEDURE: MM TOMOSYNTHESIS SCREENING BI COMPARISON: MG MAMM DIAGNOSTIC 3D OTTONIEL CAD, 06/02/2022. MM TOMOSYNTHESIS SCREENING BI, 09/18/2023. INDICATIONS: Screening Calculator Name NCI Breast Cancer Risk Assessment Tool 5 Year Breast Cancer Risk 1.80% Lifetime Breast Cancer Risk 12.30% Personal Breast Cancer No Personal Ovarian Cancer No Treatments None Family Cancers None LOCATION: [facility] BREAST COMPOSITION: The breasts are [...] MD on 11/14/2024 at 12:41 Dictated By: Ailene Guerrero M.D. Signed By: 11/14/24 1242 DD/ 1241 TD/TT: Mounter:TBHRadiology, RadiologistMD - 11/14/2024 [place] [address] Mammography Report Signed Patient: DEBBY DURBIN MR#: [id number] : 1980 Acct:[id number] Age/Sex: 44 / F ADM Date: 11/14/24 Loc: MAMMO Attending Dr: Moiz Mendiola D.O. Ordering Physician: Moiz Mendiola D.O. Results: Date of Service: 11/14/24 Follow Up: Procedure(s): MM tomosynthesis screening BI Accession Number(s): [id number] cc: Moiz Mendiola D.O.; AILEEN CASTELLANOS Patient Name: DEBBY DURBIN MR#: [id number] : 1980 Exam Date: 11/14/2024 Ordering Doctor: DR Moiz Mendiola . RADIOLOGY REPORT PROCEDURE: MM TOMOSYNTHESIS SCREENING BI COMPARISON: MG MAMM DIAGNOSTIC 3D OTTONIEL CAD, 06/02/2022. MM TOMOSYNTHESIS SCREENING BI, 09/18/2023. INDICATIONS: Screening Calculator Name NCI Breast Cancer Risk Assessment Tool 5 Year Breast Cancer Risk 1.80% Lifetime Breast Cancer Risk 12.30% Personal Breast Cancer No Personal Ovarian Cancer No Treatments None Family Cancers None LOCATION: [facility] BREAST COMPOSITION: The breasts are [...] 12:41 Dictated By: Aileen Guerrero M.D. Signed By: 11/14/24 1242 DD/ 1241 TD/TT: Mounter: MITA [facility] HospitalRadiology Study observation (narrative)MITA [facility] TOMOSYNTHESIS SCREENING BIOrdered By: Radiologist Radiology on 92-17-0757HYKR [employer] Work Phone: Laboratory - Hematology and Cell countson 07-28-2024 HbA1c (Bld) [Mass fraction]7.1 %[facility] Medical CenterBasophils Auto (Bld) [#/Vol]on 88-41-5217Oahgnnvln (Bld) [#/Vol]0.1 10 3/uL0.0-0.1FCleveland Clinic Akron General Lodi HospitalBasophils/100 WBC Auto (Bld)on 17-26-1873Btcbogaks/100 WBC (Bld)0.6 %0.2-2.0[facility] CenterCholesterol in LDL Calc [Mass/Vol]on 53-48-1392Byablxkjolb in LDL [Mass/Vol]123.0 mg/dLCoshocton Regional Medical CenterComment on above:<100 mg/dl ITILCYM613-813 mg/dl NEAR OR ABOVE NURCRFD549-759 mg/dl BORDERLINE OXHJ444-127 mg/dl HIGH>190 mg/dl VERY HIGH Cholesterol in VLDL Calc [Mass/Vol]on 52-45-8682Ofoiazyhate in VLDL [Mass/Vol] 28.2 mg/dLCoshocton Regional Medical CenterEosinophils/100 WBC Auto (Bld)on 13-22-8814Yhasrhvdkcg/100 WBC (Bld)1.1 %0.9-7.0[facility] Erythrocyte distribution width Auto (RBC) [Ratio]on 65-93-0914Xwxgohbjejv distribution width (RBC) [Ratio]12.8 %11.0-15.0[facility] Estimated glomerular filtration rate (GFR) non- Americanon 01-17-2024 GFR/1.73 sq M.predicted among non-blacks MDRD (S/P/Bld) [Vol rate/Area] mL/min/{1.73_m2}>=60[facility] Medical CenterFibrin D-dimer [Presence] in Platelet poor plasma by Latex agglutinationon 87-39-4544Wfzaqg D-dimer LA Ql (PPP)0.49 mg/L FEU<=0.59[facility] CenterComment on above: Increases in D-Dimer concentration observed withthromboembolic events can be variable due to localization,size, and age of the thrombus. Therefore, a thromboembolicevent cannot be diagnosed with certainty on the basis of thereference range. D-Dimers may also be elevated for a varietyof disorders inc luding advanced age, , coronarydisease, cancer, liver disease, infection, inflammation,hematoma, DIC, trauma, post-surgery, diabetes, thrombolyticor anticoagulant therapy, stress, and generalizedhospitalization. Globulin Calc (S) [Mass/Vol]on 46-87-0383Qsnssyfm (S) [Mass/Vol]3.8 g/dL [facility] CenterGlucose mean value [Mass/volume] in Blood Estimated from glycated hemoglobinon 22-53-4817Kmyoyeq glucose Estimated from glycated hemoglobin (Bld) [Mass/Vol]151 mg/dLCoshocton Regional Medical Center Hematocrit Auto (Bld) [Volume fraction]on 97-58-0806Fgektuewvj (Bld) [Volume fraction]43.7 %36.0-48.0[facility] CenterHemoglobin [Mass/volume] in Bloodon 62-32-3085Oroirgkzhu (Bld) [Mass/Vol]14.4 g/dL12.0-16.0 [facility] CenterLaboratory - Chemistry and Chemistry - challengeon 76-68-9638Rzpaevg [Mass/Vol]4.0 g/dL3.4-5.0[facility] CenterALP [Catalytic activity/Vol]112 U/M95-399WdxkqfkasCoshocton Regional Medical CenterALT [Catalytic activity/Vol]31 U/E77-37SfnweuvfzCoshocton Regional Medical CenterAST [Catalytic activity/Vol]12 U/H43-19ZgkqakbdgCoshocton Regional Medical Center Bilirubin [Mass/Vol]0.2 mg/dL0.2-1.0[facility] CenterCalcium [Mass/Vol]9.1 mg/dL8.5-10.1FCleveland Clinic [facility] Lodi HospitalChloride [Moles/Vol] 103 mmol/E28-839UvyllkqngCoshocton Regional Medical CenterCholesterol [Mass/Vol]206 mg/dL <=200[facility] CenterCholesterol in HDL [Mass/Vol]55 mg/dL40-60 [facility] CenterComment on above:> or =60 mg/dl - LOW CARDIOVASCULAR RISK<40 mg/dl - HIGH CARDIOVASCULAR RISKCO2 [Moles/Vol]26.7 mmol/L21.0-32.0[facility] CenterCreatinine [Mass/Vol]0.90 mg/dL 0.55-1.02[facility] CenterGFR/1.73 sq M.predicted MDRD (S/P/Bld) [Vol rate/Area]mL/min/{1.73_m2}>=60[facility] CenterGlucose [Mass/Vol]235 mg/kI20-298GttjleiwlCoshocton Regional Medical CenterPotassium [Moles/Vol] 3.3 mmol/L3.5-5.1FC[facility] HospitalProtein [Mass/Vol]7.8 g/dL 6.4-8.2FParkview Healthodium [Moles/Vol]133 mmol/W030-854 [facility] CenterTriglyceride [Mass/Vol]141 mg/dL<=150[facility] CenterTSH Qn1.763 m[IU]/L0.358-3.740[facility] Medical CenterUrea nitrogen [Mass/Vol]9.0 mg/dL7.0-18.0[facility] Urea nitrogen/Creatinine [Mass ratio]10.0 mg/mgCoshocton Regional Medical Center Laboratory - Hematology and Cell countson 26-16-1102DvJ6b (Bld) [Mass fraction] 6.9 %4.5-6.2FCleveland Clinic Akron General Lodi HospitalComment on above:ADA RECOMMENDED LIMIT 4.0 - 6.0ADA THERAPEUTIC TARGET < 7.0ACTION SUGGESTED> 7.0Immature granulocytes/100 WBC (Bld)0.4 %0.0-0.5FC[facility] Leukocytes [#/volume] corrected for nucleated erythrocytes in Blood by Automated counon 06-47-2250IHM corrected for nucl RBC Auto (Bld) [#/Vol]10.0 10 3/uL 4.0-11.0[facility] CenterLymphocytes Auto (Bld) [#/Vol]on 94-72-9780Wlnmqeewoly (Bld) [#/Vol]3.7 10 3/uL1.2-3.8[facility] CenterLymphocytes/100 WBC Auto (Bld)on 02-45-3822Jkxsbyudfxf/100 WBC (Bld)37.0 % 20.5-60.0[facility] HospitalH Auto (RBC) [Entitic mass]on 33-29-2362TMV (RBC) [Entitic mass]30.4 pg26.7-34.0[facility] HospitalHC Auto (RBC) [Mass/Vol]on 49-43-7906NTFY (RBC) [Mass/Vol]33.0 g/dL 29.9-35.2FC[facility] Lodi HospitalMCV Auto (RBC) [Entitic vol]on 86-64-9489VJU (RBC) [Entitic vol]92.2 fL81.0-99.0[facility] CenterMonocytes Auto (Bld) [#/Vol]on 35-76-7855Alziezkmm (Bld) [#/Vol]0.7 10 3/uL0.3-0.8[facility] CenterMonocytes/100 WBC Auto (Bld)on 35-44-4008Ziwqgevkf/100 WBC (Bld)7.1 %1.7-12.0[facility] Neutrophils Auto (Bld) [#/Vol]on 83-15-8532Uluuqtrkgcn (Bld) [#/Vol]5.4 10 3/uL 1.4-6.5FCleveland Clinic [facility]odi HospitalNeutrophils/100 WBC Auto (Bld)on 21-85-6759Tzpbuoishux/100 WBC (Bld)53.8 %43.0-75.0[facility] CenterNo Panel Informationon 72-00-2180Ifjzaborlox # (Auto)0.1 10 3/uL0.0-0.7 [facility] CenterImmature Granulocyte # (Auto)0.04 10 3/uL 0.00-0.03[facility] CenterTroponin I High Sensitivity<4.0 pg/mL 4.0-51.3FCleveland Clinic Akron General Lodi HospitalComment on above:CUT-OFF POINTS HAVE BEEN ESTABLISHED BASED ON THE FOURTHUNIVERSAL DEFINITION OF MYOCARDIAL INFARCTIO N. THE UPPERREFERENCE LIMIT (URL) OF TROPONIN, DEFINED THE 99THPERCENTILE OF cTnI DISTRIBUTION IN A REFERENCE POPULATION,HAS BEEN CONFIRMED THE DECISION THRESHOLD FOR MIDIAGNOSIS.99TH PERCENTILE = 51.4 PG/MLNOTE: HIGH-SENSITIVITY TROPONIN ASSAY IS NOT INTENDED TO BEUSED IN ISOLATION BUT SHOULD BE INTERPRETED IN CONJUNCTIONWITH OTHER DIAGNOSTIC AND CLINICAL INFORMATION.Platelet mean volume Auto (Bld) [Entitic vol]on 93-09-1285Bfdwynwa mean volume (Bld) [Entitic vol]11.6 fL9.5-13.5FCleveland Clinic Akron [facility] Lodi HospitalPlatelets Auto (Bld) [#/Vol] on 00-63-8554Aieuvtbao (Bld) [#/Vol]197 10 3/fF335-403YwfbnsumrCoshocton Regional Medical CenterRBC Auto (Bld) [#/Vol]on 41-24-5803FXN (Bld) [#/Vol]4.74 10 6/uL4.20-5.40 [facility] Foundationerum or plasma albumin/globulin mass ratioon 27-56-4936Nfzvyxi/Globulin [Mass ratio]1.1 {ratio}[facility] Foundationerum or plasma anion gap determinationon 60-74-5685Svjno gap [Moles/Vol] 6.6 mmol/LFParkview Healtherum or plasma total cholesterol/high density lipoprotein (HDL) cholesterol mass erick 01-17-2024 Cholesterol.total/Cholesterol in HDL [Mass ratio]3.7 {ratio}[facility] CenterComment on above:3.3 - 4.4 LOW RISK4.4 - 7.1 AVERAGE RISK7.1 - 11.0 MODERATE RISK>11.0 HIGH RISKCytology Cervical or vaginal smear or scraping studyon 95-57-9657UUQJ HealthcareCULTURE URINEon 67-99-7746RNCTMBZ URINEIsolate 1 Escherichia coli 50,000 cfu/mL of ORGANISM [...] >=8 R F Nitrofurantoin <=16 S F Trimethoprim/Sulfamethoxazole <=20 S FNormalThe [facility] Children'S Hospital Medical CenterComment on above:Performed By: #### URCX #### [facility] [address] [place] [address] Dr. Sheldon Parrish AUTO DIFFon [id number] #0.0 103/ulNormal0.0-0.1The [facility] Hospital Medical CenterComment on above:Performed By: #### CBC #### [facility] [address] [place] [address] Dr. Sheldon Saleemsophils/100 WBC (Bld)0.4 %Normal0.2-2.0[facility] Comment on above:Performed By: #### CBC #### [facility] [address] [place] [address] Dr. Sheldon Ravi #0.1 103/ulNormal0.0-0.7The [facility] Medical CenterComment on above: Performed By: #### CBC #### [facility] [address] [place] [address] Dr. Sheldon Gossosinophils/100 WBC (Bld)0.5 %Critically low0.9-7.0The [facility] Medical CenterComment on above:Performed By: #### CBC #### [facility] [address] [place] [address] Dr. Sheldon Gossrythrocyte distribution width (RBC) [Ratio]12.2 %Qgyqvk03.0-15.0 [facility] HospitalComment on above:Performed By: #### CBC #### [facility] [address] [place] [address] Dr. Sheldon MorseHematocrit (Bld) [Volume fraction]37.5 %Ljqrhc21.0-48.0The [facility] Medical CenterComment on above:Performed By: #### CBC #### [facility] [address] [place] [address] Dr. Sheldon MorseHemoglobin (Bld) [Mass/Vol]13.9 g/xZLfmdey27.0-16.0The [facility] Medical CenterComment on above:Performed By: #### CBC #### [facility] [address] [address] [address] Sheldon Lowe #0.06 10e3/ulCritically high0.00-0.03The [facility] Comment on above:Performed By: #### CBC #### [facility] [address] [place] [address] Dr. Sheldon Lowe %0.5 %Normal0.0-0.5The [facility] Medical CenterComment on above: Performed By: #### CBC #### [facility] [address] [place] [address] Dr. Sheldon Malcolm #2.4 103/ulNormal1.2-3.8The [facility] Medical CenterComment on above:Performed By: #### CBC #### [facility] [address] [place] [address] Dr. Sheldon Cardosohocytes/100 WBC (Bld)21.3 %Cexqvp80.5-60.0The [facility] Medical CenterComment on above:Performed By: #### CBC #### [facility] [address] [place] [address] Dr. Sheldon BurgessUAL DIFF REQNONormalThe [facility] Hospital Medical CenterComment on above: Performed By: #### CBC #### [facility] [address] [place] [address] Dr. Sheldon Em (RBC) [Entitic mass]30.3 pbHlizhz98.7-34.0The [facility] Medical CenterComment on above:Performed By: #### CBC #### [facility] [address] [place] [address] Dr. Sheldon KeithHC (RBC) [Mass/Vol]37.1 g/dLCritically high29.9-35.2The [facility] Medical CenterComment on above:Performed By: #### CBC #### [facility] [address] [place] [address] Dr. Sheldon KeithV (RBC) [Entitic vol]81.9 wGXufcui85.0-99.0The [facility] Medical CenterComment on above:Performed By: #### CBC #### [facility] [address] [place] [address] Dr. Sheldon Carreno #0.7 103/ulNormal0.3-0.8The [facility] Medical CenterComment on above:Performed By: #### CBC #### [facility] [address] [place] [address] Dr. Sheldon Stocytes/100 WBC (Bld)6.3 %Normal1.7-12.0[facility] Comment on above:Performed By: #### CBC #### [facility] [address] [place] [address] Dr. Sheldon Beyer #7.8 103/ulCritically high1.4-6.5The [facility] Comment on above:Performed By: #### CBC #### [facility] [address] [place] [address] Dr. Sheldon Maresutrophils/100 WBC (Bld)71.0 %Vijdsd59.0-75.0The [facility] Medical CenterComment on above:Performed By: #### CBC #### [facility] [address] [place] [address] Dr. Sheldon Alexislet mean volume (Bld) [Entitic vol]9.8 fLNormal9.5-13.5The [facility] Medical CenterComment on above:Performed By: #### CBC #### [facility] [address] [place] [address] Dr. Sheldon ChesterT184 103/meXkdmzw504-489Nzd [facility] Medical CenterComment on above: Performed By: #### CBC #### [facility] [address] [place] [address] Dr. Sheldon MorseRBC4.58 106/ulNormal4.20-5.40The [facility] Medical CenterComment on above:Performed By: #### CBC #### [facility] [address] [address] [address] Sheldon MorseWBC11.0 103/ulNormal4.0-11.0The [facility] Medical CenterComment on above:Performed By: #### CBC #### [facility] [address] [address] [address] Sheldon MorseCT ABD/PELVIS WO CONon [id number] ABD/PELVIS WO CONINDICATION: CALCULUS OF KIDNEY urinary retention x's 1 [...] is not observed. Electronically authenticated by: MIGUEL LEEEN Date: 2022-12-01 17:08[facility] URINE PROFILEon 51-12-0117Nmfjimbnb Ql (U)NegativeNormal NEGATIVECleveland Clinic Lutheran HospitalComment on above:Performed By: #### ERUR, PREGU, UMICRO #### [facility] [address] [address] [address] Sheldon Sierra (U) CLOUDYAbnormalCLEARThUniversity Hospitals Geauga Medical CenterComment on above:Performed By: #### ERUR, PREGU, UMICRO #### [facility] [address] [address] [address] Sheldon Lew (U)LT. YELLOWNormalYELLOWCleveland Clinic Lutheran HospitalComment on above:Performed By: #### ERUR, PREGU, UMICRO #### [facility] [address] [address] [address] Sheldon Reed micrscopic examination will be performed if indicated. NormalCleveland Clinic Lutheran HospitalComment on above:Performed By: #### ERUR, PREGU, UMICRO #### [facility] [address] [address] [address] Sheldon MorseGlucose Ql (U)NegativeNormalNEGATIVECleveland Clinic Lutheran HospitalComment on above:Performed By: #### ERUR, PREGU, UMICRO #### [facility] [address] [address] [address] Sheldon MorseHemoglobin Ql (U)LARGEAbnormalNEGATIVECleveland Clinic Lutheran Hospital Comment on above:Performed By: #### ERUR, PREGU, UMICRO #### [facility] [address] [address] [address] Sheldon MorseKetones Ql (U)NegativeNormalNEGATIVEThe [facility] Medical CenterComment on above:Performed By: #### ERUR, PREGU, UMICRO #### [facility] [address] [place] [address] Dr. Sheldon MorseLEUKOCYTESLARGEAbnormalNEGATIVEThe [facility] Medical CenterComment on above:Performed By: #### ERUR, PREGU, UMICRO #### [facility] [address] [place] [address] Dr. Sheldon Yanite Ql (U)NegativeNormalNEGATIVEThe [facility] HospitalComment on above:Performed By: #### ERUR, PREGU, UMICRO #### [facility] [address] [place] [address] Dr. Sheldon MorsepH (U)6.0 [pH]Normal5-9The [facility] Medical CenterComment on above: Performed By: #### ERUR, PREGU, UMICRO #### [facility] [address] [place] [address] Dr. Sheldon MorseProtein (U) [Mass/Vol]30 mg/dLAbnormalNEGATIVE/ TRACEThe [place] HospitalComment on above:Performed By: #### ERUR, PREGU, UMICRO #### [facility] [address] [place] [address] Dr. Sheldon MorseSPEC GRAVITY1.871Xpinkm6.005-<=1.025The [facility] Medical CenterComment on above:Performed By: #### ERUR, PREGU, UMICRO #### [facility] [address] [place] [address] Dr. Sheldon MorseUR MICRO INDINDICATEDNormalThe [facility] Hospital Medical CenterComment on above: Performed By: #### ERUR, PREGU, UMICRO #### [facility] [address] [place] [address] Dr. Sheldon Verma Qn (U)0.2 {José'U}/dLNormal0.2 - 1.0The [facility] Medical CenterComment on above:Performed By: #### ERUR, PREGU, UMICRO #### [facility] [address] [place] [address] Dr. Sheldon MorseLIPASEon 60-86-0972Lkqqgq [Catalytic activity/Vol]64.0 U/L Critically low73.0-393.0The [facility] Medical CenterComment on above:Performed By: #### ERUR, PREGU, UMICRO #### [facility] [address] [place] [address] Dr. Sheldon MorsePREGNANCY URon 03-49-1117VPZNQKJTX, QUALNegativeNormalNEGATIVEThe [facility] Medical CenterComment on above:Performed By: #### ERUR, PREGU, UMICRO #### [facility] [address] [place] [address] Dr. Sheldon MorsePROZachray 14(COMP METB)on 48-40-2064Jejxeln [Mass/Vol]4.2 g/dLNormal 3.4-5.0The [facility] Medical CenterComment on above:Performed By: #### CMP, LIPA #### [facility] [address] [place] [address] Dr. Sheldon MorseAlbumin/Globulin [Mass ratio]1.3 {ratio}NormalThe [facility] Medical CenterComment on above:Performed By: #### CMP, LIPA #### [facility] [address] [place] [address] Dr. Sheldon Montes [Catalytic activity/Vol]74 U/PUemwir28-868Txu [facility] CenterComment on above:Performed By: #### CMP, LIPA #### [facility] [address] [place] [address] Dr. Sheldon Tao [Catalytic activity/Vol]39 U/CVosded18-71Jfw [facility] CenterComment on above:Performed By: #### CMP, LIPA #### [facility] [address] [place] [address] Dr. Sheldon Stiles gap [Moles/Vol]13.9 mmol/LNormalThe [facility] Comment on above:Performed By: #### CMP, LIPA #### [facility] [address] [place] [address] Dr. Sheldon MorseAST [Catalytic activity/Vol]20 U/PKgljzy51-25Tjg [facility] CenterComment on above:Performed By: #### CMP, LIPA #### [facility] [address] [address] [address] Sheldon MorseBilirubin [Mass/Vol]0.5 mg/dLNormal0.2-1.0[facility] Comment on above:Performed By: #### CMP, LIPA #### [facility] [address] [place] [address] Dr. Sheldon MorseCalcium [Mass/Vol]9.1 mg/dLNormal8.5-10.1The [facility] Comment on above:Performed By: #### CMP, LIPA #### [facility] [address] [place] [address] Dr. Sheldon MorseChloride [Moles/Vol]102 mmol/UUyrogk85-876Qlw [facility] Comment on above:Performed By: #### CMP, LIPA #### [facility] [address] [place] [address] Dr. Sheldon MorseCO2 [Moles/Vol]26.1 mmol/PXgqryl01.0-32.0The [facility] Comment on above:Performed By: #### CMP, LIPA #### [facility] [address] [place] [address] Dr. Sheldon MorseCreatinine [Mass/Vol]0.72 mg/dLNormal0.55-1.02The [facility] CenterComment on above:Performed By: #### CMP, LIPA #### [facility] [address] [place] [address] Dr. Chung ChangEGFR-AF FINNISH>60Normal>=60The [facility] Medical CenterComment on above:Performed By: #### CMP, LIPA #### [facility] [address] [place] [address] Dr. Sheldon GossGFR-NON AF FINNISH>60Normal>=60The [facility] CenterComment on above:Performed By: #### CMP, LIPA #### [facility] [address] [address] [address] Sheldon MorseGlobulin (S) [Mass/Vol]3.2 g/dLNormMercy Health St. Anne HospitalComment on above:Performed By: #### CMP, LIPA #### [facility] [address] [address] [address] Sheldon MorseGlucose [Mass/Vol]126 mg/dLCritically ihic56-196Blx [facility] CenterComment on above:Performed By: #### CMP, LIPA #### [facility] [address] [address] [address] Sheldon MorsePotassium [Moles/Vol]4.0 mmol/LNormal3.5-5.1The [facility] Comment on above:Performed By: #### CMP, LIPA #### [facility] [address] [address] [address] Sheldon MorseProtein [Mass/Vol]7.4 g/dLNormal6.4-8.2The [facility] Comment on above:Performed By: #### CMP, LIPA #### [facility] [address] [address] [address] Sheldon MorseSodium [Moles/Vol]138 mmol/PCiiveo153-267Tkq [facility] Comment on above:Performed By: #### CMP, LIPA #### [facility] [address] [address] [address] Sheldon MorseUrea nitrogen [Mass/Vol]11.0 mg/dLNormal7.0-18.0The [facility] CenterComment on above:Performed By: #### CMP, LIPA #### [facility] [address] [place] [address] Dr. Sheldon MorseUrea nitrogen/Creatinine [Mass ratio]15.3 mg/mgNoKettering Health Greene MemorialComment on above:Performed By: #### CMP, LIPA #### [facility] [address] [address] [address] Sheldon MorseURINE MICROSCOPIC ONLYon 53-91-3052OPYUWMIBGBLFNCwfxijfsUCWV SEEN The Brigido HospitalComment on above:Performed By: #### ERUR, PREGU, UMICRO #### [facility] [address] [address] [address] Sheldon Cruz identified Cx Nom (U)INDICATEDCorey Hospitalment on above:Performed By: #### ERUR, PREGU, UMICRO #### [facility] [address] [address] [address] Sheldon Butcher SEENNormalNONE SEENFayette County Memorial Hospital on above:Performed By: #### ERUR, PREGU, UMICRO #### [facility] [address] [address] [address] Sheldon Oliva LM Nom (Urine sed)NONE SEENNormalNONE SEENFayette County Memorial Hospital on above:Performed By: #### ERUR, PREGU, UMICRO #### [facility] [address] [place] [address] Dr. Chung ChangEpithelial cells LM Ql (Urine sed)NONE SEENNormalNONE SEEN /RARE The [facility] CenterComformerly [facility] on above:Performed By: #### ERUR, PREGU, UMICRO #### [facility] [address] [place] [address] Dr. Sheldon Ace SEENChristian HospitalE SEENFayette County Memorial Hospital on above:Performed By: #### ERUR, PREGU, UMICRO #### [facility] [address] [place] [address] Dr. Sheldon AlegriaRqmrdFNX4-7Lwnopw0-3Fmy [facility] on above:Performed By: #### ERUR, PREGU, UMICRO #### [facility] [address] [place] [address] Dr. Sheldon MorseAhfltUUH01-903OnscdxmkURIY SEENFayette County Memorial Hospital on above: Performed By: #### ERUR, PREGU, UMICRO #### [facility] [address] [place] [address] Dr. Sheldon Alstno-19 PCR (CVDTBH)on 85-29-1329LNGZ-CoV-2 (COVID-19) RNA BRIGID+probe Ql (Unsp spec)DetectedCritically abnormalNOT DETECTEDThe [facility] Medical CenterComment on above:Result Comment: This test is not yet approved or cleared by the [place] FDA. When there are no FDA-approved or cleared tests available, and other criteria are met, FDA can make tests available under an emergency access mechanism called an Emergency Use Authorization (EUA). The EUA for this test is supported by the Software Quality Assurance Analyst of Health and Human Service's (HHS's) declaration [...] longer be used). Performed By: #### YAMILA TIJERINA UMICRO #### [facility] [address] [place] [address] Dr. Sheldon MorsePARubin ACOG PANEL 2: 30 to 65on 08-24-2022..NormalThe [facility] Medical CenterComment on above:Result Comment: Performed at: WBPerformed By: #### YAIMLA TIJERINA UMICRO #### [facility] [address] [place] [address] Dr. Sheldon Dyer Gdln ACOG Osstumg42-37VztfbaLhoMercy Health St. Anne HospitalComment on above:Performed By: #### BREEZY PREGAl UMICRO #### [facility] [address] [place] [address] Dr. Sheldon MorseDIAGNOSIS:CommentOhio State Harding HospitalComformerly [facility] on above: Result Comment: NEGATIVE FOR INTRAEPITHELIAL LESION OR MALIGNANCY. REACTIVE CELLULAR CHANGES AND/OR REPAIR ARE PRESENT. Performed at: WBPerformed By: #### ERUR PREGU UMICRO #### [facility] [address] [place] [address] Dr. Chung ChangElectronically signed by:[facility] Comment on above:Result Comment: Jacey Holm MD, Pathologist Performed at: WBPerformed By: #### ERUR, PREGU, UMICRO #### [facility] [address] [place] [address] Dr. Sheldon MorseHPV AptimaNegativeNormalNegativeThe [facility] on above:Result Comment: This nucleic acid amplification test detects fourteen high-risk HPV types (16,18,31,33,35,39,45,51,52,56,58,59,66,68) without differentiation. Performed at: =GPerformed By: #### ERUR, PREGU, UMICRO #### [facility] [address] [place] [address] Dr. Sheldno MorseMethodology:CommentNoMiami Valley Hospital on above: Result Comment: This liquid based ThinPrep(R) pap test was screened with the use of an image guided system. Performed at: WBPerformed By: #### ERUR, PREGU, UMICRO #### [facility] [address] [place] [address] Dr. Sheldon MorseNote:CommentWilson Health on above:Result Comment: The Pap smear is a screening test designed to aid in the detection of premalignant and malignant conditions of the uterine cervix. It is not a diagnostic procedure and should not be used as the sole means of detecting cervical cancer. Both false-positive and false-negative reports do occur. . Performed at: WBPerformed By: #### ERUR, PREGU, UMICRO #### [facility] [address] [place] [address] Dr. Sheldon MorsePerformed by:CommentNoMiami Valley Hospital on above: Result Comment: Corinna Stoll, Button Cutter (ASCP) Performed at: WBPerformed By: #### ERUR, PREGU, UMICRO #### [facility] [address] [place] [address] Dr. Sheldon MorseSpecimen adequacy:CommentWilson Health on above:Result Comment: Satisfactory for evaluation. Endocervical and/or squamous metaplastic cells (endocervical component) are present. Performed at: WBPerformed By: #### ERURYAMILA UMICRO #### [facility] [address] [id number] Sheldon MorseCovid-19 PCR ([facility])on 01-50-2345JPIV-CoV-2 (COVID-19) RNA BRIGID+probe Ql (Unsp spec)Not detectedNormalNOT DETECTEDThe [facility] Comment on above:Result Comment: This test is not yet approved or cleared by the [place] FDA. When there are no FDA-approved or cleared tests available, and other criteria are met, FDA can make tests available under an emergency access mechanism called an Emergency Use Authorization (EUA). The EUA for this test is supported by the Software Quality Assurance Analyst of Health and Human Service's (HHS's) declaration that circumstances exist to justify the emergency use of in vitro diagnostics for the detection and/or diagnosis of the virus that causes COVID- 19. This EUA will remain in effect (meaning [...] of clinical signs and symptoms consistent with SARS-CoV-2.Performed By: #### [facility] #### [facility] [address] [place], [place] [address] Dr. Sheldon Morse [facility] DIAGNOSTIC 3D [place] CADon [id number] [facility]AGNO[facility] 3D [place]IEL CADPatient: DEBBY DURBINDimitry Exam Date: 06/02/2022 : 1980 Gender:F Ordering : DR MOIZ MENDIOLA . Admission #: [id number] Family : Order #: [id number] CLICK HERE TO VIEW EXAM RADIOLOGY REPORT [...] Treatments None Family Cancers None LOCATION: [facility] BREAST COMPOSITION: Heterogeneously dense,which may [...] PALPABLE LUMP SHOULD BE BIOPSIED. Dictated by: Jonathan Guido M.D. on 06/02/2022 at 15:24 Approved by: Jonathan Guido M.D. on 06/02/2022 at 15:32[facility] Harding HospitalUS BREAST LEFT LIMITEDon 34-17-5974VY BREAST LEFT LIMITEDPatient: DEBBY DURBIN Exam Date: 06/02/2022 : 1980 Gender:F Ordering : DR MOIZ MENDIOLA . Admission #: [id number] Family : Order #: [id number] CLICK HERE TO VIEW EXAM RADIOLOGY REPORT [...] Treatments None Family Cancers None LOCATION: [facility] BREAST COMPOSITION: Heterogeneously dense,which may [...] PALPABLE LUMP SHOULD BE BIOPSIED. Dictated by: Jonathan Guido M.D. on 06/02/2022 at 15:24 Approved by: Jonathan Guido M.D. on 06/02/2022 at 15:32[facility] Harding HospitalCNOVon [id number] Visit (NSFRVW) DEBBY DURBIN ([id number]) 1980 F Date Time Provider Department 12/27/18 [...] 25 MG TABLET SA 1 pill QD [id number] TABLET as directed REVIEW OF SYSTEMS: PAIN [...] information obtained and documented by the physician yard assistant. I examined the patient and evaluated all available films and pertinent documents. We discussed the case and I agree with the plans as outlined in this note. SIGNATURE: Brittaney Christiansen MD PATIENT NAME: Debby Durbin DATE: December 27, 2018 TIME: 8:40 AM PAGER: Referring Provider: AILEEN CASTELLANOS [[id number]] Allergies As of Date: 12/27/2018 (No Known [...] Encounter Status:Closed by BRITTANEY CHRISTIANSEN MD on 12/27/18[facility] [id number] mass concHNO ID: [id number] Author: Brittaney Christiansen Service: (none) Author Type: [...] 25 MG TABLET SA 1 pill QD [id number] TABLET as directed REVIEW OF SYSTEMS: PAIN [...] She will call if symptoms return. Debby Bharat Durbin will continue with medical management of his/her condition. 1. No Orders Entered Today 2. Follow up: PRN I reviewed the information obtained and documented by the physician yard assistant. I examined the patient and evaluated all available films and pertinent documents. We discussed the case and I agree with the plans as outlined in this note. SIGNATURE: Brittaney Christiansen MD PATIENT NAME: Debby Durbin DATE: December 27, 2018 TIME: 8:40 AM PAGER:NormalUniversity Hospitals Ahuja Medical CenterPROGRESSon [id number] mass concHNO ID: [id number] Author: Aileen Torres (Vignesh) Noel Service: (none) Author Type: Physician Classified Advertising Clerk Type: Progress Notes Filed: 12/13/2018 3:39 PM Note Text: Pt can be scheduled first available with Dr. Christiansen. Cervical disc herniation with extrusion. Patient name: Debby Durbin Are you being referred by a [facility] Spine Health Provider or Pain Management Provider at [facility]? No If answer is YES please schedule [...] in Epic: No If not, please provide [phone] to fax in imaging reports for review. [...] surgery for this same symptoms? No Additional CommentsNormalCKing's Daughters [facility] [place]-MR cervical spine wo con IMPORTon 56-06-9070JI-MR cervical spine wo con IMPORTImages were obtained outside of [facility] [id number] Hospitals Ahuja Medical Center Vital Signs Date TimeVital SignValuePerforming EgnsftiylEtrmfidi65-47-3798 16:02-0400Body .26 cmDavimira Castellanos DO Work Phone: [phone]10-20-2025 16:02-0400 Body mass index (BMI) [Ratio]27 kg/c6Uwrkp Girana DO Work Phone: [phone]10-20-2025 16:02-0400 Body seappbdedym14.6 [degF]Aileen Castellanos DO Work Phone: [phone])[address]10-20-2025 16:02-0400 Body zumluy18 kgDavimira Jasmin DO Work Phone: [phone] [address]10-20-2025 16:02-0400 Diastolic blood ouztilbe97 mm[Hg]Aileen Castellanos DO Work Phone: [phone] [address]10-20-2025 16:02-0400 Heart rate71 /minDavimira Castellanos DO Work Phone: [phone] [address]10-20-2025 16:02-0400 SaO2% (BldA) [Mass fraction]97 %Aileen Castellanos DO Work Phone: [phone] [place], [place] 4803410-20-2025 16:02-0400 Systolic blood clwihqwx113 mm[Hg]Aileen Castellanos DO Work Phone: [phone] [address]09-15-2025 08:44-0400 Body ekkyun457.3 cmCoremiryam Marlena DO Work Phone: [facility] SpringsUdwqmnsudj33-77-2232 08:44-0400Body mass index (BMI) [Ratio]27.5 kg/l9Nwwws Marlena DO Work Phone: [facility] SpringsGeixvdwwgr12-96-0054 08:44-0400Body flnfug94.48 kgCorey Marlena DO Work Phone: [facility] SpringsBwfbnqzohn34-79-8733 08:44-0400Diastolic blood lzwaswnj16 mm[Hg]Moiz Slaughtero DO Work Phone: [facility] SpringsNudgfgbnfl31-07-3496 08:44-0400Systolic blood coxmybku729 mm[Hg]Moiz Slaughtero DO Work Phone: [facility] SpringsBufvrgwzxk04-67-8626 11:01-0400Body .26 cmDacaitlin Castellanos DO Work Phone: [phone]08-04-2025 11:01-0400 Body mass index (BMI) [Ratio]27.2 kg/t6Djmsl Jasmin DO Work Phone: [phone] [place], [place] 9820808-04-2025 11:01-0400 Body ooklnzokwdj22.2 [degF]Aileen Castellanos DO Work Phone: [phone] [place], [place] 9820808-04-2025 11:01-0400 Body fdvitm63.68 kgDajeronimomira Wilksana DO Work Phone: [phone] [place], [place] 9820808-04-2025 11:01-0400 Diastolic blood muuncvys32 mm[Hg]Aileen Castellanos DO Work Phone: [phone] [place], [place] 9820808-04-2025 11:01-0400 Heart rate71 /Clivemira Wilksana DO Work Phone: [phone] [place], [place] 9820808-04-2025 11:01-0400 Respiratory rate14 /Carley Wilksana DO Work Phone: [phone] [place], [place] 9820808-04-2025 11:01-0400 SaO2% (BldA) [Mass fraction]97 %Aileen Castellanos DO Work Phone: [phone] [place], [place] 9820808-04-2025 11:01-0400 Systolic blood cjwyomev373 mm[Hg]Aileen Castellanos DO Work Phone: [phone] [place], [place] 9820807-09-2025 15:19-0400 Body wtquhgugvrc86.6 [degF]Aileen Castellanos DO Work Phone: [facility]07-09-2025 15:19-0400 Body .36 kgDacaitlin Castellanos DO Work Phone: [facility]07-09-2025 15:19-0400 Diastolic blood rejqghyd08 mm[Hg]Aileen Castellanos DO Work Phone: [facility]07-09-2025 15:19-0400 Heart rate72 /minDavimira Castellanos DO Work Phone: [facility]07-09-2025 15:19-0400 SaO2% (BldA) [Mass fraction]95 %Aileen Castellanos DO Work Phone: [facility]07-09-2025 15:19-0400 Systolic blood utxsepnw543 mm[Hg]Aileen Castellanos DO Work Phone: [facility]09-23-2024 15:02-0400 Body mass index (BMI) [Ratio]27 kg/f9GevibaeogCoshocton Regional Medical Center09-23-2024 15:02-0400Body pkycyhypjyy65.1 [degF][facility] 08-04-2024 15:02-0400Diastolic blood igemdpnz87 mm[Hg][facility]09-23-2024 15:02-0400Heart rate90 /[facility] 08-04-2024 15:02-0400Respiratory rate16 /[facility] 08-04-2024 15:02-0400Systolic blood mwwydpzl670 mm[Hg][facility]09-23-2024 11:28-0400Body zajfqc841.26 cmCoshocton [facility] Center09-23-2024 11:28-0400Body ifglxs69 kgCoshocton [facility] Center 01-29-2024 15:43-0400Body gltlhy783.26 cmCos[facility] 01-29-2024 15:43-0400Body mass index (BMI) [Ratio]27.6 kg/g4RchyerztoCoshocton Regional Medical Center03-19-2024 15:43-0400Body fapbrubkxnh84.1 [degF][facility]03-19-2024 15:43-0400Body cnwgyv48.82 kgCoshocton [facility] Center03-19-2024 15:43-0400Diastolic blood agmduiqd66 mm[Hg][facility]03-19-2024 15:43-0400Heart rate81 /[facility]03-19-2024 15:43-0400Respiratory rate18 /[facility]03-19-2024 15:43-6785DcH1% (BldA) [Mass fraction]94 %[facility]03-19-2024 15:43-0400Systolic blood rgbitkey731 mm[Hg] [facility]08-15-2023 15:40-0400Body pmmzxo555.26 cmAileen Castellanos Other [employer] Other 041275-46-2823 15:40-0400Body mass index (BMI) [Ratio] 28.79 kg/f8DepiqAileen Castellanos Other [employer] Other 08-15-2023 15:40-0400Body tyiilrgvfzi01.7 [degF]Aileen Castellanos Other [employer] Other 08-15-2023 15:40-0400Body zzveeh35.45 kgAileen Castellanos Other [employer] Other 08-15-2023 15:40-0400Diastolic blood vesaymfb43 mm[Hg] Aileen Castellanos Other [employer] Other 08-15-2023 15:40-0400Respiratory rate18 /Carley Castellanos Other [employer] Other 08-15-2023 15:40-7715RqN1% (BldA) [Mass fraction]97 % Aileen Castellanos Other [employer] Other 661411-98-4731 15:40-0400Systolic blood tiidsnoa532 mm[Hg] Aileen Castellanos Other [employer] Other 01-11-2023 16:40-0500Body wtager944.26 cmDacaitlin Castellanos Other [employer] Other 936801-15-7259 16:40-0500Body mass index (BMI) [Ratio] 27.17 kg/i5Jefkgcaitlin Castellanos Other [employer] Other 154147-44-0736 16:40-0500Body giwjlvcewek43.3 [degF]Aileen Castellanos Other [employer] Other 159776-82-3917 16:40-0500Body tgrfas66.46 kgDacaitlin Castellanos Other [employer] Other 673605-85-9295 16:40-0500Diastolic blood cznvvemn39 mm[Hg] Aileen Castellanos Other [employer] Other 187636-26-3025 16:40-0500Respiratory rate18 /minDavimira Castellanos Other [employer] Other 01-11-2023 16:40-8347ElK7% (BldA) [Mass fraction]98 % Aileen Castellanos Other [employer] Other 01-11-2023 16:40-0500Systolic blood mabwyicp228 mm[Hg] Aileen Castellanos Other [employer] Other 796827-60-2033 16:40-0400Body ecfbhd776.26 cmDacaitlin Castellanos Other [employer] Other 07-12-2022 16:40-0400Body mass index (BMI) [Ratio] 27.46 kg/e3Xrxdccaitlin Castellanos Other [employer] Other 07-12-2022 16:40-0400Body mmteqhhmest41.2 [degF]Aileen Castellanos Other [employer] Other 07-12-2022 16:40-0400Body yujmhi47.37 kgDacaitlin Castellanos Other [employer] Other 07-12-2022 16:40-0400Diastolic blood mm[Hg] Aileen Castellanos Other [employer] Other 07-12-2022 16:40-0400Respiratory rate18 /minDcalin Castellanos Other [employer] Other 07-12-2022 16:40-9804LpZ5% (BldA) [Mass fraction]98 % Aileen Castellanos Other [employer] Other 07-12-2022 16:40-0400Systolic blood mm[Hg] Aileen Castellanos Other [employer] Other Encounters Encounter DateEncounter TypeCare ProviderFacilityStart: 09-02-2025 End: 65-38-5365psrawliddxEznwl R FAZIOFacility: [place]vueStart: 09-02-2025 End: 39-85-3016Tbggyvg encounter procedureMichael R NILL [phone]-[facility]qr[facility] [place] Start: 08-31-2025 End: 23-69-6930ouzlbrhbpyIcfuj Jasmin DO Work Phone: -[facility] BellevueStart: 08-31-2025 End: 26-44-6605Twnkvhx encounter procedureDavid C Jasmin DO-[facility] [place] Work Phone: Start: 67-36-4308Xpv-patient / Non-visitDavid C Jasmin DO-[facility] [place] Work Phone: Start: 28-83-1331wpgwqmogqmZnxle FAZIOFacility:GS BellevueStart: 07-27-2025 End: 91-06-1562Uvkzks flowsheetCorey Marlena DO Work Phone: noMS [place] OBGYNStart: 07-27-2025 End: 03-76-1124Ifjcec flowsheetCorey Marlena DO Work Phone: [facility] [place] OBGYNStart: 07-27-2025 End: 53-45-4771Awsrpbgru Result EncounterCorey Marlena DO Work Phone: NOJA External Department UnsolicitedStart: 07-27-2025 Non-patient / Non-visitCorey Marlena-[facility] Work Phone: Start: 07-27-2025 End: 59-74-7864rmzguhoiuvBNWOD FAZIONot AvailableStart: 07-27-2025 End: 31-98-9310Attibrh encounter procedureCorey Marlena DO Work Phone: [facility] HealthcareStart: 07-27-2025 End: 64-52-3981Fsgpghfb preventive med est patient 40-64yrsCorey Marlena DO Work Phone: [facility] [place] OBGYNComment on above:Well woman exam with routine gynecological examStart: 06-15-2025 End: 34-07-5827ibzsezjowxIujsu Girvin DO Work Phone: [facility] Work Phone: Start: 06-15-2025 End: 07-02-4688Azusphz encounter procedurePasheila Ross [facility] Work Phone: Start: 05-20-2025 End: 16-22-1326loeugucfsbHvpog Lashaunana DO Work Phone: [facility] Work Phone: Start: 05-20-2025 End: 96-37-8328Iqrvnty encounter procedureDavimira Castellanos DO-[facility] Family [facility] Work Phone: Start: 02-18-2025 End: 39-04-3892uaonxcjasrKjkfo Marlena DO Work Phone: [facility] Work Phone: Start: 02-18-2025 End: 62-65-1663Iiacrfb encounter procedureCorey Marlena DO Work Phone: Replaced By [facility] [place] Work Phone: Start: 12-11-2024 End: 33-66-3705Fdbxeysed Result EncounterCorey Marlena DO Work Phone: noms External Department UnsolicitedStart: 12-11-2024 End: 95-93-0896Idnwxbnwr Result EncounterCorey Marlena DO Work Phone: noms External Department UnsolicitedStart: 12-11-2024 End: 94-13-2157tyunwlhpxjMnhxm F[facility]ioFirelands [facility] Work Phone: Start: 12-11-2024 End: 62-65-6258Rkgsrran ReferredCorey Marlena DO Work Phone: [facility]-LAB Path Spec [place] HospStart: 12-03-2024 End: 44-24-0360Txqllmecg Result EncounterCorey Marlena DO Work Phone: noms External Department UnsolicitedStart: 12-03-2024 End: 06-08-9917Qfslqwtpz Result EncounterCorey Marlena DO Work Phone: noms External Department UnsolicitedStart: 11-14-2024 End: 81-30-4770Eqqjymfia Result EncounterCorey Marlena DO Work Phone: noms External Department UnsolicitedStart: 11-14-2024 End: 99-81-0200Yztkggrli Result EncounterCorey Marlena DO Work Phone: noms External Department UnsolicitedStart: 10-27-2024 End: 71-39-4871Umqttvg encounter procedureCorey Marlena DO Work Phone: [facility] Family [facility] [place] Work Phone: Start: 08-04-2024 End: 51-17-9565nolxcdcpurJrpzrszieGrant Hospital Work Phone: Start: 08-04-2024 End: 28-63-9037Pjnqsvr encounter procedureFirorlandos Physician Group-[facility] [place] Work Phone: Start: 07-40-2906Rqt-patient / Non-visitFirelands [facility]ician [facility] [place] Work Phone: Start: 05-07-2024 End: 76-81-8246hnedsiqffiZdosxtqcmKn[facility] Hospital Work Phone: Start: 05-07-2024 End: 08-00-6284Shnaddw encounter procedureFirorlandos Physician Group-[facility] [place] Work Phone: Start: 52-00-7991Hdr-patient / Non-visitFirelands [facility] Family [facility] [place] Work Phone: Start: 01-29-2024 End: 59-75-3314wnegmyfcqlLwkceuhhoGrant Hospital Work Phone: Start: 01-29-2024 End: 05-12-5243Zsfprjt encounter procedureFirlewisgale hospital [facility] Family [facility] [place] Work Phone: Start: 78-27-5684Jwn-patient / Non-visitFirorlandos Physician Group-[facility] Work Phone: Start: 89-17-7934Anv-patient / Non-visitFirorlandos Physician Group-[facility] Work Phone: Start: 32-84-4198Upq-patient / Non-visitFirelands [facility]ician [facility] Work Phone: Start: 12-11-2023 End: 04-83-9990oflxpuoufrPoowx Girvin Other [employer] Other Start: 91-98-1359Fbwirbhgw encounterDavimira CastellanosPacific Alliance Medical CenterueStart: 87-41-4417Otsjmdm encounter procedureKobi Physician Group-Start: 11-15-2023 End: 73-87-6766lcogjecffnScvpl Girvin Other [employer] Other Start: 12-77-8975Mdapsafaw encounterDavid JasminBANNER BEHAVIORAL [facility] Family Medicine [place]ueStart: 10-09-2023 End: 88-96-0683hmotctyqpbJrwku Girvin Other [employer] Other Start: 54-36-6339Cgzohldya encounterDavid JasminCodey Family Medicine [place]vueStart: 06-26-2023 End: 75-44-7705nklvwqnkqrAsayp Girvin Other [employer] Other Start: 07-83-2237Naaacw outpatient visit 25 minutes Aileen CastellanosCodey Family Medicine [place]vueStart: 12-01-2022 End: 81-32-7383memrepzqsmBJNRKD RODRIGUEZFacility:W4Eiuwj: 11-22-2022 End: 93-82-5600uwdkywqabkHizhj Jasmin Other [employer] Other Start: 42-63-7070Sexnod outpatient visit 25 minutes Aileen Bledsoe [facility] [place]Start: 10-25-2022 End: 62-26-9826vehhmtglwoPvfod Jasmin Other [employer] Other Start: 57-03-0778Ypwbsuudp encounterDavid CelestineG Family Medicine [place]vueStart: 10-23-2022 End: 38-00-7331oeboljjlbfCT AILEEN [employer] Other Start: 88-65-9499Rnocbwbjo encounterDavid LashaunanaFPG Family Medicine [place]vueStart: 09-11-2022 End: 57-57-1534bnohavkhdpRwgoy Jasmin Other [employer] Other Start: 36-52-7243Yljtqcfjq encounterDavid JasminFPG [facility] Medicine [place]vueStart: 08-14-2022 End: 12-15-7981jpmeqxmnwlBSRJW FAZIOFacility:S6Wdiwb: 27-31-8729Vfaxdojtf encounterDavid JasminFPG Family Medicine [place]vueStart: 06-20-2022 End: 66-97-5216tensjnghehDO AILEEN [employer] Other Start: 06-06-2022 End: 78-28-1393weabhipzirKcnaj Jasmin Other [employer] Other Start: 27-78-2960Ngnelprjm encounterDavid LashaunanaFPG [facility] [place]Start: 06-02-2022 End: 69-98-1023fmevkjsqgrUIQDQ FAZIOFacility:D0Sdjfq: 05-23-2022 End: 23-50-3639sxblfjdescPvkvl Girvin Other [employer] Other Start: 52-49-4641Dvmzcm outpatient visit 25 minutes Aileen CelestineG Family Medicine [place]vueStart: 12-27-2018 End: 96-08-6219Wqplffr encounter procedureJEREMMiryam CHRISTIANSENUniversity Hospitals Ahuja Medical Center Procedures DateProcedureProcedure DetailPerforming ClinicianStart: 76-14-1840DMP,APTIMA HPV,AGE GDLNCorey Marlena DO Work Phone: Start: 96-17-1644Ejllhpuwdok observation [Identifier] in Cervix by Cyto stainCorey Marlena DO Work Phone: Start: 15-95-9579ER POST BIOPSY LTCorey Marlena DO Work Phone: Start: 50-11-9017TC GUIDED BREAST BIOPSY LTCorey Marlena DO Work Phone: Start: 02-19-5943YU BREAST LT LIMITEDCorey Marlena DO Work Phone: Start: 41-67-1809GT TOMOSYNTHESIS SCREENING BICorey Marlena DO Work Phone: Start: 25-98-4877GpjdqzpwszhFjpxh Marlena DO Work Phone: Start: 06-83-1345Vhhxtragbmj observation [Identifier] in Cervix by Cyto stainCorey Marlena DO Work Phone: Start: 68-95-8277Towj cerv/vag auto thin layer prep mnl screenCorey Marlena DO Work Phone: Start: 30-71-1079Rtmynyxgfqq observation [Identifier] in Cervix by Cyto stainCorey Marlena DO Work Phone: cesarean sectionMichael NILL Tonsillectomy and adenoidectomyMichael NILL Plan of Treatment DateCare ActivityDetailAuthorStart: 65-31-9128Gzzzzoiuq for malignant neoplasm of cervixNOMS HealthcareStart: 22-22-6897Uzkcfpbhx for malignant neoplasm of cervixNOMS HealthcareStart: 66-10-4719Udiwwxpbu for malignant neoplasm of breast MammogramNOMS HealthcareStart: 98-93-7409Wujhrbjra for malignant neoplasm of cervixNOMS HealthcareStart: 47-09-9792Itpxkvgcs vaccinationInfluenza Vaccine (#1)[facility] HealthcareStart: 03-24-2025 End: 42-70-1632Diqiaku encounter ukmehimox44/13/2025 2:00 PM EDT Office Visit [facility] [address] [place] [address] Moiz Mendiola, DO [address] [place] [address] [facility] OBStart: 44-82-6989Ufcjymzyn vaccination Influenza Vaccine (#1)[facility] HealthcareStart: 16-94-4722Juizwagmw for malignant neoplasm of cervixHPV/CotestNOMS HealthcareStart: 73-76-2534Ueccvulal for malignant neoplasm of colonNOMS HealthcareBacteria identified in Urine by CultureCoshocton Regional Medical CenterComprehenatrium health metabolic 1999 panel - Serum or [facility] CenterComprehensive metabolic 1999 panel - [facility] [[email or web address]] or [facility] CenterComprehenve metabolic 1999 panel - Serum or [facility] CenterComprehensive metabolic 1999 panel - Serum or [facility] CenterInsulin [Units/volume] in Serum or [facility] CenterInsulin [Units/volume] in Serum or [facility] CenterInsulin [Units/volume] in Serum or [facility] Medical CenterTHIN PREP TIS PAP AND HR HPV DNATHIN PREP TIS PAP AND HR HPV DNA Pathology and Cytology Routine Well woman exam with routine gynecological exam Ordered: 07/27/2025[facility] Work Phone: comment on above:Ordered: 07/27/2025Urine culture [facility] Immunizations Immunization DateImmunizationNotesCare CiafvpdoZcvnfxid81-49-4863QFDGE-22 Vaccine Pfizer - Documentation Purposes OnlyDavimira Castellanos Other [facility]04-28-2021COVID-19 Vaccine Pfizer - Documentation Purposes OnlyDavid Jasmin Other [facility]04-07-2021COVID-19 Vaccine Pfizer - Documentation Purposes OnlyDavid Jasmin Other [facility] Payers DatePayer CategoryPayerPolicy [id number] [id number] Cross Blue ShieldBCBS Member Subscriber Plan / Payer (Effective 2024-Present) Name: Debby Durbin Relation to Subscriber: Spouse Name: Valentín Cheung Date of : 1978 (Work) Address: [address] [place] [id number] ID: Not on file Type: Not on file Address: [facility] [address] [place] [id number] [id number] Private Health [id number]57084.315 [id number] [id number] 2.16.840.1.639890.3.57[id number] 2.16.840.1.842419.3.57[id number] 2.16.840.1.611508.3.57[id number] 2.16.840.1.288963.3.57[id number] 2.16.840.1.914081.3.579.[id number] 2.16840.1.789678.3.579.[id number] 2.16840.1.114384.3.579.2.54353-98-5182Gdxd Cross Blue [id number] 2..9.257556.[id number] 2..5.895573.6326-01-1960 Wshuyx[id number] [id number] 2.0.1.783110.3.579.2.531 Social History DateTypeDetailFacilityUnknown if ever smokedNosaint joseph hospital of [facility] [employer] Other Sex Assigned At [facility] Start: 01-29-2024 End: 50-45-9398Uamfakj smoking status NHISEx-smoker (finding)[facility] Foundationtart: 67-76-9707Xwv [facility]edoTobacco smoking status NHISTobacco smoking consumption unknownNOME HealthcareStart: 32-46-5081Aku assigned at birthNot on fileLIFEPOINT HOSPITALS Healthcare Start: 78-48-5850Seioen identityIdentifies as female gender (finding)[facility] HealthcareStart: 12-12-2024 End: 87-86-3937AkuUbpmbq (finding)[facility] Foundationtart: 21-79-3095Hrxaihb smoking status NHISSmokes tobacco daily (finding)[facility] [place] Start: 52-17-9157BwoNztwmiYGWU Healthcare Medical Equipment Procedure CodeEquipment CodeEquipment Original TextEquipment IdentifierDates Start: 09-27-2015 End: 56-14-0199Jwu Needle, Diabetic (Bd Yelena 2nd Gen Pen Needle) 32 gauge x 5/32 needleStart: 82-31-9748Cai Needle, Diabetic (Bd Yelena 2nd Gen Pen Needle) 32 gauge x 5/32 needleStart: 07-08-2024 End: 37-00-5963Ysa Needle, Diabetic (Bd Yelena 2nd Gen Pen Needle) 32 gauge x 5/32 needleStart: 07-08-2024 End: 67-00-6194Zip Needle, Diabetic (Bd Yelena 2nd Gen Pen Needle) 32 gauge x 5/32 needleStart: 07-08-2024 End: 64-02-6407Txa Needle, Diabetic (Bd Yelena 2nd Gen Pen Needle) 32 gauge x 5/32 needleStart: 07-08-2024 End: 62-18-1206Gux Needle, Diabetic (Bd Yelena 2nd Gen Pen Needle) 32 gauge x 5/32 needleStart: 07-08-2024 End: 03-30-1243Qvp Needle, Diabetic (Bd Yelena 2nd Gen Pen Needle) 32 gauge x 5/32 needleStart: 07-08-2024 End: 28-28-0231Xsh Needle, Diabetic (Bd Yelena 2nd Gen Pen Needle) 32 gauge x 5/32 needleStart: 07-08-2024 End: 16-44-8300Ads Needle, Diabetic (Bd Yelena 2nd Gen Pen Needle) 32 gauge x 5/32 needleStart: 07-08-2024 End: 38-72-7059Hzl Needle, Diabetic (Bd Yelena 2nd Gen Pen Needle) 32 gauge x 5/32 needleStart: 07-08-2024 End: 03-42-7727Wki Needle, Diabetic (Bd Yelena 2nd Gen Pen Needle) 32 gauge x 5/32 needleStart: 07-08-2024 End: 21-04-8134Ccn Needle, Diabetic (Bd Yelena 2nd Gen Pen Needle) 32 gauge x 5/32 needleStart: 07-08-2024 End: 10-27-2024 Clinical Notes 04-11-2013 to 09-02-2025 Note Date & OvciFchvGgknkonw02-16-5348 NoteGeneral Surgery Office/Clinic Note Chief Complaint consultation for colonoscopy HPI Staff 44 year old female presents on consultation from Dr. Mendiola for screening colonoscopy. Denies abdominal or rectal pain. No rectal bleeding or change in bowel habits. Denies nausea, vomiting or weight loss. No previous colonoscopy. No known family history of colon cancer. History of Present Illness 44 yo female with h/o DMII, hyperlipidemia, anxiety/depression, referred for colorectal screening; denies change in bms or blood in stools, no abd complaints; abd operations significant for ; no previous colonoscopy; no asa or NSAID use; vapes nicotine containing products; no fmhx of GI mal ignancy or IBD. Review of Systems PHQ Score Initial Depression Screen Score: 0 SCORE ROS - Provider Constitutional: no fever, no sweats, no weight loss. Eyes: yes glasses, no blurred vision, no visual loss. ENMT: no dentures, no hoarseness, no swallowing difficulties, no hearing loss, no ear infection(s),no nose bleeds. Cardiovascular: normal blood pressure, no chest pain, regular heartbeat, no heart murmur. Respiratory: no shortness of breath, no cough, no asthma, no wheezing. Gastrointestinal: no nausea, no vomiting, no diarrhea, no constipation, no blood in stool, no change in bowel habits, no abdominal pain, no hepatitis. Genitourinary: no kidney stones, no urine infection, no dysuria. Musculoskeletal: no pain, no weakness. Skin: no changing moles, no rash, no skin lumps. Neurologic: no seizures, no epilepsy, no headache. Psychiatric: no emotional or psychiatric problem. Heme/Lymph: no bleeding problems, no anemia, no blood clots, no transfusions. Allergy/Immunologic: no swollen lymph nodes/glands, no IV drug abuse. Other: Additional ROS info: Except as noted in the above Review of Systems and in the History of Present Illness, all other systems have been reviewed and are negative or noncontributory. Physical Exam Vitals & Measurements HR: 72(Peripheral) RR: 16 BP: 122/76 HT: 175.2 cm HT: 69 in WT: 183.645 lb WT: 83.3 kg BMI: 27.14 HEENT: normal conjunctiva, sclera clear, no scleral icterus, EOM intact, PERRLA, oral mucosa moist without lesions. Neck: trachea midline, no mass, symmetric, no thyromegaly or nodules, no adenopathy Respiratory: lungs CTA, respirations non labored. Cardiovascular: regular rate and rhythm, no murmur, no pedal edema or varicosities. Gastrointestinal: soft, non distended, no tenderness, no masses, no palpable hernias, diastasis recti no, no hepatosplenomegaly; normal bs Musculoskeletal: normal gait, digits and nails without infection, nodes, cyanosis, clubbing. Skin: no rashes, no lesions, no ulcers, no subcutaneous nodules, induration. Psychiatric/Neuro: oriented to time, place, person, judgement normal, affect appropriate for age, insight intact, no focal deficits. Tests: labs reviewed, x-rays reviewed, review of old records completed , Discussed surgical options, risks, and possible complications with patient. Assessment/Plan 1. Screening for malignant neoplasm of colon (Z12.11: Encounter for screening for malignant neoplasm of colon) plan colonoscopy under anesthesia, informed consent obtained. Follow-up No qualifying data available Problem List/Past Medical History Ongoing Anxiety BMI 27.0-27.9,adult Depressive disorder Hyperlipidemia Overweight Screening for malignant neoplasm of colon Type 2 diabetes mellitus Historical No qualifying data Procedure/Surgical History section, Tonsillectomy and adenoidectomy. Medications alprazolam 0.5 mg Tab, 0.5 mg= 1 tab(s), Oral, Bedtime, PRN cetirizine 10 mg Tab, 10 mg= 1 tab(s), Oral, Daily metformin 500 mg ER Tab semaglutide 8 mg/3 mL (2 mg dose) subcutaneous solution (Ozempic), 2 mg, SubCutaneous, qWeek Zoloft 100 mg Tab, 100 mg= 1 tab(s), Oral, Daily Allergies acetaminophen (Hives) Social History Alcohol Never., 09/01/2025 Substance Abuse Never., 09/01/2025 Tobacco Former smoker, quit more than 30 days ago Tobacco Use:. Current vaping or e- cigarette use SmokelessTobacco Use:. Cigarettes, Vaping, 09/02/2025 Family History Diabetes mellitus type 2: Mother. Hypertension: Mother. Immunizations Vaccine Date Status SARS-CoV-2 (COVID-19) mRNA BNT-162b2 vax 09/19/2021 Recorded SARS-CoV-2 (COVID-19) mRNA BNT-162b2 vax 03/09/2021 Recorded SARS-CoV-2 (COVID-19) mRNA BNT-162b2 vax 02/16/2021 RecordedFulton County Health CenterComment on above:Result Comment: Electronically Signed By: MAXI MOLINA, Miguel Ayon\Date and Time Signed: 09/02/25 15:46 [id number] History of Present illness Narrative* Elyse Olvera, SCIENCE EDUCATION PROFESSOR - 07/27/2025 8:30 AM EDT Reason for Appointment: Patient ID: Debby Durbin [...] nursing note reviewed. Exam conducted with a tare weigher present. Vitals: Estimated body mass index is [...] and referral to be sent to Dr. German. No orders of the defined types were placed in this encounter. Follow Up: Patient is to return in one year for annual unless needed otherwise. Documented by Elyse Olvera NP on behalf of: Moiz Mendiola DO documented in this encounterSaint [facility]'s Hospital of Blue [id number] Evaluation note* Diagnosis Onset Date Resolution Status Admit Date Hives acuteAugust 2024 10:57amAnxietyacuteOctober 2024 4:04pmElevated alkaline phosphatase levelacuteOctober 2024 4:04pmHyperlipidemiaacute August 31, 2025 4:04pmType 2 diabetes mellitusacuteAugust 31, 2025 4:04pm [facility] Work Phone: 1(412) 707-709407-09-2025 Evaluation note* Author Aileen Castellanos [facility] CenterAuthoredJuly 2024 3:47pmThe above note written by ___Hari Mijares____ acting as human recorder, note dictated by Dr. Jimenez .I performed the above HPI, ROS, and Examination. I formulated and dictated the treatment plan and was present for entire encounter. Aileen Castellanos D.O. [facility] Work Phone: 1(743) 704-665801-22-2025 Miscellaneous Notes* Result Encounter Note - Caroline Salazar LPN - 12/03/2024 4:21 PM EST Pt is already scheduled documented in this [facility]01-22-2025 Progress note* Result Encounter Note - Caroline Salazar LPN - 12/03/2024 4:21 PM EST Pt is already scheduled [facility] Work Phone: 1(478) 802-667501-03-2025 Miscellaneous Notes* Result Encounter Note - Caroline Salazar LPN - 11/14/2024 12:45 PM EST Pt notified and US ordered documented in this [facility]01-03-2025 Progress note* Result Encounter Note - Caroline Salazar LPN - 11/14/2024 12:45 PM EST Pt notified and US ordered [facility] Work Phone: 1(284) 530-763012-16-2024 Evaluation note* Author Aileen Castellanos [facility]horedDececaronde[facility] 2023 4:23pmThe above note written by ___Hari Mijares____ acting as human recorder, note dictated by Dr. Jimenez .I performed the above HPI, ROS, and Examination. I formulated and dictated the treatment plan and was present for entire encounter. Aileen Castellanos D.O. [facility] Work Phone: 1(861) 649-298706-26-2024 Evaluation note* Author Aileen Castellanos [facility] 2023 3:00pmThe above note written by ___Hari Mijares____ acting as human recorder, note dictated by Dr. Jimenez .I performed the above HPI, ROS, and Examination. I formulated and dictated the treatment plan and was present for entire encounter. Aileen Castellanos D.O. [facility] Work Phone: 1(614) 910-400301-30-2024 Evaluation note* Encounter Date Diagnosis Assessment Notes Treatment Notes Treatment Clinical Notes Nov, Anxiety (ICD-10 - F41.9) She voices that she was unable to do anything in September or October after her son passed. She hadthe Xanax available at that time and would like to restart this to help her sleep. Night time is the worst time for her, she is having a difficult time trying to understand what happened with her son. She lays in bed for hours. She puts her phone up, avoids screen time and it does not help. I wouldonly like her to take Xanax at bedtime. [...] hour prior to going to bed. Side effects/risks/benefits of medication were reviewed. If this dose [...] noted. She last filled Xanax on 10/09/23. Nov,epression (ICD-10 - F32.9)She voices that she does not know how to control her emotions. She is taking the Sertraline 50 MG in the morning. She is not sleeping well. Her mother feels she needs to be on the Sertraline. I do rec ommend that she continue with the medication but I would like her to increase the dose to 75 MG perday. Guidance is given on how to take the medication. I did recommend that she stay on this medication for one year before we discuss her coming off of the medicine. I will see her back at her already scheduled appointment in about six weeks. Nov,Other10:39 AM - 10:58 AM [facility] Other 01-30-2024 Evaluation note* Encounter Date Diagnosis Assessment Notes Treatment Notes Treatment Clinical Notes Nov, Depression (ICD-10 - F32.9) [facility] Other 01-04-2024 Evaluation note* Encounter Date Diagnosis Assessment Notes Treatment Notes Treatment Clinical Notes Nov, Anxiety (ICD-10 - F41.9) [facility] Other 11-28-2023 Evaluation note* Encounter Date Diagnosis Assessment Notes Treatment Notes Treatment Clinical Notes Sep, Anxiety (ICD-10 - F41.9) [facility] Other 08-15-2023 Evaluation note* Encounter Date Diagnosis Assessment Notes Treatment Notes Treatment Clinical Notes Jun, Diabetes mellitus, type 2 (ICD-1 0 - E11.9) She voices that she started taking some OTC vitamins and found that she was hungry all the time so she stopped taking them. She was under a great deal of stress with her job and she found she was sitting and eating cookies, candy etc. She had gained weight due to her choices but she did resign fromher job and she has found that she is already living healthier. Her glucose was 155. HgA1C is up from 6.1 to 6.5. Anticipate that since she has already made dietary and lifestyle choices that her readings will improve. Jun,Hyperlipidemia (ICD-10 - E78.5)Discussed cholesterol results with patient today. Total is 166. HDL is 52. LDL is 99. Triglyceridesare 75. VLDL is 15. I would like her to continue to monitor her intake of carbs and sugars. Stay active. Jun,Tinea pedis (ICD-10 - B35.3)Noted on left foot, she voices that it itches and then it will crack. I would like to treat her with Lamisil orally and I asked her to chart picker Lamisil cream (OTC). Guidance is given on how to use the cream, she should use this for one month. She does not drink alot of alcohol. If her symptoms do not improve after one month then she should let me know and we would consider that this is not fungal. 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 She admits thevitamins made her hungry. She resigned from her job in May and is feeling much better. She has gained 11 pounds since last seen. The stress of her job and eating cookies and candy and sitting were not helping her weight. Jun,Urinary frequency (ICD-10 - R35.0)for lab order only Jun,OtherProvided her with a refill on above medication today. [facility] Other 01-11-2023 Evaluation note* Encounter Date Diagnosis Assessment Notes Treatment Notes Treatment Clinical Notes Nov, Hyperlipidemia (ICD-10 - E78.5) Discussed cholesterol results with patient today. Total is 180. HDL is 57. LDL is 89. Triglyceridesare 169. VLDL is 34. She is to continue to monitor her intake of carbs and sugars. Stay active. Nov,iabetes mellitus, type 2 (ICD-10 - E11.9)Discussed blood sugar results with patient today. Glucose is 150. HgA1C is 6.1 down from 6.5. She vo ices that she has been doing better. I did recommend that she continue with what she is doing as itis working well. I encouraged her to continue to monitor her intake of carbs and sugars. Stay active. She does present with blood sugar readings that she has taken on her own. Nov,Molluscum contagiosum (ICD-10 - B08.1)She voices that she had this rash prior to her cruise, but has continued to be there since April (2021). She does not itch or scratch the area. I did advise her that this rash is similar to molluscum.This can stay for up to a year or two and then go away. There is no treatment for this and it should resolve on it's own. It has not spread. If she wants to see a director game she can see one. Rightnow she is going to continue to monitor as she has had this for seven months. She does not have anypain with this. She had shingles in the past and does not feel it is shingles. If she wants to see a director game she can call and schedule this herself. Nov,Other jail (current) drug therapy (ICD-10 - Z79.899) Nov,Weight loss (ICD-10 - R63.4)She has lost two pounds since last seen. Her TSH is normal at 0.646. Nov,roteinuria (ICD-10 - R80.9)She voices that she felt like she had a urinary tract infection, and I did advise her that nothing grew out of the urine culture. She voices that she had urinary frequency. This started around when joyce resendez had COVID-19 until she had the lab drawn. This was also around the time she had started her period (11-16-22). She began drinking cranberry juice and pushing water and feels fine now. Nov,Seborrheic keratosis (ICD-10 - L82.1)Reassurance given. [facility] Other 12-12-2022 Evaluation note* Encounter Date Diagnosis Assessment Notes Treatment Notes Treatment Clinical Notes 12 Dec, 2022 Cough (ICD-10 - R05.9) She voices that she is currently taking another COVID-19 test and it is showing a faint positive line. She would like to have a respiratory panel drawn. She was around friends last week and one tested positive for COVID-19. Oct,OVID-19 (ICD-10 - U07.1)She voices that she cannot taste or smell [...] of COVID-19. She would like this. Side effects/risks/benefits of medication were reviewed. She should be off work this entire week and a note was provided. Provided her with an off work note for 10-23 through 10-27-22 due to medical reasons, may return [facility] without restrictions on 10-30-22. Oct,Fatigue (ICD-10 - R53.83)She voices that she was very fatigued this past week, to the point she had to stay in [place] overnight because she was too tired to drive home. Oct,ther2:39 PM - 2:54 PM [facility] Other 08-09-2022 Evaluation note* Encounter Date Diagnosis Assessment Notes Treatment Notes Treatment Clinical Notes Jun, Nicotine dependence (ICD-10 - F1 7.200) Jun,hest congestion (ICD-10 - R09.89) Jun,unny nose (ICD-10 - R09.89) Jun,ody aches (ICD-10 - R52) [facility] Other 08-09-2022 Evaluation note* Encounter Date Diagnosis Assessment Notes Treatment Notes Treatment Clinical Notes Jun, Left acute otitis media (ICD-10 - H66.92) [facility] Other 07-26-2022 Evaluation note* Encounter Date Diagnosis Assessment Notes Treatment Notes Treatment Clinical Notes May, Nicotine dependence (ICD-10 - F1 7.200) [facility] Other 07-12-2022 Evaluation note* Encounter Date Diagnosis Assessment Notes Treatment Notes Treatment Clinical Notes May, Hyperlipidemia (ICD-10 - E78.5) Discussed cholesterol results with patient today. Total is 194. HDL is 50. LDL is 121. Triglycerides are 113. I encouraged her to continue to watch her intake of carbs and sugars. Stay active as tolerated. May,iabetes type 2, uncontrolled (ICD-10 - E11.65)She voices that she recently went on a cruise and enjoyed life. We discussed her blood sugar resul ts with patient today. Glucose is 177. HgA1C is down from 6.5 to 6.4. She voices that she checked her blood sugars when she was on her cruise and she had some blood sugar readings as high as 270. Sheis encouraged to watch her intake of carbs and sugars. Stay active. She would like to lower her A1Cso she will work on dietary and lifestyle changes. I did recommend that we increase her Victoza to 1.8 MG daily to help lower her A1C. Guidance is given on how to take the increase in dose. She should avoid her intake of high fructose corn syrup and sugars. May,Nicotine dependence (ICD-10 - F17.200)She voices that she would like to stop smoking at this time. She has been talking to a health financial wellness coach. In the past she was on Chantix, but they have since taken this off the market. I can prescribe Wellbutrin for her to help her stop smoking. Side effects/risks/benefits of the medication were reviewed. She would [...] a seizure as a child or adult. May,Weight loss (ICD-10 - R63.4)She has lost 3 pounds since last seen here. She is encouraged to continue with what she is doing asit is working well. 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 May,Urinary frequency (ICD-10 - R35.0)for lab order only May,therShe voices that she has called the [facility] twice to schedule her mammogram and has not heard back from them, she is going to call again. [facility] Other 05-31-2013 History general Narrative - Reported* Type Description Date Medical History Last Pap 04-11-13; Dr. Mendiola Medical HistoryNo history of MammogramMedical HistoryStress Test [facility]; Dr. Ayala 2008Medical HistoryEKGMedical HistoryNo history of CT of the abdomen. colonoscopyMedical HistoryHistory of Chicken Pox as a childMedical HistoryNo history of FracturesMedical HistoryHx of Gestational DiabetesSurgical History1 c- [id number] HistoryT & ASurgical HistoryMierna was put in08/2014 Surgical Historyleft breast biopsy02/2021Hospitalization Historysee above surgical history [facility] Other Evaluation + Plan note No data available for this section [facility] [place] Evaluation noteNo InformationNort Gewara Other Evaluation note* Diagnosis Onset Date Resolution Status Anxiety acuteChest painacuteDiabetes type 2, uncontrolledacuteHyperlipidemiaacute HypokalemiaacuteWeight lossacute [facility] Work Phone: Evaluation note* Diagnosis Onset Date Resolution Status Anxiety acuteDiabetes type 2, uncontrolledacute [facility] Work Phone: Evaluation note* Diagnosis Onset Date Resolution Status Admit Date Anxiety acuteApril 2024 3:36pmHyperlipidemiaacuteApril 2024 3:36pmType 2 diabetes mellitusacuteApril 2024 3:36pm [facility] Work Phone: Evaluation note* Diagnosis Onset Date Resolution Status Admit Date Anxiety acuteJuly 2024 3:04pmDepressionacuteJuly 2024 3:04pmType 2 diabetes mellitusacuteJuly 2024 3:04pm [facility] Work Phone: Evaluation note* Diagnosis Well woman exam with routine gynecological exam Routine gynecological examination documented in this encounter [facility] Discharge instructions No data available for this section [facility] [place] Progress note No data available for this section [facility] [place] Reason for referral (narrative)No reason for referral information availableKnox [facility] Hospital Work Phone: Summary Purpose Family History Relationship Condition Age at Onset Recorded Date/T elyse family member Family history of other condition Unknow n grandparentAlzheimer's diseaseUnknownFamily history of mental disorderUnknown grandparentHistory of strokeUnknownDeceasedUnknowngrandparentArthritisUnknown grandparentDeceasedUnknownDiabetes mellitusUnknowngrandparentDiabetes mellitus UnknownNot SpecifiedHypertensionUnknownnatural sonDeceasedUnknown Relationship Condition Age at Onset Recorded Date/T elyse family member Family history of other condition Unknow n grandparentAlzheimer's diseaseUnknownFamily history of mental disorderUnknown grandparentHistory of strokeUnknownDeceasedUnknowngrandparentArthritisUnknown grandparentDeceasedUnknownDiabetes mellitusUnknowngrandparentDiabetes mellitus UnknownmotherHypertensionUnknownsonDeceasedUnknown Advance Directives Advance Directive Response Recorded Date/ [...] Chief Complaint Amb Documentation Amb Documentation review labsReason for VisitAnxiety Chest pain Diabetes type 2, uncontrolled Hyperlipidemia Hypokalemia Weight loss Chief Complaint Amb Documentation lab review/telephoneReason for VisitAnxiety Diabetes type 2, uncontrolled Chief Complaint lab review/telephone lab reviewReason for VisitAnxiety Diabetes type 2, uncontrolled Anxiety Depression Hyperlipidemia [...] med refill May 20, 2025 3:04p m Chief Complaint Admit Date Rash June 15, 2025 10: 57am review labs/med refill August 31 4:04pm Reason for Visit Admit Date Hives June 15, 2025 10: 57am Anxiety August 31, 2025 4 :04pm Elevated alkaline phosphatase level Octo 2024 4:04pm Hyperlipidemia August 31, 2025 4 :04pm Type 2 diabetes mellitus August 31, 025 4:04pm Additional Source Comments INFORMATION SOURCE (unrecogn ized section and content) DATE CREATED AUTHOR 01/01/2019 [facility] DATE CREATED AUTHOR AUTHOR'S EFEIZ ATION 03/22/2023 [facility] DATE CREATED AUTHOR AUTHOR'S ORGANIZ ATION 12/13/2024 [facility] DATE CREATED AUTHOR AUTHOR'S ORGANIZ ATION 07/28/2025 [facility] EPIC DATE CREATED AUTHOR AUTHOR'S ORGANIZ ATION 09/04/2025 [facility] REASON FOR VISIT (unrecogniz ed section and content) ReasonCommentsWell Women Visit Care Teams (unrecognized sec tion and content) Team Status: Active Member Role Status Dates Aileen Castellanos DO Primary Care Provider Active Team Status: Inactive Member Role Status Dates [...] 2023 Team Status: Active Member Role Status Dates Aileen Castellanos DO Primary Care Provider Active S tart: January 03, 2024 Doc Maharaj ProviderActiveStart: January 03, 2024 Team Status: Active Member Role Status Sara Castellanos DO Primary Care Provider Active S tart: January 15, 2024 Doc Maharaj ProviderActiveStart: January 15, 2024 Team Status: Active Member [...] Provider Active S tart: April 21, 2024 Doc Maharaj ProviderActiveStart: April 21, 2024 Team MemberRelationshipSpecialtyStart DateEnd Date Aileen Castellanos MD [facility] [place] [address] PCP - [facility]08/22/23 Team Status: Inactive Member Role Status Dates Aileen Castellanos DO Primary Care Provide r, Attending Provider Active Start: October 27, 2024 End: October 27, 2024 Team Status: Inactive Member Role Status Dates Moiz Mendiola DO Attending Provider Active Start : December 11, 2024 End: December 11, 2024 Team Status: Inactive Member Role Status Dates Aileen Castellanos DO Primary Care Provide r, Attending Provider Active Start: February 18, 2025 End: February 18, 2025 Team Status: Inactive Member Role Status Dates Aileen Castellanos DO Primary Care Provider Active S tart: May 20, 2025 End: May 20, 2025Dacaitlin Castellanos DOAttending ProviderActiveStart: May 20, 2025 End: May 20, 2025 Team Status: Inactive Member Role Status Dates Aileen Castellanos DO Primary Care Provider Active S tart: June 15, 2025 End: June 15, 2025Leidy Ross APRN SCIENCE EDUCATION PROFESSOR-CAttending ProviderActive Start: June 15, 2025 End: June 15, 2025Team MemberRelationshipSpecialtyStart DateEnd Date Aileen Castellanos MD [address] [place] [address] [facility]08/22/23Team MemberRelationshipSpecialtyStart Date End Date Aileen Castellanos MD [address] [place], [place] [id number] [facility]08/22/23Team MemberRelationshipSpecialtyStart Date End Date Aileen Castellanos MD [address] [place], [place] [id number] [facility]08/22/23 Team Status: Active Member Role/Relationship Status Dates Aileen Castellanos DO Primary Care Provider Active Team Status: Inactive Member Role/Relationship Status Dates Aileen Girvin , DO Primary Care Provider Active S tart: June 15, 2025 End: June 15, 2025Leidy Ross APRN SCIENCE EDUCATION PROFESSOR-CAttending ProviderActive Start: June 15, 2025 End: June 15, 2025 Team Status: Active Member Role/Relationship Status Dates Aileen Castellanos DO Primary Care Provider Active S tart: July 27, 2025 Moiz Mendiola , DOAttending ProviderActiveStart: July 27, 2025 Team Status: Active Member Role/Relationship Status Dates Aileen Castellanos DO Primary Care Provider Active S tart: August 26, 2025 Aileen Castellanos DOAttending ProviderActiveStart: August 26, 2025 Team Status: Inactive Member Role/Relationship Status Dates Aileen Wilksana DO Primary Care Provider Active S tart: August 31, 2025 End: August 31, 2025Davimira Jasmin DOAttending ProviderActiveStart: August 31, 2025 End: August 31, 2025Team MemberRelationshipSpecialtyStart DateEnd Date Aileen Castellanos MD [address] [place] [id number] PCP - GeneralFamily Syyirhze89/11/23 Goals (unrecognized section and content) Goals may [...] BE BASED ON THE PRIMARY CLINICAL RECORDS. [facility] [employer] [facility]. provides no warranty or guarantee of the accuracy or completeness of information in this document.
== END 2025-09-15 11:45 | disposition home or self-care (01) ==
LOC: PST 11:45
PROVIDERS: PCP Family Medicine; Visit Provider Surgery
DX: Z01.818 Encounter for other preprocedural examination (principal); Z12.11 Encounter for screening for malignant neoplasm of colon

== ENCOUNTER 2025-09-23 08:07 | Day surgery (SDC) | payer OTHER, BC, SELFPAY ==
--- NOTE | 2025-09-23 | OP_ITS ---
OPERATION DATE: 09/23/2025 PREOPERATIVE DIAGNOSIS: Colorectal screening. POSTOPERATIVE DIAGNOSIS: 3 mm sigmoid polyp, sessile. PROCEDURE: Colonoscopy to cecum with cold forceps polypectomy x1. SURGEON: Brett De Leon M.D. ANESTHESIA: Monitored anesthesia care. ESTIMATED BLOOD LOSS: Less than 1 mL. INDICATIONS AND CONSENT: Patient is a 44-year-old female, presents for colorectal screening. Indications, risks, benefits, alternatives of proceeding with colonoscopy were explained extensively to the patient, including the risks of bleeding, colon perforation or anesthetic complications. All of her questions were answered. Informed consent was obtained. PROCEDURE: Patient brought to the operating room, placed in the left lateral decubitus position. Monitored anesthesia care was provided. Rectal exam was performed which showed no masses or blood. The scope was then inserted into the anal canal. Under direct visualization was advanced. It was advanced to the cecum where cecal markings were clearly identified. Upon withdrawal of the scope, mucosal surfaces were carefully examined. There was noted to be a good prep. There were no mass lesions or inflammatory changes. No significant diverticulosis. In the sigmoid colon, there was noted to be a 3 mm sessile polyp that was removed with cold biopsy forceps with good hemostasis. The scope was retroflexed in the anal canal. There was no significant hemorrhoidal disease. The scope was then withdrawn. Patient tolerated procedure well, was sent to recovery room in good condition. Follow up colonoscopy for surveillance should be in five years, but will depend on Pathology report. CC: Terrance Baez D.O. VENESSA
--- OUTSIDE RECORDS SUMMARY | 2025-09-23 08:11 | XMS_ITS | Encounter Summary ---
Author Organization [facility] Address [address] [place] [address] Care Team Providers Care Assistant Federal Public Defender Name Role Phone Aileen Castellanos MD Primary Care Provider [phone] Encounter Details DateTypeDepartmentCare Team (Latest Contact Info)Fmzdkvzirkj80/22/2025linisync Result Encounter [facility] External Department Unsolicited Moiz Mendiola, DO [address] [facility] [address] Fern[address] [place], [place] [id number] Social History Tobacco UseTypesPacks/DayYears UsedDateSmoking Tobacco: Never Assessed CommentsNoSex and Gender InformationValueDate RecordedSex Assigned at BirthNot on fileLegal GsbEiaytn64/15/2023 7:00 PM EDTGender DelgrlgnVgolvx30/04/2023 11:55 AM EDTSexual OrientationNot on filedocumented as [...] EST Narrative 12/03/2024 4:19 PM EST [facility] ?[address] ? [place] [address] ? Ultrasound Report ? Signed ? Patient: QUIQUEEL,DEBBY E ?MR#: [id number] ?? : 1980 ?Acct:[id number] ?? Age/Sex: 44 / F ?ADM Date: 12/02/ ?? Loc: US ? Attending Dr: Moiz Mendiola D.O. ? Ordering Physician: Moiz Mendiola D.O. ?? Date of Service: 12/02/24 ?? Procedure(s): US breast LT limited ?? Accession Number(s): [id number] ? cc: Moiz Mendiola D.O.; AILEEN CASTELLANOS ? Patient Name: ? DEBBY DAHL ? MR#: [id number] ? : 1980 ? Exam Date: 12/02/2024 ?? Ordering Doctor: DR Mioz Mendiola . ? RADIOLOGY REPORT ? PROCEDURE: [...] ?12/03/24 1619 ? DD/ ? TD/TT: ? Television Repair Teacher: Procedure Note Radiology, Radiologist, - 12/03/2024 [place] [address] Ultrasound Report Signed Patient: DEBBY DAHL EMR#: [id number] : 1980Acct:[id number] Age/Sex: 44 / FADM Date: 12/02/24 Loc: US Attending Dr: Moiz Mendiola D.O. Ordering Physician: Moiz Mendiola D.O. Date of Service: 12/02/24 Procedure(s): US breast LT limited Accession Number(s): [id number] cc: Moiz Mendiola D.O.; AILEEN CASTELLANOS Patient Name: DEBBY DAHL MR#: [id number] : 1980 Exam Date: 12/02/2024 Ordering Doctor: [...] M.D. Signed By:12/03/24 1619 DD/ 1618 TD/TT: Television Repair Teacher: Authorizing ProviderResult TypeResult StatusCorey Marlena DOCLINISYNC IMAGINGFinal Result documented in this encounter Visit Diagnoses Not on filedocumented in this encounter Care Teams Team MemberRelationshipSpecialtyStart DateEnd Date Aileen Castellanos MD [address] [place] [address] [place] [address] PCP - GeneralFamily Jdutqlgi25/11/23documented as of this encounter
--- OUTSIDE RECORDS SUMMARY | 2025-09-23 08:11 | XMS_ITS | Clinical Summary ---
Author Organization [facility] Address [address] [place] [address] Care Team Providers Care Counseling Aide Name Role Phone Terrance Baez Rebecca DO Primary Care Provider [phone] Allergies No known active allergies Medications MedicationSigDispense QuantityRefillsLast FilledStart DateEnd DateStatus LISINOPRIL 5 MG TABLET Take one (1) tablet daily.Active TOPROL XL 25 MG TABLET SA 1 pill QDActive EGL-BQGYLYXP-48 TABLET as iqzyrsur172/11/2005Active zolpidem (AMBIEN) 10 mg tab TAKE 1 TABLET BY MOUTH EVERYDAY AT WPBVVCU690/17/2019Active metFORMIN ER (GLUCOPHAGE XR) 500 mg 24 hr tablet TAKE 2 TABLETS IN THE MORNING AND 1 TABLET IN THE SZLDUDD0501/15/2019Active Active Problems No known active problems Family History Medical HistoryRelationCommentsNoneBrotherNoneFatherHypertensionMotherRelation StatusCommentsBrotherFatherMother Social History Tobacco UseTypesPacks/DayYears UsedDateSmoking Tobacco: Every XcsKqjvufzunq70 Alcohol UseStandard Drinks/WeekCommentsYes0 (1 standard drink = 0.6 oz pure alcohol)rarePHQ-2AnswerDate RecordedPHQ-2 dcqwn713Area Deprivation Index AnswerDate RecordedNational Score (1-100), lower number is lower riskNot on file 10/18/2020State Score (1-10), lower number is lower riskNot on file10/18/2020 Data from: https://www.neighborhoodatlas.medicine.[facility].edu/. Last address used for calculationNot on file10/18/2020CommentsNoSex and Gender Information ValueDate RecordedSex Assigned at BirthNot on fileLegal HxeWarhzl46/02/2012 8:53 AM ESTGender IdentityNot on fileSexual OrientationNot on file Last Filed Vital Signs Vital SignReadingTime TakenCommentsBlood Psadvmxz563/77012/27/2018 8:09 AM EST Cvkmg6493/15/2019 8:09 AM WUGFqjvzhvfwvt29.7 ??C (98.1 ??F)12/27/2018 8:09 AM ESTRespiratory Anjq462612/27/2018 8:09 AM ESTOxygen Clolwwbqdd66%12/27/2018 8:09 AM ESTInhaled Oxygen Concentration--Mbpqgl90.2 kg (190 lb)12/27/2018 8:09 AM EST Mnxvki256.3 cm (5' 9 )12/27/2018 8:09 AM ESTBody Mass Index28.0612/27/2018 8:09 AM EST Plan of Treatment Health MaintenanceDue DateLast DoneCommentsAnxiety Qssctxalz29/29/1997Depression Yianeqrst20/29/1997HIV Ekypegehr77/29/1997Hepatitis C Bahqjqrds56/29/1997 DTaP,Tdap,Td Vaccine (1 - Tdap)1998Hepatitis B Vaccine (1 of 3 - 19+ 3- dose series)1998Cervical Cancer Hiprdnhgj87/29/2000HPV Vaccine (1 - 3-dose SCDM series)2006Mammogram Uqwzrmaer42/29/2019CT Xslfcuiughfs52/29/2024 Cologuard (FIT-DNA)11/09/20244900Orplmfaklyy05/29/2024olorectal Cancer Screening 2024iabetes Wnebqbvzu35/29/2024Fecal Occult Blood2024Lipid Rxgzdjrql47/29/7204Yjvvrfwfokcuh44/29/2024ovid-19 Vaccine ( - 2024- season) 2025Influenza Vaccine (#1)2025 Care Teams Team MemberRelationshipSpecialtyStart DateEnd Date Terrance Baez, [address] [place] [address] [facility] - General12/23/04
--- OUTSIDE RECORDS SUMMARY | 2025-09-23 08:11 | XMS_ITS | Clinical Summary ---
Author Organization [facility] Address [address] [facility] [place] [address] Care Team Providers Care Used Car Renovator Name Role Phone Aileen Castellanos MD Primary Care Provider [phone] Allergies Active AllergyReactionsCriticalityNoted DateCommentsAcetaminophenHives,Itching, Pxycjstd03/11/2023 Medications MedicationSigDispense QuantityRefillsLast FilledStart DateEnd DateStatus ibuprofen 800 MG tablet TAKE 1 TABLET BY MOUTH EVERY 8 TO 12 HOURS WITH FOOD XVGGMF3906/26/2023ctive metFORMIN XR (Glucophage-XR) 500 MG 24 hr tablet TAKE 2 TABLETS BY MOUTH EVERY MORNING AND 1 EVERY WZZZLKC25/20/2023Active ALPRAZolam (Xanax) 0.5 MG tablet TAKE 1 TABLET BY MOUTH EVERY DAY AT BEDTIME FOR 30 DAYS5Active sertraline (Zoloft) 100 MG tablet Take 100 mg by mouth Daily5Active Ozempic, 2 MG/DOSE, 8 MG/3ML solution pen-injector INJECT 2MG SUBCUTANEOUSLY ONCE A WEEK5Active metroNIDAZOLE (Flagyl) 500 MG tablet Indications:BV (bacterial vaginosis)TAKE 1 TABLET BY MOUTH IN THE MORNING AND BEFORE BEDTIME FOR 7 DAYS *NO ALCOHOL WHILE TAKING* 14 tablet 5Active Encounters DateTypeDepartmentCare KdbrNpwpsunrige09/13/2025Refill [facility] [address] [place] [address] Moiz Mendiola DO BV (bacterial vaginosis)08/24/2025Telephone [facility] [address] [place] [address] Moiz Mendiola DO 08/13/2025Orders Only [facility] [address] [place] [address] Shraddha Anthony MA 08/03/2025Telephone [facility] [place] [facility] [address] [place] [address] Moiz Mendiola DO 07/27/2025 8:30 AM EDTOffice Visit [facility] [address] [place] [address] Moiz Mendiola, Well woman exam with routine gynecological exam5Clinisync Result Encounter [facility] External Department Unsolicited Moiz Mendiola DO 5Bamboo flowsheet [facility] [address] [place] [address] Moiz Mendiola DO from Last 3 Months Family History Medical HistoryRelationNameCommentsHypertensionMotherRelationNameStatusComments Mother Social History Tobacco UseTypesPacks/DayYears UsedDateSmoking Tobacco: Never Assessed CommentsNoSex and Gender InformationValueDate RecordedSex Assigned at BirthNot on fileLegal XqbOkbujc85/15/2023 7:00 PM EDTGender RxogrdceEdlirg48/04/2023 11:55 AM EDTSexual OrientationNot on file Last Filed Vital Signs Vital SignReadingTime TakenCommentsBlood Vgvrkonv691/7209 8:44 AM EDT Pulse--Temperature--Respiratory Rate--Oxygen Saturation--Inhaled Oxygen Concentration--Gdchfn70.5 kg (186 lb 4 oz)07/27/2025 8:44 AM KCDYfibhr611.3 cm (5' 9 )07/27/2025 8:44 AM EDTBody Mass Index27.509 8:44 AM EDT Plan of Treatment Health MaintenanceDue DateLast DoneCommentsCT Snrufygjkntr1979Colonoscopy 1979Colorectal Cancer Xsttjvffi1979FIT-DNA1979FIT1979 FOBT1979 8388Ywofxpuuzbdvx1979HPV/Nezjca1911/09/2009COVID-19 Vaccine (2024- season)511/06/2021, 03/09/2021, 02/16/2021Influenza Vaccine (#1)07/13/20254792Tnllswwiq88/03/94545911/14/2024, 3Cervical Cancer Screening 07/27/2028Pap Smear809/, 08/22/2023, 08/14/2022neumococcal Vaccine: Pediatrics (0 to 5 Years) and At-Risk Patients (6 to 64 Years)Aged Out No longer eligible based on patient's age to complete this topic Procedures Procedure NamePriorityDate/TimeAssociated DiagnosisCommentsIGP,APTIMA HPV,AGE RRFTXtiafnx06/15/2025 8:40 AM EDT PAP LIATWOevveoa81/15/2025 12:00 AM EDTMM TOMOSYNTHESIS SCREENING BI11/14/2024 12:41 [...] at: 01 =G ?[facility] ?? [address] [place] ??[phone] ?? Jacey Homl MD, IGP, APTIMA HPV, RFX 16/18,45Note.TBHComment: ?? TESTS ? RESULT ??FLAG ??UNITS ?REF RANGE ??LAB DIAGNOSIS: ?02 ?? NEGATIVE FOR INTRAEPITHELIAL LESION OR MALIGNANCY. ?? PREDOMINANCE OF COCCOBACILLI CONSISTENT WITH SHIFT IN VAGINAL NNEKA IS ?? PRESENT. Specimen adequacy: ?02 ?? Satisfactory for evaluation. ??Endocervical and/or squamous metaplastic ?? cells (endocervical component) are present. Performed by: ? 02 ?? Fouzia Eddy, Reservations And Ticketing Agent (ASCP) . ? 02 Note: ? Note [...] Low,>-Panic High,A-Abnormal,AA-Critical Abnormal Performed at: 02 WB [facility] ?? [address] [place], [place] ??[phone] ?? Jacey Holm MD, HPV APTIMANegativeNegativeTBHComment: This nucleic acid amplification test detects fourteen high- risk HPV types (16,18,31,33,35,39,45,51,52,56,58,59,66,68) without differentiation. Performed at: ??=G - [facility] ??[id number] Skills Instructor: Jacey Holm MD, Phone: ??[phone] Performed at: ??WB - [address] ??[id number] Skills Instructor: Jacey Holm MD, Phone: ??[phone] Specimen (Source)Anatomical Location / LateralityCollection Method / Volume Collection TimeReceived Time07/27/2025 8:40 AM EDT07/27/2025 9:30 PM EDT Narrative [facility] - 07/31/2025 2:12 PM EDT BRUSH-SPATULA CERVIX ENDOCERVIX Authorizing ProviderResult TypeResult StatusCorey Marlena DOLAB BLOOD ORDERABLES Final ResultPerforming OrganizationAddressCity/State/ZIP CodePhone Number CLINISYTX TB * Pap Smear (07/27/2025 12:00 AM EDT)Specimen [...] EST Narrative 11/14/2024 12:42 PM EST [facility] ?[address] ? [place] [address] ? Mammography Report ? Signed ? Patient: SCHGUIDOEL,DEBBY E ?MR#: [id number] ?? : 1980 ?Acct:[id number] ?? Age/Sex: 44 / F ?ADM Date: 11/14/24 ?? Loc: MAMMO ? Attending Dr: Moiz Mendiola D.O. ? Ordering Physician: Moiz Mendiola D.O. ?Results: ? Date of Service: 11/14/24 ?Follow Up: ? Procedure(s): MM tomosynthesis screening BI ?? Accession Number(s): [id number] ? cc: Moiz Mendiola D.O.; AILEEN CASTELLANOS ? Patient Name: ? DEBBY DAHL ? MR#: [id number] ? : 1980 ? Exam Date: 11/14/2024 [...] Cancers ? None ? LOCATION: ? [facility] ? BREAST COMPOSITION: ? The [...] 1242 ? DD/ 1241 ? TD/TT: ? Corn Popper: Procedure Note Radiology, RadiologistMD - 11/14/2024 [place] [address] Mammography Report Signed Patient: DEBBY DAHL EMR#: [id number] : 1980Acct:[id number] Age/Sex: 44 / FADM Date: 11/14/24 Loc: MAMMO Attending Dr: Moiz Mendiola D.O. Ordering Physician: Moiz Mendiola D.O.Results: Date of Service: 11/14/24Follow Up: Procedure(s): MM tomosynthesis screening BI Accession Number(s): [id number] cc: Moiz Mendiola D.O.; AILEEN CASTELLANOS Patient Name: DEBBY DAHL MR#: [id number] : 1980 Exam Date: 11/14/2024 Ordering Doctor: [...] Treatments None Family Cancers None LOCATION: [facility] BREAST COMPOSITION: The breasts are [...] M.D. Signed By:11/14/24 1242 DD/ 1241 TD/TT: Corn Popper: Authorizing ProviderResult TypeResult StatusCorey Marlena DOCLINISYNC IMAGINGFinal Result from Last 3 Months or Most Recently Relevant to Health Maintenance Insurance Care Teams Team MemberRelationshipSpecialtyStart DateEnd Date Aileen Castellanos MD [address] [place] [address] PCP - GeneralFamily Bqsplmyi30/11/23
--- OUTSIDE RECORDS SUMMARY | 2025-09-23 08:11 | XMS_ITS | Encounter Summary ---
Author Organization [facility] Address [address] [place] [address] Care Team Providers Care Media Reporter Name Role Phone Aileen Castellanos MD Primary Care Provider [phone] Encounter Details DateTypeDepartmentCare Team (Latest Contact Info)Jbkmfuxlpix87/03/2025linisync Result Encounter [facility] External Department Unsolicited Moiz Mendiola, DO [address] [place], [place] [id number] Social History Tobacco UseTypesPacks/DayYears UsedDateSmoking Tobacco: Never Assessed CommentsNoSex and Gender InformationValueDate RecordedSex Assigned at BirthNot on fileLegal ZzfAehnhx82/15/2023 7:00 PM EDTGender GgwiximuJvgity54/04/2023 11:55 AM EDTSexual OrientationNot on filedocumented as [...] EST Narrative 11/14/2024 12:42 PM EST [facility] ?[address] ? [place] [address] ? Mammography Report ? Signed ? Patient: HESHAM,DEBBY E ?MR#: [id number] ?? : 1980 ?Acct:[id number] ?? Age/Sex: 44 / F ?ADM Date: 01/03/25 ?? Loc: MAMMO ? Attending Dr: Moiz Mendiola D.O. ? Ordering Physician: Moiz Mendiola D.O. ?Results: ? Date of Service: 11/14/24 ?Follow Up: ? Procedure(s): MM tomosynthesis screening BI ?? Accession Number(s): [id number] ? cc: Moiz Mendiola D.O.; AILEEN CASTELLANOS ? Patient Name: ? DEBBY ELMORECHRISTIE ? MR#: [id number] ? : 1980 ? Exam Date: 11/14/2024 [...] Cancers ? None ? LOCATION: ? [facility] ? BREAST COMPOSITION: ? The breasts [...] 1242 ? DD/ 1241 ? TD/TT: ? Bag Sorter: Procedure Note Radiology, RadiologistMD - 11/14/2024 [place] [address] Mammography Report Signed Patient: DEBBY DAHL EMR#: [id number] : 1980Acct:[id number] Age/Sex: 44 / FADM Date: 11/14/24 Loc: MAMMO Attending Dr: Moiz Mendiola D.O. Ordering Physician: Moiz Mendiola D.O.Results: Date of Service: 11/14/24Follow Up: Procedure(s): MM tomosynthesis screening BI Accession Number(s): [id number] cc: Moiz Mendiola D.O.; AILEEN CASTELLANOS Patient Name: DEBBY DAHL MR#: [id number] : 1980 Exam Date: 11/14/2024 Ordering Doctor: [...] Treatments None Family Cancers None LOCATION: [facility] BREAST COMPOSITION: The breasts are heterogeneously [...] M.D. Signed By:11/14/24 1242 DD/ 1241 TD/TT: Bag Sorter: Authorizing ProviderResult TypeResult StatusCorey Marlena DOCLINISYNC IMAGINGFinal Result documented in this encounter Visit Diagnoses Not on filedocumented in this encounter Care Teams Team MemberRelationshipSpecialtyStart DateEnd Date Aileen Castellanos MD [address] [place] [address] [address] [place] [address] PCP - GeneralFamily Nperzymo28/11/23documented as of this encounter
--- OUTSIDE RECORDS SUMMARY | 2025-09-23 08:13 | XMS_ITS | CCD ---
Author Organization [facility] Care Team Providers Care Scheduling Clerk Name Role Phone BRITTANEY CHRISTIANSEN Attending Unavailable AILEEN CASTELLANOS Referring Unavailable Jasmin, Aileen Unavailable LOVE MENDIOLAY Admitting Unavailable JASMIN, DR GALLAGHER Primary Care [...] Unavailable GIRVIN, DR GALLAGHER Primary Care Unavailable GIRANA, DR GALLAGHER Admitting Unavailable Aileen Castellanos MD Primary Care Provider Moiz Mendiola DO Attending Provider Moiz Mendiola Attending Unavailable Marlena, Mozi Admitting Unavailable Marlena BUNDY, Moiz Attending Provider Aileen Castellanos DO Primary Care Provider [phone] Aileen Castellanos DO Attending Provider [phone] Leidy Ross APRN Attending Provider Aileen Castellanos MD Primary Care Provider [phone] MOIZ MENDIOLA Attending Unavailable Aileen Castellanos DO Primary Care Provider Moiz Mendiola DO Attending Provider Aileen Castellanos DO Attending Provider [phone] Aileen Castellanos Primary Care Physician Moiz MENDIOLA Referring Unavailable Miguel GERMAN Attending Unavailable Aileen Castellanos MD Primary Care Provider Allergies Allergy ClassificationReported Allergen(s)Allergy TypeDate of OnsetReaction(s) Facility (15 sources)Acetaminophen; Translations: [acetaminophen]Drug Allergyhives, Weal (disorder)[facility] (1 source)AcetaminophenDrug AllergyThe [facility] (8 sources)AcetaminophenDrug Bmeepvm24-33-8182Sgyan, Itching, SwellingNOMS Healthcare (1 source)AcetaminophenDrug Jrvmhwf60-66-9240VzvazpwdvTog[facility] Rep[facility] Medications Current Medications MedicationDrug Class(es)DatesSig (Normalized)Sig (Original)3 ML semaglutide 2.68 MG/ML Pen Injector (1 source)Start: 23-57-4589qrfwsk 2 mg by subcutaneous injection every week semaglutide 8 mg/3 mL (2 mg dose) subcutaneous solution (Ozempic) 2 mg, SubCutaneous, qWeek, Refills(s) 0 Start Date: 08/19/25 Status: Ordered Repeat number: [id number] 200 actuat albuterol 0.09 mg/actuat metered dose inhaler (20 sources)beta2-Adrenergic AgonistStart: 90-42-5875heku 1 puff(s) by inhalation four times daily as neededStart: 01-15-2024 End: 70-16-4085udbi 2 puff(s) by mouth four times daily [...] ActiveALPRAZolam 0.5 mg oral tablet (20 sources)BenzodiazepineStart: 93-43-4419hxry 1 tablet by mouth at bedtime as needed for anxietyalprazolam 0.5 mg Tab 0.5 mg = 1 tab(s), Oral, Bedtime, PRN for anxiety, Refills(s) 0 Start Date: 08/19/25 Status: Ordered Repeat number: 1 Start: 01-29-2024 End: 16-64-7899xfgj 1 tablet by mouth once daily at bedtimeAlprazolam (Xanax) 0.5 mg tablet Discontinued 0.5 MG PO Daily at bedtime 30 30 0 May 07, 2024 2:51pm August 04, 2024 3:31pm Anxiety Anxiety disorder, unspecifiedStart: 01-15-2024 End: 25-34-0711bjqv 1 tablet by mouth once daily at bedtimeAlprazolam (Xanax) 0.25 mg tablet Discontinued 0.25 MG PO Daily at bedtime 30 30 January 15, 2024 1:49pm January 29, 2024 4:26pm Anxiety disorder Anxiety disorder, unspecified Start: 06-49-2705sabo 1 tablet by mouth once at bedtime as neededXanax 0.25 MG 1 tablet Orally q HS prn for 28 days Nov, ActiveStart: 76-01-6082Pceqj 0.25 MG 1 tablet Orally q8-12 hrs prn for 7 days Sep, Activeamoxicillin 875 mg / clavulanate 125 mg oral tablet (3 sources)Penicillin-class AntibacterialStart: 24-03-5339uyni 1 tablet by mouth twice daily at mealtimeAmoxicillin-Pot Clavulanate 875-125 MG 1 tablet Orally two times a day with food for 10 day(s) Feb, Erukxu21 hr buPROPion hydrochloride 300 mg extended release oral tablet (2 sources)AminoketoneStart: 10-39-7329gkfm 1 tablet by mouth every twenty-four hoursWellbutrin XL 300 MG 1 tablet in the morning Orally Once a day for 90 days May, ActiveStart: 28-44-0812ookk 1 tablet by mouth every twenty-four hoursWellbutrin XL 150 MG 1 tablet in the morning Orally Once a day for 30 day(s) May, Activecetirizine hydrochloride 10 mg oral tablet (20 sources)Histamine-1 Receptor AntagonistStart: 78-49-1989cfto 1 tablet by mouth once dailycetirizine 10 mg Tab 10 mg = 1 tab(s), Oral, Daily, Refills(s) 0 Start Date: 09/02/25 Status: Ordered Repeat number: 1Start: 01-29-2024 End: 64-96-3153rpvi 1 tablet by mouth once dailyCetirizine 10 mg tablet Active 10 MG PO Daily October 27, 2024 5:01pm Complies with drug therapytake 1 tablet by mouth once daily as neededCetirizine HCl 10 MG TAKE 1 TABLET BY MOUTH EVERY DAY prn Not-Taking/PRNibuprofen 800 mg oral tablet (20 sources)Nonsteroidal Anti-inflammatory DrugStart: 52-89-1061Swaejajfk Active 0 .ROUTE .COMPLEX 60 August 04, 2024 3:32pm TAKE 1 TABLET BY MOUTH EVERY 8 TO12 HOURS NEEDED WITH FOODStart: 03-10-2024 End: 16-45-6992Nsbddsofe 800 mg tablet Discontinued 0 .ROUTE .COMPLEX 60 0 August 04, 2024 3:32pm October 27, 2024 5:03pm TAKE 1 TABLET BY MOUTH EVERY 8 TO 12 HOURS NEEDED WITH FOODStart: 03-10-2024 End: 88-04-8871Jsozifhue Discontinued 0 .ROUTE .COMPLEX 60 March 10, 2024 2:53pm August 04, 2024 3:33pm TAKE 1 TABLET BY MOUTH EVERY 8 TO 12 HOURS NEEDED WITH FOODStart: 05-13-7498Maxlpvnxs Active 0 .ROUTE .COMPLEX 60 March 10, 2024 2:53pm TAKE 1 TABLET BY MOUTH EVERY 8 TO 12 HOURS NEEDED WITH FOOD Start: 06-26-2023 End: 49-88-7082Wsddqpxra 800 mg tablet Active 800 MG PO [...] hydrochloride 500 mg oral tablet (20 sources)BiguanideStart: 57-10-7730wuow 2 tablets by mouth once daily in the morning, then take 1 tablet by mouth once daily in the eveningmetformin 500 mg ER Tab 2 po QAM and 1 po QPM, Refills(s) 0 Start Date: 09/02/25 Status: Ordered Repeat number: 1Start: 08-04-2024 End: 48-70-6888vmka 2 tablets by mouth every twenty-four hours in the morning, then take 1 tablet by mouth in the eveningMetformin 500 mg tablet extended release 24 hr Active 0 PO .COMPLEX 270 90 3 August 04, 2024 3:39pm take 2 (500 MG) tablets in the AM orally and take 1 (500 MG) tablet in the evening Complies with drug therapyStart: 05-31-2023 End: 87-41-2728vpbs 2 tablets by mouth once daily in the morning, then take 1 tablet by mouth once daily in the eveningmetFORMIN XR (Glucophage-XR) 500 MG 24 hr tablet TAKE 2 TABLETS BY MOUTH EVERY MORNING AND 1 EVERY EVENING 05/31/2023 ActiveOzempic, 2 MG/DOSE, 8 MG/3ML solution pen-injector (3 sources)Start: 66-00-8275kksyqc 2 mg by subcutaneous injection every week Ozempic, 2 MG/DOSE, 8 MG/3ML solution pen-injector INJECT 2MG SUBCUTANEOUSLY ONCE A WEEK 07/04/2025tiveSemaglutide (7 sources)Start: 34-26-3634wlbilr 2 mg by subcutaneous injection every week Semaglutide (Ozempic) 2 mg/dose (8 mg/3 mL) pen injector Active 2 MG SUBCUT every week 3 2 July 29, 2025 7:37am Complies with drug therapyStart: 05-11-2025 End: 85-71-8959zmzuiu 2 mg by subcutaneous injection every weekSemaglutide (Ozempic) 2 mg/dose (8 mg/3 mL) pen injector Discontinued 2 MG SUBCUT every week 3 2 May 11, 2025 8:37am July 29, 2025 7:37amStart: 64-06-1081btlimi 2 mg by subcutaneous injection every weekSemaglutide (Ozempic) 2 mg/dose (8 mg/3 mL) pen injector Active 2 MG SUBCUT every week 3 April 8:37am Complies with drug therapyStart: 02-18-2025 End: 28-92-8340xdtsvc 2 mg by subcutaneous injection every weekSemaglutide (Ozempic) 2 mg/dose (8 mg/3 mL) pen injector Discontinued 2 MG SUBCUT every week 3 2 February 18, 2025 12:00am May 11, 2025 8:38amStart: 02-18-2025 End: 85-87-2416lksjed 2 mg by subcutaneous injection every weekSemaglutide (Ozempic) 2 mg/dose (8 mg/3 mL) pen injector Discontinued 2 MG SUBCUT every week 3 February 18, 2025 12:00am May 11, 2025 8:38amSemaglutide (Ozempic) 2 mg/dose (8 mg/3 mL) pen injector (1 source)Start: 54-90-6087kzccbn 2 mg by subcutaneous injection every week Semaglutide (Ozempic) 2 mg/dose (8 mg/3 mL) pen injector Active 2 MG SUBCUT every week 3 February 12:00amsertraline 100 mg oral tablet (20 sources)Serotonin Reuptake InhibitorStart: 44-83-6020woin 1 tablet by mouth once dailyZoloft 100 mg Tab 100 mg = 1 tab(s), Oral, Daily, Refills(s) 0 Start Date: 08/19/25 Status: Ordered Repeat number: 1Start: 10-27-2024 End: 01-53-1038lelz 1 tablet by mouth once dailysertraline (Zoloft) 100 MG tablet Take 100 mg by mouth Daily 06/22/2025 ActiveStart: 08-04-2024 End: 43-58-9650amzw 4 tablets by mouth once dailySertraline 25 mg tablet Discontinued 25 MG PO Daily 90 December 02, 2024 2:27pm May 20, 2025 3:17pm in addition to the 100 MG tablet (total 125 MG) dailyStart: 07-08-2024 End: 21-70-4630pnep 1 tablet by mouth once dailySertraline 100 mg tablet Discontinued 0 .ROUTE .COMPLEX 90 1 August 04, 2024 3:29pm October 27, 2024 5:03pm TAKE 1 TABLET BY MOUTH EVERY DAY in addition to the 25 MG tablet (total of 125 MG) dailyStart: 01-29-2024 End: 35-96-2237nybj 1 tablet by mouth once dailySertraline 100 mg tablet Discontinued 100 MG PO Daily 90 January 29, 2024 4:38pm July 08, 2024 8:21amStart: 01-03-2024 End: 11-67-3621Mttwzhexom 50 mg tablet Discontinued 0 .ROUTE .COMPLEX 135 1 January 03, 2024 10:13am January 29, 2024 4:26pm TAKE 1 AND 1/2 TABLETS EVERY DAYStart: 01-03-2024 End: 02-18-5716Behivhzjib Discontinued 0 .ROUTE .COMPLEX 135 January 03, 2024 10:13am January 29, 2024 4:26pm TAKE 1 AND 1/2 TABLETS EVERY DAYStart: 01-03-2024 End: 23-23-5356wllr 1 tablet by mouth once dailySertraline 50 mg tablet Discontinued 0 PO Daily 135 0 January 03, 2024 10:11am January 03, 2024 10:13am take 1 & 1/2 of a 50 MG tablet orally daily; FreeTextSig: take 1 and 1/2 tablet by mouth once a day; Note: Source Status: Increase; Refills: 1; Provider: Dyllan Fioretart: 95-19-0993xyzs 0.5 tablet by mouth once daily, then take 1 tablet by mouth once dailyZoloft 25 MG 1/2 tablet qd x6 days and then take 1 tablet Orally Once a day for 30 days Sep, ActiveSertraline HCl 50 MG take 1 and 1/2 tablet by mouth once a day for 30 days Active terbinafine 250 mg oral tablet (1 source)Allylamine AntifungalStart: 43-83-1483cigb 1 tablet by mouth every twenty-four hoursTerbinafine HCl 250 MG 1 tablet Orally Once a day for 15 days Jun, Active Completed/Discontinued Medications MedicationDrug Class(es)DatesSig (Normalized)Sig (Original)empagliflozin 10 mg oral tablet (20 sources)Sodium-Glucose Cotransporter 2 InhibitorStart: 01-29-2024 End: 41-11-2826ucqg 1 tablet by mouth once dailyEmpagliflozin (Jardiance) 10 mg tablet Discontinued 10 MG PO Daily 30 January 29, 2024 4:37pm August 05, 2024 12:53pmfluconazole 150 mg oral tablet (5 sources)Azole AntifungalStart: 10-01-2024 End: 07-55-8839ftkd 1 tablet by mouth once daily, then take 1 tablet by mouth every weekFluconazole 150 mg tablet Discontinued 150 MG PO Daily 13 October 01, 2024 1:00am October 27, 2024 4:56pm 150mg PO once daily for 10 days, followed by 150mg once weekly,3 ml liraglutide 6 mg/ml pen injector (20 sources)GLP-1 Receptor AgonistStart: 07-23-2023 End: 42-05-3396gnthrg 1.8 mg by subcutaneous injection once dailyLiraglutide [...] mg oral tablet (6 sources)Start: 06-20-2024 End: 05-06-0022rmfh 3 tablets by mouth once daily at [...] ON PREDNISONE Semaglutide (10 sources)Start: 12-02-2024 End: 26-33-1621tsmnqf 1 mg by subcutaneous injection every weekSemaglutide (Ozempic) 1 mg/dose (4 mg/3 mL) pen injector Discontinued 1 MG SUBCUT every week 3 2 December 02, 2024 2:24pm February 18, 2025 3:58pmStart: 12-02-2024 End: 89-62-3303ydtbxe 1 mg by subcutaneous injection every weekSemaglutide (Ozempic) 1 mg/dose (4 mg/3 mL) pen injector Discontinued 1 MG SUBCUT every week 3 December 02, 2024 2:24pm February 18, 2025 3:58pmStart: 63-14-7070aixglv 1 mg by subcutaneous injection every weekSemaglutide (Ozempic) 1 mg/dose (4 mg/3 mL) pen injector Active 1 MG SUBCUT every week 3 December 02, 2024 1:24pmStart: 12-02-2024 End: 71-63-7199rgboey 1 mg by subcutaneous injection every weekSemaglutide (Ozempic) 1 mg/dose (4 mg/3 mL) pen injector Discontinued 1 MG SUBCUT every week 3 2 December 02, 2024 1:00am December 02, 2024 2:24pmStart: 12-02-2024 End: 68-02-6642rtrnoy 1 mg by subcutaneous injection every weekSemaglutide (Ozempic) 1 mg/dose (4 mg/3 mL) pen injector Discontinued 1 MG SUBCUT every week 3 December 02, 2024 1:00am December 02, 2024 2:24pmStart: 12-02-2024 End: 51-98-5918zzqlwj 1 mg by subcutaneous injection every weekSemaglutide (Ozempic) 1 mg/dose (4 mg/3 mL) pen injector Discontinued 1 MG SUBCUT every week 3 December 02, 2024 12:00am December 02, 2024 1:24pmSemaglutide (5 sources)Start: 10-27-2024 End: 87-00-1492Njccmbcqazf (Ozempic) 0.25 mg or 0.5 mg (2 mg/3 mL) pen injector Discontinued 0.5 MG SUBCUT every week 3 October 27, 2024 1:00am December 02, 2024 1:49pm for 4 weeksStart: 10-27-2024 End: 61-25-1029Qybgpahliqr (Ozempic) 0.25 mg or 0.5 mg (2 mg/3 mL) pen injector Discontinued 0.5 MG SUBCUT every week 3 October 27, 2024 1:00am December 02, 2024 1:49pm for 4 weeksStart: 10-27-2024 End: 15-05-7784Yppzoozgaky (Ozempic) 0.25 mg or 0.5 mg (2 mg/3 mL) pen injector Discontinued 0.5 MG SUBCUT every week 3 October 27, 2024 12:00am December 02, 2024 12:49pm for 4 weeksTriamcinolone (20 sources)CorticosteroidStart: 61-10-0526Swnwtek -40 mg Jan, 60 mg Start: 02-32-2541CPCDUMS - 10 mg Jul, 40 mg Problems Active Problems Problem ClassificationProblemDateDocumented DateEpisodic/ChronicAllergic reactions (2 sources)Urticaria; Translations: [Urticaria, unspecified]61-28-7169Ezrzurbb Anxiety disorders (20 sources)Anxiety; Translations: [Anxiety disorder, unspecified]Chronic Diabetes mellitus with complications (20 sources)Type II diabetes mellitus uncontrolled; Translations: [Type 2 diabetes mellitus with hyperglycemia]Onset: 05-23-2022 Resolved: 04-03-9015OagwomjNkyqctsd mellitus without complication (20 sources)Type 2 diabetes mellitus; Translations: [Type 2 diabetes mellitus without complications]Onset: 37-33-4729LemywftOrjvxipx mellitus without complication (13 sources)Hyperglycemia; Translations: [Hyperglycemia, unspecified]Episodic Disorders of lipid metabolism (20 sources)Hyperlipidemia; Translations: [Hyperlipidemia, unspecified]Onset: 05-23-2022 Resolved: 91-39-4846SzwghsqAeogr and electrolyte disorders (9 sources)Hypokalemia; Translations: [Hypokalemia]02-92-0264Lcjvhgse Genitourinary symptoms and ill-defined conditions (6 sources)Urinary incontinence; Translations: [Unspecified urinary incontinence]81-98-7758XveozjqKiknttqrtqrgi symptoms and ill-defined conditions (3 sources)Frequency of micturition; Translations: [Proteinuria, unspecified] Onset: 05-23-2022 Resolved: 09-77-5012RkyqodnkFkzpbdq and fatigue (1 source)Other fatigueEpisodicMood disorders (17 sources)Depressive disorder; Translations: [Major depressive disorder, single episode, unspecified]ChronicMycoses (1 source)Tinea pedisEpisodicNonspecific chest pain (9 sources)Chest pain; Translations: [Chest pain, unspecified]69-77-5517Zluqggyu Other aftercare (13 sources)Long-term current use of drug therapy; Translations: [Other correction (current) drug therapy]EpisodicOther aftercare (4 sources)Other rn long term care (current) drug therapy; Translations: [OTH ALF CURRENT DRUG THERAPY]Onset: 05-23-2022 Resolved: 47-74-5153YfjpzybrOuxtl liver diseases (13 sources)Elevated liver enzymes level; Translations: [Abnormal levels of other serum enzymes]EpisodicOther liver diseases (2 sources)Alkaline phosphatase raised; Translations: [Abnormal levels of other serum enzymes]71-17-9797PomcdgtvMgjhg nervous system disorders (13 sources)Skin sensation disturbance; Translations: [Paresthesia of skin] EpisodicOther nervous system disorders (13 sources)Paresthesia of upper limb; Translations: [Paresthesia of skin] EpisodicOther nutritional; endocrine; and metabolic disorders (3 sources)Abnormal weight loss; Translations: [Loss of weight]Onset: 05-23-2022 Resolved: 95-48-1586AoiutxorVqmyf nutritional; endocrine; and metabolic disorders (1 source)Abnormal weight gainEpisodicOther nutritional; endocrine; and metabolic disorders (4 sources)Weight loss; Translations: [Abnormal weight loss]41-48-6678Vjzncnzs Other nutritional; endocrine; and metabolic disorders (4 sources)Weight decreased; Translations: [Abnormal weight loss]01-29-2024 EpisodicOther nutritional; endocrine; and metabolic disorders (1 source)Jbipuxajoh88-82-3099WcljjbjgZrgdx nutritional; endocrine; and metabolic disorders (1 source)Overweight in adulthood with body mass index of 25 or more but less than 5855-34-6971KkslbgwsQypyj screening for suspected conditions (not mental disorders or infectious disease) (20 sources)Mammography abnormal; Translations: [Other abnormal and inconclusive findings on diagnostic imagingof breast]Onset: 67-11-2442KcmaisslIrhfe skin disorders (1 source)Other seborrheic keratosisEpisodicOther upper respiratory disease (13 sources)Allergic rhinitis; Translations: [Allergic rhinitis, unspecified] ChronicOther upper respiratory disease (1 source)Allergic rhinitis, unspecifiedOnset: 05-23-2022 Resolved: 03-00-5129PihxshuAaaxhile codes; unclassified (13 sources)Insomnia; Translations: [Insomnia, unspecified]EpisodicResidual codes; unclassified (1 source)Tobacco tzix06-78-3932GlqkcbneKsmthyfcf-gmrmhyh disorders (20 sources)Nicotine dependence; Translations: [Nicotine dependence, unspecified, uncomplicated]Onset: 05-23-2022 Resolved: 78-92-2538BwfixjdDzuegpqzabfp (3 sources)CONTACT W/AND (SUSP) EXPOS COVID-19; Translations: [CONTACT W/AND (SUSP) EXPOS COVID-19]Onset: 12-38-9520Horkwllgwril (1 source)Patient encounter ymhizc95-09-4990Fuynk infection (1 source)Molluscum contagiosumEpisodicViral infection (5 sources)COVID-19; Translations: [COVID-19]Onset: 10-23-2022 Past or Other Problems Problem ClassificationProblemDateDocumented DateEpisodic/ChronicAbdominal pain (3 sources)Left lower quadrant pain; Translations: [LEFT LOWER QUADRANT PAIN] Onset: 47-70-2536YrgdodphWutmsyyjanotp and screening for infectious disease (1 source)Encounter for screening for human papillomavirus (HPV); Translations: [ENC SCREENING HUMAN PAPILLOMAVIRUS]Onset: 73-01-3659MupzgpdcMddukcpkmsjh breast conditions (1 source)Unspecified lump in the left breast, upper outer quadrant; Translations: [UNS LUMP IN LT BREAST UPROUTR QUAD]Onset: 12-70-9870WtfturjyEokvt aftercare (1 source)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; Translations: [COVERER USE ORAL HYPOGLYCEMIC DX]Onset: 04-92-3191PazmpuqeMvplu circulatory disease (3 sources)Other specified symptoms and signs involving the circulatory and respiratory systems; Translations:[OTH SPEC SX SIGNS INVLV CIRC RS]Onset: 06-20-2022 Resolved: 36-23-4305XuetvglnEslfhh media and related conditions (1 source)Otitis media, unspecified, left earOnset: 06-20-2022 Resolved: 74-74-7872MvjhqqzdDtfqvfbg codes; unclassified (2 sources)Pain, unspecified; Translations: [PAIN UNSPECIFIED]Onset: 06-20-2022 Resolved: 78-97-5466WomyknyjXudqqnkrc and history of mental health and substance abuse codes (1 source)Personal history of nicotine dependence; Translations: [PERSONAL HISTORY OF NICOTINE DEPEND]Onset: 60-92-0460UboiijotSuawummrvvny (1 source)Cough R05.9Unclassified (1 source)CONTACT W/AND (SUSP) EXPOS COVID-19; Translations: [CONTACT W/AND (SUSP) EXPOS COVID-19]Onset: 45-86-6013Fcysroe tract infections (1 source)Urinary tract infection, site not specified; Translations: [UTI SITE NOT SPECIFIED]Onset: 75-69-2312Gfkjwfzv Results Test NameValueInterpretationReference RangeFacilityAmbulatory Visit Summaryon 84-91-3062Vljoogowjv Visit SummaryAmbulatory Visit Summary DEBBY DURBIN :1980 [...] signed up for this yet, please contact [facility] at [phone] to get signed up today. Language Information Language assistance services are available as needed. NormalGen[facility] HospitalLabor[facility] - Hematology and Cell countson 69-15-6871RlK6y (Bld) [Mass fraction]6.7 %[facility] Medical CenterIGP,APTIMA HPV,AGE GDLNon 99-54-8450CPX GDLN ACOG TESTINGNote.NOMS HealthcareComment on above:TESTS RESULT FLAG UNITS REF RANGE LAB Clinician Provided Cytology Information Source.............Cervix;Endocervix No. of containers..01 ThinPrep Vial Age Jermaine NEAL Prisca... 29 FLAG LEGEND: L-Low Normal,H-High Normal,LL-Alert Low,HH-Alert High <-Panic Low,>-Panic High,A-Abnormal,AA-Critical Abnormal Performed at: 01 =[address] [place] [address] Jacey Holm MD, HPV APTIMANegativeNegativeNOMS HealthcareComment on above:This nucleic acid amplification test detects fourteen high- risk HPV types (16,18,31,33,35,39,45,51,52,56,58,59,66,68) without differentiation. Performed at: =[address] [id number] Rooter Operator: Jacey Holm MD, Phone: [phone] Performed at: [address] [id number] Rooter Operator: Jacey Holm MD, Phone: [phone] IGP, APTIMA HPV, RFX 16/18,45Note.NOMS HealthcareComment on above:TESTS RESULT FLAG UNITS REF RANGE LAB DIAGNOSIS: 02 NEGATIVE FOR INTRAEPITHELIAL LESION OR MALIGNANCY. PREDOMINANCE OF COCCOBACILLI CONSISTENT WITH SHIFT IN VAGINAL NNEKA IS PRESENT. Specimen adequacy: 02 Satisfactory for evaluation. Endocervical and/or squamous metaplastic cells (endocervical component) are present. Performed by: 02 Fouzia Eddy Pasteurizer (ASCP) . 02 Note: Note 02 The [...] <-Panic Low,>-Panic High,A-Abnormal,AA-Critical Abnormal Performed at: [address] [address] Jacey Holm MD, BRUSH-SPATULA CERVIX ENDOCERVIX CLINISYNCNOMS [facility] papilloma virus 16+18+31+33+35+39+45+51+52+56+58+59+66+68 DNA [Presence] in CerOrdered By: Moiz Mendiola on 94-48-3232GAY 16+18+31+33+35+39+45+51+52+56+58+59+66+68 DNA Probe+sig amp Ql (Cvx)NegativeNegativeTogus Va Medical CenterComment on above: This nucleic acid amplification test detects fourteen high-risk HPV types (16,18,31,33,35,39,45,51,52,56,58,59,66,68)without differentiation.Performed at: =G - [facility] [address] [place], [place] [id number] Director: Jacey Holm MD, Phone: [phone] at: WB - [facility] [address] [place], [place] [id number] Director: Jacey Holm MD, Phone: [phone] Panel InformationOrdered By: Moiz Mendiola on 94-33-2296RIH High Risk Other CommentNote.[facility] Va Medical CenterComment on above:TESTS RESULT FLAG UNITS REF RANGE LAB DIAGNOSIS: 02 NEGATIVE FOR INTRAEPITHELIAL LESION OR MALIGNANCY. PREDOMINANCE OF COCCOBACILLI CONSISTENT WITH SHIFT IN VAGINAL NNEKA IS PRESENT.Specimen adequacy: 02 Satisfactory for evaluation. Endocervical and/or squamous metaplastic cells (endocervical component) are present.Performed by: Vikas Marie Pasteurizer (ASCP). 02Note: Note 02 The Pap smear [...] Panic High,A-Abnormal,AA-Critical Abnormal Performed at:02 WB [facility] [address] [place] [place] [address] Jacey Holm MD, Gdbdvwhqc Lab Test Patient [facility] Medical CenterComment on above:TESTS RESULT FLAG UNITS REF RANGE LAB Clinician Provided Cytology Information Source.............Cervix;Endocervix No. of containers..01 ThinPrep VialAge Tainao CARRIOG Prisca... FLAG LEGEND: L-Low Normal,H-High Normal,LL-Alert Low,HH-Alert High <-Panic Low,>-Panic High,A- Abnormal,AA-Critical Abnormal Performed a t:01 =G [facility] [place] [address] [place] [place] [address] Jacey Holm MD, Mxv 12-11-2024 Specimen: [id number] Received: 12/11/24 Status: WHITLEY Estrada Num: [id number] Spec Type: Surgical Subm Dr: Moiz Mendiola Tissues: A BREAST CORE NO CALCS (LEFT BREAST 7 OCLOCK) Procedures: HE/4, Gross/Micro L4 Age/ Patient Sex Location Account Attending Physician Debby Durbin 44/F [facility] [id number] Moiz Mendiola SPEC NUM: [id number] RECD: 12/11/24 STATUS: WHITLEY ESTRADAQ NUM: [id number] SELVIN: 12/11/24 [facility] DR: Moiz Mendiola ENTERED: 12/11/[address]: Brigido,Lab Jonathan Guido MD SPEC TYPE: Surgical DEPT: EVA GUALLPA ENTERED BY: [id number] RECV BY: [id number] ORDERED: HE/4, Gross/Micro L4 ORDERED: HE/4, Gross/Micro [...] [id number] Received: 12/11/24 Status: WHITLEY Rees Num: [id number] Spec Type: Surgical Subm Dr: Moiz Mendiola Tissues: A BREAST CORE NO CALCS (LEFT BREAST 7 OCLOCK) Procedures: HE/Isaiah, Gross/Micro L4 Patient: Debby Durbin [id number] (Continued) Specimen: [id number] Received: 12/11/24 (Continued) Gross Description (Continued) Signed (signature on file) Ryan Morse MD 12/12/24 1512 Specimen: [id number] Received: 12/11/24 Status: WHITLEY Rees Num: [id number] Spec Type: Surgical Subm Dr: Moiz Mendiola Tissues: A BREAST CORE NO CALCS (LEFT BREAST 7 OCLOCK) Procedures: Blu CERVANTES/Aileen L4 Patient: Debby Durbin [id number] (Continued) Specimen: [id number] Received: 01/30/25-1304 (Continued) Gross Description (Continued) Time specimen placed in formalin: 0906 Cold ischemic time: 1 minute Total fixation time: 8 hours and 30 minutes (2, arvind, BS25-) CARROLL Microscopic Description Microscopic examinations are performed supporting the above interpretation CPT Codes 87614 Specimen: [id number] Received: 12/11/24 Status: WHITLEY Rees Num: [id number] Spec Type: Surgical Subm Dr: Moiz Mendiola Tissues: A BREAST CORE NO CALCS (LEFT BREAST 7 OCLOCK) Procedures: Blu CERVANTES/Micro L4 Patient: Debby Durbin [id number] (Continued) Signed (signature on file) Ryan Morse MD 12/12/[address] [place] [address] Physician GroupMM POST BIOPSY LTon 08-60-2666Wda [address] [address] Mammography Report Signed Patient: DEBBY DURBIN MR#: [id number] : 1980 Acct:[id number] Age/Sex: 44 / F ADM Date: 12/11/24 Loc: US Attending Dr: Moiz Mendiola D.O. Ordering Physician: Moiz Mendiola D.O. Results: Date of Service: 12/11/24 Follow Up: Procedure(s): MM post biopsy LT Accession Number(s): [id number] cc: Moiz Mendiola D.O.; AILEEN CASTELLANOS Patient Name: DEBBY DURBIN MR#: [id number] : 1980 Exam Date: 12/11/2024 Ordering Doctor: [...] Signed By: 12/11/24 1532 DD/ 1531 TD/TT: Leather Stitcher:TBHRadiology, Radiologist, - 12/11/2024 [place] [address] Mammography Report Signed Patient: DEBBY DURBIN MR#: [id number] : 1980 Acct:[id number] Age/Sex: 44 / F ADM Date: 12/11/24 Loc: US Attending Dr: Moiz Mendiola D.O. Ordering Physician: Moiz Mendiola D.O. Results: Date of Service: 12/11/24 Follow Up: Procedure(s): MM post biopsy LT Accession Number(s): [id number] cc: Moiz Mendiola D.O.; AILEEN CASTELLANOS Patient Name: DEBBY DURBIN MR#: [id number] : 1980 Exam Date: 12/11/2024 Ordering Doctor: [...] Signed By: 12/11/24 1532 DD/ 1531 TD/TT: Leather Stitcher: NOMS HealthcareRadiology Study observation (narrative)NOMS HealthcareMM POST BIOPSY LTOrdered By: Radiologist Radiology on 05-52-4057[facility] Work Phone: US GUIDED BREAST BIOPSY LTon 13-51-7159[place] [address] Ultrasound Report Signed Patient: DEBBY DURBIN MR#: [id number] : 1980 Acct:[id number] Age/Sex: 44 / F ADM Date: 12/11/24 Loc: US Attending Dr: Moiz Mendiola D.O. Ordering Physician: Moiz Mendiola D.O. Date of Service: 12/11/24 Procedure(s): US breast vac bx w/ clip LT Accession Number(s): [id number] cc: Moiz Mendiola D.O.; AILEEN CASTELLANOS [place] [address] Patient Name: DEBBY DURBIN MRN: [id number] date: 1980 Sex: F Assigned Patient Location: US Current Patient Location: Accession/Order Number: [id number] Exam Date: 12/11/2024 08:05 Report Date: 12/11/2024 [...] Signed By: 12/11/24 1454 DD/ 1452 TD/TT: Leather Stitcher:TBHRadiology, Radiologist, - 12/11/2024 [place] [address] Ultrasound Report Signed Patient: DEBBY DURBIN MR#: [id number] : 1980 Acct:[id number] Age/Sex: 44 / F ADM Date: 12/11/24 Loc: US Attending Dr: Moiz Mendiola D.O. Ordering Physician: Moiz Mendiola D.O. Date of Service: 12/11/24 Procedure(s): US breast vac bx w/ clip LT Accession Number(s): [id number] cc: Moiz Mendiola D.O.; AILEEN CASTELLANOS [place] [address] Patient Name: DEBBY DURBIN MRN: [id number] date: 1980 Sex: F Assigned Patient Location: US Current Patient Location: Accession/Order Number: [id number] Exam Date: 12/11/2024 08:05 Report Date: 12/11/2024 [...] Signed By: 12/11/24 1454 DD/ 1452 TD/TT: Leather Stitcher: MITA FountainRadiology Study observation (narrative)NOMS HealthcareUS GUIDED BREAST BIOPSY LTOrdered By: Radiologist Radiology on 60-74-8918VVQR [facility] Work Phone: US BREAST LT LIMITEDon 20-66-[address]21[address] [address] Ultrasound Report Signed Patient: DEBBY DURBIN MR#: [id number] : 1980 Acct:[id number] Age/Sex: 44 / F ADM Date: 12/02/24 Loc: US Attending Dr: Moiz Mendiola D.O. Ordering Physician: Moiz Mendiola D.O. Date of Service: 12/02/24 Procedure(s): US breast LT limited Accession Number(s): [id number] cc: Moiz Mendiola D.O.; AILEEN CASTELLANOS Patient Name: DEBBY DURBIN MR#: [id number] : 1980 Exam Date: 12/02/2024 Ordering Doctor: [...] Signed By: 12/03/24 1619 DD/DT: [id number] TD/TT: Leather Stitcher:FRANTZHRadiology, Radiologist, - 12/03/2024 [place] [address] Ultrasound Report Signed Patient: DEBBY DURBIN MR#: [id number] : 1980 Acct:[id number] Age/Sex: 44 / F ADM Date: 12/02/24 Loc: US Attending Dr: Moiz Mendiola D.O. Ordering Physician: Moiz Mendiola D.O. Date of Service: 12/02/24 Procedure(s): US breast LT limited Accession Number(s): [id number] cc: Moiz Mendiola D.O.; AILEEN CASTELLANOS Patient Name: DEBBY DURBIN MR#: [id number] : 1980 Exam Date: 12/02/2024 Ordering Doctor: [...] Signed By: 12/03/24 1619 DD/ 17 TD/TT: Leather Stitcher: MITA HealthcareRadiology Study observation (narrative)MITA HealthcareUS BREAST LT LIMITEDOrdered By: Radiologist Radiology on 13-82-1419BTGY [facility] Work Phone: mm TOMOSYNTHESIS SCREENING BIon 62-41-6191[place] [address] Mammography Report Signed Patient: DEBBY DURBIN MR#: [id number] : 1980 Acct:[id number] Age/Sex: 44 / F ADM Date: 11/14/24 Loc: MAMMO Attending Dr: Moiz Mendiola D.O. Ordering Physician: Moiz Mendiola D.O. Results: Date of Service: 11/14/24 Follow Up: Procedure(s): MM tomosynthesis screening BI Accession Number(s): [id number] cc: Moiz Mendiola D.O.; AILEEN CASTELLANOS Patient Name: DEBBY DURBIN MR#: [id number] : 1980 Exam Date: 11/14/2024 Ordering Doctor: [...] Treatments None Family Cancers None LOCATION: [facility] BREAST COMPOSITION: The breasts are heterogeneously dense,which [...] on 11/14/2024 at 12:41 Dictated By: Aileen Gurerero M.D. Signed By: 11/14/24 1242 DD/ 1241 TD/TT: Leather Stitcher:TBHRadiology, RadiologistMD - 11/14/2024 [place] [address] Mammography Report Signed Patient: DEBBY DURBIN MR#: [id number] : 1980 Acct:[id number] Age/Sex: 44 / F ADM Date: 11/14/24 Loc: MAMMO Attending Dr: Moiz Mendiola D.O. Ordering Physician: Moiz Mendiola D.O. Results: Date of Service: 11/14/24 Follow Up: Procedure(s): MM tomosynthesis screening BI Accession Number(s): [id number] cc: Moiz Mendiola D.O.; AILEEN CASTELLANOS Patient Name: DEBBY DURBIN MR#: [id number] : 1980 Exam Date: 11/14/2024 Ordering Doctor: [...] Treatments None Family Cancers None LOCATION: [facility] BREAST COMPOSITION: The breasts are heterogeneously dense,which [...] Signed By: 11/14/24 1242 DD/ 1241 TD/TT: Leather Stitcher: MITA [facility] HospitalRadiology Study observation (narrative)MITA [facility] TOMOSYNTHESIS SCREENING BIOrdered By: Radiologist Radiology on 15-23-2599KSTE [facility] Work Phone: Laboratory - Hematology and Cell countson 07-28-2024 HbA1c (Bld) [Mass fraction]7.1 %[facility] CenterBasophils Auto (Bld) [#/Vol]on 65-53-4525Nxzktslje (Bld) [#/Vol]0.1 10 3/uL0.0-0.1FParkview Health Bryan HospitalBasophils/100 WBC Auto (Bld)on 29-64-3490Nkpeowucp/100 WBC (Bld)0.6 %0.2-2.0[facility] CenterCholesterol in LDL Calc [Mass/Vol]on 29-02-7702Dchxarcegab in LDL [Mass/Vol]123.0 mg/dLTogus Va Medical CenterComment on above:<100 mg/dl UHUCAPS886-681 mg/dl NEAR OR ABOVE LCIHKHG411-321 mg/dl BORDERLINE XEPO018-411 mg/dl HIGH>190 mg/dl VERY HIGH Cholesterol in VLDL Calc [Mass/Vol]on 21-52-1934Jmaynpmqelo in VLDL [Mass/Vol] 28.2 mg/dLTogus Va Medical CenterEosinophils/100 WBC Auto (Bld)on 50-72-6107Pjugygozmdj/100 WBC (Bld)1.1 %0.9-7.0[facility] Erythrocyte distribution width Auto (RBC) [Ratio]on 39-33-6849Ghvevmkktcp distribution width (RBC) [Ratio]12.8 %11.0-15.0[facility] Estimated glomerular filtration rate (GFR) non- Americanon 01-17-2024 GFR/1.73 sq M.predicted among non-blacks MDRD (S/P/Bld) [Vol rate/Area] mL/min/{1.73_m2}>=60[facility] CenterFibrin D-dimer [Presence] in Platelet poor plasma by Latex agglutinationon 33-79-3933Yddwys D-dimer LA Ql (PPP)0.49 mg/L FEU<=0.59[facility] CenterComment on above: Increases in D-Dimer [...] stress, and generalizedhospitalization. Globulin Calc (S) [Mass/Vol]on 93-02-0602Mqlbvpzk (S) [Mass/Vol]3.8 g/dL [facility] CenterGlucose mean value [Mass/volume] in Blood Estimated from glycated hemoglobinon 34-49-9840Arttpnu glucose Estimated from glycated hemoglobin (Bld) [Mass/Vol]151 mg/dLTogus Va Medical Center Hematocrit Auto (Bld) [Volume fraction]on 41-34-0960Dsmfewqtcg (Bld) [Volume fraction]43.7 %36.0-48.0[facility] CenterHemoglobin [Mass/volume] in Bloodon 28-36-6293Tcafgrecds (Bld) [Mass/Vol]14.4 g/dL12.0-16.0 [facility] CenterLaboratory - Chemistry and Chemistry - challengeon 86-11-5697Nkskwqm [Mass/Vol]4.0 g/dL3.4-5.0[facility] CenterALP [Catalytic activity/Vol]112 U/K05-288ShdhjcscsTogus Va Medical CenterALT [Catalytic activity/Vol]31 U/J92-27VpdbrhrxwTogus Va Medical CenterAST [Catalytic activity/Vol]12 U/M04-98VpysfmtqhTogus Va Medical Center Bilirubin [Mass/Vol]0.2 mg/dL0.2-1.0[facility] CenterCalcium [Mass/Vol]9.1 mg/dL8.5-10.1FParkview Health Bryan HospitalChloride [Moles/Vol] 103 mmol/P89-521ThjrtrhdaTogus Va Medical CenterCholesterol [Mass/Vol]206 mg/dL <=200[facility] CenterCholesterol in HDL [Mass/Vol]55 mg/dL40-60 [facility] CenterComment on above:> or =60 mg/dl - LOW CARDIOVASCULAR RISK<40 mg/dl - HIGH CARDIOVASCULAR RISKCO2 [Moles/Vol]26.7 mmol/L21.0-32.0[facility] CenterCreatinine [Mass/Vol]0.90 mg/dL 0.55-1.02[facility] CenterGFR/1.73 sq M.predicted MDRD (S/P/Bld) [Vol rate/Area]mL/min/{1.73_m2}>=60[facility] CenterGlucose [Mass/Vol]235 mg/uS25-314IardoxdfzTogus Va Medical CenterPotassium [Moles/Vol] 3.3 mmol/L3.5-5.1FParkview Health Bryan HospitalProtein [Mass/Vol]7.8 g/dL 6.4-8.2FFirelands Regional Medical Center South Campusodium [Moles/Vol]133 mmol/W037-326 [facility] CenterTriglyceride [Mass/Vol]141 mg/dL<=150[facility] CenterTSH Qn1.763 m[IU]/L0.358-3.740[facility] CenterUrea nitrogen [Mass/Vol]9.0 mg/dL7.0-18.0[facility] Urea nitrogen/Creatinine [Mass ratio]10.0 mg/mgTogus Va Medical Center Laboratory - Hematology and Cell countson 79-90-3781PoH9u (Bld) [Mass fraction] 6.9 %4.5-6.2FParkview Health Bryan HospitalComment on above:ADA RECOMMENDED LIMIT 4.0 - 6.0ADA THERAPEUTIC TARGET < 7.0ACTION SUGGESTED> 7.0Immature granulocytes/100 WBC (Bld)0.4 %0.0-0.5FParkview Health Bryan Hospital Leukocytes [#/volume] corrected for nucleated erythrocytes in Blood by Automated counon 24-14-9506VPW corrected for nucl RBC Auto (Bld) [#/Vol]10.0 10 3/uL 4.0-11.0[facility] CenterLymphocytes Auto (Bld) [#/Vol]on 45-63-0375Bhracgwbbnv (Bld) [#/Vol]3.7 10 3/uL1.2-3.8[facility] CenterLymphocytes/100 WBC Auto (Bld)on 56-09-4674Rmcsraobhox/100 WBC (Bld)37.0 % 20.5-60.0[facility] HospitalH Auto (RBC) [Entitic mass]on 71-52-2806FID (RBC) [Entitic mass]30.4 pg26.7-34.0[facility] HospitalHC Auto (RBC) [Mass/Vol]on 89-39-3059IUHK (RBC) [Mass/Vol]33.0 g/dL 29.9-35.2FParkview Health Bryan HospitalMCV Auto (RBC) [Entitic vol]on 62-00-5747TDG (RBC) [Entitic vol]92.2 fL81.0-99.0[facility] CenterMonocytes Auto (Bld) [#/Vol]on 09-08-2228Upasyvsmb (Bld) [#/Vol]0.7 10 3/uL0.3-0.8[facility] CenterMonocytes/100 WBC Auto (Bld)on 64-87-6917Cmkyqbipe/100 WBC (Bld)7.1 %1.7-12.0[facility] Neutrophils Auto (Bld) [#/Vol]on 80-43-8862Irthjtnwtfn (Bld) [#/Vol]5.4 10 3/uL 1.4-6.5FParkview Health Bryan HospitalNeutrophils/100 WBC Auto (Bld)on 20-19-2317Aaajlnwwzcv/100 WBC (Bld)53.8 %43.0-75.0[facility] CenterNo Panel Informationon 61-05-6142Bgkcllpwsha # (Auto)0.1 10 3/uL0.0-0.7 [facility] CenterImmature Granulocyte # (Auto)0.04 10 3/uL 0.00-0.03[facility] CenterTroponin I High Sensitivity<4.0 pg/mL 4.0-51.3FParkview Health Bryan HospitalComment on above:CUT-OFF POINTS HAVE BEEN ESTABLISHED [...] INFORMATION.Platelet mean volume Auto (Bld) [Entitic vol]on 88-00-8804Amyynucv mean volume (Bld) [Entitic vol]11.6 fL9.5-13.5FParkview Health Bryan HospitalPlatelets Auto (Bld) [#/Vol] on 95-04-0293Qoauwmyod (Bld) [#/Vol]197 10 3/bG213-552NsxuceewvTogus Va Medical CenterRBC Auto (Bld) [#/Vol]on 10-90-2794YOG (Bld) [#/Vol]4.74 10 6/uL4.20-5.40 [facility] Hospitalerum or plasma albumin/globulin mass ratioon 86-77-0618Xivaqvd/Globulin [Mass ratio]1.1 {ratio}[facility] Hospitalerum or plasma anion gap determinationon 16-72-8726Jkfaj gap [Moles/Vol] 6.6 mmol/LFFirelands Regional Medical Center South Campuserum or plasma total cholesterol/high density lipoprotein (HDL) cholesterol mass erick 01-17-2024 Cholesterol.total/Cholesterol in HDL [Mass ratio]3.7 {ratio}[facility] CenterComment on above:3.3 - 4.4 LOW RISK4.4 - 7.1 AVERAGE RISK7.1 - 11.0 MODERATE RISK>11.0 HIGH RISKCytology Cervical or vaginal smear or scraping studyon 61-70-6021QXEO HealthcareCULTURE URINEon 48-93-7600WVXHWOL URINEIsolate 1 Escherichia coli 50,000 cfu/mL of [...] <=16 S F Trimethoprim/Sulfamethoxazole <=20 S FNormalThe Madison HealthComment on above:Performed By: #### URCX #### [facility] [address] [place] [address] Dr. Sheldon Parrish AUTO DIFFon 16-34-3851ZRMR #0.0 103/ulNormal0.0-0.1The [facility] HealthComment on above:Performed By: #### CBC #### [facility] [address] [place] [address] Dr. Sheldon Saleemsophils/100 WBC (Bld)0.4 %Normal0.2-2.0[facility] Comment on above:Performed By: #### CBC #### [facility] [address] [place] [address] Dr. Sheldon Ravi #0.1 103/ulNormal0.0-0.7The [facility] HealthComment on above: Performed By: #### CBC #### [facility] [address] [place] [address] Dr. Sheldon Gossosinophils/100 WBC (Bld)0.5 %Critically low0.9-7.0The [facility] HealthComment on above:Performed By: #### CBC #### [facility] [address] [place] [address] Dr. Sheldon Gossrythrocyte distribution width (RBC) [Ratio]12.2 %Zumjvy67.0-15.0 [facility] Medical CenterComment on above:Performed By: #### CBC #### [facility] [address] [place] [address] Dr. Sheldon MorseHematocrit (Bld) [Volume fraction]37.5 %Hxypgs42.0-48.0The [facility] HealthComment on above:Performed By: #### CBC #### [facility] [address] [place] [address] Dr. Sheldon MorseHemoglobin (Bld) [Mass/Vol]13.9 g/vKXoxehd72.0-16.0The [facility] HealthComment on above:Performed By: #### CBC #### [facility] [address] [place] [address] [address] Sheldon Lowe #0.06 10e3/ulCritically high0.00-0.03[facility] Comment on above:Performed By: #### CBC #### [facility] [address] [place] [address] Dr. Sheldon Lowe %0.5 %Normal0.0-0.5The [facility] HealthComment on above: Performed By: #### CBC #### [facility] [address] [place] [address] Dr. Sheldon Malcolm #2.4 103/ulNormal1.2-3.8The [facility] HealthComment on above:Performed By: #### CBC #### [facility] [address] [place] [address] Dr. Sheldon Cardosohocytes/100 WBC (Bld)21.3 %Ajxzvq70.5-60.0The [facility] HealthComment on above:Performed By: #### CBC #### [facility] [address] [place] [address] Dr. Sheldon BurgessUAL DIFF REQNONormalThe [facility] HealthComment on above: Performed By: #### CBC #### [facility] [address] [place] [address] Dr. Sheldon Em (RBC) [Entitic mass]30.3 ojWmghgj86.7-34.0The [facility] HealthComment on above:Performed By: #### CBC #### [facility] [address] [place] [address] Dr. Sheldon KeithHC (RBC) [Mass/Vol]37.1 g/dLCritically high29.9-35.2The [facility] HealthComment on above:Performed By: #### CBC #### [facility] [address] [place] [address] Dr. Sheldon KeithV (RBC) [Entitic vol]81.9 cEPbvkse21.0-99.0The [facility] HealthComment on above:Performed By: #### CBC #### [facility] [address] [place] [address] Dr. Sheldon Carreno #0.7 103/ulNormal0.3-0.8The [facility] HealthComment on above:Performed By: #### CBC #### [facility] [address] [place] [address] Dr. Sheldon Stocytes/100 WBC (Bld)6.3 %Normal1.7-12.0[facility] Comment on above:Performed By: #### CBC #### [facility] [address] [place] [address] Dr. Sheldon Beyer #7.8 103/ulCritically high1.4-6.5[facility] Comment on above:Performed By: #### CBC #### [facility] [address] [place] [address] Dr. Sheldon Maresutrophils/100 WBC (Bld)71.0 %Aadorg96.0-75.0The [facility] HealthComment on above:Performed By: #### CBC #### [facility] [address] [place] [address] Dr. Sheldon Alexislet mean volume (Bld) [Entitic vol]9.8 fLNormal9.5-13.5The [facility] HealthComment on above:Performed By: #### CBC #### [facility] [address] [place] [address] Dr. Sheldon ChesterT184 103/qjSoxhqj004-859Frs [facility] HealthComment on above: Performed By: #### CBC #### [facility] [address] [place] [address] Dr. Sheldon MorseRBC4.58 106/ulNormal4.20-5.40The [facility] HealthComment on above:Performed By: #### CBC #### [facility] [address] [place] [address] [address] Sheldon MorseWBC11.0 103/ulNormal4.0-11.0The [facility] HealthComment on above:Performed By: #### CBC #### [facility] [address] [place] [address] [address] Sheldon MorseCT ABD/PELVIS WO CONon 36-90-2428CI ABD/PELVIS WO CONINDICATION: CALCULUS OF KIDNEY urinary [...] Electronically authenticated by: MIGUEL LEEEN Date: 2022-12-01 17:08[facility] URINE PROFILEon 91-73-0973Gwzcixuhh Ql (U)NegativeNormal NEGATIVEUniversity Hospitals Geauga Medical CenterComment on above:Performed By: #### ERUR, PREGU, UMICRO #### [facility] [address] [place] [address] [address] Sheldon Sierra (U) CLOUDYAbnormalCLEARThThe MetroHealth SystemComment on above:Performed By: #### ERUR, PREGU, UMICRO #### [facility] [address] [address] [address] Sheldon Lew (U)LT. YELLOWNormalYELLOWUniversity Hospitals Geauga Medical CenterComment on above:Performed By: #### ERUR, PREGU, UMICRO #### [facility] [address] [address] [address] Sheldon Reed micrscopic examination will be performed if indicated. NormalUniversity Hospitals Geauga Medical CenterComment on above:Performed By: #### ERUR, PREGU, UMICRO #### [facility] [address] [address] [address] Sheldon MorseGlucose Ql (U)NegativeNormalNEGATIVEUniversity Hospitals Geauga Medical CenterComment on above:Performed By: #### ERUR, PREGU, UMICRO #### [facility] [address] [address] [address] Sheldon MorseHemoglobin Ql (U)LARGEAbnormalNEGATIVEUniversity Hospitals Geauga Medical Center Comment on above:Performed By: #### ERUR, PREGU, UMICRO #### [facility] [address] [address] [address] Sheldon MorseKetones Ql (U)NegativeNormalNEGATIVEThe Madison HealthComment on above:Performed By: #### ERUR, PREGU, UMICRO #### [facility] [address] [place] [address] Dr. Sheldon MorseLEUKOCYTESLARGEAbnormalNEGATIVEThe Madison HealthComment on above:Performed By: #### ERUR, PREGU, UMICRO #### [facility] [address] [place] [address] Dr. Sheldon Yanite Ql (U)NegativeNormalNEGATIVEThe [facility] HospitalComment on above:Performed By: #### ERUR, PREGU, UMICRO #### [facility] [address] [place] [address] Dr. Sheldon MorsepH (U)6.0 [pH]Normal5-9The [facility] HealthComment on above: Performed By: #### ERUR, PREGU, UMICRO #### [facility] [address] [place] [address] Dr. Sheldon MorseProtein (U) [Mass/Vol]30 mg/dLAbnormalNEGATIVE/ TRACEThe Murray HospitalComment on above:Performed By: #### ERUR, PREGU, UMICRO #### [facility] [address] [place] [address] Dr. Sheldon MorseSPEC GRAVITY1.687Cgcsqz7.005-<=1.025The [facility] HealthComment on above:Performed By: #### ERUR, PREGU, UMICRO #### [facility] [address] [place] [address] Dr. Sheldon MorseUR MICRO INDINDICATEDNormalThe Madison HealthComment on above: Performed By: #### ERUR, PREGU, UMICRO #### [facility] [address] [place] [address] Dr. Sheldon Verma Qn (U)0.2 {José'U}/dLNormal0.2 - 1.0The [facility] HealthComment on above:Performed By: #### ERUR, PREGU, UMICRO #### [facility] [address] [place] [address] Dr. Sheldon MorseLIPASEon 35-21-3795Uxtbiq [Catalytic activity/Vol]64.0 U/L Critically low73.0-393.0The [facility] HealthComment on above:Performed By: #### ERUR, PREGU, UMICRO #### [facility] [address] [place] [address] Dr. Sheldon MorsePREGNANCY URon 19-75-6351UGMSVXWBB, QUALNegativeNormalNEGATIVEThe [facility] HealthComment on above:Performed By: #### ERUR, PREGU, UMICRO #### [facility] [address] [place] [address] Dr. Sheldon MorsePROZachary 14(COMP METB)on 02-29-7959Vbcxplx [Mass/Vol]4.2 g/dLNormal 3.4-5.0The [facility] HealthComment on above:Performed By: #### CMP, LIPA #### [facility] [address] [place] [address] Dr. Sheldon MorseAlbumin/Globulin [Mass ratio]1.3 {ratio}NormalThe Madison HealthComment on above:Performed By: #### CMP, LIPA #### [facility] [address] [place] [address] Dr. Sheldon Montes [Catalytic activity/Vol]74 U/QQdnrzp01-733Yaz [facility] HealthComment on above:Performed By: #### CMP, LIPA #### [facility] [address] [place] [address] Dr. Sheldon Tao [Catalytic activity/Vol]39 U/JCgerax09-52Mqj [facility] HealthComment on above:Performed By: #### CMP, LIPA #### [facility] [address] [place] [address] Dr. Sheldon Stiles gap [Moles/Vol]13.9 mmol/LNormalThe [facility] Comment on above:Performed By: #### CMP, LIPA #### [facility] [address] [place] [address] Dr. Sheldon MorseAST [Catalytic activity/Vol]20 U/EChptnj97-89Zsy [facility] HealthComment on above:Performed By: #### CMP, LIPA #### [facility] [address] [address] [address] Sheldon MorseBilirubin [Mass/Vol]0.5 mg/dLNormal0.2-1.0[facility] Comment on above:Performed By: #### CMP, LIPA #### [facility] [address] [place] [address] Dr. Sheldon MorseCalcium [Mass/Vol]9.1 mg/dLNormal8.5-10.1[facility] Comment on above:Performed By: #### CMP, LIPA #### [facility] [address] [place] [address] Dr. Sheldon MorseChloride [Moles/Vol]102 mmol/QMpxzjg54-464Iuu [facility] Comment on above:Performed By: #### CMP, LIPA #### [facility] [address] [place] [address] Dr. Sheldon MorseCO2 [Moles/Vol]26.1 mmol/PHveeqs39.0-32.0[facility] Comment on above:Performed By: #### CMP, LIPA #### [facility] [address] [place] [address] Dr. Sheldon MorseCreatinine [Mass/Vol]0.72 mg/dLNormal0.55-1.02The [facility] HealthComment on above:Performed By: #### CMP, LIPA #### [facility] [address] [place] [address] Dr. Chung ChangEGFR-AF BAHAMIAN>60Normal>=60The [facility] HealthComment on above:Performed By: #### CMP, LIPA #### [facility] [address] [place] [address] Dr. Sheldon GossGFR-NON AF BAHAMIAN>60Normal>=60The [facility] HealthComment on above:Performed By: #### CMP, LIPA #### [facility] [address] [address] [address] Sheldon MorseGlobulin (S) [Mass/Vol]3.2 g/dLNormTrumbull Regional Medical CenterComment on above:Performed By: #### CMP, LIPA #### [facility] [address] [address] [address] Sheldon MorseGlucose [Mass/Vol]126 mg/dLCritically yltl60-045Cwe [facility] HealthComment on above:Performed By: #### CMP, LIPA #### [facility] [address] [address] [address] Sheldon MorsePotassium [Moles/Vol]4.0 mmol/LNormal3.5-5.1[facility] Comment on above:Performed By: #### CMP, LIPA #### [facility] [address] [address] [address] Sheldon MorseProtein [Mass/Vol]7.4 g/dLNormal6.4-8.2[facility] Comment on above:Performed By: #### CMP, LIPA #### [facility] [address] [address] [address] Sheldon MorseSodium [Moles/Vol]138 mmol/BIhiwpe407-257Zsh [facility] Comment on above:Performed By: #### CMP, LIPA #### [facility] [address] [address] [address] Sheldon MorseUrea nitrogen [Mass/Vol]11.0 mg/dLNormal7.0-18.0[facility] HealthComment on above:Performed By: #### CMP, LIPA #### [facility] [address] [place] [address] Dr. Sheldon MorseUrea nitrogen/Creatinine [Mass ratio]15.3 mg/mgNoPomerene HospitalComment on above:Performed By: #### CMP, LIPA #### [facility] [address] [address] [address] Sheldon MorseURINE MICROSCOPIC ONLYon 83-27-7247YKWCKXKQLQWNKRlkklvyvSCIN SEEN [facility] HospitalComment on above:Performed By: #### ERUR, PREGU, UMICRO #### [facility] [address] [address] [address] Sheldon Cruz identified Cx Nom (U)INDICATEDOhioHealth Marion General Hospitalment on above:Performed By: #### ERUR, PREGU, UMICRO #### [facility] [address] [address] [address] Sheldon Butcher SEENNormalNONE SEENBethesda North Hospital on above:Performed By: #### ERUR, PREGU, UMICRO #### [facility] [address] [address] [address] Sheldon Oliva LM Nom (Urine sed)NONE SEENNormalNONE SEENBethesda North Hospital on above:Performed By: #### ERUR, PREGU, UMICRO #### [facility] [address] [place] [address] Dr. Chung ChangEpithelial cells LM Ql (Urine sed)NONE SEENNormalNONE SEEN /RARE [facility]Comformerly [facility] on above:Performed By: #### ERUR, PREGU, UMICRO #### [facility] [address] [place] [address] Dr. Sheldon Ace SEENSaint John's HospitalE SEENBethesda North Hospital on above:Performed By: #### ERUR, PREGU, UMICRO #### [facility] [address] [place] [address] Dr. Sheldon AlegriaIayuaZNM5-3Jvlcii2-8Gnd [facility] on above:Performed By: #### ERUR, PREGU, UMICRO #### [facility] [address] [place] [address] Dr. Sheldon MorseGnahmPIH39-773CakvqpviQDZX SEENBethesda North Hospital on above: Performed By: #### ERUR, PREGU, UMICRO #### [facility] [address] [place] [address] Dr. Sheldon Alston-19 PCR (CVDTBH)on 30-73-2785JWGJ-CoV-2 (COVID-19) RNA BRIGID+probe Ql (Unsp spec)DetectedCritically abnormalNOT DETECTEDThe [facility] HealthComment on above:Result Comment: This test is not yet approved or cleared by the [place] FDA. When there are no FDA-approved or cleared tests available, and other criteria are met, FDA can make tests available under an emergency access mechanism called an Emergency Use Authorization (EUA). The EUA for this test is supported by the Operations Label Clerk of Health and Human Service's (HHS's) declaration [...] Performed By: #### YAMILA TIJERINA UMICRO #### [facility] [address] [place] [address] Dr. Sheldon MorsePARubin ACOG PANEL 2: 30 to 65on 08-24-2022..NormalThe [facility] HealthComment on above:Result Comment: Performed at: WBPerformed By: #### YAMILA TIJERINA UMICRO #### [facility] [address] [place] [address] Dr. Sheldon Dyer Gdln ACOG Tpxzsye08-01NboimrKvgTrumbull Regional Medical CenterComment on above:Performed By: #### BREEZY PREGAl UMICRO #### [facility] [address] [place] [address] Dr. Sheldon MorseDIAGNOSIS:CommentProMedica Bay Park HospitalComformerly [facility] on above: Result Comment: NEGATIVE FOR INTRAEPITHELIAL LESION OR MALIGNANCY. REACTIVE CELLULAR CHANGES AND/OR REPAIR ARE PRESENT. Performed at: WBPerformed By: #### ERUR PREGU UMICRO #### [facility] [address] [place] [address] Dr. Chung ChangElectronically signed by:[facility] Comment on above:Result Comment: Jacey Holm MD, Pathologist Performed at: WBPerformed By: #### ERUR, PREGU, UMICRO #### [facility] [address] [place] [address] Dr. Sheldon MorseHPV AptimaNegativeNormalNegativeThe [facility] on above:Result Comment: This nucleic acid amplification test detects fourteen high-risk HPV types (16,18,31,33,35,39,45,51,52,56,58,59,66,68) without differentiation. Performed at: =GPerformed By: #### ERUR, PREGU, UMICRO #### [facility] [address] [place] [address] Dr. Sheldon MorseMethodology:CommentNoSamaritan North Health Center on above: Result Comment: This liquid based ThinPrep(R) pap test was screened with the use of an image guided system. Performed at: WBPerformed By: #### ERUR, PREGU, UMICRO #### [facility] [address] [place] [address] Dr. Sheldon MorseNote:CommentLake County Memorial Hospital - West on above:Result Comment: The Pap smear is a screening test designed to aid in the detection of premalignant and malignant conditions of the uterine cervix. It is not a diagnostic procedure and should not be used as the sole means of detecting cervical cancer. Both false-positive and false-negative reports do occur. . Performed at: WBPerformed By: #### ERUR, PREGU, UMICRO #### [facility] [address] [place] [address] Dr. Sheldon MorsePerformed by:CommentNoSamaritan North Health Center on above: Result Comment: Corinna Stoll, Windmill Mechanic (ASCP) Performed at: WBPerformed By: #### ERUR, PREGU, UMICRO #### [facility] [address] [place] [address] Dr. Sheldon MorseSpecimen adequacy:CommentLake County Memorial Hospital - West on above:Result Comment: Satisfactory for evaluation. Endocervical and/or squamous metaplastic cells (endocervical component) are present. Performed at: WBPerformed By: #### ERURYAMILA UMICRO #### [facility] [id number] Sheldon MorseCovid-19 PCR ([facility])on 96-94-7644GRGY-CoV-2 (COVID-19) RNA BRIGID+probe Ql (Unsp spec)Not detectedNormalNOT DETECTEDThe [facility] Comment on above:Result Comment: This test is not yet approved or cleared by the [place] FDA. When there are no FDA-approved or cleared tests available, and other criteria are met, FDA can make tests available under an emergency access mechanism called an Emergency Use Authorization (EUA). The EUA for this test is supported by the Operations Label Clerk of Health and Human Service's (HHS's) declaration [...] and symptoms consistent with SARS-CoV-2.Performed By: #### CVDBAYSTATE FRANKLIN MED[facility] #### [facility] [address] [place], [place] [address] Dr. Sheldon Morse MAMM DIAGNOSTIC 3D OTTONIEL CADon 78-95-1308MQ MAMM DIAGNOSTIC 3D OTTONIEL CADPatient: DEBBY DURBINDimitry Exam Date: 06/02/2022 : 1980 Gender:F Ordering : DR MOIZ MENDIOLA . Admission #: [id number] Family : Order #: [id number] CLICK HERE TO VIEW EXAM RADIOLOGY REPORT [...] Treatments None Family Cancers None LOCATION: [facility] BREAST COMPOSITION: Heterogeneously dense,which may obscure small [...] by: Jonathan Guido M.D. on 06/02/2022 at 15:32ProMedica Bay Park HospitalUS BREAST LEFT LIMITEDon 95-58-8415JH BREAST LEFT LIMITEDPatient: DEBBY DURBIN Exam Date: 06/02/2022 : 1980 Gender:F Ordering : DR MOIZ MENDIOLA . Admission #: [id number] Family : Order #: [id number] CLICK HERE TO VIEW EXAM RADIOLOGY REPORT [...] Treatments None Family Cancers None LOCATION: [facility] BREAST COMPOSITION: Heterogeneously dense,which may obscure small [...] by: Jonathan Guido M.D. on 06/02/2022 at 15:32Pro[facility] Park HospitalCNOVon 67-00-8503SGTKUfugkt Visit (NSFRVW) DEBBY DURBIN ([id number]) 1980 F Date Time Provider Department 12/27/18 [...] 25 MG TABLET SA 1 pill QD [id number]-WQLRWKZD-47 TABLET as directed REVIEW OF SYSTEMS: PAIN [...] obtained and documented by the physician registered medical assistant. I examined the patient and evaluated all available films and pertinent documents. We discussed the case and I agree with the plans as outlined in this note. SIGNATURE: Brittaney Christiansen MD PATIENT NAME: Debby Durbin DATE: December 27, 2018 TIME: 8:40 AM PAGER: Referring Provider: AILEEN CASTELLANOS [[id number]] Allergies As of Date: 12/27/2018 (No Known [...] Encounter Status:Closed by BRITTANEY CHRISTIANSEN MD on 12/27/18[facility] 08-19-0778Fjsrldm mass concHNO ID: [id number] Author: Brittaney Christiansen Service: (none) Author Type: [...] 25 MG TABLET SA 1 pill QD HFC-ZMFOMOUT-68 TABLET as directed REVIEW OF SYSTEMS: PAIN [...] obtained and documented by the physician registered medical assistant. I examined the patient and evaluated all available films and pertinent documents. We discussed the case and I agree with the plans as outlined in this note. SIGNATURE: Brittaney Christiansen MD PATIENT NAME: Debby Durbin DATE: December 27, 2018 TIME: 8:40 AM PAGER:NormalTuscarawas HospitalPROGRESSon 41-90-2805Byxinau mass concHNO ID: [id number] Author: Aileen Torres (Vignesh) Noel Service: (none) Author Type: Physician Sanitation Supervisor Type: Progress Notes Filed: 12/13/2018 3:39 PM Note Text: Pt can be scheduled first available with Dr. Christiansen. Cervical disc herniation with extrusion. Patient name: Debby Durbin Are you being referred by a [facility] Spine Health Provider or Pain Management Provider at [facility]? No If answer is YES [...] in Epic: No If not, please provide [phone] to fax in imaging reports for review. [...] surgery for this same symptoms? No Additional CommentsNormalCOhioHealth O'Bleness Hospital-MR cervical spine wo con IMPORTon 02-40-5877NB-MR cervical spine wo con IMPORTImages were obtained outside of [facility] [id number] Hospital Vital Signs Date TimeVital SignValuePerforming BrmxcblhkKjfvcgfn72-97-7292 16:02-0400Body bweopv101.26 cmDavimira Castellanos DO Work Phone: [phone]10-20-2025 16:02-0400 Body mass index (BMI) [Ratio]27 kg/v9Uouoo Girana DO Work Phone: [phone]10-20-2025 16:02-0400 Body mxnluradhpv25.6 [degF]Aileen Castellanos DO Work Phone: [phone]10-20-2025 16:02-0400 Body qwjfro34 kgDavimira Jasmin DO Work Phone: [phone] [address]10-20-2025 16:02-0400 Diastolic blood lnotxwkh54 mm[Hg]Aileen Castellanos DO Work Phone: [phone] [address]10-20-2025 16:02-0400 Heart rate71 /minDavimira Castellanos DO Work Phone: [phone] [address]10-20-2025 16:02-0400 SaO2% (BldA) [Mass fraction]97 %Aileen Castellanos DO Work Phone: [phone] [place], [place] 4735210-20-2025 16:02-0400 Systolic blood wywxnche196 mm[Hg]Aileen Castellanos DO Work Phone: [phone]09-15-2025 08:44-0400 Body wwbysh675.3 cmCoremiryam Marlena DO Work Phone: [facility] CenterYqrczgfljk19-63-4121 08:44-0400Body mass index (BMI) [Ratio]27.5 kg/e7Logsh Marlena DO Work Phone: [facility] CenterPisqpxszgz13-77-0551 08:44-0400Body erxjns82.48 kgCorey Marlena DO Work Phone: [facility] CenterDrecmcqyfk70-73-2418 08:44-0400Diastolic blood gqtbfdqy86 mm[Hg]Moiz Slaughtero DO Work Phone: [facility] CenterBcjiloqgli28-54-8112 08:44-0400Systolic blood pzfejtok117 mm[Hg]Moiz Slaughtero DO Work Phone: [facility] CenterAirfojxxdy41-27-6248 11:01-0400Body cecwgm962.26 cmDacaitlin Castellanos DO Work Phone: [phone]08-04-2025 11:01-0400 Body mass index (BMI) [Ratio]27.2 kg/t2Zists Jasmin DO Work Phone: [phone] [place], [place] 0888708-04-2025 11:01-0400 Body tdbwgfceykj35.2 [degF]Aileen Castellanos DO Work Phone: [phone] [place], [place] 0888708-04-2025 11:01-0400 Body .68 kgDajeronimomira Wilksana DO Work Phone: [phone] [place], [place] 0888708-04-2025 11:01-0400 Diastolic blood zvsbxuzd05 mm[Hg]Aileen Castellanos DO Work Phone: [phone] [place], [place] 0888708-04-2025 11:01-0400 Heart rate71 /Clivemira Wilksana DO Work Phone: [phone] [place], [place] 0888708-04-2025 11:01-0400 Respiratory rate14 /Carley Wilksana DO Work Phone: [phone] [place], [place] 0888708-04-2025 11:01-0400 SaO2% (BldA) [Mass fraction]97 %Aileen Castellanos DO Work Phone: [phone] [place], [place] 0888708-04-2025 11:01-0400 Systolic blood lvawjess593 mm[Hg]Aileen Castellanos DO Work Phone: [phone] [place], [place] 0888707-09-2025 15:19-0400 Body dldobyqajvw83.6 [degF]Aileen Castellanos DO Work Phone: [facility]07-09-2025 15:19-0400 Body zatzbg84.36 kgDacaitlin Castellanos DO Work Phone: [facility]07-09-2025 15:19-0400 Diastolic blood pvuvodyu48 mm[Hg]Aileen Castellanos DO Work Phone: [facility]07-09-2025 15:19-0400 Heart rate72 /minDavimira Castellanos DO Work Phone: [facility]07-09-2025 15:19-0400 SaO2% (BldA) [Mass fraction]95 %Aileen Castellanos DO Work Phone: [facility]07-09-2025 15:19-0400 Systolic blood qkimsxpf921 mm[Hg]Aileen Castellanos DO Work Phone: [facility]09-23-2024 15:02-0400 Body mass index (BMI) [Ratio]27 kg/n2MswpboengTogus Va Medical Center09-23-2024 15:02-0400Body pzzwrhotpum72.1 [degF][facility] 08-04-2024 15:02-0400Diastolic blood mm[Hg][facility]09-23-2024 15:02-0400Heart rate90 /[facility] 08-04-2024 15:02-0400Respiratory rate16 /[facility] 08-04-2024 15:02-0400Systolic blood vajnbbno604 mm[Hg][facility]09-23-2024 11:28-0400Body .26 cmTogus Va Medical Center09-23-2024 11:28-0400Body bbbkou66 kgT[facility]us Va [facility] Center 01-29-2024 15:43-0400Body ybouhf099.26 cmT[facility]us [facility] 01-29-2024 15:43-0400Body mass index (BMI) [Ratio]27.6 kg/q7BruzlvysvTogus Va Medical Center03-19-2024 15:43-0400Body maaqrwkmvwb05.1 [degF][facility]03-19-2024 15:43-0400Body eukjad47.82 kgTogus Va Medical Center03-19-2024 15:43-0400Diastolic blood ukzbjhxc33 mm[Hg][facility]03-19-2024 15:43-0400Heart rate81 /[facility]03-19-2024 15:43-0400Respiratory rate18 /[facility]03-19-2024 15:43-4171ZuS5% (BldA) [Mass fraction]94 %[facility]03-19-2024 15:43-0400Systolic blood uvpspjlm410 mm[Hg] [facility]08-15-2023 15:40-0400Body ytnykg426.26 cmAileen Castellanos Other [employer] Other 803723-57-5288 15:40-0400Body mass index (BMI) [Ratio] 28.79 kg/i8LegtlAileen Castellanos Other [employer] Other 08-15-2023 15:40-0400Body .7 [degF]Aileen Castellanos Other [employer] Other 08-15-2023 15:40-0400Body eoupbe54.45 kgAileen Castellanos Other [employer] Other 08-15-2023 15:40-0400Diastolic blood apjfnuon29 mm[Hg] Aileen Castellanos Other [employer] Other 08-15-2023 15:40-0400Respiratory rate18 /Carley Castellanos Other [employer] Other 08-15-2023 15:40-1029JnF8% (BldA) [Mass fraction]97 % Aileen Castellanos Other [employer] Other 169913-41-2452 15:40-0400Systolic blood opxvnzat764 mm[Hg] Aileen Castellanos Other [employer] Other 01-11-2023 16:40-0500Body droclr146.26 cmDacaitlin Castellanos Other [employer] Other 263377-70-8403 16:40-0500Body mass index (BMI) [Ratio] 27.17 kg/h3Wzxpucaitlin Castellanos Other [employer] Other 870162-13-4971 16:40-0500Body rluaxlarbqb88.3 [degF]Aileen Castellanos Other [employer] Other 222309-64-7965 16:40-0500Body ntrimn45.46 kgDacaitlin Castellanos Other [employer] Other 273362-29-8165 16:40-0500Diastolic blood zwtdrjya41 mm[Hg] Aileen Castellanos Other [employer] Other 087110-79-7850 16:40-0500Respiratory rate18 /minDavimira Castellanos Other [employer] Other 01-11-2023 16:40-3331LoX6% (BldA) [Mass fraction]98 % Aileen Castellanos Other [employer] Other 01-11-2023 16:40-0500Systolic blood yemyqkpn127 mm[Hg] Aileen Castellanos Other [employer] Other 427749-84-2385 16:40-0400Body ylyzvj562.26 cmDacaitlin Castellanos Other [employer] Other 07-12-2022 16:40-0400Body mass index (BMI) [Ratio] 27.46 kg/e2Iamrwcaitlin Castellanos Other [employer] Other 07-12-2022 16:40-0400Body vfdlexcddnv47.2 [degF]Aileen Castellanos Other [employer] Other 07-12-2022 16:40-0400Body fjnuxn95.37 kgDacaitlin Castellanos Other [employer] Other 07-12-2022 16:40-0400Diastolic blood ysqmioly23 mm[Hg] Aileen Castellanos Other [employer] Other 07-12-2022 16:40-0400Respiratory rate18 /minDcalin Castellanos Other [employer] Other 07-12-2022 16:40-3008JcJ2% (BldA) [Mass fraction]98 % Aileen Castellanos Other [employer] Other 07-12-2022 16:40-0400Systolic blood mm[Hg] Aileen Castellanos Other [employer] Other Encounters Encounter DateEncounter TypeCare ProviderFacilityStart: 09-02-2025 End: 84-03-1552arcxgdzrslAllmz R FAZIOFacility: BellevueStart: 09-02-2025 End: 98-60-0060Lhpkuhi encounter procedureMichael R NILL [phone]-MbcxeAdena Health [facility] [place] Start: 08-31-2025 End: 69-47-4342apoezijmgiTprij Jasmin DO Work Phone: -[facility] BellevueStart: 08-31-2025 End: 40-63-3001Ndfsful encounter procedureDavid C Jasmin DO-[facility] [place] Work Phone: Start: 28-09-3084Tkh-patient / Non-visitDavid C Jasmin DO-[facility] [place] Work Phone: Start: 09-17-6495vwkshhymplWonii FAZIOFacility:GS BellevueStart: 07-27-2025 End: 30-10-5112Idlkvn flowsheetCorey Marlena DO Work Phone: noMS [place] OBGYNStart: 07-27-2025 End: 15-76-3895Fuwwoq flowsheetCorey Marlena DO Work Phone: [facility] [place] OBGYNStart: 07-27-2025 End: 46-73-6895Aocmftzon Result EncounterCorey Marlena DO Work Phone: NOBI External Department UnsolicitedStart: 07-27-2025 Non-patient / Non-visitCorey Marlena-[facility] Work Phone: Start: 07-27-2025 End: 77-07-3574rrskaivumuXBAZD FAZIONot AvailableStart: 07-27-2025 End: 76-46-6684Wlaemka encounter procedureCorey Marlena DO Work Phone: NOM[facility] HealthcareStart: 07-27-2025 End: 01-52-5480Qrbmbsjd preventive med est patient 40-64yrsCorey Marlena DO Work Phone: [facility] OBGYNComment on above:Well woman exam with routine gynecological examStart: 06-15-2025 End: 45-12-9641xbcyadjtusDxyxz Girvin DO Work Phone: [facility] Work Phone: Start: 06-15-2025 End: 33-94-0534Iohwxvf encounter procedurePasheila Ross ANATOMICAL EMBALMER-[facility] Work Phone: Start: 05-20-2025 End: 70-03-5909eozonkyukrWrhgl Lashaunana DO Work Phone: [facility] Work Phone: Start: 05-20-2025 End: 83-22-5887Cxyusjp encounter procedureDavimira Castellanos DO-[facility] Work Phone: Start: 02-18-2025 End: 67-22-7740uxrdvzabqwHmoyw Marlena DO Work Phone: [facility] Work Phone: Start: 02-18-2025 End: 87-95-8016Qdqpdbc encounter procedureCorey Marlena DO Work Phone: [facility] [place] Work Phone: Start: 12-11-2024 End: 29-43-0168Lhznyuzfl Result EncounterCorey Marlena DO Work Phone: noms External Department UnsolicitedStart: 12-11-2024 End: 88-63-0833Vzxjjxrdo Result EncounterCorey Marlena DO Work Phone: noms External Department UnsolicitedStart: 12-11-2024 End: 10-79-7830llnkebijugMiznl F[facility]ioFire[facility] Work Phone: Start: 12-11-2024 End: 12-09-9473Dgrsjsfp ReferredCorey Marlena DO Work Phone: [facility]-LAB Path Spec [place] HospStart: 12-03-2024 End: 02-76-3363Pdgoiylxt Result EncounterCorey Marlena DO Work Phone: noms External Department UnsolicitedStart: 12-03-2024 End: 52-20-5920Lqjdcyzaq Result EncounterCorey Marlena DO Work Phone: noms External Department UnsolicitedStart: 11-14-2024 End: 04-79-0896Ucynubtmf Result EncounterCorey Marlena DO Work Phone: noms External Department UnsolicitedStart: 11-14-2024 End: 24-95-6158Drfxgrdzd Result EncounterCorey Marlena DO Work Phone: noms External Department UnsolicitedStart: 10-27-2024 End: 22-48-5581Vibttsx encounter procedureCorey Marlena DO Work Phone: [facility] [place] Work Phone: Start: 08-04-2024 End: 32-77-6032yatrwxefehCbahhaedaBluffton Hospital Work Phone: Start: 08-04-2024 End: 00-96-9343Ogvwhvv encounter procedureFirnew orleanss Physician Group-[facility] [place] Work Phone: Start: 35-42-6281Oxw-patient / Non-visitFirelands Physician [facility] [place] Work Phone: Start: 05-07-2024 End: 01-57-7940aylaxluzmwBovstklgoSelect [facility] Work Phone: Start: 05-07-2024 End: 12-88-7443Zxfuyax encounter procedureFirnew orleanss Physician Group-[facility] [place] Work Phone: Start: 34-26-7257Nqe-patient / Non-visitFirelands Physician Group-[facility] [place] Work Phone: Start: 01-29-2024 End: 58-44-2518wjiqjvvnfeUrnziqeofBluffton Hospital Work Phone: Start: 01-29-2024 End: 76-14-4635Lnobksb encounter procedureFirwinchester medical center [facility] Family [facility] [place] Work Phone: Start: 90-47-1950Riu-patient / Non-visitFirnew orleanss Physician Group-[facility] Work Phone: Start: 04-38-3098Lhq-patient / Non-visitFirnew orleanss [facility]ician Group-[facility] Work Phone: Start: 32-94-8846Hrf-patient / Non-visitFirelands Physician [facility] Work Phone: Start: 12-11-2023 End: 26-17-3455xywgmmcdyhBfmsu Girvin Other [employer] Other Start: 27-51-8295Pvbdniikm encounterDavimira CastellanosKaiser Foundation Hospital SunsetueStart: 48-16-3357Dnautnc encounter procedureKobi Physician Group-Start: 11-15-2023 End: 43-15-4223xrzsyundspKlupl Girvin Other [employer] Other Start: 99-95-5261Esommvkdh encounterDavid JasminPAGE HOSPITAL Family Medicine EvaevueStart: 10-09-2023 End: 75-59-8883okcnbjapktDvfzc Girvin Other [employer] Other Start: 24-27-6652Qxuexkgml encounterDavid JasminCodey Family Medicine BellevueStart: 06-26-2023 End: 48-38-1581mtmtqhsdlhTklii Girvin Other [employer] Other Start: 63-21-4828Hfxobr outpatient visit 25 minutes Aileen CastellanosCodey Family Medicine BellevueStart: 12-01-2022 End: 64-55-9148uwxhjqpdcySNCZXZ RODRIGUEZFacility:Z1Ccfhs: 11-22-2022 End: 17-25-8814scyeehciifYtlpr Jasmin Other [employer] Other Start: 85-32-9922Syilzh outpatient visit 25 minutes Aileen Bledsoe [facility] BellevueStart: 10-25-2022 End: 35-86-2487jkjsrzewqyEjktk Jasmin Other [employer] Other Start: 13-82-4005Sbjnxgbds encounterDavid CelestineG Family Medicine BellevueStart: 10-23-2022 End: 89-22-5964edzkzmmevyXA AILEEN Desti Other Start: 94-92-9196Xyggtqkka encounterDavid LashaunanaFPG Family Medicine BellevueStart: 09-11-2022 End: 44-75-4454ncvgkybnliPckkj Jasmin Other [employer] Other Start: 96-37-3502Kxyfehxxv encounterDavid JasminFPG [facility] Medicine BellevueStart: 08-14-2022 End: 14-10-5788ryaomeurzzQIOUI FAZIOFacility:I2Kupkb: 24-96-4914Uhdwyqyqx encounterDavid JasminFPG Family Medicine BellevueStart: 06-20-2022 End: 41-75-0148hbynkiebfgPY AILEEN Desti Other Start: 06-06-2022 End: 51-18-8871xqpzbstgabSfipj Jasmin Other [employer] Other Start: 26-82-5622Gxngbhhhk encounterDavid LashaunanaFPG [facility] Medicine BellevueStart: 06-02-2022 End: 56-64-2771zneoabghwbSOXUT FAZIOFacility:G2Ncjxe: 05-23-2022 End: 89-26-7635enrqerbywrEklfa Girvin Other [employer] Other Start: 28-13-7641Fchwda outpatient visit 25 minutes Aileen CelestineG Family Medicine BellevueStart: 12-27-2018 End: 06-70-6767Cmdytfm encounter procedureJEREMMiryam CHRISTIANSENTuscarawas Hospital Procedures DateProcedureProcedure DetailPerforming ClinicianStart: 20-67-3428TYP,APTIMA HPV,AGE GDLNCorey Marlena DO Work Phone: Start: 09-37-4200Akzrpuxxaep observation [Identifier] in Cervix by Cyto stainCorey Marlena DO Work Phone: Start: 98-50-1612WY POST BIOPSY LTCorey Marlena DO Work Phone: Start: 72-06-6025RN GUIDED BREAST BIOPSY LTCorey Marlena DO Work Phone: Start: 86-70-7803MJ BREAST LT LIMITEDCorey Marlena DO Work Phone: Start: 13-11-5371TH TOMOSYNTHESIS SCREENING BICorey Marlena DO Work Phone: Start: 76-67-8468KlyekujitimIxitu Marlena DO Work Phone: Start: 88-27-1229Djxkkcpjrpf observation [Identifier] in Cervix by Cyto stainCorey Marlena DO Work Phone: Start: 05-30-8993Xpmj cerv/vag auto thin layer prep mnl screenCorey Marlena DO Work Phone: Start: 73-57-8381Fjgqgncoipn observation [Identifier] in Cervix by Cyto stainCorey Marlena DO Work Phone: cesarean sectionMichael NILL Tonsillectomy and adenoidectomyMichael NILL Plan of Treatment DateCare ActivityDetailAuthorStart: 73-23-8503Cxkcngbyg for malignant neoplasm of cervixNOMS HealthcareStart: 44-98-0808Dzjictnyv for malignant neoplasm of cervixNOMS HealthcareStart: 12-75-4201Hvjedapza for malignant neoplasm of breast MammogramNOMS HealthcareStart: 54-84-6948Spliybkbm for malignant neoplasm of cervixNOMS HealthcareStart: 63-24-5933Vdrgxfbrq vaccinationInfluenza Vaccine (#1)[facility] HealthcareStart: 03-24-2025 End: 10-45-0215Njvvzgs encounter rsfvkirmy14/13/2025 2:00 PM EDT Office Visit [facility] [address] [place] [address] Moiz Mendiola, DO [address] [place] [address] [facility] OBStart: 04-90-7122Obmuqhixp vaccination Influenza Vaccine (#1)[facility] HealthcareStart: 91-51-5867Jtweewlmd for malignant neoplasm of cervixHPV/CotestNOMS HealthcareStart: 15-42-4970Zxhtwtvvs for malignant neoplasm of colonNOMS HealthcareBacteria identified in Urine by CultureTogus Va Medical CenterComprehenunc health caldwell metabolic 1999 panel - Serum or [facility] HospitalCom[facility] metabolic 1999 panel - [facility] or [facility] HospitalComprehenve metabolic 1999 panel - Serum or [facility] HospitalComprehensive metabolic 1999 panel - Serum or [facility] HospitalInsulin [Units/volume] in Serum or [facility] HospitalInsulin [Units/volume] in Serum or [facility] HospitalInsulin [Units/volume] in Serum or [facility] HospitalTHIN PREP TIS PAP AND HR HPV DNATHIN PREP TIS PAP AND HR HPV DNA Pathology and Cytology Routine Well woman exam with routine gynecological exam Ordered: 07/27/2025[facility] Work Phone: comment on above:Ordered: 07/27/2025Urine culture [facility] Immunizations Immunization DateImmunizationNotesCare AvqmxbhnQuxdaine05-68-1311IEROV-16 Vaccine Pfizer - Documentation Purposes OnlyDavimira Castellanos Other [facility]04-28-2021COVID-19 Vaccine Pfizer - Documentation Purposes OnlyDavid Jasmin Other [facility]04-07-2021COVID-19 Vaccine Pfizer - Documentation Purposes OnlyDavid Jasmin Other [facility] Payers DatePayer CategoryPayerPolicy [id number] Cross Blue ShieldBCBS Member Subscriber Plan / Payer (Effective 2024-Present) Name: Debby Durbin Relation to Subscriber: Spouse Name: Valentín Cheung Date of : 1978 (Work) Address: [address] [place] [id number] ID: Not on file Type: Not on file Address: [facility] [address] [place] [id number] [id number] Private Health [id number] [id number] [id number] 2.16.840.1.000478.3.57[id number] 2.16.840.1.498804.3.57[id number] 2.16.840.1.151735.3.57[id number] 2.16.840.1.514386.3.57[id number] 2.16.840.1.067207.3.57[id number] 2.16840.1.569643.3.57[id number] 2.16840.1.946484.3.579.2.66084-57-1017Vccp Cross Blue [id number] 2..6.826070.[id number] 2..5.570730.3294-01-1960 Ziwbut[id number] [id number] 2.0.1.602357.3.579.2.531 Social History DateTypeDetailFacilityUnknown if ever smokedNomissouri rehabilitation center [employer] Other Sex Assigned At [facility] Start: 01-29-2024 End: 47-02-1266Zuopbel smoking status NHISEx-smoker (finding)[facility] Hospitaltart: 07-33-6599Tpq [facility]igned At [facility] SouthTobacco smoking status NHISTobacco smoking consumption unknownNOMT HealthcareStart: 07-60-3119Vqg assigned at birthNot on fileUNIVERS[facility] OF [facility] Healthcare Start: 85-39-3776Ymdcrm identityIdentifies as female gender (finding)[facility] HealthcareStart: 12-12-2024 End: 23-70-8883UtvAtbejk (finding)[facility] Hospitaltart: 03-64-1996Vxdbphg smoking status NHISSmokes tobacco daily (finding)[facility] Start: 59-41-3239FjuDeqqkeAECQ Healthcare Medical Equipment Procedure CodeEquipment CodeEquipment Original TextEquipment IdentifierDates Start: 09-27-2015 End: 92-80-7441Ymt Needle, Diabetic (Bd Yelena 2nd Gen Pen Needle) 32 gauge x 5/32 needleStart: 00-22-1129Aco Needle, Diabetic (Bd Yelena 2nd Gen Pen Needle) 32 gauge x 5/32 needleStart: 07-08-2024 End: 96-07-1482Bdn Needle, Diabetic (Bd Yelena 2nd Gen Pen Needle) 32 gauge x 5/32 needleStart: 07-08-2024 End: 54-99-6137Dvg Needle, Diabetic (Bd Yelena 2nd Gen Pen Needle) 32 gauge x 5/32 needleStart: 07-08-2024 End: 90-16-9647Snm Needle, Diabetic (Bd Yelena 2nd Gen Pen Needle) 32 gauge x 5/32 needleStart: 07-08-2024 End: 40-88-8605Enr Needle, Diabetic (Bd Yelena 2nd Gen Pen Needle) 32 gauge x 5/32 needleStart: 07-08-2024 End: 66-41-2183Gsd Needle, Diabetic (Bd Yelena 2nd Gen Pen Needle) 32 gauge x 5/32 needleStart: 07-08-2024 End: 90-24-6780Vda Needle, Diabetic (Bd Yelena 2nd Gen Pen Needle) 32 gauge x 5/32 needleStart: 07-08-2024 End: 15-91-6127Gjv Needle, Diabetic (Bd Yelena 2nd Gen Pen Needle) 32 gauge x 5/32 needleStart: 07-08-2024 End: 36-22-8282Yni Needle, Diabetic (Bd Yelena 2nd Gen Pen Needle) 32 gauge x 5/32 needleStart: 07-08-2024 End: 10-34-2442Nsd Needle, Diabetic (Bd Yelena 2nd Gen Pen Needle) 32 gauge x 5/32 needleStart: 07-08-2024 End: 78-46-4198Qvd Needle, Diabetic (Bd Yelena 2nd Gen Pen Needle) 32 gauge x 5/32 needleStart: 07-08-2024 End: 10-27-2024 Clinical Notes 04-11-2013 to 09-02-2025 Note Date & WpbnCawzPlxnmqrz69-39-5641 NoteGeneral Surgery Office/Clinic Note Chief Complaint consultation [...] Recorded SARS-CoV-2 (COVID-19) mRNA BNT-162b2 vax 02/16/2021 RecordedGenesis HospitalComment on above:Result Comment: Electronically Signed By: MAXI MOLINA, Miguel Ayon\Date and Time Signed: 09/02/25 15:46 [id number] History of Present illness Narrative* Elyse Olvera, ADVANCED PRACTICE NURSE PSYCHOTHERAPIST - 07/27/2025 8:30 AM EDT Reason for [...] nursing note reviewed. Exam conducted with a filtering machine tender present. Vitals: Estimated body mass index is [...] of: Moiz Mendiola DO documented in this encounterCapital Region Medical CenterUtczfhoapt76-57-4161 Evaluation note* Diagnosis Onset Date Resolution Status Admit Date Hives acuteAugust 2024 10:57amAnxietyacuteOctober 2024 4:04pmElevated alkaline phosphatase levelacuteOctober 2024 4:04pmHyperlipidemiaacute August 31, 2025 4:04pmType 2 diabetes mellitusacuteAugust 31, 2025 4:04pm [facility] Work Phone: 1(564) 827-797407-09-2025 Evaluation note* Author Aileen Castellanos [facility] Medical CenterAuthoredJuly 2024 3:47pmThe above note written by ___Hari Mijares____ acting as human recorder, note dictated by Dr. Jimenez .I performed the above HPI, ROS, and Examination. I formulated and dictated the treatment plan and was present for entire encounter. Aileen Castellanos D.O. [facility] Work Phone: 1(744) 801-450301-22-2025 Miscellaneous Notes* Result Encounter Note - Caroline Salazar LPN - 12/03/2024 4:21 PM EST Pt is already scheduled documented in this [facility]01-22-2025 Progress note* Result Encounter Note - Caroline Salazar LPN - 12/03/2024 4:21 PM EST Pt is already scheduled [facility] Work Phone: 1(409) 473-565401-03-2025 Miscellaneous Notes* Result Encounter Note - Caroline Salazar LPN - 11/14/2024 12:45 PM EST Pt notified and US ordered documented in this [facility]01-03-2025 Progress note* Result Encounter Note - Caroline Salazar LPN - 11/14/2024 12:45 PM EST Pt notified and US ordered [facility] Work Phone: 1(844) 552-271912-16-2024 Evaluation note* Author Aileen Castellanos [facility] CenterhoredDecebanner oc[facility] 2023 4:23pmThe above note written by ___Hari Mijares____ acting as human recorder, note dictated by Dr. Jimenez .I performed the above HPI, ROS, and Examination. I formulated and dictated the treatment plan and was present for entire encounter. Aileen Castellanos D.O. [facility] Work Phone: 1(523) 216-591706-26-2024 Evaluation note* Author Aileen Castellanos [facility] 2023 3:00pmThe above note written by ___Hari Mijares____ acting as human recorder, note dictated by Dr. Jimenez .I performed the above HPI, ROS, and Examination. I formulated and dictated the treatment plan and was present for entire encounter. Aileen Castellanos D.O. [facility] Work Phone: 1(526) 911-310401-30-2024 Evaluation note* Encounter Date Diagnosis Assessment Notes [...] six weeks. Nov,Other10:39 AM - 10:58 AM [facility] Other 01-30-2024 Evaluation note* Encounter Date Diagnosis Assessment Notes Treatment Notes Treatment Clinical Notes Nov, Depression (ICD-10 - F32.9) [facility] Other 01-04-2024 Evaluation note* Encounter Date Diagnosis Assessment Notes Treatment Notes Treatment Clinical Notes Nov, Anxiety (ICD-10 - F41.9) [facility] Other 11-28-2023 Evaluation note* Encounter Date Diagnosis Assessment Notes Treatment Notes Treatment Clinical Notes Sep, Anxiety (ICD-10 - F41.9) [facility] Other 08-15-2023 Evaluation note* Encounter Date Diagnosis [...] Lamisil orally and I asked her to picking machine operator helper Lamisil cream (OTC). Guidance is given on how to use the cream, she should use this for one month. She does not drink alot of alcohol. If her symptoms do not improve after one month then she should let me know and we would consider that this is not fungal. Jun,Other correction (current) drug therapy (ICD-10 - Z79.899) Jun,Weight [...] with a refill on above medication today. [facility] Other 01-11-2023 Evaluation note* Encounter Date Diagnosis [...] spread. If she wants to see a hogshead press operator she can see one. Rightnow she is going to continue to monitor as she has had this for seven months. She does not have anypain with this. She had shingles in the past and does not feel it is shingles. If she wants to see a hogshead press operator she can call and schedule this herself. Nov,Other rn long term care (current) drug therapy (ICD-10 - Z79.899) Nov,Weight [...] now. Nov,Seborrheic keratosis (ICD-10 - L82.1)Reassurance given. [facility] Other 12-12-2022 Evaluation note* Encounter Date Diagnosis [...] 10-27-22 due to medical reasons, may return [facility] without restrictions on 10-30-22. Oct,Fatigue (ICD-10 - R53.83)She voices that she was very fatigued this past week, to the point she had to stay in [place] overnight because she was too tired to drive home. Oct,ther2:39 PM - 2:54 PM [facility] Other 08-09-2022 Evaluation note* Encounter Date Diagnosis Assessment Notes Treatment Notes Treatment Clinical Notes Jun, Nicotine dependence (ICD-10 - F1 7.200) Jun,hest congestion (ICD-10 - R09.89) Jun,unny nose (ICD-10 - R09.89) Jun,ody aches (ICD-10 - R52) [facility] Other 08-09-2022 Evaluation note* Encounter Date Diagnosis Assessment Notes Treatment Notes Treatment Clinical Notes Jun, Left acute otitis media (ICD-10 - H66.92) [facility] Other 07-26-2022 Evaluation note* Encounter Date Diagnosis Assessment Notes Treatment Notes Treatment Clinical Notes May, Nicotine dependence (ICD-10 - F1 7.200) [facility] Other 07-12-2022 Evaluation note* Encounter Date Diagnosis [...] She has been talking to a health student success coach. In the past she was on [...] is doing asit is working well. May,ther correction (current) drug therapy (ICD-10 - Z79.899) May,llergic rhinitis (ICD-10 - J30.9)She admits that her allergies have been very bad this year, she does take above medication daily for her allergies. May,Urinary frequency (ICD-10 - R35.0)for lab order only May,therShe voices that she has called the [facility] twice to schedule her mammogram and has not heard back from them, she is going to call again. [facility] Other 05-31-2013 History general Narrative - Reported* Type Description Date Medical History Last Pap 04-11-13; Dr. Mendiola Medical HistoryNo history of MammogramMedical HistoryStress Test [facility]; Dr. Ayala 2008Medical HistoryEKGMedical HistoryNo history of CT of the abdomen. colonoscopyMedical HistoryHistory of Chicken Pox as a childMedical HistoryNo history of FracturesMedical HistoryHx of Gestational DiabetesSurgical History1 c- otmdldk5075Hirfuxho HistoryT & ASurgical HistoryMierna was put in08/2014 Surgical Historyleft breast biopsy02/2021Hospitalization Historysee above surgical history [facility] Other Evaluation + Plan note No data available for this section [facility] Evaluation noteNo InformationNort Strategy Store Other Evaluation note* Diagnosis Onset Date Resolution Status Anxiety acuteChest painacuteDiabetes type 2, uncontrolledacuteHyperlipidemiaacute HypokalemiaacuteWeight lossacute [facility] Work Phone: Evaluation note* Diagnosis Onset Date Resolution Status Anxiety acuteDiabetes type 2, uncontrolledacute [facility] Work Phone: Evaluation note* Diagnosis Onset Date Resolution Status Admit Date Anxiety acuteApril 2024 3:36pmHyperlipidemiaacuteApril 2024 3:36pmType 2 diabetes mellitusacuteApril 2024 3:36pm [facility] Work Phone: Evaluation note* Diagnosis Onset Date Resolution Status Admit Date Anxiety acuteJuly 2024 3:04pmDepressionacuteJuly 2024 3:04pmType 2 diabetes mellitusacuteJuly 2024 3:04pm [facility] Work Phone: Evaluation note* Diagnosis Well woman exam with routine gynecological exam Routine gynecological examination documented in this encounter [facility] HealthcareHospital Discharge instructions No data available for this section [facility] Progress note No data available for this section [facility] [place] Reason for referral (narrative)No reason for referral information availableMarietta Osteopathic Clinic Work Phone: Summary Purpose Family History Relationship [...] section and content) DATE CREATED AUTHOR 01/01/2019 [facility] DATE CREATED AUTHOR AUTHOR'S EFEIZ ATION 03/22/2023 [facility] DATE CREATED AUTHOR AUTHOR'S ORGANIZ ATION 12/13/2024 [facility] DATE CREATED AUTHOR AUTHOR'S ORGANIZ ATION 07/28/2025 [facility] EP[facility] DATE CREATED AUTHOR AUTHOR'S ORGANIZ ATION 09/04/2025 [facility] REASON FOR VISIT (unrecogniz ed section [...] Team MemberRelationshipSpecialtyStart DateEnd Date Aileen Castellanos MD [facility] [place] [address] PCP - [facility]08/22/23 Team Status: Inactive Member Role [...] 2025 End: June 15, 2025Leidy Ross APRN ADVANCED PRACTICE NURSE PSYCHOTHERAPIST-CAttending ProviderActive Start: June 15, 2025 End: June 15, 2025Team MemberRelationshipSpecialtyStart DateEnd Date Aileen Castellanos MD [address] [place] [address] [facility]08/22/23Team MemberRelationshipSpecialtyStart Date End Date Aileen Castellanos MD [address] [place], [place] [id number] [facility]08/22/23Team MemberRelationshipSpecialtyStart Date End Date Aileen Castellanos MD [address] [place], [place] [address] [facility]08/22/23 Team Status: Active Member Role/Relationship Status Dates Aileen Castellanos DO Primary Care Provider Active Team Status: Inactive Member Role/Relationship Status Dates Aileen Girvin , DO Primary Care Provider Active S tart: June 15, 2025 End: June 15, 2025Leidy Ross APRN ADVANCED PRACTICE NURSE PSYCHOTHERAPIST-CAttending ProviderActive Start: June 15, 2025 End: June [...] 2025Team MemberRelationshipSpecialtyStart DateEnd Date Aileen Castellanos MD [address] [place] [address] PCP - GeneralFamily Vmdyayai85/11/23 Goals (unrecognized section and content) Goals may [...] BE BASED ON THE PRIMARY CLINICAL RECORDS. [facility] [employer] [facility]. provides no warranty or guarantee of the accuracy or completeness of information in this document.
[2025-09-23 08:18] VITALS: BP 137/78; PULSE 95; TEMP 36.1; O2SAT 98; BMI 26.9
[2025-09-23 10:19] VITALS: BP 96/59; PULSE 74; TEMP 36.6; O2SAT 99
[2025-09-23 10:34] VITALS: BP 113/71; PULSE 78; O2SAT 99
[2025-09-23 10:49] VITALS: BP 107/68; PULSE 76; O2SAT 98
== END 2025-09-23 11:00 | disposition home or self-care (01) ==
LOC: SURGOUT 08:09
PROVIDERS: Anesthesiology; PCP Family Medicine; Visit Provider Surgery
PROC: (CPT 00812; principal; 2025-09-23 09:10)
DX: Z12.11 Encounter for screening for malignant neoplasm of colon (principal); D12.5 Benign neoplasm of sigmoid colon; E11.9 Type 2 diabetes mellitus without complications; E78.5 Hyperlipidemia, unspecified; F32.A Depression, unspecified; F41.9 Anxiety disorder, unspecified; Z79.85 Long-term (current) use of injectable non-insulin antidiabetic drugs; Z79.84 Long term (current) use 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 drugs; Z87.891 Personal history of nicotine dependence
CPT/HCPCS: 00812; 45380; 36415; 84703; 88305; J2250; J2704